=== PATIENT | female | born 1990 | race Caucasian/White ===

== ENCOUNTER 2022-10-11 08:09 | Emergency (ER) | payer OTHER, SELFPAY ==
[2022-10-11 08:16] VITALS: BP 149/83; PULSE 89; RESP 16; TEMP 36.7; O2SAT 98; BMI 58.1
--- NOTE | 2022-10-11 08:25 | ED.UPPEXIN1 ---
HPI - Extremity Injury (Upper) General Chief Complaint: Extremity Injury, Lower Stated Complaint: RT KNEE PAIN Time Seen by Provider: 10/11/22 08:12 Source: patient Mode of arrival: Wheelchair Limitations: physical limitation History of Present Illness HPI narrative: the patient presented with a right knee pain that started two days ago when she was trying to stand up and she felt a pop in her knee, she mentioned that she did had some pain before in her knee but not as much as today and she is not able to fully extend her knee because of the pain The patient denies any fall or injury other than that and she denies any other concerns Related Data Previous Rx's Medication Instructions Recorded acetaminophen 650 mg 650 mg PO Q8H PRN pain #20 tabs 10/11/22 tablet,extended release (Tylenol 8 Hour) prednisone 50 mg tablet 50 mg PO DAILY 5 days #5 tabs 10/11/22 Allergies Allergy/AdvReac Type Severity Reaction Status Date / Time No Known Drug Allergies Allergy Verified 10/11/22 08:22 Review of Systems ROS Status of ROS 10 or more systems reviewed and unremarkable except as noted in history and below PFSH PFS Social History Smoking status: Former smoker Exam Narrative Exam Narrative: Nurses notes and vital signs reviewed and patient is not hypoxic. General: Well-appearing and in no apparent distress. Skin: Warm, dry, no pallor noted. No rash. Head: Normocephalic, atraumatic. Neck: Supple, non-tender. Eye: Pupils are equal, round and EOMI. No scleral icterus. Ears, Nose, Mouth, and Throat: TM are clear, no nasal mucosal hypertrophy. Oral mucosa is moist, no posterior oropharynx erythema, uvula is mid-line Cardiovascular: Regular Rate and Rhythm without murmur, gallop or rub. Respiratory: No accessory muscle use or respiratory distress. Lungs are clear to auscultation, no wheezing, rales or rhonchi Chest Wall: no tenderness Back: No midline thoracic or lumbar vertebral tenderness. No CVA tenderness Musculoskeletal: limited extension of the right knee , no sign effusion but the pt body habitus prevent proper evalauation , no hotnes or redness and no contusion , tenderness on palpation of the upper edge of the patella and negative drawer signs GI: Abdomen is soft, non-distended. Normal bowel sounds. No masses appreciated. No tenderness to palpation. No rebound, guarding, or rigidity noted. Neurological: A&O x4. No cranial nerve dysfunction observed. No truncal ataxia. Moves all extremities. Sensation intact. Psychiatric: Cooperative and interactive. Normal mood and affect. Constitutional Vital Signs - 24 hr 10/11/22 08:16 10/11/22 10:09 Temperature 98.1 F 97.6 F Pulse Rate [Monitor] 89 85 Respiratory Rate 16 16 Blood Pressure [Right Arm] 149/83 H 154/97 H Pulse Oximetry 98 99 Oxygen Delivery Method Room Air Room Air Course Vital Signs Vital signs: Vital Signs Temperature 98.1 F 10/11/22 08:16 Pulse Rate 89 10/11/22 08:16 Respiratory Rate 16 10/11/22 08:16 Blood Pressure 149/83 H 10/11/22 08:16 Pulse Oximetry 98 10/11/22 08:16 Oxygen Delivery Method Room Air 10/11/22 08:16 Temperature 97.6 F 10/11/22 10:09 Pulse Rate 85 10/11/22 10:09 Respiratory Rate 16 10/11/22 10:09 Blood Pressure 154/97 H 10/11/22 10:09 Pulse Oximetry 99 10/11/22 10:09 Oxygen Delivery Method Room Air 10/11/22 10:09 MDM - Extremity Injury (Upper) MDM Narrative Medical decision making narrative: X-ray of the right knee shows effusion with no other acute pathology and the patient had Sergio wrap applied with crutches provided the main diagnoses right now possible meniscal or ligament injury and the patient will be referred to orthopedic and outpatient the patient provided with oral prednisone and Tylenol The patient is to followup with primary care physician in next 2-3 days or to return to the emergency department should any of the signs or symptoms worsen or new symptoms develop. The patient agrees with the following Diagnosis and Treatment plan and the patient will be discharged home. Discharge Plan Discharge Chief Complaint: Extremity Injury, Lower Clinical Impression: Injury of knee, ligament, Arthritis of knee Patient Disposition: Home, Self-Care Time of Disposition Decision: 09:46 Mode of Transportation: Private Vehicle Prescriptions / Home Meds: New prednisone 50 mg tablet 50 mg PO DAILY 5 Days Qty: 5 0RF acetaminophen [Tylenol 8 Hour] 650 mg tablet extended release 650 mg PO Q8H PRN (Reason: pain) Qty: 20 0RF Instructions: Arthritis (ED) Stand Alone Forms: Portal Instructions Follow Up Appointments: Dr Sahu ( Orthopedics ) Discharge Date/Time: 10/11/22 10:12
--- NOTE | 2022-10-11 08:31 | XR_ITS ---
The [address] [address] Patient Name: MADDIE SHIPMAN MRN: [id number] date: 1990 Sex: F Assigned Patient Location: ER Current Patient Location: ED.MAIN Accession/Order Number: [id number] Exam Date: 10/11/2022 08:40 Report Date: 10/11/2022 09:21 At the request of: ELENA NICHOLAS Procedure: XR knee RT 3V PROCEDURE: XR knee RT 3V HISTORY: pain right knee pain; no known injury COMPARISON: None. FINDINGS: BONES:Marked narrowing of the medial joint space with near [id number] articulation. Prominent periarticular degenerative osteophytes involving all 3 compartments. No fracture or dislocation. SOFT TISSUES:No visible soft tissue swelling. EFFUSION:Moderate joint effusion. OTHER: Negative. IMPRESSION: 1. Marked degenerative joint disease and moderate joint effusion. Electronically authenticated by: FRANCES OCHOA Date: 10/11/2022 09:21
[2022-10-11] MEDS: KETOROLAC TROMETHAMINE 60 MG/2 ML VIAL IM (08:49)
[2022-10-11 10:09] VITALS: BP 154/97; PULSE 85; RESP 16; TEMP 36.4; O2SAT 99
== END 2022-10-11 10:12 | disposition home or self-care (01) ==
PROVIDERS: Emergency Provider Emergency Medicine; PCP Family Medicine
DX: S89.81XA Other specified injuries of right lower leg, initial encounter (principal); M17.11 Unilateral primary osteoarthritis, right knee; X50.9XXA Other and unspecified overexertion or strenuous movements or postures, initial encounter; Z87.891 Personal history of nicotine dependence
CPT/HCPCS: 73562; 96374; 99284

== ENCOUNTER 2022-10-27 13:17 | Outpatient (RCR) | payer OTHER, SELFPAY | END 2022-12-02 13:23 | disposition home or self-care (01) | LOC: PT 13:17 | PROVIDERS: PCP Family Medicine; Visit Provider Family Medicine | DX: M25.561 Pain in right knee (principal) | CPT/HCPCS: 97110; 97113; 97161; 97535 ==

== ENCOUNTER 2023-05-09 07:49 | Emergency (ER) | payer OTHER, SELFPAY ==
[2023-05-09 07:56] VITALS: BP 168/104; PULSE 88; RESP 18; TEMP 36.9; O2SAT 98; BMI 54.9
--- NOTE | 2023-05-09 07:58 | XR_ITS ---
The [address] [address] Patient Name: MADDIE SHIPMAN MRN: [id number] date: 1990 Sex: F Assigned Patient Location: ER Current Patient Location: ER Accession/Order Number: [id number] Exam Date: 05/09/2023 08:11 Report Date: 05/09/2023 08:28 At the request of: DANIEL IRVING Procedure: XR knee LT 4V PROCEDURE: XR knee LT 4V COMPARISON: None. HISTORY: pain FINDINGS: BONES:No acute fracture or dislocation. Moderate osteoarthropathy of the lateral compartment with joint space narrowing and marginal osteophyte formation SOFT TISSUES:Negative. No visible soft tissue swelling. EFFUSION:None visible. OTHER: Negative. XR/XR knee LT 4V IMPRESSION: Moderate osteoarthritis lateral compartment Electronically authenticated by: MARY ANN MEJIA Date: 05/09/2023 08:28
--- NOTE | 2023-05-09 08:08 | ED.EXTPRO1 ---
HPI - Extremity Problem General Chief complaint: Extremity Injury, Lower Stated complaint: LOWER EXTREMITY PAIN Time Seen by Provider: 05/09/23 08:02 Source: patient Mode of arrival: walk-in History of Present Illness HPI Narrative: 33-year-old female presents for left knee pain. She had no symptoms yesterday but when she woke up today she noticed pain particularly when she steps on her foot. The pain is in the knee only. She points to the inferior and lateral aspect of her knee. She's had problems with arthritis in the right knee and had physical therapy and aquatic therapy. No other joint is hurting today. The pain is moderate. Related Data Home Medications Medication Instructions Recorded Confirmed celecoxib 200 mg capsule 200 mg PO PRN 05/09/23 05/09/23 Allergies Allergy/AdvReac Type Severity Reaction Status Date / Time No Known Drug Allergies Allergy Verified 10/11/22 08:22 Review of Systems ROS Narrative A ten point review of systems is negative except as noted above. PFSH PFSH Social History Smoking status: Former smoker Exam Narrative Exam Narrative: Nurses note and vital signs reviewed and patient is not hypoxic. General: The patient appears well and in no apparent distress. Patient is resting comfortably on cart. Skin: Warm, dry, no pallor noted. There is no rash noted. Head: Normocephalic, atraumatic Eye: Normal conjunctiva, no drainage Ears, Nose, Mouth, and Throat: oral mucosa is moist. Nares patent. Cardiovascular: Regular Rate and Rhythm Respiratory: Patient is in no distress, no accessory muscle use, lungs are clear to auscultation, no wheezing, rales or rhonchi GI: nontender Musculoskeletal: the left ankle and hip are nontender. The left knee is not swollen. There is no bruise or erythema. There is some tenderness to palpation inferiorly and laterally. The knee is not warm to touch. Neurological: A&O, normal speech Psychiatric: Cooperative Constitutional Vital Signs, click to edit/add: Last Vital Signs Temp 98.5 F 05/09/23 07:56 Pulse 88 05/09/23 07:56 Resp 18 05/09/23 07:56 BP 168/104 H 05/09/23 07:56 Pulse Ox 98 05/09/23 07:56 O2 Del Method Room Air 05/09/23 07:56 Course Vital Signs Vital signs: Vital Signs Temperature 98.5 F 05/09/23 07:56 Pulse Rate 88 05/09/23 07:56 Respiratory Rate 18 05/09/23 07:56 Blood Pressure 168/104 H 05/09/23 07:56 Pulse Oximetry 98 05/09/23 07:56 Oxygen Delivery Method Room Air 05/09/23 07:56 Temperature 98.5 F 05/09/23 07:56 Pulse Rate 88 05/09/23 07:56 Respiratory Rate 18 05/09/23 07:56 Blood Pressure 168/104 H 05/09/23 07:56 Pulse Oximetry 98 05/09/23 07:56 Oxygen Delivery Method Room Air 05/09/23 07:56 MDM - Extremity (Nontraumatic) MDM Narrative Medical decision making narrative: x-ray findings are discussed with the patient. She's seen an orthopedist previously and will follow-up with him. Differential Diagnosis Differential diagnosis: Likely gout and other (osteoarthritis, knee effusion) Imaging Data left knee x-ray: Radiologist's impression: Procedure: XR knee LT 4V PROCEDURE: XR knee LT 4V COMPARISON: None. HISTORY: pain FINDINGS: BONES:No acute fracture or dislocation. Moderate osteoarthropathy of the lateral compartment with joint space narrowing and marginal osteophyte formation SOFT TISSUES:Negative. No visible soft tissue swelling. EFFUSION:None visible. OTHER: Negative. IMPRESSION: Moderate osteoarthritis lateral compartment Electronically authenticated by: MARY ANN MEJIA Date: 05/09/2023 Discharge Plan Discharge Chief Complaint: Extremity Injury, Lower Clinical Impression: Arthritis of knee Patient Disposition: Home, Self-Care Time of Disposition Decision: 08:35 Condition: Good Mode of Transportation: Private Vehicle Prescriptions / Home Meds: No Action celecoxib 200 mg capsule 200 mg PO PRN Instructions: Osteoarthritis (ED) Stand Alone Forms: Portal Instructions Referrals: Ananth Roy MD [Primary Care Provider] - 1 week
== END 2023-05-09 08:45 | disposition home or self-care (01) ==
PROVIDERS: Emergency Provider Emergency Medicine; PCP Family Medicine
DX: M17.12 Unilateral primary osteoarthritis, left knee (principal); Z79.899 Other long term (current) drug therapy; Z87.891 Personal history of nicotine dependence
CPT/HCPCS: 73564; 99283

== ENCOUNTER 2024-02-22 11:30 | Emergency (ER) | payer OTHER, SELFPAY ==
[2024-02-22 11:38] VITALS: BP 159/90; PULSE 85; TEMP 36.6; O2SAT 98; BMI 54.9
--- OUTSIDE RECORDS SUMMARY | 2024-02-22 11:39 | XMS_ITS | CCD ---
Author Organization [facility] Team Providers Care Christmas Tree Grower Name Role Phone RONA NAIK Admitting Unavailable RONA NAIK Attending Unavailable NADERER, DR ANANTH Andujar Primary Care Unavailable RONA NAIK Consulting Unavailable NADERER, DR ANANTH Andujar Admitting Unavailable NADERER, DR ANANTH Andujar Attending Unavailable NADERER, DR ANANTH Andujar Primary Care Unavailable NADERER, DR ANANTH Andujar Consulting Unavailable NADERER, ANANTH Attending Unavailable Ananth Brunner MD Primary Care Provider SILVIA RINCON Attending Unavailable KANNAN, ANANTH Referring Unavailable NADERECharles, ANANTH Primary Care Unavailable MCKENZIE, SILVIA Attending Unavailable KANNAN, ANANTH Referring Unavailable NADERECharles, ANANTH Primary Care Unavailable MCKENZIE, SILVIA Attending Unavailable KANNAN, ANANTH Referring Unavailable KELLIEERECharles, ANANTH Primary Care Unavailable MCKENZIE, SILVIA Attending Unavailable KANNAN, ANANTH Referring Unavailable KANNAN, ANANTH Primary Care Unavailable MCKENZIE, SILVIA Attending Unavailable NADERECharles, ANANTH Referring Unavailable NADERECharles, ANANTH Primary Care Unavailable Teagan Kwan Attending Unavailable Medications Current Medications Medication Drug Class(es) Dates Sig (Normalized) Sig (Original) cefdinir 300 mg oral capsule (2 sources) Cephalosporin Antibacterial Start: 06-08-2023 End: 06-18-2023 take 1 capsule by mouth in the morning cefdinir (Omnicef) 300 MG capsule Indications: Acute non-recurrent pansinusitis Take 1 capsule (300 mg) by mouth in the morning and 1 capsule (300 mg) before bedtime. Do all this for 10 days. 20 capsule 0 06/08/2023 06/18/2023 Active celecoxib 200 mg oral capsule (2 sources) Nonsteroidal Anti-inflammatory Drug Start: 06-06-2023 take 1 capsule by mouth twice daily as needed for pain celecoxib (CeleBREX) 200 MG capsule Indications: Bilateral primary osteoarthritis of knee Take 1 capsule (200 mg) by mouth 2 (two) times a day as needed for mild pain 60 capsule 3 06/06/2023 Active ciprofloxacin 3 mg/ml ophthalmic solution (2 sources) Quinolone Antimicrobial Start: 06-08-2023 End: 06-15-2023 take 2 drop(s) into the eye(s) every four hours ciprofloxacin (Ciloxan) 0.3 % ophthalmic solution Indications: Acute bacterial conjunctivitis of both eyes Administer 2 drops into both eyes every 4 (four) hours for 7 days 5 mL 0 06/08/2023 06/15/2023 Active predniSONE 50 mg oral tablet (2 sources) Start: 06-08-2023 End: 06-14-2023 take 1 tablet by mouth in the morning predniSONE (Deltasone) 50 MG tablet Indications: Acute non-recurrent pansinusitis Take 1 tablet (50 mg) by mouth in the morning for 6 days. 6 tablet 0 06/08/2023 06/14/2023 Active Problems Active Problems Problem Classification Problem Date Documented Date Episodic/Chronic Essential hypertension (2 sources) Benign essential hypertension; Translations: [Essential (primary) hypertension] Onset: 04-21-2023 04-21-2023 Chronic Inflammation; infection of eye (except that caused by tuberculosis or sexually transmitteddisease) (4 sources) Acute infectious conjunctivitis; Translations: [Unspecified acute conjunctivitis, bilateral] Onset: 06-08-2023 06-08-2023 Episodic Nutritional deficiencies (2 sources) Vitamin D deficiency; Translations: [Vitamin D deficiency, unspecified] Onset: 04-21-2023 04-21-2023 Chronic Osteoarthritis (2 sources) Primary gonarthrosis, bilateral; Translations: [Bilateral primary osteoarthritis of knee] Onset: 04-21-2023 06-06-2023 Chronic Other endocrine disorders (2 sources) Polycystic ovary syndrome; Translations: [Polycystic ovarian syndrome] Onset: 04-21-2023 04-21-2023 Chronic Other nutritional; endocrine; and metabolic disorders (4 sources) Morbid obesity; Translations: [Morbid (severe) obesity due to excess calories] Onset: 06-08-2023 06-08-2023 Chronic Other screening for suspected conditions (not mental disorders or infectious disease) (4 sources) Encounter for screening for malignant neoplasm of cervix; Translations: [ENC SCREENING MALIG NEOPLASM CERV] Onset: 06-09-2022 Episodic Other upper respiratory infections (5 sources) Acute upper respiratory infection, unspecified; Translations: [Acute pansinusitis] Onset: 04-11-2022 06-08-2023 Episodic Unclassified (3 sources) CONTACT W/AND (SUSP) EXPOS COVID-19; Translations: [CONTACT W/AND (SUSP) EXPOS COVID-19] Onset: 04-11-2022 Past or Other Problems Problem Classification Problem Date Documented Da te Episodic/Chronic Unclassified (1 source) CONTACT W/AND (SUSP) EXPOS COVID-19; Translations: [CONTACT W/AND (SUSP) EXPOS COVID-19] Onset: 04-07-2022 Results Test Name Value Interpretation Reference Range Facility PAP ACOG PANEL 2: 30 to 65on 06-17-2022 . . Normal [facility] Comment on above: Result Comment: Perf ormed at: WB Performed By: #### [id number] #### [facility] [address] [place] [address] Dr. New Arzate Age Gdln ACOG Testing 30-65 Normal [facility] Comment on above: Performed By: #### [id number] #### [facility] [address] [place] [address] Dr. [place] Arzate DIAGNOSIS: Comment Normal [facility] Comment on above: Result Comment: NEGA TIVE FOR INTRAEPITHELIAL LESION OR MALIGNANCY. THIS SPECIMEN WAS RESCREENED PART OF OUR PROGRAM DIRECTOR/TRAFFIC DIRECTOR PROGRAM. Performed at: WB Performed By: #### [id number] #### [facility] [address] [place] [address] Dr. New Arzate HPV Aptima Negative Normal Negative [facility] Comment on above: Result Comment: This nucleic acid amplification test detects fourteen high-risk HPV types (16,18,31,33,35,39,45,51,52,56,58,59,66,68) without differentiation. Performed at: =G Performed By: #### [id number] #### [facility] [address] [place] [address] Dr. New Arzate HPV Genotype Reflex Comment Normal [facility] Comment on above: Result Comment: Crit eria not met, HPV Genotype not performed. Performed at: WB Performed By: #### [id number] #### [facility] [address] [place] [address] Dr. New Arzate Methodology: Comment Normal [facility] Comment on above: Result Comment: This liquid based ThinPrep(R) pap test was screened with the use of an image guided system. Performed at: WB Performed By: #### [id number] #### [facility] [address] [place] [address] Dr. New Arzate Note: Comment Normal [facility] Comment on above: Result Comment: The Pap smear is a screening test designed to aid in the detection of premalignant and malignant conditions of the uterine cervix. It is not a diagnostic procedure and should not be used as the sole means of detecting cervical cancer. Both false-positive and false-negative reports do occur. . Performed at: WB Performed By: #### [id number] #### [facility] [address] [place] [address] Dr. New Arzate Performed by: Comment Normal [facility] Comment on above: Result Comment: Jerrod Gayle, Supervisory Service Support Representative (ASCP) Performed at: WB Performed By: #### [id number] #### [facility] [address] [place] [address] Dr. New Arzate QC reviewed by: Comment Normal [facility] Comment on above: Result Comment: Ally Jesus, Supervisory Service Support Representative (ASCP) Performed at: WB Performed By: #### [id number] #### [facility] [address] [place] [address] Dr. New Arzate Specimen adequacy: Comment Normal [facility] Comment on above: Result Comment: Sati sfactory for evaluation. Endocervical and/or squamous metaplastic cells (endocervical component) are present. Performed at: WB Performed By: #### [id number] #### [facility] [address] [place] [address] Dr. New Arzate RESPIRATORY PANEL PLUSon Adenovirus Not detected Normal NOT DETECTED [facility] Comment on above: Performed By: #### R SPLUS #### [facility] [address] [place] [address] Dr. [place] Parapertusis Not detected Normal NOT DETECTED [facility] Comment on above: Performed By: #### R SPLUS #### [facility] [address] [place] [address] Dr. [place] Pertussis Not detected Normal NOT DETECTED [facility] Comment on above: Performed By: #### R SPLUS #### [facility] [address] [place] [address] Dr. [place] Ar[place]ate Chlamydia Pneumoniae Not detected Normal NOT DETECTED [facility] Comment on above: Performed By: #### R SPLUS #### [facility] [address] [place] [address] Dr. [place] Ar[place]ate Coronavirus 229E Not detected Normal NOT DETECTED [facility] Comment on above: Performed By: #### R SPLUS #### [facility] [address] [place] [address] Dr. [place] Ar[place] Coronavirus HKU1 Not detected Normal NOT DETECTED [facility] Comment on above: Performed By: #### R SPLUS #### [facility] [address] [place] [address] Dr. [place] Ar[place]ate Coronavirus NL63 Not detected Normal NOT DETECTED [facility] Comment on above: Performed By: #### R SPLUS #### [facility] [address] [place] [address] Dr. [place] Ar[place] Coronavirus OC43 Not detected Normal NOT DETECTED [facility] Comment on above: Performed By: #### R SPLUS #### [facility] [address] [place] [address] Dr. [place] Arzate Influenza A H1 2009 Not detected Normal NOT DETECTED [facility] Comment on above: Performed By: #### R SPLUS #### [facility] [address] [place] [address] Dr. [place] Ar[place]ate Influenza A H3 Detected Abnormal NOT DETECTED [facility] Comment on above: Performed By: #### R SPLUS #### [facility] [address] [place] [address] Dr. [place] Ar[place]ate Influenza B Not detected Normal NOT DETECTED [facility] Comment on above: Performed By: #### R SPLUS #### [facility] [address] [place] [address] Dr. [place] Ar[place] Metapneumovirus Not detected Normal NOT DETECTED [facility] Comment on above: Performed By: #### R SPLUS #### [facility] [address] [place] [address] Dr. [place] Ar[place] Mycoplas. Pneumoniae Not detected Normal NOT DETECTED [facility] Comment on above: Performed By: #### R SPLUS #### [facility] [address] [place] [address] Dr. [place] Ar[place] Parainfluenza 1 Not detected Normal NOT DETECTED [facility] Comment on above: Performed By: #### R SPLUS #### [facility] [address] [place] [address] Dr. [place] Parainfluenza 2 Not detected Normal NOT DETECTED [facility] Comment on above: Performed By: #### R SPLUS #### [facility] [address] [place] [address] Dr. [place] Parainfluenza 3 Not detected Normal NOT DETECTED [facility] Comment on above: Performed By: #### R SPLUS #### [facility] [address] [place] [address] Dr. [place] Parainfluenza 4 Not detected Normal NOT DETECTED [facility] Comment on above: Performed By: #### R SPLUS #### [facility] [address] [place] [address] Dr. [place] Ar[place] Rhino/Enterovirus Not detected Normal NOT DETECTED [facility] Comment on above: Performed By: #### R SPLUS #### [facility] [address] [place] [address] Dr. [place] Arzate RP2 Header 1 RESPIRATORY PANEL: VIRUSES Normal [facility] Comment on above: Performed By: #### R SPLUS #### [facility] [address] [address] [address] New Arzate RP2 Header 2 RESPIRATORY PANEL: BACTERIA Normal [facility] Comment on above: Performed By: #### R SPLUS #### [facility] [address] [place] [address] Dr. [place] Arzate RSV Not detected Normal NOT DETECTED [facility] Comment on above: Performed By: #### R SPLUS #### [facility] [address] [address] [address] New Arzate SARS-CoV-2 (COVID-19) RNA ANGEL+probe Ql (Unsp spec) Not detected Normal NOT DETECTED [facility] Comment on above: Performed By: #### R SPLUS #### [facility] [address] [place] [address] Dr. [place] Arzate Vital Signs Date Time Vital Sign Value Performing Clinician Faci lity 06-08-2023 11:50-0500 Body height 167.6 cm Ananth Brunner MD Work Phone: [facility] 06-08-2023 11:50-0500 Body mass index (BMI) [Ratio] 53.91 kg/m2 Ananth Brunner MD Work Phone: [facility] 06-08-2023 11:50-0500 Body temperature 97.5 [degF] Ananth Brunner MD Work Phone: [facility] 06-08-2023 11:50-0500 Body weight 151.5 kg Ananth Brunner MD Work Phone: [facility] 06-08-2023 11:50-0500 Diastolic blood pressure 70 mm[Hg] Ananth Brunner MD Work Phone: [facility] 06-08-2023 11:50-0500 Heart rate 94 /min Ananth Brunner MD Work Phone: [facility] 06-08-2023 11:50-0500 SaO2% (BldA) [Mass fraction] 97 % Ananth Brunner MD Work Phone: [facility] 06-08-2023 11:50-0500 Systolic blood pressure 120 mm[Hg] Ananth Brunner MD Work Phone: [facility] Encounters Encounter Date Encounter Type Care Provider Facility Start: 03-14-2024 ambulatory Teagan Kwan Facility :[facility] Start: 10-13-2023 End: 10-13-2023 ambulatory [facility] Start: 09-29-2023 End: 09-29-2023 ambulatory [facility] Start: 09-08-2023 End: 09-08-2023 ambulatory [facility] Start: 07-28-2023 End: 07-28-2023 ambulatory [facility] Start: 06-30-2023 End: 06-30-2023 ambulatory [facility] Start: 06-08-2023 End: 06-08-2023 ambulatory ANANTH BRUNNER Not Available Start: 06-08-2023 End: 06-08-2023 Office outpatient visit 15 minutes Ananth Brunner MD Work Phone: [facility] Comment on above: Acute non-recurrent pansinusitis (Primary Dx); Acute bacterial conjunctivitis of both eyes; Morbid obesity due to excess calories ([facility]) Start: 06-09-2022 End: 06-09-2022 ambulatory RONA ROE . Facility: Start: 04-07-2022 End: 04-07-[address] ANANTH BRUNNER Facility: Plan of Treatment Date Care Activity Detail Author Start: 12-30-2022 Influenza vaccination Influenza Vacc ine (#1) [facility] Start: 2020 Screening for malign ant neoplasm of cervix [facility] Start: 2011 Screening for malign ant neoplasm of cervix Pap Smear [facility] Immunizations Immunization Date Immunization Notes Care Provider Aj davies 03-14-2021 influenza virus vacc ine, unspecified formulation Ananth Brunner MD Work Phone: [facility] Healthcare Payers Date Payer Category Payer Unknown [employer] [id number] 2022-Present [address] [place] [address] [id number] 2022 Medicaid 2002 Medicaid [id number] 1990 Unknown [id number] 1990 Unknown [id number] 1990 Unknown [id number] 1990 Unknown [id number] 1990 Unknown [id number] 1990 Unknown [id number] 1990 Unknown [id number] 1990 Unknown [id number] 1959 Unknown [id number] 1959 Unknown [id number] Social History Date Type Detail Facility Start: 05-04-2023 Tobacco smoking status WIIS Ex-smoke r [facility] History of tobacco use Current smoker [facility] History of tobacco use Cigarette Smoker [facility] Start: 05-04-2023 Tobacco use and exposure Smoke less tobacco non-user [facility] Start: 06-08-2023 Alcohol intake Lifetime non-d aidan (finding) [facility] Start: 11-28-2022 End: 04-14-2023 [facility] of Social [facility] Start: 11-28-2022 End: 04-14-2023 Humiliation, Afraid, Rape, and Kick questionnaire [HARK] [facility] Within the last year , have you been afraid of your partner or ex-partner? No [facility] Are you now , , , , never or living with a partner? [facility] How often to you hav e a drink containing alcohol? Monthly or less [facility] How many standard dr inks containing alcohol do you have on a typical day? 1 or 2 [facility] How often do you hav e 6 or more drinks on 1 occasion? Never [facility] How hard is it for y ou to pay for the very basics like food, housing, medical care, and heating Somewhat hard [facility] Do you feel stress - tense, restless, nervous, or anxious, or unable to sleep at night because your mind is troubled all the time - these days [OSQ] Only a little [facility] (I/We) worried rissa er (my/our) food would run out before (I/we) got money to buy more. Sometimes true [facility] In the past 12 month s, has lack of transportation kept you from medical appointments or from getting medications? No [facility] At any time in the p ast 12 months, were you homeless or living in assisted [including now]? Yes [facility] Start: 05-04-2023 Tobacco Comment Last smoked : 5-10 years [facility] Start: 11-04-2022 Alcohol Comment Caffine intake : 1-2 cups per day [facility] Start: 1990 Sex Assigned At Not on file [facility] History of Present illness Narrative 06-08-2023 Ananth Brunner MD - 06/08/2023 12:01 PM Lit Brunner MD - 06/08/2023 12:01 PM Lit Brunner MD - 06/08/2023 11:45 AM Lit Brunner MD - 06/08/2023 11:45 AM EST Note Date & Type Note Facility 06-08-2023 History of Presen t illness Narrative Associated Problem(s): Acute non-recurrent pansinusitis Take antibiotics BID for 10 days. Use prednisone for inflammation. Use sudafed or other decongestants as needed. Use Robitussin or Robitussin-DM for cough. Can use afrin for congestion but no longer than 3 days. Can use Mucinex to bring up phlegm. Use Motrin or Tylenol as needed for fever, aches, or pains. Increase fluid intake and rest. Should improve over next 5-7 days and if no better or worse call for re-evaluation. Associated Problem(s): Acute bacterial conjunctivitis of both eyes Exam shows conjunctivitis and treat with drops x 7 days. Use warm compresses PRN. Avoid touching eye and wash hands frequently to prevent spread of illness. Subjective Patient ID: Emelyn Peralta is a 33 y.o. female who presents for Eye Drainage and Cough. HPI Review of Systems Objective Physical Exam Assessment/Plan Subjective Patient ID: Emelyn Peralta is a 33 y.o. female who presents for Eye Drainage and Cough. C/o cough, congestion, and rhinorrhea x 1 week. Afebrile. Severe fatigue and no energy. Mild cough dry and nonproductive. Denies chest tightness or SOB. GEORGE and sinus pressure in forehead and cheeks along with postnasal drip. Ears plugged and popping. Sore throat and pain to swallow. Mild nausea. Multiple kids sick at work. Using OTC medication and mild relief. No improvement in symptoms since onset. Woke up this am and eye red, puffy, and matted shut. Cough Pertinent negatives include no chest pain, shortness of breath or wheezing. Review of Systems Respiratory: Positive for cough. Negative for shortness of breath and wheezing. Cardiovascular: Negative for chest pain and palpitations. Gastrointestinal: Negative for abdominal pain, diarrhea, nausea and vomiting. Genitourinary: Negative for dysuria. Objective Physical Exam Constitutional: General: She is not in acute distress. Appearance: Normal appearance. HENT: Head: Normocephalic. Right Ear: Tympanic membrane normal. Left Ear: Tympanic membrane normal. Eyes: Extraocular Movements: Extraocular movements intact. Pupils: Pupils are equal, round, and reactive to light. Cardiovascular: Rate and Rhythm: Normal rate and regular rhythm. Heart sounds: No murmur heard. No friction rub. No gallop. Pulmonary: Effort: Pulmonary effort is normal. Breath sounds: Normal breath sounds. No wheezing, rhonchi or rales. Abdominal: General: Bowel sounds are normal. There is no distension. Palpations: Abdomen is soft. Tenderness: There is no abdominal tenderness. There is no guarding or rebound. Musculoskeletal: Cervical back: Neck supple. Right lower leg: No edema. Left lower leg: No edema. Neurological: Mental Status: She is alert. Assessment/Plan Problem List Items Addressed This Visit Acute non-recurrent pansinusitis - Primary Take antibiotics BID for 10 days. Use prednisone for inflammation. Use sudafed or other decongestants as needed. Use Robitussin or Robitussin-DM for cough. Can use afrin for congestion but no longer than 3 days. Can use Mucinex to bring up phlegm. Use Motrin or Tylenol as needed for fever, aches, or pains. Increase fluid intake and rest. Should improve over next 5-7 days and if no better or worse call for re-evaluation. Relevant Medications cefdinir (Omnicef) 300 MG capsule predniSONE (Deltasone) 50 MG tablet Acute bacterial conjunctivitis of both eyes Exam shows conjunctivitis and treat with drops x 7 days. Use warm compresses PRN. Avoid touching eye and wash hands frequently to prevent spread of illness. Relevant Medications ciprofloxacin (Ciloxan) 0.3 % ophthalmic solution documented in this encounter [facility] Evaluation note Note Date & Type Note Facility Evaluation note Diagnosis Acute non-recurrent pansinusitis- Primary Acute bacterial conjunctivitis of both eyes Morbid obesity due to excess calories ([facility]) documented in this encounter [facility] Summary Purpose Family History No Family History Records FoundNo Family History Records FoundNo Family History Records FoundNo Family History Records Found Advance Directives No Advanced Directives Records FoundNo Advanced Directives Records FoundNo Advanced Directives Records FoundNo Advanced Directives Records Found Additional Source Comments INFORMATION SOURCE (unrecogn ized section and content) DATE CREATED AUTHOR 07/14/2022 [facility] DATE CREATED AUTHOR AUTHOR'S ORGANIZ ATION 06/09/2023 [facility] DATE CREATED AUTHOR AUTHOR'S ORGANIZ ATION 10/15/2023 [facility] DATE CREATED AUTHOR AUTHOR'S ORGANIZ ATION 02/17/2024 [facility] Reason for Visit (unrecogniz ed section and content) Reason Comments Eye Drainage Cough Care Teams (unrecognized sec tion and content) [employer] Relationship Specialty Start Date End Date Ananth Brunner MD [address] [place] [address] PCP - General Family Medicine 06/08/23 FOR RECORDS PERTAINING TO PATIENTS WHO ARE OR HAVE BEEN ENROLLED IN A CHEMICAL DEPENDENCY/SUBSTANCEABUSE PROGRAM, SOME INFORMATION MAY BE OMITTED. This clinical summary was aggregated from multiple sources. Caution should be exercised in using it in the provision of clinical care. This summary normalizes information from multiple sources, and as a consequence, information in this document may materially change the coding, format and clinical context of patient data. In addition, data may be omitted in some cases. CLINICAL DECISIONS SHOULD BE BASED ON THE PRIMARY CLINICAL RECORDS. [employer] [facility]. provides no warranty or guarantee of the accuracy or completeness of information in this document.
[2024-02-22] MEDS: METHYLPREDNISOLONE SOD SUCC PF 125 MG/2 ML VIAL IM (12:30)
--- NOTE | 2024-02-22 12:30 | ED.BACK1 ---
HPI HPI - Back Pain/Injury General Chief Complaint: Back Pain/Injury Stated Complaint: BACK PAIN Time Seen by Provider: 02/22/24 11:45 Source: patient, family and caregiver Mode of arrival: Wheelchair Limitations: no limitations History of Present Illness HPI Narrative: The patient is coming to the ER with a back pain radiating to both hips, the patient mentioned that she woke up this morning with this pain although she did have some physical work yesterday which was grabbing few objects that she thinks they were heavy The patient denies any numbness tingling down her legs She also denies any numbness or tingling in her buttock area The patient denies any weakness She did not take anything [id number] Related Data Home Medications ?Medication ?Instructions ?Recorded ?Confirmed celecoxib 200 mg capsule 200 mg PO PRN 05/09/23 02/22/24 Previous Rx's ?Medication ?Instructions ?Recorded diclofenac sodium 75 mg 75 mg PO BID PRN pain #20 tabs 02/22/24 tablet,delayed release famotidine 20 mg tablet (Pepcid) 20 mg PO BID #10 tabs 02/22/24 orphenadrine citrate 100 mg 100 mg PO BID PRN muscle spasm #14 02/22/24 tablet,extended release tabs prednisone 50 mg tablet 50 mg PO DAILY 3 days #3 tabs 02/22/24 Allergies Allergy/AdvReac Type Severity Reaction Status Date / Time No Known Drug Allergies Allergy Verified 10/11/22 08:22 Opioid HPI Opioid Management Most Recent Opioid Data: Last Pain Scale 6 05/09/23 07:59 05/09/23 Review of Systems ROS Status of ROS 10 or more systems reviewed and unremarkable except as noted in history and below PFSH PFS Social History Smoking status: Former smoker Little interest or pleasure in doing things: not at all Feeling down, depressed, or hopeless: not at all Exam Narrative Exam Narrative: Nurses notes and vital signs reviewed and patient is not hypoxic. General: Well-appearing and in no apparent distress. Skin: Warm, dry, no pallor noted. No rash. Head: Normocephalic, atraumatic. Neck: Supple, non-tender. Eye: Pupils are equal, round and EOMI. No scleral icterus. Ears, Nose, Mouth, and Throat: TM are clear, no nasal mucosal hypertrophy. Oral mucosa is moist, no posterior oropharynx erythema, uvula is mid-line Cardiovascular: Regular Rate and Rhythm without murmur, gallop or rub. Respiratory: No accessory muscle use or respiratory distress. Lungs are clear to auscultation, no wheezing, rales or rhonchi Chest Wall: no tenderness Back: No midline thoracic or lumbar vertebral tenderness the patient only have right paraspinal muscle tenderness no intervertebral line tenderness in the lumbar upper level Musculoskeletal: normal ROM, no calf or popliteal tenderness, no lower extremity edema/swelling GI: Abdomen is soft, non-distended. Normal bowel sounds. No masses appreciated. No tenderness to palpation. No rebound, guarding, or rigidity noted. Neurological: A&O x4. No cranial nerve dysfunction observed. No truncal ataxia. Moves all extremities. Sensation intact. Psychiatric: Cooperative and interactive. Normal mood and affect. Constitutional Vital Signs, click to edit/add: Last Vital Signs Temp 98 F 02/22/24 11:38 Pulse 85 02/22/24 11:38 Resp 18 02/22/24 11:38 BP 159/90 H 02/22/24 11:38 Pulse Ox 98 02/22/24 11:38 O2 Del Method Room Air 02/22/24 11:38 Course Vital Signs Vital signs: Vital Signs Temperature 98 F 02/22/24 11:38 Pulse Rate 85 02/22/24 11:38 Respiratory Rate 18 02/22/24 11:38 Blood Pressure 159/90 H 02/22/24 11:38 Pulse Oximetry 98 02/22/24 11:38 Oxygen Delivery Method Room Air 02/22/24 11:38 Temperature 98 F 02/22/24 11:38 Pulse Rate 85 02/22/24 11:38 Respiratory Rate 18 02/22/24 11:38 Blood Pressure 159/90 H 02/22/24 11:38 Pulse Oximetry 98 02/22/24 11:38 Oxygen Delivery Method Room Air 02/22/24 11:38 MDM - Back Pain/Injury MDM Narrative Medical decision making narrative: The patient urinalysis showed no acute pathology and no UTI her presentation mostly secondary to muscular pain With no alarming symptoms she was provided with Toradol and Norflex after which she was feeling much better Discharged home with prednisone Norflex and Voltaren With instruction to come back in case of any new symptoms The patient is to follow up with primary care physician in next 2-3 days or to return to the emergency department should any of the signs or symptoms worsen or new symptoms develop. The patient agrees with the following Diagnosis and Treatment plan and the patient will be discharged home. Lab Data Labs: Lab Results 02/22/24 Range/Units 12:47 Urine Color Lt. yellow (YELLOW) Urine Clarity Clear (CLEAR) Urine pH 6.0 (5.0-9.0) Ur Specific [place] 1.015 (1.005-1.025) Urine Protein Negative (NEG/TRACE) mg/dL Urine Glucose (UA) Negative (NEGATIVE) mg/dL Urine Ketones Negative (NEGATIVE) mg/dL Urine Occult Blood Negative (NEGATIVE) Urine Nitrite Negative (NEGATIVE) Urine Bilirubin Negative (NEGATIVE) Urine Urobilinogen 0.2 (0.2-1.0) EU/dL Ur Leukocyte Esterase Trace A (NEGATIVE) Urine RBC 0-2 (0-2) #/HPF Urine WBC 2-5 A (NONE SEEN) #/HPF Ur Squamous Epith Cells Few A (NONE/RARE) #/LPF Urine Crystals None seen (None Seen) #/HPF Urine Bacteria Trace A (NONE SEEN) #/HPF Urine Casts None seen (NONE SEEN) #/LPF Urine Mucus None seen (NONE SEEN) Ur Culture Indicated? No Discharge Plan Discharge Chief Complaint: Back Pain/Injury Clinical Impression: Back sprain Patient Disposition: Home, Self-Care Time of Disposition Decision: 12:30 Condition: Good Mode of Transportation: Private Vehicle Prescriptions / Home Meds: New orphenadrine citrate 100 mg tablet extended release 100 mg PO BID PRN (Reason: muscle spasm) Qty: 14 0RF diclofenac sodium 75 mg tablet,delayed release (DR/EC) 75 mg PO BID PRN (Reason: pain ) Qty: 20 0RF famotidine [Pepcid] 20 mg tablet 20 mg PO BID Qty: 10 0RF prednisone 50 mg tablet 50 mg PO DAILY 3 Days Qty: 3 0RF No Action celecoxib 200 mg capsule 200 mg PO PRN Print Language: Cuban Instructions: Back Pain (ED) Referrals: Ananth Roy MD [Primary Care Provider] - 1 week Discharge Date/Time: 02/22/24 13:09
[2024-02-22] MEDS: KETOROLAC TROMETHAMINE 60 MG/2 ML VIAL IM (12:31)
[2024-02-22] MEDS: ORPHENADRINE 60 MG/ 2 ML VIAL IM (12:31)
[2024-02-22 12:57] LABS: Bilirubin Urine NEGATIVE (NEGATIVE); Blood Urine NEGATIVE (NEGATIVE); Clarity Urine CLEAR (CLEAR); Color Urine LT. YELLOW (YELLOW); Glucose Urine UA NEGATIVE (NEGATIVE); Ketones Urine NEGATIVE (NEGATIVE); Leukocyte Esterase Urine TRACE (NEGATIVE); Nitrite Urine NEGATIVE (NEGATIVE); Protein Urine NEGATIVE (NEG/TRACE); Specific Gravity Urine 1.015 (1.005-1.025); Urobilinogen Urine 0.2 EU/dL (0.2-1.0)
[2024-02-22 13:08] LABS: Urine Microscopic Indicated YES
[2024-02-22 13:09] LABS: Bacteria Urine TRACE #/HPF (NONE SEEN); Cast Seen? NONE SEEN #/LPF (NONE SEEN); Crystals Seen? None Seen #/HPF (None Seen); Mucus Urine NONE SEEN (NONE SEEN); RBC Urine 0-2 #/HPF (0-2); Squamous Epithelial Cell Urine FEW #/LPF (NONE/RARE); Urine Culture Indicated NO
== END 2024-02-22 13:09 | disposition home or self-care (01) ==
PROVIDERS: Emergency Provider Emergency Medicine; PCP Family Medicine
DX: S33.8XXA Sprain of other parts of lumbar spine and pelvis, initial encounter (principal); X50.0XXA Overexertion from strenuous movement or load, initial encounter; Z87.891 Personal history of nicotine dependence
CPT/HCPCS: 81001; 96372; 99284; J1885; J2360; J2919

== ENCOUNTER 2024-05-24 10:23 | Outpatient (OUT) | payer OTHER, SELFPAY ==
--- OUTSIDE RECORDS SUMMARY | 2024-05-24 10:46 | XMS_ITS | CCD ---
Author Organization [facility] Care Team Providers Care Joint Machine Operator Name Role Phone JYOTHI .RONA Admitting Unavailable JYOTHIRONA BERMAN Attending Unavailable NADERER, DR ANANTH Andujar Primary Care Unavailable RONA NAIK Consulting Unavailable NADERECharles, DR ANANTH Andujar Admitting Unavailable NADERER, DR ANANTH Andujar Attending Unavailable NADERER, DR ANANTH Andujar Primary Care Unavailable NADERER, DR ANANTH Andujar Consulting Unavailable Ananth Brunner MD Primary Care Provider [phone] SILVIA RINCON Attending Unavailable KANNAN, ANANTH Referring Unavailable NADERER, ANANTH Primary Care Unavailable MCKENZIE, SILVIA Attending Unavailable NADERER, ANANTH Referring Unavailable NADERER, ANANTH Primary Care Unavailable MCKENZIE, SILVIA Attending Unavailable NADERECharles, ANANTH Referring Unavailable NADERER, ANANTH Primary Care Unavailable MCKENZIE, SILVIA Attending Unavailable NADERECharles, ANANTH Referring Unavailable NADERER, ANANTH Primary Care Unavailable MCKENZIE, SILVIA Attending Unavailable NADERER, ANANTH Referring Unavailable NADERER, ANANTH Primary Care Unavailable Teagan Kwan Attending Unavailable Ananth Brunner MD Unavailable ANANTH BRUNNER Attending Unavailable ANANTH BRUNNER Attending Unavailable Medications Current Medications Medication Drug Class(es) Dates Sig (Normalized) Sig (Original) atomoxetine 40 mg oral capsule (2 sources) Norepinephrine Reuptake Inhibitor Start: 05-03-2024 take 1 capsule by mouth once daily atomoxetine (Strattera) 40 MG capsule Indications: ADD (attention deficit 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 Take 1 capsule (40 mg) by mouth Daily Swallow capsule whole; do not open. If opened accidentally, do not touch eyes; wash hands immediately (product is an eye irritant). 30 capsule 3 05/03/2024 Active Start: 05-03-2024 take 1 capsule by [facility] once daily atomoxetine (Strattera) 40 MG capsule Indications: ADD (attention deficit 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 Take 1 capsule (40 mg) by mouth Daily Swallow capsule whole; do not open. If opened accidentally, do not touch eyes; wash hands immediately (product is an eye irritant). 30 capsule 3 05/03/2024 Active cefdinir 300 mg oral capsule (2 sources) [...] 06/18/2023 Active celecoxib 200 mg oral capsule (5 sources) Nonsteroidal Anti-inflammatory Drug Start: 06-06-2023 take [...] Problem Classification Problem Date Documented Date Episodic/Chronic Disorders usually diagnosed in infancy, childhood, or adolescence (4 sources) Attention deficit hyperactivity disorder, predominantly inattentive type; Translations: [Other specified behavioral and emotional disorders with onset usually occurring in childhood and adolescence] Onset: 05-03-2024 05-03-2024 Chronic Essential hypertension (7 sources) Benign essential hypertension; Translations: [Essential (primary) hypertension] Onset: 04-21-2023 04-21-2023 Chronic Nutritional deficiencies (5 sources) Vitamin D deficiency; Translations: [Vitamin D deficiency, unspecified] Onset: 04-21-2023 04-21-2023 Chronic Osteoarthritis (5 sources) Primary gonarthrosis, bilateral; Translations: [Bilateral primary osteoarthritis of knee] Onset: 04-21-2023 06-06-2023 Chronic Other endocrine disorders (5 sources) Polycystic ovary syndrome; Translations: [Polycystic ovarian syndrome] Onset: 04-21-2023 04-21-2023 Chronic Other nutritional; endocrine; and metabolic disorders (5 sources) Morbid obesity; Translations: [Morbid (severe) obesity due to excess calories] Onset: 06-08-2023 06-08-2023 Chronic Other nutritional; endocrine; and metabolic disorders (4 sources) Severe obesity; Translations: [Class 3 severe obesity due to excess calories with serious comorbidity and body mass index (BMI) of 50.0 to 59.9 in adult ([facility])] Onset: 06-08-2023 05-03-2024 Chronic Other screening for suspected conditions (not mental disorders or infectious disease) (4 sources) Encounter for screening for malignant neoplasm of cervix; Translations: [ENC SCREENING MALIG NEOPLASM CERV] Onset: 06-09-2022 Episodic Unclassified (3 sources) CONTACT W/AND (SUSP) EXPOS COVID-19; Translations: [CONTACT W/AND (SUSP) EXPOS COVID-19] Onset: 04-11-2022 Past or Other Problems Problem Classification Problem Date Documented Da te Episodic/Chronic Inflammation; infection of eye (except that caused by tuberculosis or sexually transmitteddisease) (7 sources) Acute infectious conjunctivitis; Translations: [Unspecified acute conjunctivitis, bilateral] Onset: 06-08-2023 Resolved: 05-03-2024 06-08-2023 Episodic Other upper respiratory infections (8 sources) Acute upper respiratory infection, unspecified; Translations: [Acute pansinusitis] Onset: 04-11-2022 Resolved: 05-03-2024 06-08-2023 Episodic Unclassified (1 source) CONTACT W/AND (SUSP) EXPOS COVID-19; Translations: [CONTACT W/AND (SUSP) EXPOS COVID-19] Onset: 04-07-2022 Results Test Name Value Interpretation Reference Range Facility PAP ACOG PANEL 2: 30 to 65on 06-17-2022 . . Normal [facility] Comment on above: Result Comment: Perf ormed at: WB Performed By: #### [id number] #### [facility] [address] [address] [address] New Arzate Age Gdln ACOG Testing 30-65 Normal [facility] Comment on above: Performed By: #### [id number] #### [facility] [address] [address] [address] [place] Ar[place] DIAGNOSIS: Comment Normal [facility] Comment on above: Result Comment: NEGA TIVE FOR INTRAEPITHELIAL LESION OR MALIGNANCY. THIS SPECIMEN WAS RESCREENED PART OF OUR DELIVERY LEAD PROGRAM. Performed at: WB Performed By: #### [id number] #### [facility] [address] [place] [address] Dr. [place] Arz[place] HPV Aptima Negative Normal Negative [facility] Comment on above: Result Comment: This nucleic acid amplification test detects fourteen high-risk HPV types (16,18,31,33,35,39,45,51,52,56,58,59,66,68) without differentiation. Performed at: =G Performed By: #### [id number] #### [facility] [address] [place] [address] Dr. [place] Ar[place]ate HPV Genotype Reflex Comment Normal [facility] Comment on above: Result Comment: Crit eria not met, HPV Genotype not performed. Performed at: WB Performed By: #### [id number] #### [facility] [address] [place] [address] Dr. New Arzate Methodology: Comment [facility] Comment on above: Result Comment: This liquid based ThinPrep(R) pap test was screened with the use of an image guided system. Performed at: WB Performed By: #### [id number] #### [facility] [address] [place] [address] Dr. New Arzate Note: Comment Normal [facility] Comment on above: Result Comment: The Pap smear is a screening test designed to aid in the detection of premalignant and malignant conditions of the uterine cervix. It is not a diagnostic procedure and should not be used as the sole means of detecting cervical cancer. Both false-positive and false-negative reports do occur. . Performed at: WB Performed By: #### [id number] #### [facility] [address] [place] [address] Dr. [place] Arzate Performed by: Comment Normal [facility] Comment on above: Result Comment: Jerrod Gayle, Supervisory Freight Router (ASCP) Performed at: WB Performed By: #### [id number] #### [facility] [address] [place] [address] Dr. New Arzate QC reviewed by: Comment Normal [facility] Comment on above: Result Comment: Ally Jesus, Supervisory Freight Router (ASCP) Performed at: WB Performed By: #### [id number] #### [facility] [address] [place] [address] Dr. [place] Arzate Specimen adequacy: Comment Normal [facility] Comment on above: Result Comment: Sati sfactory for evaluation. Endocervical and/or squamous metaplastic cells (endocervical component) are present. Performed at: WB Performed By: #### [id number] #### [facility] [address] [place] [address] Dr. [place] Arzate RESPIRATORY PANEL PLUSon Adenovirus Not detected Normal NOT DETECTED [facility] Comment on above: Performed By: #### R SPLUS #### [facility] [address] [place] [address] Dr. New Tay. Parapertusis Not detected Normal NOT DETECTED [facility] Comment on above: Performed By: #### R SPLUS #### [facility] [address] [place] [address] Dr. [place]. Pertussis Not detected Normal NOT DETECTED [facility] Comment on above: Performed By: #### R SPLUS #### [facility] [address] [place] [address] Dr. [place] Ar[place] Chlamydia Pneumoniae Not detected Normal NOT DETECTED [facility] Comment on above: Performed By: #### R SPLUS #### [facility] [address] [place] [address] Dr. [place] Ar[place] Coronavirus 229E Not detected Normal NOT DETECTED [facility] Comment on above: Performed By: #### R SPLUS #### [facility] [address] [place] [address] Dr. [place] Coronavirus HKU1 Not detected Normal NOT DETECTED [facility] Comment on above: Performed By: #### R SPLUS #### [facility] [address] [place] [address] Dr. [place] Ar[place] Coronavirus NL63 Not detected Normal NOT DETECTED [facility] Comment on above: Performed By: #### R SPLUS #### [facility] [address] [place] [address] Dr. [place] Ar[place] Coronavirus OC43 Not detected Normal NOT DETECTED [facility] Comment on above: Performed By: #### R SPLUS #### [facility] [address] [place] [address] Dr. [place] Arzate Influenza A H1 2009 Not detected Normal NOT DETECTED [facility] Comment on above: Performed By: #### R SPLUS #### [facility] [address] [place] [address] Dr. [place] Ar[place] Influenza A H3 Detected Abnormal NOT DETECTED [facility] Comment on above: Performed By: #### R SPLUS #### [facility] [address] [place] [address] Dr. [place] Ar[place] Influenza B Not detected Normal NOT DETECTED [facility] Comment on above: Performed By: #### R SPLUS #### [facility] [address] [place] [address] Dr. [place] Metapneumovirus Not detected Normal NOT DETECTED [facility] Comment on above: Performed By: #### R SPLUS #### [facility] [address] [place] [address] Dr. [place] Mycoplas. Pneumoniae Not detected Normal NOT DETECTED [facility] Comment on above: Performed By: #### R SPLUS #### [facility] [address] [place] [address] Dr. [place] Parainfluenza 1 Not detected Normal NOT DETECTED [facility] Comment on above: Performed By: #### R SPLUS #### [facility] [address] [place] [address] Dr. [place] Parainfluenza 2 Not detected Normal NOT DETECTED [facility] Comment on above: Performed By: #### R SPLUS #### [facility] [address] [place] [address] Dr. [place] Parainfluenza 3 Not detected Normal NOT DETECTED [facility] Comment on above: Performed By: #### R SPLUS #### [facility] [address] [place] [address] Dr. [place] Parainfluenza 4 Not detected Normal NOT DETECTED [facility] Comment on above: Performed By: #### R SPLUS #### [facility] [address] [place] [address] Dr. [place] Rhino/Enterovirus Not detected Normal NOT DETECTED [facility] Comment on above: Performed By: #### R SPLUS #### [facility] [address] [place] [address] Dr. [place] Ar[place]ate RP2 Header 1 RESPIRATORY PANEL: VIRUSES Normal [facility] Comment on above: Performed By: #### R SPLUS #### [facility] [address] [place] [address] Dr. [place] Ar[place]ate RP2 Header 2 RESPIRATORY PANEL: BACTERIA Normal [facility] Comment on above: Performed By: #### R SPLUS #### [facility] [address] [place] [address] Dr. [place] Ar[place]ate RSV Not detected Normal NOT DETECTED [facility] Comment on above: Performed By: #### R SPLUS #### [facility] [address] [place] [address] Dr. [place] Arzate SARS-CoV-2 (COVID-19) RNA ANGEL+probe Ql (Unsp spec) Not detected Normal NOT DETECTED [facility] Comment on above: Performed By: #### R SPLUS #### [facility] [address] [place] [address] Dr. [place] Ar[place]ate Vital Signs Date Time Vital Sign Value Performing Clinician Kalyn reece 05-03-2024 09:41-0500 Body height 167.6 cm Ananth Brunner MD Work Phone: [facility] 05-03-2024 09:41-0500 Body mass index (BMI) [Ratio] 56.01 kg/m2 Ananth Brunner MD Work Phone: [facility] 05-03-2024 09:41-0500 Body temperature 97.11 [degF] Ananth Brunner MD Work Phone: [facility] 05-03-2024 09:41-0500 Body weight 157.4 kg Ananth Brunner MD Work Phone: [facility] 05-03-2024 09:41-0500 Diastolic blood pressure 68 mm[Hg] Ananth Brunner MD Work Phone: [facility] 05-03-2024 09:41-0500 Heart rate 94 /min Ananth Brunner MD Work Phone: [facility] 05-03-2024 09:41-0500 Respiratory rate 20 /min Ananth Brunner MD Work Phone: [facility] 05-03-2024 09:41-0500 SaO2% (BldA) [Mass fraction] 97 % Ananth Brunner MD Work Phone: [facility] 05-03-2024 09:41-0500 Systolic blood pressure 120 mm[Hg] Ananth Brunner MD Work Phone: [facility] 06-08-2023 11:50-0500 Body height 167.6 cm Ananth Brunner MD Work Phone: [facility] 06-08-2023 11:50-0500 Body mass index (BMI) [Ratio] 53.91 kg/m2 Ananth Brunner MD Work Phone: [facility] 06-08-2023 11:50-0500 Body temperature 97.5 [degF] Ananth Brunner MD Work Phone: [facility] 06-08-2023 11:50-0500 Body weight 151.5 kg Ananth Brunner MD Work Phone: [facility] 06-08-2023 11:50-0500 Diastolic blood pressure 70 mm[Hg] Ananth Brunner MD Work Phone: [facility] 06-08-2023 11:50-0500 Heart rate 94 /min Ananth Brunner MD Work Phone: [facility] 06-08-2023 11:50-0500 SaO2% (BldA) [Mass fraction] 97 % Ananth Brunner MD Work Phone: [facility] 06-08-2023 11:50-0500 Systolic blood pressure 120 mm[Hg] Ananth Brunner MD Work Phone: [facility] Encounters Encounter Date Encounter Type Care Provider Facility Start: 05-03-2024 End: 05-03-2024 Bamboo flowsheet Ananth Brunner MD Work Phone: [facility] Start: 05-03-2024 End: 05-03-2024 Bamboo flowsheet Ananth Brunner MD Work Phone: [facility] Start: 05-03-2024 End: 05-03-2024 Patient encounter procedure Ananth Brunner MD Work Phone: [facility] Work Phone: Start: 05-03-2024 End: 05-03-2024 Periodic preventive med est patient 18-39 yrs Ananth Brunner MD Work Phone: [facility] Comment on above: Annual physical exam (Primary Dx); Essential hypertension, benign (CMS/HCC); ADD (attention deficit 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; Class 3 severe obesity due to excess calories with serious comorbidity and body mass index (BMI) of 50.0 to 59.9 in adult (CMS/HCC) Start: 05-03-2024 End: 05-03-2024 ambulatory ANANTH BRUNNER Not Available Start: 03-14-2024 ambulatory Teagan Kwan Facility :[facility] Start: 10-13-2023 End: 10-13-2023 ambulatory [facility] Start: 09-29-2023 End: 09-29-2023 ambulatory [facility] Start: 09-08-2023 End: 09-08-2023 ambulatory [facility] Start: 07-28-2023 End: 07-28-2023 ambulatory [facility] Start: 06-30-2023 End: 06-30-2023 ambulatory [facility] Start: 06-08-2023 End: 06-08-2023 Office outpatient visit 15 minutes Ananth Brunner MD Work Phone: [facility] Comment on above: Acute non-recurrent pansinusitis (Primary Dx); Acute bacterial conjunctivitis of both eyes; Morbid obesity due to excess calories ([facility]) Start: 06-08-2023 End: 06-08-2023 ambulatory ANANTH BRUNNER Not Available Start: 06-09-2022 End: 06-09-2022 ambulatory RONA ROE . Facility:[facility] Start: 04-07-2022 End: 04-07-[address] ANANTH BRUNNER Facility: Plan of Treatment Date Care Activity Detail Author Start: 06-03-2024 End: 06-03-2024 Patient encounter procedure 06/03/2024 8:45 AM EST Office Visit [facility] [address] [place] [id number] Ananth Brunner MD [address] [place] [id number] [facility] Start: 05-03-2024 End: 05-03-2025 Basic metabolic 1998 panel - Serum or Plasma Basic metabolic panel Lab Routine Annual physical exam Expected: 05/03/2024 (Approximate), Expires: 05/03/2025 [facility] Comment on above: Expected: 05/03/2024 (Approximate), Expires: 05/03/2025 Start: 05-03-2024 End: 05-03-2025 CBC W Auto Differential panel - Blood CBC and differential Lab Routine Annual physical exam Expected: 05/03/2024 (Approximate), Expires: 05/03/2025 [facility] Comment on above: Expected: 05/03/2024 (Approximate), Expires: 05/03/2025 Start: 05-03-2024 End: 05-03-2025 Hemoglobin A1c/Hemoglobin.total in Blood Hemoglobin A1c Lab Routine Annual physical exam Expected: 05/03/2024 (Approximate), Expires: 05/03/2025 [facility] Work Phone: Comment on above: Expected: 05/03/2024 (Approximate), Expires: 05/03/2025 Start: 05-03-2024 End: 05-03-2025 Hepatic function 2000 panel - Serum or Plasma Hepatic function panel Lab Routine Annual physical exam Expected: 05/03/2024 (Approximate), Expires: 05/03/2025 [facility] Comment on above: Expected: 05/03/2024 (Approximate), Expires: 05/03/2025 Start: 05-03-2024 End: 05-03-2025 Lipid 1996 panel - Serum or Plasma Lipid panel Lab Routine Annual physical exam Expected: 05/03/2024 (Approximate), Expires: 05/03/2025 [facility] Comment on above: Expected: 05/03/2024 (Approximate), Expires: 05/03/2025 Start: 05-03-2024 End: 05-03-2025 TSH W/REFLEX TO FT4 TSH W/REFLEX TO FT4 Lab Routine Annual physical exam Expected: 05/03/2024 (Approximate), Expires: 05/03/2025 [facility] Comment on above: Expected: 05/03/2024 (Approximate), Expires: 05/03/2025 Start: 05-03-2024 End: 05-03-2024 Patient encounter procedure 05/03/2024 9:45 AM EST Office Visit [facility] [address] [place] [address] Ananth Brunner MD [address] [place] [address] Arrived [facility] Comment on above: Arrived Start: 12-31-2023 Influenza vaccination Influenza Vacc ine (#1) [facility] Start: 12-30-2022 Influenza vaccination Influenza Vacc ine (#1) [facility] Start: 2020 Screening for malign ant neoplasm of cervix [facility] Start: 2011 Screening for malign ant neoplasm of cervix Pap Smear [facility] Immunizations Immunization Date Immunization Notes Care Provider Fa cility 03-14-2021 influenza virus vacc ine, unspecified formulation Ananth Brunner MD Work Phone: [facility] Payers Date Payer Category Payer Private Health Insurance [employer] [id number] 2022 Unknown [employer] [id number] 2022-Present [address] [place] [address] [id number] 2022 Medicaid 2002 Medicaid [id number] 1990 Unknown [id number] 1990 Unknown [id number] 593 1990 Unknown [id number] 1286 1990 Unknown [id number] 1286 1990 Unknown [id number] 1286 1990 Unknown [id number]. 1286 1990 Unknown [id number] [id number]. 1286 1990 Unknown [id number]. 1259 1990 Unknown [id number] 1259 1959 Unknown [id number] 1959 Unknown [id number] Social History Date Type Detail Facility Start: 05-04-2023 Tobacco smoking status NCIS Ex-smoke r [facility] History of tobacco use Current smoker [facility] History of tobacco use Cigarette Smoker [facility] Start: 05-04-2023 Tobacco use and exposure Smoke less tobacco non-user [facility] Start: 06-08-2023 End: 05-03-2024 Alcohol intake Lifetime non-drinker (finding) [facility] Start: 04-14-2023 End: 05-03-2024 [facility] Start: 04-14-2023 End: 05-03-2024 Humiliation, Afraid, Rape, and Kick questionnaire [HARK] [...] Only a little [facility] (I/We) worried wheth er (my/our) food would run out before (I/we) got money to buy more. Sometimes true [facility] In the past 12 month s, has lack of transportation kept you from medical appointments or from getting medications? No [facility] At any time in the p ast 12 months, were you homeless or living in fpc [including now]? Yes [facility] Start: 05-04-2023 Tobacco Comment Last smoked : 5-10 years [facility] Start: 11-04-2022 Alcohol Comment Caffine intake : 1-2 cups per day [facility] Start: 1990 Sex Assigned At Not on file [facility] History of Present illness Narrative 05-03-2024 Ananth Brunner MD - 05/03/2024 10:33 AM Lit Brunner MD - 05/03/2024 10:33 AM Lit Brunner MD - 05/03/2024 10:32 AM Lit Brunner MD - 05/03/2024 10:32 AM EST Note Date & Type Note Facility 05-03-2024 History of Presen t illness Narrative Associated Problem(s): Essential hypertension, benign ([facility]) BP normal and monitor PRN. Associated Problem(s): Class 3 severe obesity due to excess calories with serious comorbidity and body mass index (BMI) of 50.0 to 59.9 in adult ([facility]) Weight loss indicated. Associated Problem(s): Annual physical exam Due for labs. Discussed proper diet and regular aerobic exercise. Need aerobic exercise 5-6 days a week for 30 minutes at a time. Smaller portions and limit total calories. Colonoscopy after age 45. Tetanus every 10 years. Advised not to smoke. Associated Problem(s): ADD (attention deficit 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 Meets criteria for ADD and start strattera. Reassess in 1 month. Images from the original note were not included. Subjective Patient ID: Emelyn Peralta is a 34 y.o. female who presents for Annual Exam (WELLNESS). Presents for annual PE. Weight up 13 pounds in past year. Tries to stay active at work and around house but no regular exercise. Tries to watch diet and eat healthy. Increased fruits and vegetables. Smaller portions and limits snacking. Tries to limit total daily calories. Due for labs. Concerned of ADD. In counseling and scored very high for ADD. Reports problems since a child and always struggled in school. Had C's and D's. Often not focused and easily distracted. Still problems as an adult and affecting work. Not organized and very forgetful. Very impulsive and tangential thinking. Upsets self that not focused and feels like not performing. Never treated. Not checking BP but normal today. Review of Systems Respiratory: Negative for cough, shortness of breath and wheezing. Cardiovascular: Negative [...] There is no guarding or rebound. Musculoskeletal: General: No swelling or tenderness. Cervical back: Neck supple. Right lower leg: No edema. Left lower leg: No edema. Skin: Findings: No erythema or rash. Neurological: General: No focal deficit present. Mental Status: She is alert and oriented to person, place, and time. Cranial Nerves: No cranial nerve deficit. Motor: No weakness. Gait: Gait normal. Assessment/Plan Problem List Items Addressed This Visit Essential hypertension, benign (CMS/HCC) BP normal and monitor PRN. Class 3 severe obesity due to excess calories with serious comorbidity and body mass index (BMI) of 50.0 to 59.9 in adult (CMS/HCC) Weight loss indicated. Annual physical exam - Primary Due for labs. Discussed proper diet and regular aerobic exercise. Need aerobic exercise 5-6 days a week for 30 minutes at a time. Smaller portions and limit total calories. Colonoscopy after age 45. Tetanus every 10 years. Advised not to smoke. Relevant Orders Hemoglobin A1c Basic metabolic panel CBC and differential Hepatic function panel Lipid panel TSH W/REFLEX TO FT4 ADD (attention deficit 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 Meets criteria for ADD and start strattera. Reassess in 1 month. Relevant Medications atomoxetine (Strattera) 40 MG capsule documented in this encounter [facility] History of Present illness Narrative 06-08-2023 [...] % ophthalmic solution documented in this encounter [facility] Healthcare Evaluation note Note Date & Type Note Facility Evaluation note Diagnosis Acute non-recurrent pansinusitis- Primary Acute bacterial conjunctivitis of both eyes Morbid obesity due to excess calories ([facility]) documented in this encounter [facility] Healthcare Evaluation note Note Date & Type Note Facility Evaluation note Diagnosis Annual physical exam- Primary Routine general medical examination at a health care facility Essential hypertension, benign (CMS/HCC) Essential hypertension, benign 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 Class 3 severe obesity due to excess calories with serious comorbidity and body mass index (BMI) of 50.0 to 59.9 in adult (CMS/HCC) documented in this encounter [facility] Healthcare Summary Purpose Family History No Family History Records FoundNo Family History Records FoundNo Family History Records FoundNo Family History Records Found Advance Directives No Advanced Directives Records FoundNo Advanced Directives Records FoundNo Advanced Directives Records FoundNo Advanced Directives Records Found Additional Source Comments INFORMATION SOURCE (unrecogn ized section and content) DATE CREATED AUTHOR 07/14/2022 [facility] DATE CREATED AUTHOR AUTHOR'S ORGANIZ ATION 10/15/2023 [facility] DATE CREATED AUTHOR AUTHOR'S ORGANIZ ATION 02/17/2024 [facility] DATE CREATED AUTHOR AUTHOR'S ORGANIZ ATION 05/10/2024 [facility] EPIC Reason for Visit (unrecogniz ed section and content) Reason Comments Eye Drainage Cough Reason Comments Annual Exam WELLNESS Care Teams (unrecognized sec tion and content) Joint Machine Operator Relationship Specialty Start Date End Date Ananth Brunner MD [address] [place] [phone] PCP - General Family Medicine 06/08/23 Joint Machine Operator Relationship Specialty Start Date End Date Ananth Brunner MD [address] [place] [phone] PCP - General Family Medicine 06/08/23 Ananht Brunner MD [address] [place] [phone] PCP - Medical [employer] 12/12/22 04/30/99 Joint Machine Operator Relationship Specialty Start Date End Date Ananth Brunner MD [address] [place] [phone] PCP - General Family Medicine 06/08/23 Ananth Brunner MD [address] [place] [phone] PCP - Medical [employer] 12/12/22 04/30/99 FOR RECORDS PERTAINING TO PATIENTS WHO ARE [...] BE BASED ON THE PRIMARY CLINICAL RECORDS. [facility], [facility]. provides no warranty or guarantee of the accuracy or completeness of information in this document.
[2024-05-24 11:03] LABS: Basophils Absolute Auto 0.1 10^3/uL (0.0-0.1); Basophils Percent Auto 0.8 % (0.2-2.0); Eosinophils Absolute Auto 0.3 10^3/uL (0.0-0.7); Hemoglobin 13.4 g/dL (12.0-16.0); Immature Granulocytes Abs Auto 0.08 10^3/uL (0.00-0.03); Immature Granulocytes Pct Auto 0.9 % (0.0-0.5); Lymphocytes Absolute Auto 2.6 10^3/uL (1.2-3.8); Lymphocytes Percent Auto 28.6 % (20.5-60.0); Mean Corpuscular HGB Conc 31.9 g/dL (29.9-35.2); Mean Corpuscular Hemoglobin 26.7 pg (26.7-34.0); Mean Corpuscular Volume 83.7 fL (81.0-99.0); Mean Platelet Volume 8.6 fL (9.5-13.5); Monocytes Absolute Auto 0.8 10^3/uL (0.3-0.8); Monocytes Percent Auto 8.2 % (1.7-12.0); Neutrophils Absolute Auto 5.4 10^3/uL (1.4-6.5); Neutrophils Percent Auto 58.5 % (43.0-75.0); Platelet Count 412 10^3/uL (150-450); Red Blood Count 5.02 10^6/uL (4.20-5.40); White Blood Count 9.2 10^3/uL (4.0-11.0)
[2024-05-24 11:16] LABS: Estimated Average Glucose 105 mg/dL; Glycohemoglobin A1C 5.3 % (4.5-6.2)
[2024-05-24 11:47] LABS: Alanine Aminotransferase 17 U/L (14-59); Albumin Globulin Ratio 0.8; Alkaline Phosphatase 88 U/L (46-116); Anion Gap 7.3; Aspartate Amino Transferase 12 U/L (15-37); BUN Creatinine Ratio 12.9; Bilirubin Direct 0.1 mg/dL (0.0-0.2); Bilirubin Total 0.3 mg/dL (0.2-1.0); Calcium 8.4 mg/dL (8.5-10.1); Carbon Dioxide 30.6 mmol/L (21.0-32.0); Chloride 105 mmol/L (98-107); Chol HDL Ratio 3.1; Cholesterol 134 mg/dL (<=200); Estimated GFR (African America >60 (>=60 mL/min/1.73m^2); Estimated GFR (Non-African Ame >60 (>=60 mL/min/1.73m^2); Globulin 3.8 g/dL; Glucose 86 mg/dL (74-106); HDL Cholesterol 43 mg/dL (40-60); LDL Cholesterol Calculated 76.4 mg/dL; Potassium 3.9 mmol/L (3.5-5.1); Sodium 139 mmol/L (136-145); TSH W/ REFLEX FT4 1.542 uIU/mL (0.358-3.740); Total Protein 6.8 g/dL (6.4-8.2); Triglycerides 73 mg/dL (<=150); VLDL CHOLESTEROL 14.6 mg/dL
== END 2024-05-24 10:24 | disposition home or self-care (01) ==
LOC: LAB 10:24
PROVIDERS: PCP Family Medicine; Visit Provider Family Medicine
DX: Z00.00 Encounter for general adult medical examination without abnormal findings (principal)
CPT/HCPCS: 36415; 80048; 80061; 80076; 83036; 84443; 85025

== ENCOUNTER 2024-12-25 19:36 | Outpatient (REF) | payer OTHER, SELFPAY ==
--- OUTSIDE RECORDS SUMMARY | 2024-12-25 19:45 | XMS_ITS | CCD ---
Author Organization [facility] Care Team Providers Care Supply Cataloguer Name Role Phone CHAYITO NAIK Admitting Unavailable CHAYITO NAIK Attending Unavailable NADERER, DR ANANTH Andujar Primary Care Unavailable CHAYITO NAIK Consulting Unavailable KANNAN, DR ANANTH Andujar Admitting Unavailable NADERER, DR ANANTH Andujar Attending Unavailable NADERER, DR ANANTH Andujar Primary Care Unavailable NADERER, DR ANANTH Andujar Consulting Unavailable Ananth Brunner MD Primary Care Provider SILVIA RINCON Attending Unavailable ANANTH BRUNNER Referring Unavailable KANNAN, ANANTH Primary Care Unavailable MCKENZIE, SILVIA Attending Unavailable NADERECharles, ANANTH Referring Unavailable NADERER, ANANTH Primary Care Unavailable MCKENZIE, SILVIA Attending Unavailable KANNAN, ANANTH Referring Unavailable NADERECharles, ANANTH Primary Care Unavailable MCKENZIE, SILVIA Attending Unavailable KANNAN, ANANTH Referring Unavailable KELLIEERECharles, ANANTH Primary Care Unavailable MCKENZIE, SILVIA Attending Unavailable KANNAN, ANANTH Referring Unavailable NADERER, ANANTH Primary Care Unavailable Teagan Kwan Attending Unavailable Ananth Brunner MD Unavailable ANANTH BRUNNER Attending Unavailable NADERER, ANANTH Attending Unavailable NADERECharles, ANANTH Attending Unavailable Medications Current Medications Medication Drug Class(es) Dates Sig (Normalized) Sig (Original) [id number] 200 actuat albuterol 0.09 mg/actuat metered dose inhaler (7 sources) beta2-Adrenergic Agonist Start: 06-03-2024 End: 06-03-2025 take 2 puff(s) by inhalation every four hours for wheezing albuterol HFA 90 mcg/act inhaler Indications: SOB (shortness of breath) on exertion Inhale 2 puffs every 4 (four) hours if needed for shortness of breath or wheezing 18 g 2 06/03/2024 06/03/2025 Active cefdinir 300 mg oral capsule (2 [...] 06/18/2023 Active celecoxib 200 mg oral capsule (16 sources) Nonsteroidal Anti-inflammatory Drug Start: 06-06-2023 End: 12-02-2024 take 1 capsule by mouth twice daily as needed for pain celecoxib (CeleBREX) 200 MG capsule Indications: Bilateral primary osteoarthritis of knee Take 1 capsule (200 mg) by mouth 2 (two) times a day as needed for mild pain 60 capsule 3 12/02/2024 Active ciprofloxacin 3 mg/ml ophthalmic solution (2 sources) Quinolone Antimicrobial Start: 06-08-2023 End: 06-15-2023 take 2 drop(s) into the eye(s) every four hours ciprofloxacin (Ciloxan) 0.3 % ophthalmic solution Indications: Acute bacterial conjunctivitis of both eyes Administer 2 drops into both eyes every 4 (four) hours for 7 days 5 mL 0 06/08/2023 06/15/2023 Active metFORMIN hydrochloride 500 mg oral tablet (1 source) Biguanide Start: 12-25-2024 End: 12-25-2025 take 1 tablet by mouth at mealtime metFORMIN (Glucophage) 500 MG tablet Indications: Menorrhagia with regular cycle Take 1 tablet (500 mg) by mouth in the morning. Take with meals. 30 tablet 11 12/25/2024 12/25/2025 Active phentermine hydrochloride 37.5 mg oral tablet (4 sources) Sympathomimetic Amine Anorectic Start: 12-02-2024 End: 01-01-2025 take 60-69.9 tablets by mouth before mealtime phentermine (Adipex-P) 37.5 MG tablet Indications: Class 3 severe obesity due to excess calories with serious comorbidity and body mass index (BMI) of 60.0 to 69.9 in adult ([facility]) Take 1 tablet (37.5 mg) by mouth in the morning. Take before meals. 30 tablet 12/02/2024 01/01/2025 Active predniSONE 50 mg oral tablet (2 sources) Start: 06-08-2023 End: 06-14-2023 take 1 tablet by mouth in the morning predniSONE (Deltasone) 50 MG tablet Indications: Acute non-recurrent pansinusitis Take 1 tablet (50 mg) by mouth in the morning for 6 days. 6 tablet 0 06/08/2023 06/14/2023 Active Completed/Discontinued Medications Medication Drug Class(es) Dates Sig (Normalized) Sig (Original) atomoxetine 40 mg oral capsule (11 sources) Norepinephrine Reuptake Inhibitor Start: 05-03-2024 End: 12-25-2024 take 1 capsule by mouth once daily atomoxetine (Strattera) 40 MG capsule Indications: ADD (attention deficit 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 Take 1 capsule (40 mg) by mouth Daily Swallow capsule whole; do not open. If opened accidentally, do not touch eyes; wash hands immediately (product is an eye irritant). 30 capsule 3 05/03/2024 12/25/2024 Discontinued Problems Active Problems Problem Classification Problem Date Documented Date Episodic/Chronic Disorders usually diagnosed in infancy, childhood, or adolescence (17 sources) Attention deficit hyperactivity disorder, predominantly inattentive type; Translations: [Other specified behavioral and emotional disorders with onset usually occurring in childhood and adolescence] Onset: 05-03-2024 05-03-2024 Chronic Essential hypertension (20 sources) Benign essential hypertension; Translations: [Essential (primary) hypertension] Onset: 04-21-2023 04-21-2023 Chronic Menstrual disorders (1 source) Menorrhagia; Translations: [Excessive and frequent menstruation with regular cycle] 12-25-2024 Chronic Nutritional deficiencies (14 sources) Vitamin D deficiency; Translations: [Vitamin D deficiency, unspecified] Onset: 04-21-2023 04-21-2023 Chronic Osteoarthritis (18 sources) Primary gonarthrosis, bilateral; Translations: [Bilateral primary osteoarthritis of knee] Onset: 04-21-2023 06-06-2023 Chronic Other endocrine disorders (14 sources) Polycystic ovary syndrome; Translations: [Polycystic ovarian syndrome] Onset: 04-21-2023 04-21-2023 Chronic Other nutritional; endocrine; and metabolic disorders (5 sources) Morbid obesity; Translations: [Morbid (severe) obesity due to excess calories] Onset: 06-08-2023 06-08-2023 Chronic Other nutritional; endocrine; and metabolic disorders (17 sources) Severe obesity; Translations: [Class 3 severe obesity due to excess calories with serious comorbidity and body mass index (BMI) of 50.0 to 59.9 in adult ([facility])] Onset: 06-08-2023 05-03-2024 Chronic Other screening for [...] that caused by tuberculosis or sexually transmitteddisease) (16 sources) Acute infectious conjunctivitis; Translations: [Unspecified acute conjunctivitis, bilateral] Onset: 06-08-2023 Resolved: 05-03-2024 06-08-2023 Episodic Other lower respiratory disease (9 sources) Dyspnea on exertion; Translations: [Shortness of breath] Onset: 06-03-2024 06-03-2024 Episodic Other upper respiratory infections (17 sources) Acute upper respiratory infection, unspecified; Translations: [Acute pansinusitis] Onset: 04-11-2022 Resolved: 05-03-2024 06-08-2023 Episodic Unclassified (1 source) CONTACT W/AND (SUSP) EXPOS COVID-19; Translations: [CONTACT W/AND (SUSP) EXPOS COVID-19] Onset: 04-07-2022 Results Test Name Value Interpretation Reference Range Facility ALL CBC WITH AUTO DIFFon BASOPHILS ABSOLUTE AUTO 0.1 [facility] Basophils/100 WBC (Bld) 0.8 % 0.2 - 2.0 % [facility] Eosinophils/100 WBC (Bld) 3 % 0.9 - 7.0 % [facility] Erythrocyte distribution width (RBC) [Ratio] 14 % 11.0 - 15.0 % [facility] Hematocrit (Bld) [Volume fraction] 42 % 36.0 - 48.0 % [facility] Healthcar e Hemoglobin (Bld) [Mass/Vol] 13.4 g/dL 12.0 - 16.0 g/dL [facility] IMMATURE GRANULOCYTES ABS AUTO 0.08 High [facility] Immature granulocytes/100 WBC (Bld) 0.9 % High 0.0 - 0.5 % [facility] Interpretation and review of laboratory results Abnormal [facility] LYMPHOCYTES ABSOLUTE AUTO 2.6 [facility] Lymphocytes/100 WBC (Bld) 28.6 % 20.5 - 60.0 % [facility] MCH (RBC) [Entitic mass] 26.7 pg 26.7 - 34.0 pg [facility] MCHC (RBC) [Mass/Vol] 31.9 g/dL 29.9 - 35.2 g/dL [facility] MCV (RBC) [Entitic vol] 83.7 fL 81.0 - 99.0 fL [facility] MONOCYTES ABSOLUTE AUTO 0.8 [facility] Monocytes/100 WBC (Bld) 8.2 % 1.7 - 12.0 % [facility] NEUTROPHILS ABSOLUTE AUTO 5.4 [facility] Neutrophils/100 WBC (Bld) 58.5 % 43.0 - 75.0 % [facility] Platelet mean volume (Bld) [Entitic vol] 8.6 fL Low 9.5 - 13.5 fL [facility] EO # 0.3 [facility] TB[facility] PLT 412 [facility] TB RBC 5.02 [facility] TB WBC 9.2 [facility] MLR HEMOGLOBIN A1Con -24-2 025 Glucose [Mass/Vol] 105 mg/dL [facility] HbA1c (Bld) [Mass fraction] 5.3 % 4.5 - 6.2 % [facility] Comment on above: ADA RECOMMENDED LIMI T 4.0 - 6.0 ADA THERAPEUTIC TARGET < 7.0 ACTION SUGGESTED > 7.0 [facility] PAP ACOG PANEL 2: 30 to 65on 06-17-2022 . . Normal [facility] Comment on above: Result Comment: Perf ormed at: WB Performed By: #### [id number] #### [facility] [address] [address] [address] [place] Age Gdln ACOG Testing 30-65 Normal [facility] Comment on above: Performed By: #### [id number] #### [facility] [address] [address] [address] [place] DIAGNOSIS: Comment Normal [facility] Comment on above: Result Comment: NEGA TIVE FOR INTRAEPITHELIAL LESION OR MALIGNANCY. THIS SPECIMEN WAS RESCREENED PART OF OUR EVS MANAGER PROGRAM. Performed at: WB Performed By: #### [id number] #### [facility] [address] [address] [address] [place] HPV Aptima Negative Normal Negative [facility] Comment on above: Result Comment: This nucleic acid amplification test detects fourteen high-risk HPV types (16,18,31,33,35,39,45,51,52,56,58,59,66,68) without differentiation. Performed at: =G Performed By: #### [id number] #### [facility] [address] [place] [address] Dr. [place] HPV Genotype Reflex Comment Normal [facility] Comment on above: Result Comment: Crit eria not met, HPV Genotype not performed. Performed at: WB Performed By: #### [id number] #### [facility] [address] [place] [address] Dr. [place] Methodology: Comment Normal [facility] Comment on above: Result Comment: This liquid based ThinPrep(R) pap test was screened with the use of an image guided system. Performed at: WB Performed By: #### [id number] #### [facility] [address] [address] [address] [place] Note: Comment Normal [facility] Comment on above: Result Comment: The Pap smear is a screening test designed to aid in the detection of premalignant and malignant conditions of the uterine cervix. It is not a diagnostic procedure and should not be used as the sole means of detecting cervical cancer. Both false-positive and false-negative reports do occur. . Performed at: WB Performed By: #### [id number] #### [facility] [address] [address] [address] [place] Performed by: Comment Normal [facility] Comment on above: Result Comment: Jerrod Gayle, Supervisory Farm Management Teacher (ASCP) Performed at: WB Performed By: #### [id number] #### [facility] [address] [place] [address] Dr. [place] QC reviewed by: Comment Normal [facility] Comment on above: Result Comment: Ally Jesus, Supervisory Farm Management Teacher (ASCP) Performed at: WB Performed By: #### [id number] #### [facility] [address] [place] [address] Dr. [place] Specimen adequacy: Comment Normal [facility] Comment on above: Result Comment: Sati sfactory for evaluation. Endocervical and/or squamous metaplastic cells (endocervical component) are present. Performed at: WB Performed By: #### [id number] #### [facility] [address] [place] [address] Dr. [place] Cytology Cervical or vaginal smear or scraping studyon 06-09-2022 [facility] RESPIRATORY PANEL PLUSon Adenovirus Not detected Normal NOT DETECTED [facility] Comment on above: Performed By: #### R SPLUS #### [facility] [address] [place] [address] Dr. [place] Parapertusis Not detected Normal NOT DETECTED [facility] Comment on above: Performed By: #### R SPLUS #### [facility] [address] [place] [address] Dr. [place] Pertussis Not detected Normal NOT DETECTED [facility] Comment on above: Performed By: #### R SPLUS #### [facility] [address] [place] [address] Dr. [place] Chlamydia Pneumoniae Not detected Normal NOT DETECTED [facility] Comment on above: Performed By: #### R SPLUS #### [facility] [address] [place] [address] Dr. [place] Coronavirus 229E Not detected Normal NOT DETECTED [facility] Comment on above: Performed By: #### R SPLUS #### [facility] [address] [address] [address] [place] Coronavirus HKU1 Not detected Normal NOT DETECTED [facility] Comment on above: Performed By: #### R SPLUS #### [facility] [address] [place] [address] Dr. [place] Coronavirus NL63 Not detected Normal NOT DETECTED [facility] Comment on above: Performed By: #### R SPLUS #### [facility] [address] [place] [address] Dr. [place] Coronavirus OC43 Not detected Normal NOT DETECTED [facility] Comment on above: Performed By: #### R SPLUS #### [facility] [address] [place] [address] Dr. [place] Influenza A H1 2009 Not detected Normal NOT DETECTED [facility] Comment on above: Performed By: #### R SPLUS #### [facility] [address] [place] [address] Dr. [place] Influenza A H3 Detected Abnormal NOT DETECTED [facility] Comment on above: Performed By: #### R SPLUS #### [facility] [address] [place] [address] Dr. [place] Influenza B Not detected Normal NOT DETECTED The [facility] Comment on above: Performed By: #### R SPLUS #### [facility] [address] [place] [address] Dr. [place] Metapneumovirus Not detected Normal NOT DETECTED [facility] Comment on above: Performed By: #### R SPLUS #### [facility] [address] [place] [address] Dr. [place] Mycoplas. Pneumoniae Not detected Normal NOT DETECTED [facility] Comment on above: Performed By: #### R SPLUS #### [facility] [address] [place] [address] Dr. [place] Parainfluenza 1 Not detected Normal NOT DETECTED [facility] Comment on above: Performed By: #### R SPLUS #### [facility] [address] [place] [address] Dr. [place] Parainfluenza 2 Not detected Normal NOT DETECTED [facility] Comment on above: Performed By: #### R SPLUS #### [facility] [address] [place] [address] Dr. [place] Parainfluenza 3 Not detected Normal NOT DETECTED [facility] Comment on above: Performed By: #### R SPLUS #### [facility] [address] [place] [address] Dr. [place] Parainfluenza 4 Not detected Normal NOT DETECTED [facility] Comment on above: Performed By: #### R SPLUS #### [facility] [address] [place] [address] Dr. [place] Rhino/Enterovirus Not detected Normal NOT DETECTED [facility] Comment on above: Performed By: #### R SPLUS #### [facility] [address] [place] [address] Dr. [place] RP2 Header 1 RESPIRATORY PANEL: VIRUSES Normal [facility] Comment on above: Performed By: #### R SPLUS #### [facility] [address] [place] [address] Dr. [place] RP2 Header 2 RESPIRATORY PANEL: BACTERIA Normal [facility] Comment on above: Performed By: #### R SPLUS #### [facility] [address] [place] [address] Dr. [place] RSV Not detected Normal NOT DETECTED [facility] Comment on above: Performed By: #### R SPLUS #### [facility] [address] [place] [address] Dr. [place] SARS-CoV-2 (COVID-19) RNA ANGEL+probe Ql (Unsp spec) Not detected Normal NOT DETECTED [facility] Comment on above: Performed By: #### R SPLUS #### [facility] [address] [place] [address] Dr. [place] Vital Signs Date Time Vital Sign Value Performing Clinician Kalyn lity 12-25-2024 14:25-0400 Body mass index (BMI) [Ratio] 59.8 kg/m2 Chayito MASTERS Work Phone: [facility] 12-25-2024 14:25-0400 Body weight 168.06 kg Chayito MASTERS Work Phone: [facility] 12-25-2024 14:25-0400 Diastolic blood pressure 86 mm[Hg] Chayito MASTERS Work Phone: [facility] 12-25-2024 14:25-0400 Systolic blood pressure 128 mm[Hg] Chayito MASTERS Work Phone: [facility] 12-02-2024 13:29-0400 Body height 167.6 cm Ananth Brunner MD Work Phone: [facility] 12-02-2024 13:29-0400 Body mass index (BMI) [Ratio] 60.85 kg/m2 Ananth Brunner MD Work Phone: [facility] 12-02-2024 13:29-0400 Body temperature 97.5 [degF] Ananth Brunner MD Work Phone: [facility] 12-02-2024 13:29-0400 Body weight 171.01 kg Ananth Brunner MD Work Phone: [facility] 12-02-2024 13:29-0400 Diastolic blood pressure 76 mm[Hg] Ananth Brunner MD Work Phone: [facility] 12-02-2024 13:29-0400 Heart rate 124 /min Ananth Brunner MD Work Phone: [facility] 12-02-2024 13:29-0400 Respiratory rate 22 /min Ananth Brunner MD Work Phone: [facility] 12-02-2024 13:29-0400 SaO2% (BldA) [Mass fraction] 99 % Ananth Brunner MD Work Phone: [facility] 12-02-2024 13:29-0400 Systolic blood pressure 134 mm[Hg] Ananth Brunner MD Work Phone: [facility] 06-03-2024 08:46-0500 Body height 167.6 cm Ananth Brunner MD Work Phone: [facility] 06-03-2024 08:46-0500 Body mass index (BMI) [Ratio] 56.65 kg/m2 Ananth Brunner MD Work Phone: [facility] 06-03-2024 08:46-0500 Body temperature 97.3 [degF] Ananth Brunner MD Work Phone: [facility] 06-03-2024 08:46-0500 Body weight 159.21 kg Ananth Brunner MD Work Phone: [facility] 06-03-2024 08:46-0500 Diastolic blood pressure 62 mm[Hg] Ananth Brunner MD Work Phone: [facility] 06-03-2024 08:46-0500 Heart rate 119 /min Ananth Brunner MD Work Phone: [facility] 06-03-2024 08:46-0500 Respiratory rate 22 /min Ananth Brunner MD Work Phone: [facility] 06-03-2024 08:46-0500 SaO2% (BldA) [Mass fraction] 97 % Ananth Brunner MD Work Phone: [facility] 06-03-2024 08:46-0500 Systolic blood pressure 124 mm[Hg] Ananth Brunner MD Work Phone: [facility] 05-03-2024 09:41-0500 Body height 167.6 cm Ananth Brunner MD Work Phone: [facility] 05-03-2024 09:41-0500 Body mass index (BMI) [Ratio] 56.01 kg/m2 Ananth Brunner MD Work Phone: [facility] 05-03-2024 09:41-0500 Body temperature 97.11 [degF] Ananth Brunner MD Work Phone: [facility] 05-03-2024 09:41-0500 Body weight 157.4 kg Ananth Brunner MD Work Phone: [facility] 05-03-2024 09:41-0500 Diastolic blood pressure 68 mm[Hg] Ananth Brunner MD Work Phone: [facility] 05-03-2024 09:41-0500 Heart rate 94 /min Ananth Brunner MD Work Phone: [facility] 05-03-2024 09:41-0500 Respiratory rate 20 /min Ananth Brunner MD Work Phone: [facility] 05-03-2024 09:41-0500 SaO2% (BldA) [Mass fraction] 97 % Ananth Brunner MD Work Phone: [facility] 05-03-2024 09:41-0500 Systolic blood pressure 120 mm[Hg] Ananth Brunner MD Work Phone: [facility] 06-08-2023 11:50-0500 Body height 167.6 cm Ananth Brunner MD Work Phone: [facility] 06-08-2023 11:50-0500 Body mass index (BMI) [Ratio] 53.91 kg/m2 Ananth Brunner MD Work Phone: [facility] 06-08-2023 11:50-0500 Body temperature 97.5 [degF] Ananth Brunner MD Work Phone: [facility] 06-08-2023 11:50-0500 Body weight 151.5 kg Ananth Brunner MD Work Phone: [facility] 06-08-2023 11:50-0500 Diastolic blood pressure 70 mm[Hg] Ananth Brunner MD Work Phone: [facility] 06-08-2023 11:50-0500 Heart rate 94 /min Ananth Brunner MD Work Phone: [facility] 06-08-2023 11:50-0500 SaO2% (BldA) [Mass fraction] 97 % Ananth Brunner MD Work Phone: [facility] 06-08-2023 11:50-0500 Systolic blood pressure 120 mm[Hg] Ananth Brunner MD Work Phone: [facility] Encounters Encounter Date Encounter Type Care Provider Facility Start: 12-25-2024 End: 12-25-2024 Bamboo flowsheet Chayito MASTERS Work Phone: [facility] Start: 12-25-2024 End: 12-25-2024 Bamboo flowsheet Chayito MASTERS Work Phone: [facility] Start: 12-25-2024 End: 12-25-2024 Patient encounter procedure Chayito MASTERS Work Phone: [facility] Start: 12-25-2024 End: 12-25-2024 Periodic preventive med est patient 18-39 yrs Chayito MASTERS Work Phone: [facility] Comment on above: Well woman exam with routine gynecological exam; Menorrhagia with regular cycle Start: 12-02-2024 End: 12-02-2024 Bamboo flowsheet Ananth Brunner MD Work Phone: [facility] Start: 12-02-2024 End: 12-02-2024 Bamboo flowsheet Ananth Brunner MD Work Phone: [facility] Start: 12-02-2024 End: 12-02-2024 ambulatory ANANTH BRUNNER Not Available Start: 12-02-2024 End: 12-02-2024 Office outpatient visit 25 minutes Ananth Brunner MD Work Phone: [facility] Comment on above: Essential hypertensi on, benign (Primary Dx); Bilateral primary osteoarthritis of knee; ADD (attention deficit 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; Class 3 severe obesity due to excess calories with serious comorbidity and body mass index (BMI) of 60.0 to 69.9 in adult ([facility]) Start: 06-03-2024 End: 06-03-2024 Bamboo flowsheet Ananth Brunner MD Work Phone: [facility] Start: 06-03-2024 End: 06-03-2024 Bamboo flowsheet Ananth Brunner MD Work Phone: [facility] Start: 06-03-2024 End: 06-03-2024 Office outpatient visit 25 minutes Ananth Brunner MD Work Phone: [facility] Comment on above: ADD (attention defic it 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 (Primary Dx); Essential hypertension, benign (CMS/HCC); Bilateral primary osteoarthritis of knee; Class 3 severe obesity due to excess calories with serious comorbidity and body mass index (BMI) of 50.0 to 59.9 in adult (CMS/HCC); SOB (shortness of breath) on exertion Start: 06-03-2024 End: 06-03-2024 ambulatory ANANTH BRUNNER Not Available Start: 05-24-2024 End: 05-24-2024 [facility] Result Encounter Ananth Brunner MD Work Phone: [facility] Unsolicited Start: 05-24-2024 End: 05-24-2024 [facility] Result Encounter Ananth Brunner MD Work Phone: [facility] Start: 05-03-2024 End: 05-03-2024 Bamboo flowsheet Ananth Brunner MD Work Phone: [facility] Start: 05-03-2024 End: 05-03-2024 Bamboo flowsheet Ananth Brunner MD Work Phone: [facility] Start: 05-03-2024 End: 05-03-2024 Patient encounter procedure Ananth Brunner MD Work Phone: [facility] Work Phone: Start: 05-03-2024 End: 05-03-2024 Periodic preventive med est patient 18-39 yrs Ananth Brunner MD Work Phone: [facility] Comment on above: Annual physical exam (Primary Dx); Essential hypertension, benign (CMS/HCC); ADD (attention deficit 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; Class 3 severe obesity due to excess calories with serious comorbidity and body mass index (BMI) of 50.0 to 59.9 in adult ([facility]) Start: 05-03-2024 End: 05-03-2024 ambulatory ANANTH BRUNNER Not Available Start: 03-14-2024 ambulatory Teagan Kwan Facility :[facility] [facility] Start: 10-13-2023 End: 10-13-2023 ambulatory [facility] Start: 09-29-2023 End: 09-29-2023 ambulatory [facility] Start: 09-08-2023 End: 09-08-2023 ambulatory [facility] Start: 07-28-2023 End: 07-28-2023 ambulatory [facility] Start: 06-30-2023 End: 06-30-2023 ambulatory [facility] Start: 06-08-2023 End: 06-08-2023 Office outpatient visit 15 minutes Ananth Brunner MD Work Phone: [facility] Comment on above: Acute non-recurrent pansinusitis (Primary Dx); Acute bacterial conjunctivitis of both eyes; Morbid obesity due to excess calories ([facility] Start: 06-09-2022 End: 06-09-2022 ambulatory CHAYITO ROE . Facility: Start: 04-07-2022 End: 04-07-[address] ANANTH BRUNNER Facility: Procedures Date Procedure Procedure Detail Performing Clinician Start: 05-24-2024 ALL CBC WITH AUTO DIFF Ananth Brunner MD Work Phone: Start: 05-24-2024 MLR HEMOGLOBIN A1C Ananth Brunner MD Work Phone: Start: 06-09-2022 Microscopic observat ion [Identifier] in Cervix by Cyto stain Chayito MASTERS Work Phone: Start: 06-09-2022 Cytp cerv/vag auto t hin layer prep mnl screen Chayito MASTERS Work Phone: Plan of Treatment Date Care Activity Detail Author Start: 06-09-2025 Screening for malign ant neoplasm of cervix [facility] Start: 01-09-2025 End: 01-09-2025 Patient encounter procedure 01/09/2025 1:30 PM EDT Office Visit [facility] [address] [place] [address] Ananth Brunner MD [address] [place] [address] [facility] Start: 12-30-2024 Influenza vaccination Influenza Vacc ine (#1) [facility] Start: 12-25-2024 End: 12-25-2025 aPTT in Blood by Coagulation assay APTT Lab Routine Menorrhagia with regular cycle Expected: 12/25/2024 (Approximate), Expires: 12/25/2025 [facility] Comment on above: Expected: 12/25/2024 (Approximate), Expires: 12/25/2025 Start: 12-25-2024 End: 12-25-2024 Patient encounter procedure 12/25/2024 2:00 PM EDT Procedure Visit JOYCE HEBERT [address] [phone] Chayito Roe PA [address] [place] [address] [facility] Start: 12-25-2024 End: 12-25-2025 US Pelvis US Pelvis w/ TV Imaging Routine Menorrhagia with regular cycle Expected: 12/25/2024, Expires: 12/25/2025 [facility] Comment on above: Expected: 12/25/2024 , Expires: 12/25/2025 Start: 12-12-2024 End: 12-12-2024 Patient encounter procedure 12/12/2024 9:40 AM EDT Office Visit JOYCE HEBERT [address] [place] [phone] Cristóbal Werner DO [address] [place] [address] [facility] Start: 12-02-2024 End: 12-02-2024 Patient encounter procedure 12/02/2024 9:00 AM EDT Office Visit [facility] [address] [place] [address] Ananth Brunner MD [address] [place] [address] [facility] Start: 06-03-2024 End: 06-03-2024 Patient encounter procedure [facility] Comment on above: Arrived Start: 05-03-2024 End: 05-03-2025 Basic metabolic 1998 panel - Serum or Plasma Basic metabolic panel Lab Routine Annual physical exam Expected: 05/03/2024 (Approximate), Expires: 05/03/2025 [facility] Comment on above: Expected: 05/03/2024 (Approximate), Expires: 05/03/2025 Start: 05-03-2024 End: 05-03-2025 CBC W Auto Differential panel - Blood CBC and differential Lab Routine Annual physical exam Expected: 05/03/2024 (Approximate), Expires: 05/03/2025 [facility] Comment on above: Expected: 05/03/2024 (Approximate), Expires: 05/03/2025 Start: 05-03-2024 End: 05-03-2025 Hemoglobin A1c/Hemoglobin.total in Blood Hemoglobin A1c Lab Routine Annual physical exam Expected: 05/03/2024 (Approximate), Expires: 05/03/2025 [facility] Work Phone: Comment on above: Expected: 05/03/2024 (Approximate), Expires: 05/03/2025 Start: 05-03-2024 End: 05-03-2025 Hepatic function 2000 panel - Serum or Plasma Hepatic function panel Lab Routine Annual physical exam Expected: 05/03/2024 (Approximate), Expires: 05/03/2025 [facility] Comment on above: Expected: 05/03/2024 (Approximate), Expires: 05/03/2025 Start: 05-03-2024 End: 05-03-2025 Lipid 1996 panel - Serum or Plasma Lipid panel Lab Routine Annual physical exam Expected: 05/03/2024 (Approximate), Expires: 05/03/2025 [facility] Comment on above: Expected: 05/03/2024 (Approximate), Expires: 05/03/2025 Start: 05-03-2024 End: 05-03-2025 TSH W/REFLEX TO FT4 TSH W/REFLEX TO FT4 Lab Routine Annual physical exam Expected: 05/03/2024 (Approximate), Expires: 05/03/2025 [facility] Comment on above: Expected: 05/03/2024 (Approximate), Expires: 05/03/2025 Start: 05-03-2024 End: 05-03-2024 Patient encounter procedure 05/03/2024 9:45 AM EST Office Visit [facility] [address] [place] [phone] Ananth Brunner MD [address] [place] [phone] [facility] Comment on above: Arrived Start: 12-31-2023 Influenza vaccination Influenza Vacc ine (#1) [facility] Start: 12-30-2022 Influenza vaccination Influenza Vacc ine (#1) [facility] Start: 2020 Screening for malign ant neoplasm of cervix [facility] Start: 2011 Screening for malign ant neoplasm of cervix Pap Smear [facility] CBC W Auto Different ial panel - Blood CBC and differential Lab Routine Menorrhagia with regular cycle Ordered: 12/25/2024 [facility] Comment on above: Ordered: 12/25/2024 Cytology Cervical or vaginal smear or scraping study Pap Smear Pathology and Cytology Routine Well woman exam with routine gynecological exam Ordered: 12/25/2024 [facility] Work Phone: Comment on above: Ordered: 12/25/2024 hCG, quantitative, hCG, quantitative, Lab Routine Menorrhagia with regular cycle Ordered: 12/25/2024 [facility] Comment on above: Ordered: 12/25/2024 Hemoglobin A1c/Hemoglobin.total in Blood Hemoglobin A1c Lab Routine Menorrhagia with regular cycle Ordered: 12/25/2024 [facility] Comment on above: Ordered: 12/25/2024 Human papilloma viru s DNA [Presence] in Unspecified specimen by Probe with amplification HPV DNA probe, amplified Microbiology Routine Well woman exam with routine gynecological exam Ordered: 12/25/2024 [facility] Comment on above: Ordered: 12/25/2024 Prothrombin time (PT ) in Blood by Coagulation assay Protime-INR Lab Routine Menorrhagia with regular cycle Ordered: 12/25/2024 [facility] Comment on above: Ordered: 12/25/2024 Thyrotropin [Units/volume] in Serum or Plasma TSH Lab Routine Menorrhagia with regular cycle Ordered: 12/25/2024 [facility] Comment on above: Ordered: 12/25/2024 Thyroxine (T4) free [Mass/volume] in Serum or Plasma T4, free Lab Routine Menorrhagia with regular cycle Ordered: 12/25/2024 [facility] Comment on above: Ordered: 12/25/2024 Immunizations Immunization Date Immunization Notes Care Provider Fa [facility] 03-14-2021 influenza virus vacc ine, unspecified formulation Ananth Brunner MD Work Phone: [facility] Payers Date Payer Category Payer Private Health Insurance [employer] [id number] 2022 Unknown [employer] [id number] 2022-Present [address] [place] [address] [id number] 2022 Medicaid 2002 Medicaid [id number] 1990 Unknown [id number] 593 1990 Unknown [id number] 593 1990 Unknown [id number] 1286 1990 Unknown [id number] 1286 1990 Unknown [id number] 1286 1990 Unknown [id number] 1286 1990 Unknown [id number]. 1286 1990 Unknown [id number]. 1259 1990 Unknown [id number]. 1259 1990 Unknown [id number] 1259 1959 Unknown [id number] 1959 Unknown [id number] Social History Date Type Detail Facility Start: 05-04-2023 Tobacco smoking status [facility] Ex-smoke r [facility] History of tobacco use Current smoker [facility] History of tobacco use Cigarette Smoker [facility] Start: 05-04-2023 Tobacco use and exposure Smoke less tobacco non-user [facility] Start: 06-08-2023 End: 12-25-2024 Alcohol intake Lifetime non-drinker (finding) [facility] Start: 04-14-2023 End: 05-27-2024 History of Social function [facility] Start: 04-14-2023 End: 05-27-2024 Humiliation, Afraid, Rape, and Kick questionnaire [HARK] [...] months, were you homeless or living in skilled nursing [including now]? Yes [facility] Start: 05-04-2023 Tobacco Comment Last smoked : 5-10 years [facility] Start: 11-04-2022 Alcohol Comment Caffine intake : 1-2 cups per day [facility] Start: 1990 Sex Assigned At Not on file [facility] The food that (I/we) bought just didn't last, and (I/we) didn't have money to get more. Often true [facility] History of Present illness Narrative 12-25-2024 SONAM Hernandez - 12/25/2024 2:00 PM EDT Note Date & Type Note Facility 12-25-2024 History of Presen t illness Narrative Reason for Appointment: Patient ID: Emelyn Peralta [...] comorbidity and body mass index (BMI) of 60.0 to 69.9 in adult ([facility]) 06/08/2023 Annual physical exam 05/03/2024 ADD (attention deficit 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 05/03/2024 SOB (shortness of breath) on exertion 06/03/2024 Resolved Ambulatory Problems Diagnosis Date Noted Acute non-recurrent pansinusitis 06/08/2023 Acute bacterial conjunctivitis of both eyes 06/08/2023 Past Medical History: Diagnosis Date Benign essential hypertension Headache Hx of being hospitalized 2012 Hx of being hospitalized 2011 Morbid obesity ([facility]) (normal spontaneous vaginal delivery) ([facility]) 2011 PCOS (polycystic ovarian syndrome) Primary osteoarthritis of right knee URI, acute HISTORY PAST MEDICAL HISTORY SOCIAL HISTORY Past Medical History: Diagnosis Date Benign essential hypertension Headache Hx of being hospitalized 2012 dehydration Hx of being hospitalized 2011 hypertension due to Morbid obesity ([facility]) (normal spontaneous vaginal delivery) ([facility]) 2011 PCOS (polycystic ovarian syndrome) Primary osteoarthritis [...] nursing note reviewed. Exam conducted with a seed cleaner present. Vitals: Estimated body mass index is 59.8 kg/m as calculated from the following: Height as [...] of: SONAM Hernandez documented in this encounter [facility] History of Present illness Narrative 12-02-2024 Ananth Brunner MD - 12/02/2024 1:56 PM EDTMuriah Brunner MD - 12/02/2024 1:56 PM EDKalyani Brunner MD - 12/02/2024 1:56 PM EDKalyani Brunner MD - 12/02/2024 1:56 PM EDT Note Date & Type Note Facility 12-02-2024 History of Presen t illness Narrative Associated Problem(s): Essential hypertension, benign BP normal and monitor PRN. Associated Problem(s): Class 3 severe obesity due to excess calories with serious comorbidity and body mass index (BMI) of 60.0 to 69.9 in adult ([facility] Patient overweight and difficult time losing weight. Discussed proper diet and regular aerobic exercise. Recommend Weight Watchers and need to limit calories and smaller portions. Need to increase activity and regular aerobic exercise several days a week for 30 minutes at a time. Interested in adipex and warned of potential cardiac side effects. Script written for first month and will need to recheck weight in 1 month. OARRS reviewed. Continue medications as prescribed. Associated Problem(s): Bilateral primary osteoarthritis of knee Pain worse with weight gain and resume celebrex PRN. Associated Problem(s): ADD (attention deficit 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 Doing well with strattera and continue at current dose. Images from the original note were not included. Subjective Patient ID: Emelyn Peralta is a 34 y.o. female who presents for Follow-up (6m /Weight loss options) and Knee Pain. Follow up HTN, ADD, OA knees, and weight. Checking BP PRN and typically controlled. BP normal today. Taking medication daily and tolerating without side effects. ADD controlled with strattera. More focused and able to stay on task and complete work. Not distracted or watching others. More organized at home. Overall feels well and tolerating without side effects. OA knees worse. Increased pain in both knees. Pain with walking and standing. Severe pain at end of day. Out of celebrex but helped. Weight up 26 pounds since last visit. Plan on resuming exercise. Tries to watch diet and eat healthy. Increased fruits and vegetables. Smaller portions and limits snacking. Tries to limit total daily calories. Requests adipex. Review of Systems Respiratory: Negative for cough, [...] Items Addressed This Visit Essential hypertension, benign - Primary BP normal and monitor PRN. Bilateral primary osteoarthritis of knee Pain worse with weight gain and resume celebrex PRN. Relevant Medications celecoxib (CeleBREX) 200 MG capsule Class 3 severe obesity due to excess calories with serious comorbidity and body mass index (BMI) of 60.0 to 69.9 in adult ([facility]) Patient overweight and difficult time losing weight. Discussed proper diet and regular aerobic exercise. Recommend Weight Watchers and need to limit calories and smaller portions. Need to increase activity and regular aerobic exercise several days a week for 30 minutes at a time. Interested in adipex and warned of potential cardiac side effects. Script written for first month and will need to recheck weight in 1 month. OARRS reviewed. Continue medications as prescribed. Relevant Medications phentermine (Adipex-P) 37.5 MG tablet ADD (attention deficit 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 Doing well with strattera and continue at current dose. documented in this encounter [facility] History of Present illness Narrative 06-03-2024 Ananth Brunner MD - 06/03/2024 9:19 AM Lit Brunner MD - 06/03/2024 9:19 AM Lit Brunner MD - 06/03/2024 9:19 AM Lit Brunner MD - 06/03/2024 9:19 AM EST Note Date & Type Note Facility 06-03-2024 History of Presen t illness Narrative Associated Problem(s): Essential hypertension, benign ([facility] BP normal and monitor PRN. Associated Problem(s): Class 3 severe obesity due to excess calories with serious comorbidity and body mass index (BMI) of 50.0 to 59.9 in adult ([facility]) Weight loss indicated. Associated Problem(s): Bilateral primary osteoarthritis of knee Pain stable and use celebrex PRN. Associated Problem(s): ADD (attention deficit 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 Doing well with strattera and continue at current dose. Images from the original note were not included. Subjective Patient ID: Emelyn Peralta is a 34 y.o. female who presents for Follow-up (1 m). Follow up ADD, HTN, and weight. Started strattera last visit and symptoms much improved. Notice more focused and able to stay on task and complete work. Not distracted or watching others. More organized at home. Overall feels well and tolerating without side effects. Checking BP PRN and typically controlled. BP normal today. Taking medication daily and tolerating without side effects. OA knees stable. Mild stiffness and pain after walking. No swelling and not limiting activity. Using celebrex PRN and helps. Weight up 4 pounds since last visit. Not active and no exercise but plans on starting at gym. Tries to watch diet and eat healthy. Increased fruits and vegetables. Smaller portions and limits snacking. Tries to limit total daily calories. Review of Systems Respiratory: Negative for cough, [...] benign (CMS/HCC) BP normal and monitor PRN. Bilateral primary osteoarthritis of knee Pain stable and use celebrex PRN. Class 3 severe obesity due to excess calories with serious comorbidity and body mass index (BMI) of 50.0 to 59.9 in adult ([facility]) Weight loss indicated. ADD (attention deficit 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 - Primary Doing well with strattera and continue at current dose. SOB (shortness of breath) on exertion Relevant Medications albuterol HFA 90 mcg/act inhaler documented in this encounter [facility] History of Present illness Narrative 05-03-2024 Ananth Brunner MD - 05/03/2024 10:33 AM Lit Brunner MD - 05/03/2024 10:33 AM Lit Brunner MD - 05/03/2024 10:32 AM Lit Brunner MD - 05/03/2024 10:32 AM EST Note Date & Type Note Facility 05-03-2024 History of Presen t illness Narrative Associated Problem(s): Essential hypertension, benign ([facility]) BP normal and monitor PRN. Associated Problem(s): Class 3 severe obesity due to excess calories with serious comorbidity and body mass index (BMI) of 50.0 to 59.9 in adult ([facility]) Weight loss indicated. Associated Problem(s): Annual physical [...] Items Addressed This Visit Essential hypertension, benign ([facility]) BP normal and monitor PRN. Class 3 [...] % ophthalmic solution documented in this encounter [facility] Evaluation note Note Date & Type Note Facility Evaluation note Diagnosis Acute non-recurrent pansinusitis- Primary Acute bacterial conjunctivitis of both eyes Morbid obesity due to excess calories ([facility]) documented in this encounter [facility] Evaluation note Note Date & Type Note Facility Evaluation note Diagnosis Annual physical exam- Primary Routine general medical examination at a health care facility Essential hypertension, benign ([facility]) Essential hypertension, benign 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 Class 3 severe obesity due to excess calories with serious comorbidity and body mass index (BMI) of 50.0 to 59.9 in adult ([facility]) documented in this encounter [facility] Evaluation note Note Date & Type Note Facility Evaluation note Diagnosis Annual physical exam- Primary Routine general medical examination at a health care facility Essential hypertension, benign ([facility]) Essential hypertension, benign 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 Class 3 severe obesity due to excess calories with serious comorbidity and body mass index (BMI) of 50.0 to 59.9 in adult ([facility]) ADD (attention deficit 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- Primary Attention deficit disorder 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 Essential hypertension, benign (CMS/HCC) Essential hypertension, benign Bilateral primary osteoarthritis of knee Class 3 severe obesity due to excess calories with serious comorbidity and body mass index (BMI) of 50.0 to 59.9 in adult ([facility] SOB (shortness of breath) on exertion Shortness of breath documented in this encounter [facility] Evaluation note Note Date & Type Note Facility Evaluation note Diagnosis Annual physical exam- Primary Routine general medical examination at a health care facility Essential hypertension, benign Essential hypertension, benign 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 Class 3 severe obesity due to excess calories with serious comorbidity and body mass index (BMI) of 50.0 to 59.9 in adult ([facility]) ADD (attention deficit 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- Primary Attention deficit disorder 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 Essential hypertension, benign Essential hypertension, benign Bilateral primary osteoarthritis of knee Class 3 severe obesity due to excess calories with serious comorbidity and body mass index (BMI) of 50.0 to 59.9 in adult ([facility]) SOB (shortness of breath) on exertion Shortness of breath Essential hypertension, benign- Primary Essential hypertension, benign Bilateral primary osteoarthritis of knee 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 Class 3 severe obesity due to excess calories with serious comorbidity and body mass index (BMI) of 60.0 to 69.9 in adult ([facility]) documented in this encounter [facility] Evaluation note Note Date & Type Note Facility Evaluation note Diagnosis Annual physical exam- Primary Routine general medical examination at a health care facility Essential hypertension, benign Essential hypertension, benign 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 Class 3 severe obesity due to excess calories with serious comorbidity and body mass index (BMI) of 50.0 to 59.9 in adult ([facility]) ADD (attention deficit 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- Primary Attention deficit disorder 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 Essential hypertension, benign Essential hypertension, benign Bilateral primary osteoarthritis of knee Class 3 severe obesity due to excess calories with serious comorbidity and body mass index (BMI) of 50.0 to 59.9 in adult ([facility]) SOB (shortness of breath) on exertion Shortness of breath Essential hypertension, benign- Primary Essential hypertension, benign Bilateral primary osteoarthritis of knee 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 Class 3 severe obesity due to excess calories with serious comorbidity and body mass index (BMI) of 60.0 to 69.9 in adult ([facility]) Well woman exam with routine gynecological exam Routine gynecological examination Menorrhagia with regular cycle documented in this encounter [facility] Summary Purpose Family History No Family History Records FoundNo Family History Records FoundNo Family History Records FoundNo Family History Records Found Advance Directives No Advanced Directives Records FoundNo Advanced Directives Records FoundNo Advanced Directives Records FoundNo Advanced Directives Records Found Additional Source Comments INFORMATION SOURCE (unrecogn ized section and content) DATE CREATED AUTHOR 07/14/2022 [facility] DATE CREATED AUTHOR AUTHOR'S ORGANIZ ATION 10/15/2023 [facility] DATE CREATED AUTHOR AUTHOR'S ORGANIZ ATION 02/17/2024 [facility] DATE CREATED AUTHOR AUTHOR'S ORGANIZ ATION 12/04/2024 [facility] EPIC Reason for Visit (unrecogniz ed section and content) Reason Comments Eye Drainage Cough Reason Comments Annual Exam WELLNESS Reason Comments Follow-up 1 m Reason Comments Follow-up 6m Weight loss optio ns Knee Pain Reason Comments Well Women Visit Care Teams (unrecognized sec tion and content) Supply Cataloguer Relationship Specialty Start Date End Date Ananth Brunner MD [address] [place] [phone] PCP - General Family Medicine 06/08/23 Supply Cataloguer Relationship Specialty Start Date End Date Ananth Brunner MD [address] [place] [phone] PCP - General Family Medicine 06/08/23 Ananth Brunner MD [address] [place] [phone] PCP - Medical [place] [employer] 12/12/22 04/30/99 Supply Cataloguer Relationship Specialty Start Date End Date Ananth Brunner MD [address] [place] [phone] PCP - General Family Medicine 06/08/23 Ananth Brunner MD [address] [place] [address] PCP - [facility] [place] [facility] 12/12/22 04/30/99 Supply Cataloguer Relationship Specialty Start Date End Date Ananth Brunner MD [address] [place] [address] PCP - General Family Medicine 06/08/23 Ananth Brunner MD [address] [place] [address] PCP - [facility] [place] [facility] 12/12/22 04/30/99 Supply Cataloguer Relationship Specialty Start Date End Date Ananth Brunner MD [address] [place] [address] PCP - General Family Medicine 06/08/23 Ananth Brunner MD [address] [place] [address] PCP - [facility] [place] [facility] 12/12/22 04/30/99 Supply Cataloguer Relationship Specialty Start Date End Date Ananth Brunner MD [address] [place] [address] PCP - General Family Medicine 06/08/23 Ananth Brunner MD [address] [place] [address] PCP - [facility] [place] [facility] 12/12/22 04/30/99 Supply Cataloguer Relationship Specialty Start Date End Date Ananth Brunner MD [address] [place] [address] PCP - General Family Medicine 06/08/23 Ananth Brunner MD [address] [place] [address] PCP - [facility] [place] [facility] 12/12/22 04/30/99 Supply Cataloguer Relationship Specialty Start Date End Date Ananth Brunner MD [address] [place] [address] PCP - General Family Medicine 06/08/23 Ananth Brunner MD [address] [place] [address] PCP - [facility] 12/12/22 04/30/99 Supply Cataloguer Relationship Specialty Start Date End Date Ananth Brunner MD [address] [place] [address] PCP - General Family Medicine 06/08/23 Ananth Brunner MD [address] [place] [address] PCP - Medical [facility] 12/12/22 04/30/99 Supply Cataloguer Relationship Specialty Start Date End Date Ananth Brunner MD [address] [place] [address] PCP - General Family [facility] 06/08/23 Ananth Brunner MD [address] [place] [address] PCP - [facility] [place] [facility] 12/12/22 04/30/99 FOR RECORDS PERTAINING TO [...] BE BASED ON THE PRIMARY CLINICAL RECORDS. [employer] [facility]. provides no warranty or guarantee of the accuracy or completeness of information in this document.
[2024-12-31 19:08] LABS: Age Gdln ACOG Testing Note (.); IGP, Aptima HPV, rfx 16/18,45 Note (.)
== END 2024-12-25 19:37 | disposition home or self-care (01) ==
LOC: LAB 19:36
PROVIDERS: PCP Family Medicine; Visit Provider Physician Assistant
DX: Z01.419 Encounter for gynecological examination (general) (routine) without abnormal findings (principal)
CPT/HCPCS: 87624; 88175

== ENCOUNTER 2024-12-27 09:01 | Outpatient (OUT) | payer OTHER, SELFPAY ==
--- OUTSIDE RECORDS SUMMARY | 2021-06-11 05:00 | XMS_ITS | Continuity of Care Document ---
Author Organization [facility] Address [address] [place] [address] Phone Care Team Providers Care Acute Care Assistant Name Role Phone Davon Siegel DMDry Unavailable Unavailable Allergies, Adverse Reactions, Alerts Substance Reaction Status Criticality No Known Allergies Active No Inform ation Procedures Procedure Date Extract; Erupted Th/exposted Rt 022 Oral Hygiene Instruction Nutrit Couns For Control Of [facility] Dis Jun Perio Scal & Root Pln 4+ Per Quad Perio Scal & Root Pln 4+ Per Quad Oral Hygiene Instruction Oral Hygiene Instruction Resin Composite 4+s; Posterior Post Op Visit Dental Extract; Erupted Th/exposted Rt 021 Extract; Erupted Th/exposted Rt 021 Oral Hygiene Instruction Oral Hygiene Instruction Perio Charting Panoramic Film Intraoral-complete Series (bw) 21 Comp Oral Eval New/estab Patient 2020 Oral Hygiene Instruction Extract; Erupted Th/exposted Rt 015 PREV VISIT, EST, AGE 18-39 PREV VISIT, EST, AGE 18-39 Intraoral-complete Series (bw) 15 Comp Oral Eval New/estab Patient 2014 Advance Directives Directive Yes / No Effective Date File Name No Information Encounters Encounter Description Practice Location Reason(s) For Visit Diagnoses Date Provider Providers Copied on Encounter [facility], [address], [place], [id number], [place] tel:[phone] Dental Clinic filling (chief complaint) Encounter for screening for dental disorders Robbin Quiroga. [address], [place], [id number], [place]. tel:[phone] [facility], [address], [place], [id number], [place] tel:[phone] Dental Clinic prophy (chief complaint) Encounter for screening for dental disorders Juve Whitt. [address] [place], [address], [place]. tel:[phone] [facility], [address] [place] [address], [id number], [place] tel:[phone] Dental Clinic filling (chief complaint) Encounter for screening for dental disorders Robbin Quiroga. [address], [place], [id number], [place]. tel:[phone] [facility], [address] [place] [address], [id number], [place] tel:[phone] Dental Clinic extraction (chief complaint) Encounter for screening for dental disorders Robbin Quiroga. [address], [place], [id number], [place]. tel:[phone] [facility], [address], [place], [id number], [place] tel:[phone] Dental Clinic prophy (chief complaint) Encounter for screening for dental disorders Robbin Quiroga. [address], [place], [id number], [place]. tel:[phone] [facility], [address] [place] [address], [id number], [place] tel:[phone] Dental Clinic DN (chief complaint) Encounter for screening for dental disorders Robbin HINES Kimber. [address], [place], [id number], [place]. tel:[phone] [facility], [address], [place], [id number], [place] tel:[phone] Dental Clinic Dental examination Chinmay DMD July. [address], [place], [id number], [place]. tel:[phone] PREV VISIT, EST, AGE 18-39 [facility], [address], [place], [id number], [place] tel:[phone] [facility] annual exam (chief complaint) [facility] [address], [place], [id number], [place]. tel:[phone] [facility], [address], [place], [id number], [place] tel:[phone] Dental Clinic Dental examination Chinmay DMD Kari. [address], [place], [id number], [place]. tel:[phone] Family History Family Member Type Diagnosis Age At Onset Father Problem (finding) diabetes melli tus in first degree relative Mother Problem (finding) hypertension Son Problem (finding) Alive and well Payers Payer name Insurance type Covered republican ID Jordy rubio(s) D Medicaid [facility] [id number] Social History Type Description Quantity Date Captured Comments Alcohol Use Details Unknown Caffeine Use Details Unknown Tobacco Use Status Never smoked tobacco 2021 Smoking Status Never smoker Sex Female Sexual Orientation Straight or heterosexual Gender Identity Female Vital Signs Date / Time: Height Weight BMI Pulse Rate Blood Pressure Temperature Respiratory Rate Body Surface Area Head Circumference Head Circ. Percentile Wt./Kevin. Percentile BMI percentile Pulse Ox Inhaled Ox 9:06 AM 97 /min 114/73 mm[Hg] 97.80 F Chief Complaint And Reason For Visit From encounter dated '06/11/2021 09:00'. filling (chief complaint). Description: filling Reason For Referral Reason For Referral No Information History Of Present Illness Encounter Date Complaint History Of Dutch nt Illness filling filling prophy prophy filling filling extraction Continue with tr eatment prophy prophy DN annual exam The patient stat es she uses none for control. Last LMP was 07/02/2014. Her menses is with normal flow with a frequency of >28 days. Additional information: No presently on control. Desires . Was on Depo, last injection received 07/12. Has not tried to prevent , but has not become yet. Has a previous . Had one abnormal pap test in 2009, but all pap tests have been negative since. --Alysa Felix R.N. Functional Status Date Functional Assessmen t No Information Instructions Date Instruction Additional Infor alda Encouraged monthly B SE. Recommend calcium 1000mg QD. Encouraged good dietary intake and exercise. Pap and cervical cultures sent to lab. Patient to call in 2 weeks if desires results. Discussed possible anovulatory cycles. Encouraged IC every other day, PNV daily and continue to keep menstrual calendar. IF not within 1 year may need assistance. Encouraged weight loss and exercise. Patient states understanding Related to Annual pelvic exam Assessments Type Assessment Date No Information Patient Care Teams Name Effective Dates (start - stop) Status Members No Information
--- OUTSIDE RECORDS SUMMARY | 2024-12-25 14:00 | XMS_ITS | Encounter Summary ---
Author Organization [facility] Address [address] [place] [address] Care Team Providers Care Tableau Lead Name Role Phone Ananth Roy MD Primary Care Provider [phone] Ananth Roy MD Unavailable Reason for Visit * Reason Comments Well Women Visit Encounter Details Date Type Department Care Team (Latest Contact Info) Description 12/25/2024 2:00 PM EDT Procedure Visit [facility] [address] [place] [address] Chayito Ma PA [address] [place] [id number] Well woman exam with routine gynecological exam; [...] How often do you attend chur or protestant services? Never 05/27/2024 Do you belong to any clubs o r organizations such as rastafarian groups, unions, fraternal or athletic groups, or [...] medical care, and heating? Somewhat hard 05/27/2024 [facility] [place] of Occupat ional Health - Occupational Stress [...] place to sleep or slept in a detention (including now)? Yes 04/14/2023 Housing Stability Vital Sign Answer Vivek e Recorded In the last 12 months, was t here a time when you were not able to pay the mortgage or rent on time? No 05/27/2024 In the past 12 months, how m any times have you moved where you were living? 0 05/27/2024 At any time in the past 12 m [facility], were you homeless or living in a detention (including now)? No 05/27/2024 Comments Unknown Sex [...] index (BMI) of60.0 to 69.9 in adult ([facility]) 06/08/2023 Annual physical exam 05/03/2024 ADD (attention deficit 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 05/03/2024 SOB (shortness of breath) on exertion 06/03/2024 Resolved Ambulatory Problems Diagnosis Date Noted Acute non-recurrent pansinusitis 06/08/2023 Acute bacterial conjunctivitis of both eyes 06/08/2023 Past Medical History: Diagnosis Date Benign essential hypertension Headache Hx of being hospitalized 2012 Hx of being hospitalized 2011 Morbid obesity ([facility]) (normal spontaneous vaginal delivery) ([facility]) 2011 PCOS (polycystic ovarian syndrome) Primary osteoarthritis of right knee URI, acute HISTORY PAST MEDICAL HISTORY SOCIAL HISTORY Past Medical History: Diagnosis Date Benign essential hypertension Headache Hx of being hospitalized 2012 dehydration Hx of being hospitalized 2011 hypertension due to Morbid obesity ([facility]) (normal spontaneous vaginal delivery) ([facility]) 2011 PCOS (polycystic ovarian syndrome) Primary osteoarthritis [...] note reviewed. Exam conducted with a manager people present. Vitals: Estimated body mass index is [...] Care Team (Late st Contact Info) Description 01/09/2025 1:30 PM EDT Office Visit [facility] [address] [place] [address] Ananth Roy MD [address] [place] [address] 02/10/2025 9:30 AM EDT Procedure Visit JOYCE HEBERT [address] [phone] Cristóbal Werner DO [address] [place] [address] Scheduled Orders Name Type Priority Associated Diagnoses [...] cycle documented in this encounter Care Teams Tableau Lead Relationship Specialty Start Date End Date Ananth Roy MD [address] [place] [address] PCP - General Family Medicine 06/08/23 Ananth Roy MD [address] [place] [address] PCP - Medical [employer] 12/12/22 04/30/99 documented as of this encounter
--- OUTSIDE RECORDS SUMMARY | 2024-12-27 09:06 | XMS_ITS | Encounter Summary ---
Author Organization [facility] Address [address] [place] [address] Care Team Providers Care Preparer Name Role Phone Ananth Roy MD Primary Care Provider [phone] Ananth Roy MD Unavailable Encounter Details Date Type Department Care Team (Late st Contact Info) Description 07/10/2024 Orders Only [facility] [address] [address] Ananth Roy MD [address] [place] [address] Social History Tobacco Use Types Packs/Day Years [...] 05/27/2024 How often do you attend chur ch or alevism services? Never 05/27/2024 Do you belong to any clubs o r organizations such as adventist groups, unions, fraternal or athletic groups, or [...] medical care, and heating? Somewhat hard 05/27/2024 [facility] of Occupat ional Health - Occupational Stress [...] place to sleep or slept in a assisted (including now)? Yes 04/14/2023 Housing Stability Vital Sign Answer Vivek e Recorded In the last 12 months, was t here a time when you were not able to pay the mortgage or rent on time? No 05/27/2024 In the past 12 months, how m any times have you moved where you were living? 0 05/27/2024 At any time in the past 12 m [facility], were you homeless or living in a assisted (including now)? No 05/27/2024 Comments Unknown Sex and Gender Information Value Date Recorded Sex Assigned at Not on file Legal Sex Female 7:26 PM EDT Gender Identity Not on file Sexual Orientation Not on file documented as of this encounter Plan of Treatment Upcoming Encounters Date Type Department Care Team (Late st Contact Info) Description 01/09/2025 1:30 PM EDT Office Visit [facility] [address] [place] [address] Ananth Roy MD [address] [place] [address] 02/10/2025 9:30 AM EDT Procedure Visit [facility] [place] [phone] Cristóbal Werner DO [address] [facility] [place] [address] documented as of this encounter Visit Diagnoses Not on filedocumented in this encounter Care Teams Preparer Relationship Specialty Start Date End Date Ananth Roy MD [address] [place] [address] PCP - General Family Medicine 06/08/23 Ananth Roy MD [address] [place] [address] PCP - Medical [place] [facility] 12/12/22 04/30/99 documented as of this encounter
--- OUTSIDE RECORDS SUMMARY | 2024-12-27 09:06 | XMS_ITS | Encounter Summary ---
Author Organization [facility] Address [address] [place] [address] Care Team Providers Care Tension Machine Operator Name Role Phone Ananth Roy MD Primary Care Provider [phone] Ananth Roy MD Primary Care Provider [phone] Ananth Roy MD Unavailable Encounter Details Date Type Department Care Team (Late st Contact Info) Description 04/26/2023 Abstract [facility] [address] [place] [address] Shaikh Arce MD [address] [place] [address] Social History Tobacco Use Types Packs/Day Years Used Date Smoking Tobacco: Former Cigarettes Smokeless Tobacco: Never Alcohol Use Standard Drinks/Week Comments Never 0 (1 standard drink = 0.6 oz pure alcohol) Caffine intake: 1-2 cups per day Humiliation, Afraid, Rape, and Kick questionnair e [...] family, friends, or neighbors? Once a week 04/14/2023 How often do you get together with friends or re latives? Never 04/14/2023 How often do you attend yazdanism or anglican serv ices? Never 04/14/2023 Do you belong to any clubs o r organizations such as yazdanism groups, unions, fraternal or athletic groups, or school groups? No 04/14/2023 How often do you attend meet ings of the clubs or organizations you belong to? Never 04/14/2023 Are you , , di vorced, , never , or living with a partner? 04/14/2023 AUDIT-C Answer Date Recorded Q1: How often do you have a drink containing alc ohol? Monthly or less 04/14/2023 Q2: How many drinks containi ng alcohol do you have on a typical day when you are drinking? 1 or 2 04/14/2023 Q3: How often do you have si x or more drinks on one occasion? Never 04/14/2023 Overall Financial Resource Strain (CARDIA) Answe r Date Recorded How hard is it for you to pa y for the very basics like food, housing, medical care, and heating? Somewhat hard 04/14/2023 [employer] [place] of Occupat ional Health - Occupational Stress Questionnaire Answer Date Recorded Do you feel stress - tense, restless, nervous, or anxious, or unable to sleep at night because your mind is troubled all the time - these days? Only a little 04/14/2023 Exercise Vital Sign Answer Date Recorde d On average, how many days pe r week do you engage in moderate to strenuous exercise (like a brisk walk)? 4 days 04/14/2023 On average, how many minutes do you engage in exercise at this level? 90 min 04/14/2023 Hunger Vital Sign Answer Date Recorded Within the past 12 months, y ou worried that your food would run out before you got the money to buy more. Sometimes true Within the past 12 months, t he food you bought just didn't last and you didn't have money to get more. Sometimes true PRAPARE - Transportation Answer Date Re corded In the past 12 months, has l ack of transportation kept you from medical appointments or from getting medications? No 03/31 In the past 12 months, has l ack of transportation kept you from meetings, work, or from getting things needed for daily living? No 04/14/2023 Housing Stability Vital Sign Answer Vivek [...] place to sleep or slept in a jail (including now)? Yes 04/14/2023 Comments Unknown Sex and Gender Information Value Date Recorded Sex Assigned at Not on file Legal Sex Female 7:26 PM EDT Gender Identity Not on file Sexual Orientation Not on file documented as of this encounter Plan of Treatment Upcoming Encounters Date Type Department Care Team (Late st Contact Info) Description 01/09/2025 1:30 PM EDT Office Visit [facility] [address] [place] [address] Ananth Roy MD [address] [place] [address] 02/10/2025 9:30 AM EDT Procedure Visit [facility] [address] [place] [address] Cristóbal Werner DO [address] [facility] [place] [address] documented as of this encounter Visit Diagnoses Not on filedocumented in this encounter Care Teams Tension Machine Operator Relationship Specialty Start Date End Date Ananth Roy MD PCP - General Family Medicine 10/19/22 06/07/23 Ananth Roy MD [address] [place] [address] PCP - General Family Medicine 06/08/23 Ananth Roy MD [address] [place] [address] PCP - Medical [place] [facility] 12/12/22 04/30/99 documented as of this encounter
--- OUTSIDE RECORDS SUMMARY | 2024-12-27 09:06 | XMS_ITS | Encounter Summary ---
Author Organization [facility] tem Address [facility] [id number] [address] [place] [address] Care Team Providers Care Deburrer Strip Name Role Phone Ananth Roy MD Primary Care Provider [phone] Encounter Details Date Type Department Care Team ([facility] st Contact Info) Description 03/31/2021 Orders Only [facility] - E[facility] [address] [place] [address], [address] [place] [address] He Sainz MD [address] [place] [address] [address] [place] [address] Social History Tobacco Use Types Packs/Day Years Used Date Smoking Tobacco: Never Smokeless Tobacco: Never Alcohol Use Standard Drinks/Week Comments Not Currently 0 (1 standard drink = 0.6 oz pur e alcohol) PHQ-2 Answer Date Recorded Total Score 0 02/10/2021 Childcare Answer Date Recorded Childcare Unknown 10/08/2018 Employment Answer Date Recorded Employment Unknown 10/08/2018 Comments No Sex and Gender Information Value Date Recorded Sex Assigned at Not on file Legal Sex Female 12:20 PM EDT Gender Identity Not on file Sexual Orientation Not on file COVID-19 Exposure Response Date Recorded In the last month, have you been in contact with someone who was confirmed or suspected to have Coronavirus / COVID-19? No / Unsure 03/31/2021 10:05 AM EST documented as of this encounter Plan of Treatment Not on file documented as of this encounter Procedures Procedure Name Priority Date/Time Associated Diagnosis Comments COMPREHENSIVE HEARING TEST Routine 03/31/2021 10:11 AM EST documented in this encounter Results * Comprehensive hearing test (03/31/2021 10:11 AM EST) Narrative MANUALLY TRANSCRIBED RESULTS - 03/31/2021 10:11 AM EST Audiology evaluation was completed on 03/31/2021 us He Sainz MD AUDIOLOGY SERVICES ORDERABLE S Final Result MANUALLY TRANSCRIBED RESULTS documented in this encounter Visit Diagnoses Not on filedocumented in this encounter Additional Health Concerns Assessment Noted Time PHQ-9 Depression Total Score: 0 02/11/20 21 10:26 AM EDT documented as of this encounter Care Teams Deburrer Strip Relationship Specialty Start Date End Date Ananth Roy MD PCP - General Family Medicine 11/11/20 documented as of this encounter
--- OUTSIDE RECORDS SUMMARY | 2024-12-27 09:06 | XMS_ITS | Encounter Summary ---
Author Organization [facility] Address [address] [place] [address] Care Team Providers Care Ben Day Artist Name Role Phone Ananth Roy MD Primary Care Provider [phone] Ananth Roy MD Unavailable Encounter Details Date Type Department Care Team (Latest Contact Info) Description 12/22/2024 Travel Social History Tobacco Use Types Packs/Day Years [...] friends, or neighbors? Once a week 05/27/19 25 How often do you get togethe r with friends or relatives? Never 05/27/2024 How often do you attend chur ch or tenriism services? Never 05/27/2024 Do you belong to [...] medical care, and heating? Somewhat hard 05/27/2024 [facility] of Occupat ional Health - Occupational Stress [...] place to sleep or slept in a group home (including now)? Yes 04/14/2023 Housing Stability Vital Sign Answer Vivek e Recorded In the last 12 months, was t here a time when you were not able to pay the mortgage or rent on time? No 05/27/2024 In the past 12 months, how m any times have you moved where you were living? 0 05/27/2024 At any time in the past 12 m [facility], were you homeless or living in a group home (including now)? No 05/27/2024 Comments Unknown Sex [...] Office Visit [facility] [address] [place] [address] Ananth Roy MD [address] [place] [address] 02/10/2025 9:30 AM EDT Procedure Visit [facility] [address] [facility] [place] [address] rCistóbal Werner DO [address] [facility] [place] [address] documented as of this encounter Visit Diagnoses Not on filedocumented in this encounter Care Teams Ben Day Artist Relationship Specialty Start Date End Date Ananth Roy MD [address] [place] [address] PCP - General Family Medicine 06/08/23 Ananth Roy MD [address] [place] [address] PCP - Medical [place] [facility] 12/12/22 04/30/99 documented as of this encounter
--- OUTSIDE RECORDS SUMMARY | 2024-12-27 09:06 | XMS_ITS | Encounter Summary ---
Author Organization [facility] Address [address] [place] [address] Care Team Providers Care Supervisor Hospitality House Name Role Phone Ananth Roy MD Primary Care Provider [phone] Ananth Roy MD Primary Care Provider [phone] Ananth Roy MD Unavailable Encounter Details Date Type Department Care Team (Late st Contact Info) Description 05/09/2023 Orders Only [facility] [address] [place] [address] Ananth Roy MD [address] [place] [address] Social History Tobacco Use Types Packs/Day Years [...] Never 04/14/2023 How often do you attend faith or methodist serv ices? Never 04/14/2023 Do you belong to any clubs o r organizations such as faith groups, unions, fraternal or athletic groups, or [...] medical care, and heating? Somewhat hard 04/14/2023 [facility] of Occupat ional Health - Occupational Stress [...] a group home (including now)? Yes 04/14/2023 Comments Unknown Sex [...] Office Visit [facility] [address] [place] [address] Ananth Roy MD [address] [place] [address] 02/10/2025 9:30 AM EDT Procedure Visit [facility] [address] [facility] [place] [address] Cristóbal Werner DO [address] [facility] [place] [address] documented as of this encounter Procedures Procedure Name Priority Date/Time Associated Diagnosis Comments XRAY Routine 05/09/2023 10:32 AM EST documented in this encounter Results * XRAY (05/09/2023 10:32 AM EST) Anatomical Region Laterality Modality Radiographic Joyce ging Ananth Roy MD IMG XR PROCEDURES Final Result documented in this encounter Visit Diagnoses Not on filedocumented in this encounter Care Teams Supervisor Hospitality House Relationship Specialty Start Date End Date Ananth Roy MD PCP - General Family Medicine 10/19/22 06/07/23 Ananth Roy MD [address] [place] [address] PCP - General Family Medicine 06/08/23 Ananth Roy MD [address] [place] [address] PCP - Medical [place] [employer] 12/12/22 04/30/99 documented as of this encounter
--- OUTSIDE RECORDS SUMMARY | 2024-12-27 09:06 | XMS_ITS | Clinical Summary ---
Author Organization [facility] Address [address] [place] [address], [address] [place] [address] Care Team Providers Care Public Safety Police Name Role Phone Unavailable Primary Care Provider Unavailabl e Social History Tobacco Use Types Packs/Day Years Used Date Smoking Tobacco: Never Assessed Comments Unknown Sex and Gender Information Value Date Recorded Sex Assigned at Not on file Legal Sex Female 6:15 AM EST Gender Identity Not on file Sexual Orientation Not on file Plan of Treatment Not on file
--- OUTSIDE RECORDS SUMMARY | 2024-12-27 09:07 | XMS_ITS | Encounter Summary ---
Author Organization [facility] Address [address] [facility] [place] [address] Care Team Providers Care Bell Ringer Name Role Phone Ananth Roy MD Primary Care Provider [phone] Ananth Roy MD Primary Care Provider [phone] Ananth Roy MD Unavailable Encounter Details Date Type Department Care Team (Late Contact Info) Description 11/04/2022 Abstract [facility] [place] [facility] [address] [place] [address] [place], [place] [address] [place] [address] Social History Tobacco Use Types Packs/Day Years Used Date Smoking Tobacco: Former Cigarettes Smokeless Tobacco: Never Tobacco Cessation:Counseling Given: Not Answered Alcohol Use Standard Drinks/Week Comments Never 0 (1 standard drink = 0.6 oz pure alcohol) Caffine intake: 1-2 cups per day Comments Unknown Sex and Gender Information Value Date Recorded Sex Assigned at Not on file Legal Sex Female 7:26 PM EDT Gender Identity Not on file Sexual Orientation Not on file COVID-19 Exposure Response Date Recorded In the last 10 days, have yo u been in contact with someone who was confirmed or suspected to have Coronavirus/COVID-19? No / Unsure 10/28/2022 10:48 AM EDT documented as of this encounter Plan of Treatment Upcoming Encounters Date Type Department Care Team (Late Contact Info) Description 01/09/2025 1:30 PM EDT Office Visit [facility] [address] [place] [address] Ananth Roy MD [address] [place] [address] 02/10/2025 9:30 AM EDT Procedure Visit [facility] [address] [facility] [place] [address] Cristóbal Werner DO [address] [facility] [place] [address] documented as of this encounter Visit Diagnoses Not on filedocumented in this encounter Care Teams Bell Ringer Relationship Specialty Start Date End Date Ananth Roy MD PCP - General Family Medicine 10/19/22 06/07/23 Ananth Roy MD [address] [place] [address] PCP - General Family Medicine 06/08/23 Ananth Roy MD [address] [place] [address] PCP - Medical [place] [employer] 12/12/22 04/30/99 documented as of this encounter
--- OUTSIDE RECORDS SUMMARY | 2024-12-27 09:07 | XMS_ITS | Encounter Summary ---
Author Organization [facility] Address [address] [facility] [address] Care Team Providers Care Quality Technician Fiberglass Name Role Phone Ananth Roy MD Primary Care Provider [phone] Ananth Roy MD Unavailable Encounter Details Date Type Department Care Team (Late st Contact Info) Description 12/25/2024 Bamboo flowsheet [facility] [address] [facility] [address] Chayito Ma PA [address] [facility] [address] [place], [place] [id number] Social History Tobacco Use Types Packs/Day Years [...] often do you attend chur ch or jewish services? Never 05/27/2024 Do you belong to any clubs o r organizations such as latter day groups, unions, fraternal or athletic groups, or [...] medical care, and heating? Somewhat hard 05/27/2024 [facility] of Occupat ional Health - [...] place to sleep or slept in a mcc (including now)? Yes 04/14/2023 Housing Stability Vital Sign Answer Vivek e Recorded In the last 12 months, was t here a time when you were not able to pay the mortgage or rent on time? No 05/27/2024 In the past 12 months, how m any times have you moved where you were living? 0 05/27/2024 At any time in the past 12 m [facility], were you homeless or living in a mcc (including now)? No 05/27/2024 Comments Unknown Sex [...] Visit [facility] [address] [place] [address] Ananth Roy MD [address] [place] [address] 02/10/2025 9:30 AM EDT Procedure Visit [facility] [address] [place] [address] [place] [address] Cristóbal Werner DO [address] [facility] [place] [address] documented as of this encounter Visit Diagnoses Not on filedocumented in this encounter Care Teams Quality Technician Fiberglass Relationship Specialty Start Date End Date Ananth Roy MD [address] [place] [address] PCP - General Family Medicine 06/08/23 Ananth Roy MD [address] [place] [address] PCP - Medical [place] [facility] 12/12/22 04/30/99 documented as of this encounter
--- OUTSIDE RECORDS SUMMARY | 2024-12-27 09:07 | XMS_ITS | Clinical Summary ---
Author Organization [facility] Healthcare Address [address] [place] [address] Care Team Providers Care Video Surveillance Technician Name Role Phone Ananth Roy MD Primary Care Provider Ananth Roy MD Unavailable Allergies No known active allergies Medications albuterol HFA 90 mcg/act inhalerIndication s:SOB (shortness of breath) on exertion Inhale 2 puffs every 4 (four) hours if needed for shortness of breath or wheezing 18 g 2 025 2025 Active phentermine (Adipex-P) 37.5 MG tabletIndications :Class 3 severe obesity due to excess calories with serious comorbidity and body mass index (BMI) of 60.0 to 69.9 in adult ([facility]) Take 1 tablet (37.5 mg) by mouth in the morning. Take before meals. 30 tablet 025 2024 Active celecoxib (CeleBREX) 200 MG capsuleIndication s:Bilateral primary osteoarthritis of knee Take 1 capsule (200 mg) by mouth 2 (two) times a day as needed for mild pain 60 capsule 3 025 Active metFORMIN (Glucophage) 500 MG tabletIndications :Menorrhagia with regular cycle Take 1 tablet (500 mg) by mouth in the morning. Take with meals. 30 tablet 11 025 2025 Active celecoxib (CeleBREX) 200 MG capsuleIndication s:Bilateral primary osteoarthritis of knee Take 1 capsule (200 mg) by mouth 2 (two) times a day as needed for mild pain 60 capsule 3 024 2024 Discontinued(R eorder) atomoxetine (Strattera) 40 MG capsuleIndication s:ADD (attention deficit 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 Take 1 capsule (40 mg) by mouth Daily Swallow capsule whole; do not open. If opened accidentally, do not touch eyes; wash hands immediately (product is an eye irritant). 30 capsule 3 025 2024 Discontinued Active Problems Problem Noted Date Diagnosed Date SOB (shortness of breath) on exertion 06/03/2024 Annual physical exam 05/03/2024 Assessment & Plan (05/03/2024 10:32 AM EST): Due for labs. Discussed proper diet and regular aerobic exercise. Need aerobic exercise 5-6 days a week for 30 minutes at a time. Smaller portions and limit total calories. Colonoscopy after age 45. Tetanus every 10 years. Advised not to smoke. ADD (attention deficit 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 hyperac tivity 05/03/2024 Assessment & Plan (12/02/2024 1:56 PM EDT): Doing well with strattera and continue at current dose. Assessment & Plan (06/03/2024 9:19 AM EST): Doing well with strattera and continue at current dose. Assessment & Plan (05/03/2024 10:32 AM EST): Meets criteria for ADD and start strattera. Reassess in 1 month. Class 3 severe obesity due t o excess calories with serious comorbidity and body mass index (BMI) of 60.0 to 69.9 in adult 06/08/2023 Assessment & Plan (12/02/2024 1:56 PM EDT): Patient overweight and difficult time losing weight. [...] month. OARRS reviewed. Continue medications as prescribed. Assessment & Plan (06/03/2024 9:19 AM EST): Weight loss indicated. Assessment & Plan (05/03/2024 10:33 AM EST): Weight loss indicated. Essential hypertension, benign 04/21/2023 Assessment & Plan (12/02/2024 1:56 PM EDT): BP normal and monitor PRN. Assessment & Plan (06/03/2024 9:19 AM EST): BP normal and monitor PRN. Assessment & Plan (05/03/2024 10:33 AM EST): BP normal and monitor PRN. Polycystic ovary syndrome 04/21/2023 Bilateral primary osteoarthritis of knee 023 Assessment & Plan (12/02/2024 1:56 PM EDT): Pain worse with weight gain and resume celebrex PRN. Assessment & Plan (06/03/2024 9:19 AM EST): Pain stable and use celebrex PRN. Vitamin D deficiency 04/21/2023 Resolved Problems Problem Noted Date Diagnosed Date Resolved Date Acute non-recurrent pansinusitis 06/08/2023 05/03/2024 Assessment & Plan (06/08/2023 12:01 PM EST): Take antibiotics BID for 10 days. Use [...] no better or worse call for re-evaluation. Acute bacterial conjunctivitis of both eyes 06/08/2023 05/03/2024 Assessment & Plan (06/08/2023 12:01 PM EST): Exam shows conjunctivitis and treat with drops x 7 days. Use warm compresses PRN. Avoid touching eye and wash hands frequently to prevent spread of illness. Encounters Date Type Department Care Team Description 12/25/2024 2:00 PM EDT Procedure Visit [facility] [address] [place] [address] Chayito Ma PA Well woman exam with routine gynecological exam; Menorrhagia with regular cycle 12/25/2024 Bamboo flowsheet [facility] [address] [place] [address] Chayito Ma PA 12/22/2024 Travel 12/02/2024 1:15 PM EDT Office Visit [facility] [address] [place] [address] Ananth Roy MD Essential hypertension, benign (Primary Dx); Bilateral primary osteoarthritis of knee; ADD (attention deficit 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; Class 3 severe obesity due to excess calories with serious comorbidity and body mass index (BMI) of 60.0 to 69.9 in adult ([facility]) 12/02/2024 Bamboo flowsheet [facility] [address] [place] [address] Ananth Roy MD 11/30/2024 Travel from Last 3 Months Family History Medical History Relation Name Comments Diabetes Brother Diabetes Father Hyperlipidemia Father Hypertension Father Stroke Maternal Grandfather Hypertension Maternal Grandmother Stroke Maternal Grandmother Hyperlipidemia Mother Hypertension Mother Kidney disease Mother Seizures Mother cellulitis Mother Breast cancer Other 1 Heart disease Other 2 Heart disease Paternal Grandfather Stroke Paternal Grandfather Heart disease Paternal Grandmother Hypertension Paternal Grandmother Stroke Paternal Grandmother No Known Problems Sister No Known Problems Son Relation Name Status Comments Brother 1 brother Father Alive Maternal Grandfather Maternal Grandmother Mother Alive Other 1 paternal great aunt Other 2 Alive runs on pts dad s side of the family Paternal Grandfather Paternal Grandmother Sister 3 sisters Son 1 son Social History Tobacco Use Types Packs/Day Years Used Date Smoking Tobacco: Former Cigarettes Smokeless Tobacco: Never Tobacco Cessation:Counseling Given: Not Answered Comments:Last smoked : 5-10 years Alcohol Use [...] often do you attend chur ch or presybeterian services? Never 05/27/2024 Do you belong to any clubs o r organizations such as mosque groups, unions, fraternal or athletic groups, or [...] care, and heating? Somewhat hard 05/27/2024 [facility] [place] [facility] - Occupational Stress [...] any time in the past 12 m [facility], were you homeless or living in a group home (including now)? No 05/27/2024 Comments Unknown Sex and Gender Information Value Date Recorded Sex Assigned at Not on file Legal Sex Female 7:26 PM EDT Gender Identity Not on file Sexual Orientation Not on file Last Filed Vital Signs Vital Sign Reading Time Taken Comments Blood Pressure 128/86 12/25/2024 2:25 PM EDT Pulse 124 12/02/2024 1:29 PM EDT Temperature 36.4 C (97.5 F) 12/02/2024 1:29 PM EDT Respiratory Rate 22 12/02/2024 1:29 PM EDT Oxygen Saturation 99% 12/02/2024 1:29 PM EDT Inhaled Oxygen Concentration - - Weight 168 kg (370 lb 8 oz) 12/25/2024 2:25 PM E DT Height 167.6 cm (5' 6 ) 12/02/2024 1:29 PM EDT Body Mass Index 59.8 12/02/2024 1:29 PM EDT Plan of Treatment Upcoming Encounters Date Type Department Care Team (Late st Contact Info) Description 01/09/2025 1:30 PM EDT Office Visit [facility] [address] [place] [address] Ananth Roy MD [address] [place] [address] 02/10/2025 9:30 AM EDT Procedure Visit [facility] [address] [place] [address] Cristóbal Werner DO [address] [place] [address] Health Maintenance Due Date Last Done Comments HPV/Cotest 2020 Influenza Vaccine (#1) 2024 03/14/2021, 2017 Cervical Cancer Screening 06/09/2025 Pap Smear 06/09/2025 06/09/2022 Procedures Procedure Name Priority Date/Time Associated Diagnosis Comments PAP SMEAR Routine 06/09/2022 12:00 AM EST from Last 3 Months or Most Recently Relevant to Health Maintenance Results * Pap Smear (06/09/2022 12:00 AM EST) Swab Cervical swab / Unknown [facility] Final Re sult EXTERNAL LAB from Last 3 Months or Most Recently Relevant to Health Maintenance Insurance [employer] Care Teams Video Surveillance Technician Relationship Specialty Start Date End Date Ananth Roy MD [address] [place] [id number] PCP - General Family Medicine 06/08/23 Ananth Roy MD [address] [place] [phone] PCP - Medical [employer] 12/12/22 04/30/99
--- OUTSIDE RECORDS SUMMARY | 2024-12-27 09:07 | XMS_ITS | Clinical Summary ---
Author Organization [facility] tem Address [id number] [address] 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 cyanocobalamin, vitamin B-12, (VITAMIN B-12 ORAL) Take by mouth. Activ e vit no.124/iron/fol ic ( VITAMIN ORAL) Take by mouth. A ctive metFORMIN (GLUCOPHAGE) 500 mg tablet Take 500 mg by mouth 2 (two) times a day. 1 Active phentermine (ADIPEX-P) 37.5 mg tablet Take 37.5 mg by mouth every morning before breakfast. Active fluticasone propionate (FLONASE) 50 mcg/actuation nasal spray Administer 1 spray into each nostril daily. 15.8 mL 12 Active Additional Information Patient not taking.Reported on 03/31/2021 Active Problems Problem Noted Date Diagnosed Date Tonsillar hypertrophy 09/07/2020 Resolved Problems Problem Noted Date Diagnosed Date Resolved Date Hearing difficulty of both ears 09/07/2020 10/28/2020 Social History Tobacco Use Types Packs/Day Years [...] Sign Reading Time Taken Comments Blood Pressure - - Pulse - - Temperature 37 C (98.6 F) 03/31/2021 10:54 AM EST Respiratory Rate - - Oxygen Saturation - - Inhaled Oxygen Concentration - - Weight 162.4 kg (358 lb) 03/31/2021 10:54 AM EST Height 167.6 cm (5' 6 ) 03/31/2021 10:54 AM EST Body Mass Index 57.78 03/31/2021 10:54 AM EST Plan of Treatment Health Maintenance Due Date Last Done Comments Depression Screening 2002 Tobacco Screening 2002 Adult BMI Screening 2008 COVID-19 Vaccine ( - 2023-2 5 season) 2023 03/14/2021, 09/11/2020, 08/14/2020 Influenza Vaccine 12/30/2024 03/14/2021, 05/29/2017 Pap Smear 06/09/2025 06/09/2022 DTaP,Tdap and Td Vaccines (2 - Td or Tdap) 12/03/2031 12/02/2021 Medical Devices Not on file Care Teams Elastic Yarn Twister Helper Relationship Specialty Start Date End Date Ananth Roy MD PCP - General Family Medicine 11/11/20
--- OUTSIDE RECORDS SUMMARY | 2024-12-27 09:17 | XMS_ITS | CCD ---
Author Organization [facility] Care Team Providers Care Laminator Hand Name Role Phone CHAYITO NAIK Admitting Unavailable CHAYITO NAIK Attending Unavailable NADERER, DR ANANTH Andujar Primary Care Unavailable CHAYITO NAIK Consulting Unavailable KANNAN, DR ANANTH Andujar Admitting Unavailable NADERER, DR ANANTH Andujar Attending Unavailable NADERER, DR ANANTH Andujar Primary Care Unavailable NADERER, DR ANANTH Andujar Consulting Unavailable Ananth Brunner MD Primary Care Provider [phone] SILVIA RINCON Attending Unavailable ANANTH BRUNNER Referring [...] Drug Class(es) Dates Sig (Normalized) Sig (Original) [id number] 200 actuat albuterol 0.09 mg/actuat metered dose [...] (BMI) of 60.0 to 69.9 in adult ([facility]) Take 1 tablet (37.5 mg) by mouth [...] (BMI) of 50.0 to 59.9 in adult ([facility])] Onset: 06-08-2023 05-03-2024 Chronic Other screening for [...] WITH AUTO DIFFon BASOPHILS ABSOLUTE AUTO 0.1 [facility] Basophils/100 WBC (Bld) 0.8 % 0.2 - 2.0 % [facility] Eosinophils/100 WBC (Bld) 3 % 0.9 - 7.0 % [facility] Erythrocyte distribution width (RBC) [Ratio] 14 % 11.0 - 15.0 % [facility] Hematocrit (Bld) [Volume fraction] 42 % 36.0 - 48.0 % [facility] e Hemoglobin (Bld) [Mass/Vol] 13.4 g/dL 12.0 - 16.0 g/dL [facility] IMMATURE GRANULOCYTES ABS AUTO 0.08 High [facility] Immature granulocytes/100 WBC (Bld) 0.9 % High 0.0 - 0.5 % [facility] Interpretation and review of laboratory results Abnormal [facility] LYMPHOCYTES ABSOLUTE AUTO 2.6 [facility] Lymphocytes/100 WBC (Bld) 28.6 % 20.5 - 60.0 % [facility] MCH (RBC) [Entitic mass] 26.7 pg 26.7 - 34.0 pg [facility] MCHC (RBC) [Mass/Vol] 31.9 g/dL 29.9 - 35.2 g/dL [facility] MCV (RBC) [Entitic vol] 83.7 fL 81.0 - 99.0 fL [facility] MONOCYTES ABSOLUTE AUTO 0.8 [facility] Monocytes/100 WBC (Bld) 8.2 % 1.7 - 12.0 % [facility] NEUTROPHILS ABSOLUTE AUTO 5.4 [facility] Neutrophils/100 WBC (Bld) 58.5 % 43.0 - 75.0 % [facility] Platelet mean volume (Bld) [Entitic vol] 8.6 [...] fraction] 5.3 % 4.5 - 6.2 % [facility] Comment on above: ADA RECOMMENDED LIMI T 4.0 - 6.0 ADA THERAPEUTIC TARGET < 7.0 ACTION SUGGESTED > 7.0 [facility] PAP ACOG PANEL 2: 30 to 65on 06-17-2022 . . Normal [facility] Comment on above: Result Comment: Perf ormed at: WB Performed By: #### [id number] #### [facility] [address] [address] [address] [place] Age Gdln ACOG Testing 30-[address] [facility] Comment on above: Performed By: #### [id number] #### [facility] [address] [address] [address] [place] DIAGNOSIS: Comment Normal [facility] Comment on above: Result Comment: NEGA TIVE FOR INTRAEPITHELIAL LESION OR MALIGNANCY. THIS SPECIMEN WAS RESCREENED PART OF OUR DIGESTER OPERATOR HELPER PROGRAM. Performed at: WB Performed By: #### [id number] #### [facility] [address] [address] [address] [place] HPV Aptima Negative Normal Negative [facility] Comment on above: Result Comment: This nucleic acid amplification test detects fourteen high-risk HPV types (16,18,31,33,35,39,45,51,52,56,58,59,66,68) without differentiation. Performed at: =G Performed By: #### [id number] #### [facility] [address] [place] [address] Dr. [place] HPV Genotype Reflex Comment Normal [facility] Comment on above: Result Comment: Crit eria not met, HPV Genotype not performed. Performed at: WB Performed By: #### [id number] #### [facility] [address] [place] [address] Dr. [place] Methodology: Comment Normal [facility] Comment on above: Result Comment: This liquid based ThinPrep(R) pap test was screened with the use of an image guided system. Performed at: WB Performed By: #### [id number] #### [facility] [address] [address] [address] [place] Note: Comment Normal [facility] Comment on above: Result Comment: The Pap smear is a screening test designed to aid in the detection of premalignant and malignant conditions of the uterine cervix. It is not a diagnostic procedure and should not be used as the sole means of detecting cervical cancer. Both false-positive and false-negative reports do occur. . Performed at: WB Performed By: #### [id number] #### [facility] [address] [address] [address] [place] Performed by: Comment Normal [facility] Comment on above: Result Comment: Jerrod Gayle, Supervisory Solder Sprayer (ASCP) Performed at: WB Performed By: #### [id number] #### [facility] [address] [place] [address] Dr. [place] QC reviewed by: Comment Normal [facility] Comment on above: Result Comment: Ally Jesus, Supervisory Solder Sprayer (ASCP) Performed at: WB Performed By: #### [id number] #### [facility] [address] [place] [address] Dr. [place] Specimen adequacy: Comment Normal [facility] Comment on above: Result Comment: Sati sfactory for evaluation. Endocervical and/or squamous metaplastic cells (endocervical component) are present. Performed at: WB Performed By: #### [id number] #### [facility] [address] [place] [address] Dr. [place] Cytology Cervical or vaginal smear or scraping studyon 06-09-2022 [facility] RESPIRATORY PANEL PLUSon Adenovirus Not detected Normal NOT DETECTED [facility] Comment on above: Performed By: #### R SPLUS #### [facility] [address] [place] [address] Dr. [place] Parapertusis Not detected Normal NOT DETECTED [facility] Comment on above: Performed By: #### R SPLUS #### [facility] [address] [place] [address] Dr. [place] Pertussis Not detected Normal NOT DETECTED [facility] Comment on above: Performed By: #### R SPLUS #### [facility] [address] [place] [address] Dr. [place] Chlamydia Pneumoniae Not detected Normal NOT DETECTED [facility] Comment on above: Performed By: #### R SPLUS #### [facility] [address] [place] [address] Dr. [place] Coronavirus 229E Not detected Normal NOT DETECTED [facility] Comment on above: Performed By: #### R SPLUS #### [facility] [address] [address] [address] [place] Coronavirus HKU1 Not detected Normal NOT DETECTED [facility] Comment on above: Performed By: #### R SPLUS #### [facility] [address] [place] [address] Dr. [place] Coronavirus NL63 Not detected Normal NOT DETECTED [facility] Comment on above: Performed By: #### R SPLUS #### [facility] [address] [place] [address] Dr. [place] Coronavirus OC43 Not detected Normal NOT DETECTED [facility] Comment on above: Performed By: #### R SPLUS #### [facility] [address] [place] [address] Dr. [place] Influenza A H1 2009 Not detected Normal NOT DETECTED [facility] Comment on above: Performed By: #### R SPLUS #### [facility] [address] [place] [address] Dr. [place] Influenza A H3 Detected Abnormal NOT DETECTED [facility] Comment on above: Performed By: #### R SPLUS #### [facility] [address] [place] [address] Dr. [place] Influenza B Not detected Normal NOT DETECTED [facility] Comment on above: Performed By: #### R SPLUS #### [facility] [address] [place] [address] Dr. [place] Metapneumovirus Not detected Normal NOT DETECTED [facility] Comment on above: Performed By: #### R SPLUS #### [facility] [address] [place] [address] Dr. [place] Mycoplas. Pneumoniae Not detected Normal NOT DETECTED [facility] Comment on above: Performed By: #### R SPLUS #### [facility] [address] [place] [address] Dr. [place] Parainfluenza 1 Not detected Normal NOT DETECTED [facility] Comment on above: Performed By: #### R SPLUS #### [facility] [address] [place] [address] Dr. [place] Parainfluenza 2 Not detected Normal NOT DETECTED [facility] Comment on above: Performed By: #### R SPLUS #### [facility] [address] [place] [address] Dr. [place] Parainfluenza 3 Not detected Normal NOT DETECTED [facility] Comment on above: Performed By: #### R SPLUS #### [facility] [address] [place] [address] Dr. [place] Parainfluenza 4 Not detected Normal NOT DETECTED [facility] Comment on above: Performed By: #### R SPLUS #### [facility] [address] [place] [address] Dr. [place] Rhino/Enterovirus Not detected Normal NOT DETECTED [facility] Comment on above: Performed By: #### R SPLUS #### [facility] [address] [place] [address] Dr. [place] RP2 Header 1 RESPIRATORY PANEL: VIRUSES Normal [facility] Comment on above: Performed By: #### R SPLUS #### [facility] [address] [place] [address] Dr. [place] RP2 Header 2 RESPIRATORY PANEL: BACTERIA Normal [facility] Comment on above: Performed By: #### R SPLUS #### [facility] [address] [place] [address] Dr. [place] RSV Not detected Normal NOT DETECTED [facility] Comment on above: Performed By: #### R SPLUS #### [facility] [address] [place] [address] Dr. [place] SARS-CoV-2 (COVID-19) RNA ANGEL+probe Ql (Unsp spec) Not detected Normal NOT DETECTED [facility] Comment on above: Performed By: #### R SPLUS #### [facility] [address] [place] [address] Dr. [place] Vital Signs Date Time Vital Sign Value Performing Clinician Kalyn lity 12-25-2024 14:25-0400 Body mass index (BMI) [Ratio] 59.8 kg/m2 Chayito MASTERS Work Phone: [facility] 12-25-2024 14:25-0400 Body weight 168.06 kg Chayito MASTERS Work Phone: [facility] 12-25-2024 14:25-0400 Diastolic blood pressure 86 mm[Hg] Chayito MASTERS Work Phone: [facility] 12-25-2024 14:25-0400 Systolic blood pressure 128 mm[Hg] Chayito MASTERS Work Phone: [facility] 12-02-2024 13:29-0400 Body height 167.6 cm Ananth Brunner MD Work Phone: [facility] 12-02-2024 13:29-0400 Body mass index (BMI) [Ratio] 60.85 kg/m2 Ananth Brunner MD Work Phone: [facility] 12-02-2024 13:29-0400 Body temperature 97.5 [degF] Ananth Brunner MD Work Phone: [facility] 12-02-2024 13:29-0400 Body weight 171.01 kg Ananth Brunner MD Work Phone: [facility] 12-02-2024 13:29-0400 Diastolic blood pressure 76 mm[Hg] Ananth Brunner MD Work Phone: [facility] 12-02-2024 13:29-0400 Heart rate 124 /min Ananth Brunner MD Work Phone: [facility] 12-02-2024 13:29-0400 Respiratory rate 22 /min Ananth Brunner MD Work Phone: [facility] 12-02-2024 13:29-0400 SaO2% (BldA) [Mass fraction] 99 % Ananth Brunner MD Work Phone: [facility] 12-02-2024 13:29-0400 Systolic blood pressure 134 mm[Hg] Ananth Brunner MD Work Phone: [facility] 06-03-2024 08:46-0500 Body height 167.6 cm Ananth Brunner MD Work Phone: [facility] 06-03-2024 08:46-0500 Body mass index (BMI) [Ratio] 56.65 kg/m2 Ananth Brunner MD Work Phone: [facility] 06-03-2024 08:46-0500 Body temperature 97.3 [degF] Ananth Brunner MD Work Phone: [facility] 06-03-2024 08:46-0500 Body weight 159.21 kg Ananth Brunner MD Work Phone: [facility] 06-03-2024 08:46-0500 Diastolic blood pressure 62 mm[Hg] Ananth Brunner MD Work Phone: [facility] 06-03-2024 08:46-0500 Heart rate 119 /min Ananth Brunner MD Work Phone: [facility] 06-03-2024 08:46-0500 Respiratory rate 22 /min Ananth Brunner MD Work Phone: [facility] 06-03-2024 08:46-0500 SaO2% (BldA) [Mass fraction] 97 % Ananth Brunner MD Work Phone: [facility] 06-03-2024 08:46-0500 Systolic blood pressure 124 mm[Hg] Ananth Brunner MD Work Phone: [facility] 05-03-2024 09:41-0500 Body height 167.6 cm Ananth Brunner MD Work Phone: [facility] 05-03-2024 09:41-0500 Body mass index (BMI) [Ratio] 56.01 kg/m2 Ananth Brunner MD Work Phone: [facility] 05-03-2024 09:41-0500 Body temperature 97.11 [degF] Ananth Brunner MD Work Phone: [facility] 05-03-2024 09:41-0500 Body weight 157.4 kg Ananth Brunner MD Work Phone: [facility] 05-03-2024 09:41-0500 Diastolic blood pressure 68 mm[Hg] Ananth Brunner MD Work Phone: [facility] 05-03-2024 09:41-0500 Heart rate 94 /min Ananth Brunner MD Work Phone: [facility] 05-03-2024 09:41-0500 Respiratory rate 20 /min Ananth Brunner MD Work Phone: [facility] 05-03-2024 09:41-0500 SaO2% (BldA) [Mass fraction] 97 % Ananth Brunner MD Work Phone: [facility] 05-03-2024 09:41-0500 Systolic blood pressure 120 mm[Hg] Ananth Brunner MD Work Phone: [facility] 06-08-2023 11:50-0500 Body height 167.6 cm Ananth Brunner MD Work Phone: [facility] 06-08-2023 11:50-0500 Body mass index (BMI) [Ratio] 53.91 kg/m2 Ananth Brunner MD Work Phone: [facility] 06-08-2023 11:50-0500 Body temperature 97.5 [degF] Ananth Brunner MD Work Phone: [facility] 06-08-2023 11:50-0500 Body weight 151.5 kg Ananth Brunner MD Work Phone: [facility] 06-08-2023 11:50-0500 Diastolic blood pressure 70 mm[Hg] Ananth Brunner MD Work Phone: [facility] 06-08-2023 11:50-0500 Heart rate 94 /min Ananth Brunner MD Work Phone: [facility] 06-08-2023 11:50-0500 SaO2% (BldA) [Mass fraction] 97 % Ananth Brunner MD Work Phone: [facility] 06-08-2023 11:50-0500 Systolic blood pressure 120 mm[Hg] [...] 18-39 yrs Chayito MASTERS Work Phone: [facility] Comment on above: Well woman exam [...] (BMI) of 60.0 to 69.9 in adult ([facility]) Start: 06-03-2024 End: 06-03-2024 Bamboo flowsheet Ananth [...] (BMI) of 50.0 to 59.9 in adult ([facility]) Start: 05-03-2024 End: 05-03-2024 ambulatory ANANTH BRUNNER Not Available Start: 03-14-2024 ambulatory Teagan Kwan Facility :[facility] Start: 10-13-2023 End: 10-13-2023 ambulatory [facility] Start: 09-29-2023 End: 09-29-2023 ambulatory [facility] Start: 09-08-2023 End: 09-08-2023 ambulatory [facility] Start: 07-28-2023 End: 07-28-2023 ambulatory [facility] Start: 06-30-2023 End: 06-30-2023 ambulatory [facility] Start: 06-08-2023 End: 06-08-2023 Office outpatient visit 15 minutes Ananth Brunner MD Work Phone: [facility] Comment on above: Acute non-recurrent pansinusitis (Primary Dx); Acute bacterial conjunctivitis of both eyes; Morbid obesity due to excess calories ([facility]) Start: 06-09-2022 End: 06-09-2022 ambulatory CHAYITO ROE [...] Screening for malign ant neoplasm of cervix [facility] Start: 01-09-2025 End: 01-09-2025 Patient encounter procedure 01/09/2025 1:30 PM EDT Office Visit [facility] [address] [place] [address] Ananth Brunner MD [address] [place] [address] [facility] Start: 12-30-2024 Influenza vaccination Influenza Vacc ine (#1) [facility] Start: 12-25-2024 End: 12-25-2025 aPTT in Blood by Coagulation assay APTT Lab Routine Menorrhagia with regular cycle Expected: 12/25/2024 (Approximate), Expires: 12/25/2025 [facility] Comment on above: Expected: 12/25/2024 (Approximate), Expires: 12/25/2025 Start: 12-25-2024 End: 12-25-2024 Patient encounter procedure 12/25/2024 2:00 PM EDT Procedure Visit [facility] HEBERT [address] [place] [id number] Chayito Roe PA [address] [place] [address] [facility] Start: 12-25-2024 End: 12-25-2025 US Pelvis US Pelvis w/ TV Imaging Routine Menorrhagia with regular cycle Expected: 12/25/2024, Expires: 12/25/2025 [facility] Comment on above: Expected: 12/25/2024 , Expires: 12/25/2025 Start: 12-12-2024 End: 12-12-2024 Patient encounter procedure 12/12/2024 9:40 AM EDT Office Visit JOYCE HEBERT [address] [place] [id number] Cristóbal Werner DO [address] [place] [address] [facility] Start: 12-02-2024 End: 12-02-2024 Patient encounter procedure 12/02/2024 9:00 AM EDT Office Visit [facility] [address] [place] [address] Ananth Brunner MD [address] [place] [address] [facility] Start: 06-03-2024 End: 06-03-2024 Patient encounter procedure [facility] Comment on above: Arrived Start: 05-03-2024 End: 05-03-2025 Basic metabolic 1998 panel - Serum or Plasma Basic metabolic panel Lab Routine Annual physical exam Expected: 05/03/2024 (Approximate), Expires: 05/03/2025 [facility] Comment on above: Expected: 05/03/2024 (Approximate), Expires: 05/03/2025 Start: 05-03-2024 End: 05-03-2025 CBC W Auto Differential panel - Blood CBC and differential Lab Routine Annual physical exam Expected: 05/03/2024 (Approximate), Expires: 05/03/2025 [facility] Comment on above: Expected: 05/03/2024 (Approximate), Expires: 05/03/2025 Start: 05-03-2024 End: 05-03-2025 Hemoglobin A1c/Hemoglobin.total in Blood Hemoglobin A1c Lab Routine Annual physical exam Expected: 05/03/2024 (Approximate), Expires: 05/03/2025 [facility] Work Phone: Comment on above: Expected: 05/03/2024 (Approximate), Expires: 05/03/2025 Start: 05-03-2024 End: 05-03-2025 Hepatic function 2000 panel - Serum or Plasma Hepatic function panel Lab Routine Annual physical exam Expected: 05/03/2024 (Approximate), Expires: 05/03/2025 [facility] Comment on above: Expected: 05/03/2024 (Approximate), Expires: 05/03/2025 Start: 05-03-2024 End: 05-03-2025 Lipid 1996 panel - Serum or Plasma Lipid panel Lab Routine Annual physical exam Expected: 05/03/2024 (Approximate), Expires: 05/03/2025 [facility] Comment on above: Expected: 05/03/2024 (Approximate), Expires: 05/03/2025 Start: 05-03-2024 End: 05-03-2025 TSH W/REFLEX TO FT4 TSH W/REFLEX TO FT4 Lab Routine Annual physical exam Expected: 05/03/2024 (Approximate), Expires: 05/03/2025 [facility] Comment on above: Expected: 05/03/2024 (Approximate), Expires: 05/03/2025 Start: 05-03-2024 End: 05-03-2024 Patient encounter procedure 05/03/2024 9:45 AM EST Office Visit [facility] [address] [place] [phone] Ananth Brunner MD [address] [place] [phone] Arrived [facility] Comment on above: Arrived Start: 12-31-2023 Influenza vaccination Influenza Vacc ine (#1) [facility] Start: 12-30-2022 Influenza vaccination Influenza Vacc ine (#1) [facility] Start: 2020 Screening for malign ant neoplasm of cervix [facility] Start: 2011 Screening for malign ant neoplasm of cervix Pap Smear [facility] CBC W Auto Different ial panel - Blood CBC and differential Lab Routine Menorrhagia with regular cycle Ordered: 12/25/2024 [facility] Comment on above: Ordered: 12/25/2024 Cytology Cervical or vaginal smear or scraping study Pap Smear Pathology and Cytology Routine Well woman exam with routine gynecological exam Ordered: 12/25/2024 [facility] Work Phone: Comment on above: Ordered: 12/25/2024 hCG, quantitative, hCG, quantitative, Lab Routine Menorrhagia with regular cycle Ordered: 12/25/2024 [facility] Comment on above: Ordered: 12/25/2024 Hemoglobin A1c/Hemoglobin.total in Blood Hemoglobin A1c Lab Routine Menorrhagia with regular cycle Ordered: 12/25/2024 [facility] Comment on above: Ordered: 12/25/2024 Human papilloma viru s DNA [Presence] in Unspecified specimen by Probe with amplification HPV DNA probe, amplified Microbiology Routine Well woman exam with routine gynecological exam Ordered: 12/25/2024 [facility] Comment on above: Ordered: 12/25/2024 Prothrombin time (PT ) in Blood by Coagulation assay Protime-INR Lab Routine Menorrhagia with regular cycle Ordered: 12/25/2024 [facility] Comment on above: Ordered: 12/25/2024 Thyrotropin [Units/volume] in Serum or Plasma TSH Lab Routine Menorrhagia with regular cycle Ordered: 12/25/2024 [facility] Comment on above: Ordered: 12/25/2024 Thyroxine (T4) free [Mass/volume] in Serum or Plasma T4, free Lab Routine Menorrhagia with regular cycle Ordered: 12/25/2024 [facility] Comment on above: Ordered: 12/25/2024 Immunizations Immunization Date Immunization Notes Care Provider Fa [facility] 03-14-2021 influenza virus vacc ine, unspecified formulation Ananth Brunner MD Work Phone: [facility] Payers Date Payer Category Payer Private Health Insurance [employer] [id number] 2022 Unknown [employer] [id number] 2022-Present [address] [place] [address] [id number] 2022 Medicaid 2002 Medicaid [id number] 1990 Unknown [id number]. 593 1990 Unknown [id number] [id number]. 593 1990 Unknown [id number] [id number]. 1286 1990 Unknown [id number] [id number]. 1286 1990 Unknown [id number] [id number]. 1286 1990 Unknown [id number] [id number]. 1286 1990 Unknown [id number] [id number]. 1286 1990 Unknown [id number] [id number]. 1259 1990 Unknown [id number] [id number]. 1259 1990 Unknown [id number] [id number]. 1259 1959 Unknown [id number] 1959 Unknown [id number] Social History Date Type Detail Facility Start: 05-04-2023 Tobacco smoking status [facility] Ex-smoke r [facility] History of tobacco [...] months, were you homeless or living in retirement [including now]? Yes [facility] Start: 05-04-2023 [...] (BMI) of 60.0 to 69.9 in adult ([facility]) 06/08/2023 Annual physical exam 05/03/2024 ADD (attention deficit 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 05/03/2024 SOB (shortness of breath) on exertion 06/03/2024 Resolved Ambulatory Problems Diagnosis Date Noted Acute non-recurrent pansinusitis 06/08/2023 Acute bacterial conjunctivitis of both eyes 06/08/2023 Past Medical History: Diagnosis Date Benign essential hypertension Headache Hx of being hospitalized 2012 Hx of being hospitalized 2011 Morbid obesity ([facility]) (normal spontaneous vaginal delivery) ([facility]) 2011 PCOS (polycystic ovarian syndrome) Primary osteoarthritis of right knee URI, acute HISTORY PAST MEDICAL HISTORY SOCIAL HISTORY Past Medical History: Diagnosis Date Benign essential hypertension Headache Hx of being hospitalized 2012 dehydration Hx of being hospitalized 2011 hypertension due to Morbid obesity ([facility]) (normal spontaneous vaginal delivery) ([facility]) 2011 PCOS (polycystic ovarian syndrome) Primary osteoarthritis [...] nursing note reviewed. Exam conducted with a pan helper present. Vitals: Estimated body mass index is [...] (BMI) of 60.0 to 69.9 in adult ([facility]) Patient overweight and difficult time losing weight. [...] (BMI) of 60.0 to 69.9 in adult ([facility]) Patient overweight and difficult time losing weight. [...] illness Narrative Associated Problem(s): Essential hypertension, benign ([facility]) BP normal and monitor PRN. Associated Problem(s): Class 3 severe obesity due to excess calories with serious comorbidity and body mass index (BMI) of 50.0 to 59.9 in adult ([facility]) Weight loss indicated. Associated Problem(s): Bilateral primary [...] (BMI) of 50.0 to 59.9 in adult ([facility]) Weight loss indicated. ADD (attention deficit 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 - Primary Doing well with strattera and continue at current dose. SOB (shortness of breath) on exertion Relevant Medications albuterol HFA 90 mcg/act inhaler documented in this encounter [facility] History of Present illness Narrative 05-03-2024 Ananth Brunner MD - 05/03/2024 10:33 AM iLt Brunner MD - 05/03/2024 10:33 AM Lit Brunner MD - 05/03/2024 10:32 AM Lit Brunner MD - 05/03/2024 10:32 AM EST Note Date & Type Note Facility 05-03-2024 History of Presen t illness Narrative Associated Problem(s): Essential hypertension, benign ([facility]) BP normal and monitor PRN. Associated Problem(s): Class 3 severe obesity due to excess calories with serious comorbidity and body mass index (BMI) of 50.0 to 59.9 in adult ([facility]) Weight loss indicated. Associated Problem(s): [...] Items Addressed This Visit Essential hypertension, benign ([facility]) BP normal and monitor PRN. Class 3 [...] % ophthalmic solution documented in this encounter [facility] Healthcare Evaluation note Note Date & Type Note Facility Evaluation note Diagnosis Acute non-recurrent pansinusitis- Primary Acute bacterial conjunctivitis of both eyes Morbid obesity due to excess calories ([facility]) documented in this encounter [facility] Healthcare Evaluation note Note Date & Type Note Facility Evaluation note Diagnosis Annual physical exam- Primary Routine general medical examination at a health care facility Essential hypertension, benign ([facility]) Essential hypertension, benign 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 Class 3 severe obesity due to excess calories with serious comorbidity and body mass index (BMI) of 50.0 to 59.9 in adult ([facility]) documented in this encounter [facility] Healthcare Evaluation note Note Date & Type Note Facility Evaluation note Diagnosis Annual physical exam- Primary Routine general medical examination at a health care facility Essential hypertension, benign ([facility]) Essential hypertension, benign 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 Class 3 severe obesity due to excess calories with serious comorbidity and body mass index (BMI) of 50.0 to 59.9 in adult ([facility]) ADD (attention deficit 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- Primary Attention deficit disorder 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 Essential hypertension, benign (CMS/HCC) Essential hypertension, benign Bilateral primary osteoarthritis of knee Class 3 severe obesity due to excess calories with serious comorbidity and body mass index (BMI) of 50.0 to 59.9 in adult ([facility]) SOB (shortness of breath) on exertion Shortness of breath documented in this encounter [facility] Healthcare Evaluation note Note Date [...] (BMI) of 50.0 to 59.9 in adult ([facility]) ADD (attention deficit 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- Primary Attention deficit disorder 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 Essential hypertension, benign Essential hypertension, benign Bilateral primary osteoarthritis of knee Class 3 severe obesity due to excess calories with serious comorbidity and body mass index (BMI) of 50.0 to 59.9 in adult ([facility]) SOB (shortness of breath) on exertion Shortness of breath Essential hypertension, benign- Primary Essential hypertension, benign Bilateral primary osteoarthritis of knee 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 Class 3 severe obesity due to excess calories with serious comorbidity and body mass index (BMI) of 60.0 to 69.9 in adult ([facility]) documented in this encounter [facility] Healthcare Evaluation note Note Date [...] (BMI) of 50.0 to 59.9 in adult ([facility]) ADD (attention deficit 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- Primary Attention deficit disorder 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 Essential hypertension, benign Essential hypertension, benign Bilateral primary osteoarthritis of knee Class 3 severe obesity due to excess calories with serious comorbidity and body mass index (BMI) of 50.0 to 59.9 in adult ([facility]) SOB (shortness of breath) on exertion Shortness of breath Essential hypertension, benign- Primary Essential hypertension, benign Bilateral primary osteoarthritis of knee 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 Class 3 severe obesity due to excess calories with serious comorbidity and body mass index (BMI) of 60.0 to 69.9 in adult ([facility]) Well woman exam with routine gynecological exam [...] and content) DATE CREATED AUTHOR 07/14/2022 [facility] DATE CREATED AUTHOR AUTHOR'S ORGANIZ ATION 10/15/2023 [facility] DATE CREATED AUTHOR AUTHOR'S ORGANIZ ATION 02/17/2024 [facility] DATE CREATED AUTHOR AUTHOR'S ORGANIZ ATION 12/04/2024 [facility] EPIC Reason for Visit (unrecogniz ed section and content) Reason Comments Eye Drainage Cough Reason Comments Annual Exam WELLNESS Reason Comments Follow-up 1 m Reason Comments Follow-up 6m Weight loss optio ns Knee Pain Reason Comments Well Women Visit Care Teams (unrecognized sec tion and content) Laminator Hand Relationship Specialty Start Date End Date Ananth Brunner MD [address] [place] [phone] PCP - General Family Medicine 06/08/23 Laminator Hand Relationship Specialty Start Date End Date Ananth Brunner MD [address] [place] [address] PCP - General Family Medicine 06/08/23 Ananth Brunner MD [address] [place] [address] PCP - Medical [place] [employer] 12/12/22 04/30/99 Laminator Hand Relationship Specialty Start Date End Date Ananth Brunner MD [address] [place] [address] PCP - General Family Medicine 06/08/23 Ananth Brunner MD [address] [place] [address] PCP - Medical [place] [employer] 12/12/22 04/30/99 Laminator Hand Relationship Specialty Start Date End Date Ananth Brunner MD [address] [place] [address] PCP - General Family Medicine 06/08/23 Ananth Brunner MD [address] [place] [address] PCP - Medical [place] [employer] 12/12/22 04/30/99 Laminator Hand Relationship Specialty Start Date End Date Ananth Brunner MD [address] [place] [address] PCP - General Family Medicine 06/08/23 Ananth Brunner MD [address] [place] [address] PCP - Medical [place] [employer] 12/12/22 04/30/99 Laminator Hand Relationship Specialty Start Date End Date Ananth Brunner MD [address] [place] [address] PCP - General Family Medicine 06/08/23 Ananth Brunner MD [address] [place] [address] PCP - Medical [place] [employer] 12/12/22 04/30/99 Laminator Hand Relationship Specialty Start Date End Date Ananth Brunner MD [address] [place] [address] PCP - General Family Medicine 06/08/23 Ananth Brunner MD [address] [place] [address] PCP - Medical [place] [employer] 12/12/22 04/30/99 Laminator Hand Relationship Specialty Start Date End Date Ananth Brunner MD [address] [place] [address] PCP - General Family Medicine 06/08/23 Ananth Brunner MD [address] [place] [address] PCP - [facility] 12/12/22 04/30/99 Laminator Hand Relationship Specialty Start Date End Date Ananth Brunner MD [address] [place] [address] PCP - General Family Medicine 06/08/23 Ananth Brunner MD [address] [place] [address] PCP - Medical [facility] 12/12/22 04/30/99 Laminator Hand Relationship Specialty Start Date End Date Ananth Brunner MD [address] [place] [address] PCP - General Family [facility] 06/08/23 Ananth Brunner MD [address] [place] [address] PCP - Medical [place] [employer] 12/12/22 04/30/99 FOR RECORDS PERTAINING TO [...] BE BASED ON THE PRIMARY CLINICAL RECORDS. [employer] [facility]. provides no warranty or guarantee of the accuracy or completeness of information in this document.
[2024-12-27 09:45] LABS: Hematocrit 42.3 % (36.0-48.0); Hemoglobin 13.3 g/dL (12.0-16.0); Immature Granulocytes Abs Auto 0.07 10^3/uL (0.00-0.03); Immature Granulocytes Pct Auto 0.8 % (0.0-0.5); Lymphocytes Absolute Auto 2.3 10^3/uL (1.2-3.8); Mean Corpuscular HGB Conc 31.4 g/dL (29.9-35.2); Mean Corpuscular Hemoglobin 26.1 pg (26.7-34.0); Mean Corpuscular Volume 82.9 fL (81.0-99.0); Platelet Count 443 10^3/uL (150-450); Red Blood Count 5.10 10^6/uL (4.20-5.40); White Blood Count 9.1 10^3/uL (4.0-11.0)
[2024-12-27 10:03] LABS: INR 0.97; Partial Thromboplastin Time 30.5 sec (22.3-36.2); Prothrombin Time 10.3 sec (9.0-11.6)
[2024-12-27 10:56] LABS: Thyroid Stimulating Hormone 1.968 uIU/mL (0.358-3.740)
== END 2024-12-27 09:02 | disposition home or self-care (01) ==
LOC: LAB 09:04
PROVIDERS: PCP Family Medicine; Visit Provider Physician Assistant
DX: N92.0 Excessive and frequent menstruation with regular cycle (principal)
CPT/HCPCS: 36415; 83036; 84439; 84443; 84702; 85025; 85610; 85730

== ENCOUNTER 2025-01-03 09:22 | Outpatient (OUT) | payer OTHER, SELFPAY ==
--- OUTSIDE RECORDS SUMMARY | 2024-12-25 14:00 | XMS_ITS | Encounter Summary ---
Author Organization [facility] Address [address] [place] [address] Care Team Providers Care Manager Pediatric Name Role Phone Ananth Roy MD Primary Care Provider [phone] Ananth Roy MD Unavailable Reason for Visit * Reason Comments Well Women Visit Encounter Details Date Type Department Care Team (Latest Contact Info) Description 12/25/2024 2:00 PM EDT Procedure Visit [facility] [address] [place] [phone] Chayito Ma PA [address] [place] [id number] Well woman exam with routine gynecological exam; Menorrhagia with regular cycle Social History Tobacco Use Types Packs/Day Years Used Date Smoking Tobacco: Former Cigarettes Smokeless Tobacco: Never Comments:Last smoked : 5-10 years Alcohol Use Standard Drinks/Week Comments Never 0 (1 standard drink = 0.6 oz pure alcohol) Caffine intake: 1-2 cups per day B1300 Health Literacy Answer Date Recor ded How often do you need to hav e someone help you when you read instructions, pamphlets, or other written material from your doctor or pharmacy? Never 05/27/2024 Humiliation, Afraid, Rape, and Kick questionnair e Answer Date Recorded Within the last year, have y ou been afraid of your partner or ex-partner? No 04/14/2023 Within the last year, have y ou been humiliated or emotionally abused in other ways by your partner or ex-partner? No Within the last year, have y ou been kicked, hit, slapped, or otherwise physically hurt by your partner or ex-partner? No 04/14/2023 Within the last year, have y ou been raped or forced to have any kind of sexual activity by your partner or ex-partner? No 04/14/2023 Social Connection and Isolation Panel [NHANES] A nswer Date Recorded In a typical week, how many times do you talk on the phone with family, friends, or neighbors? Once a week 05/27/19 How often do you get togethe r with friends or relatives? Never 05/27/2024 How often do you attend chur or druze services? Never 05/27/2024 Do you belong to any clubs o r organizations such as caodaism groups, unions, fraternal or athletic groups, or school groups? Yes 05/27/2024 How often do you attend meet ings of the clubs or organizations you belong to? 1 to 4 times per year 05/27/2024 Are you , , di vorced, , never , or living with a partner? 05/27/2024 AUDIT-C Answer Date Recorded Q1: How often do you have a drink containing alcohol? Never 05/27/2024 Q2: How many drinks containi ng alcohol do you have on a typical day when you are drinking? Patient does not drink Q3: How often do you have si x or more drinks on one occasion? Never 05/27/2024 Overall Financial Resource Strain (CARDIA) Answe r Date Recorded How hard is it for you to pa y for the very basics like food, housing, medical care, and heating? Somewhat hard 05/27/2024 [facility] [place] of Occupat ional Health - Occupational Stress Questionnaire Answer Date Recorded Do you feel stress - tense, restless, nervous, or anxious, or unable to sleep at night because your mind is troubled all the time - these days? Only a little 05/27/2024 Exercise Vital Sign Answer Date Recorde d On average, how many days pe r week do you engage in moderate to strenuous exercise (like a brisk walk)? 2 days 05/27/2024 On average, how many minutes do you engage in exercise at this level? 10 min 05/27/2024 Hunger Vital Sign Answer Date Recorded Within the past 12 months, y ou worried that your food would run out before you got the money to buy more. Sometimes true Within the past 12 months, t he food you bought just didn't last and you didn't have money to get more. Often true PRAPARE - Transportation Answer Date Re corded In the past 12 months, has l ack of transportation kept you from medical appointments or from getting medications? No 05/02 In the past 12 months, has l ack of transportation kept you from meetings, work, or from getting things needed for daily living? Yes 05/27/2024 Housing Stability Vital Sign Answer Vivek e Recorded In the last 12 months, was t here a time when you were not able to pay the mortgage or rent on time? No 04/14/2023 Number of Places Lived in the Last Year Not on f ile 04/14/2023 In the last 12 months, was t here a time when you did not have a steady place to sleep or slept in a intermediate (including now)? Yes 04/14/2023 Housing Stability Vital Sign Answer Vivek e Recorded In the last 12 months, was t here a time when you were not able to pay the mortgage or rent on time? No 05/27/2024 In the past 12 months, how m any times have you moved where you were living? 0 05/27/2024 At any time in the past 12 m [facility], were you homeless or living in a intermediate (including now)? No 05/27/2024 Comments Unknown Sex and Gender Information Value Date Recorded Sex Assigned at Not on file Legal Sex Female 7:26 PM EDT Gender Identity Not on file Sexual Orientation Not on file documented as of this encounter Last Filed Vital Signs Vital Sign Reading Time Taken Comments Blood Pressure 128/86 12/25/2024 2:25 PM EDT Pulse - - Temperature - - Respiratory Rate - - Oxygen Saturation - - Inhaled Oxygen Concentration - - Weight 168 kg (370 lb 8 oz) 12/25/2024 2:25 PM E DT Height - - Body Mass Index 59.8 12/02/2024 1:29 PM EDT documented in this encounter Progress Notes * SONAM Hernandez - 12/25/2024 2:00 PM EDT Reason for Appointment: Patient ID: Emelyn Peralta is a 34 y.o. female who presents for Well Women Visit Patient presents today for Annual Exam. MEDICATIONS Current Outpatient Medications Medication Instructions albuterol HFA 90 mcg/act inhaler 2 puffs, Inhalation, Every 4 hours PRN celecoxib (CELEBREX) 200 mg, Oral, 2 times daily PRN phentermine (ADIPEX-P) 37.5 mg, Oral, Daily before breakfast ALLERGIES No Known Allergies PROBLEMS Active Ambulatory Problems Diagnosis Date Noted Essential hypertension, benign 04/21/2023 Polycystic ovary syndrome 04/21/2023 Bilateral primary osteoarthritis of knee 04/21/2023 Vitamin D deficiency 04/21/2023 Class 3 severe obesity due to excess calories with serious comorbidity and body mass index (BMI) of60.0 to 69.9 in adult ([facility] 06/08/2023 Annual physical exam 05/03/2024 ADD (attention deficit 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 05/03/2024 SOB (shortness of breath) on exertion 06/03/2024 Resolved Ambulatory Problems Diagnosis Date Noted Acute non-recurrent pansinusitis 06/08/2023 Acute bacterial conjunctivitis of both eyes 06/08/2023 Past Medical History: Diagnosis Date Benign essential hypertension Headache Hx of being hospitalized 2012 Hx of being hospitalized 2011 Morbid obesity ([facility] (normal spontaneous vaginal delivery) ([facility]) 2011 PCOS (polycystic ovarian syndrome) Primary osteoarthritis of right knee URI, acute HISTORY PAST MEDICAL HISTORY SOCIAL HISTORY Past Medical History: Diagnosis Date Benign essential hypertension Headache Hx of being hospitalized 2012 dehydration Hx of being hospitalized 2011 hypertension due to Morbid obesity ([facility] (normal spontaneous vaginal delivery) ([facility]) 2011 PCOS (polycystic ovarian syndrome) Primary osteoarthritis of right knee URI, acute Vitamin D deficiency Social History Tobacco Use Smoking status: Former Types: Cigarettes Smokeless tobacco: Never Tobacco comments: Last smoked : 5-10 years Substance Use Topics Alcohol use: Never Comment: Caffine intake: 1-2 cups per day Drug use: Never FAMILY HISTORY Family History Problem Relation Name Age of Onset Hyperlipidemia Mother Hypertension Mother Kidney disease Mother Seizures Mother Other (cellulitis) Mother Hyperlipidemia Father Hypertension Father Diabetes Father No Known Problems Sister Diabetes Brother No Known Problems Son Stroke Maternal Grandmother Hypertension Maternal Grandmother Stroke Maternal Grandfather Hypertension Paternal Grandmother Stroke Paternal Grandmother Heart disease Paternal Grandmother Stroke Paternal Grandfather Heart disease Paternal Grandfather Breast cancer Other Heart disease Other SURGICAL HISTORY Past Surgical History: Procedure Laterality Date TUBAL LIGATION VAGINAL DELIVERY 11/2011 WISDOM TOOTH EXTRACTION 07/2014 REVIEW OF SYSTEMS Review of Systems: Review of Systems Constitutional: Negative. HENT: Negative. Eyes: Negative. Respiratory: Negative. Cardiovascular: Negative. Gastrointestinal: Negative. Genitourinary: Negative. Musculoskeletal: Negative. Skin: Negative. Neurological: Negative. All other systems reviewed and are negative. Hematological: Negative. Endocrine: Negative. Allergic/Immunologic: Negative. OBJECTIVE Objective: Physical Exam Constitutional: Appearance: Normal appearance. She is normal weight. Genitourinary: Right Adnexa: not tender and no mass present. Left Adnexa: not tender and no mass present. No cervical discharge. Breasts: Breasts are soft. Right: Normal. Left: Normal. HENT: Head: Normocephalic. Nose: Nose normal. Mouth/Throat: Mouth: Mucous membranes are moist. Cardiovascular: Rate and Rhythm: Normal rate. Pulses: Normal pulses. Pulmonary: Effort: Pulmonary effort is normal. Breath sounds: Normal breath sounds. Abdominal: General: Bowel sounds are normal. Palpations: Abdomen is soft. Comments: obese Musculoskeletal: General: Normal range of motion. Cervical back: Normal range of motion. Neurological: General: No focal deficit present. Mental Status: She is alert and oriented to person, place, and time. Skin: General: Skin is warm and dry. Psychiatric: Mood and Affect: Mood normal. Behavior: Behavior normal. Thought Content: Thought content normal. Judgment: Judgment normal. Vitals and nursing note reviewed. Exam conducted with a manager tax present. Vitals: Estimated body mass index is 59.8 kg/m?? as calculated from the following: Height as of 12/02/24: 5' 6 . Weight as of this encounter: 370 lb 8 oz. BP: 128/86 No LMP recorded. ASSESSMENT & PLAN ICD-10-CM 1. Well woman exam with routine gynecological exam Z01.419 Pap Smear HPV DNA probe, amplified 2. Menorrhagia with regular cycle N92.0 CBC and differential TSH hCG, quantitative, Protime-INR T4, free APTT Hemoglobin A1c US Pelvis w/ TV APTT Annual Exam: Patient presents today for an annual exam. Patient states she is doing well and has no complaints. Pap was obtained without difficulty. Orders Placed This Encounter Procedures HPV DNA probe, amplified US Pelvis w/ TV CBC and differential TSH hCG, quantitative, Protime-INR T4, free APTT Hemoglobin A1c Patient discussed heavy menstral cycles and wishes to have surgical intervention. Pt will be scheduled for ablation. Also states urinary incontinence. We will refer to urology. Patient will also be started on metformin Follow Up: Patient is to return in one year for annual unless needed otherwise. Documented by SONAM Hernandez on behalf of: SONAM Hernandez documented in this encounter Plan of Treatment Upcoming Encounters Date Type Department Care Team (Late st Contact Info) Description 02/10/2025 9:30 AM EDT Procedure Visit [facility] [address] [place] [phone] Cristóbal Werner DO [address] [place] [address] Scheduled Orders Name Type Priority Associated Diagnoses Orde r Schedule Pap Smear Pathology and Cytology Routine Well woman exam with routine gynecological exam Ordered: 12/25/2024 HPV DNA probe, amplified Microbiology Routine Well woman exam with routine gynecological exam Ordered: 12/25/2024 CBC and differential Lab Routine Menorrhagia with regular cycle Ordered: 12/25/2024 TSH Lab Routine Menorrhagia with regular cycle Ordered: 12/25/2024 hCG, quantitative, Lab Routine Menorrhagia with regular cycle Ordered: 12/25/2024 Protime-INR Lab Routine Menorrhagia with regular cycle Ordered: 12/25/2024 T4, free Lab Routine Menorrhagia with regular cycle Ordered: 12/25/2024 APTT Lab Routine Menorrhagia with regular cycle Expected: 12/25/2024 (Approximate), Expires: 12/25/2025 Hemoglobin A1c Lab Routine Menorrhagia with regular cycle Ordered: 12/25/2024 US Pelvis w/ TV Imaging Routine Menorrhagia with regular cycle Expected: 12/25/2024, Expires: 12/25/2025 documented as of this encounter Procedures Procedure Name Priority Date/Time Associated Diagnosis Comments PAP SMEAR Routine 06/09/2022 12:00 AM EST documented in this encounter Results * Pap Smear (06/09/2022 12:00 AM EST) Swab Cervical swab / Unknown [facility] ORDERABLES Final Re sult EXTERNAL LAB documented in this encounter Visit Diagnoses Diagnosis Well woman exam with routine gynecological exam Routine gynecological examination Menorrhagia with regular cycle documented in this encounter Care Teams Manager Pediatric Relationship Specialty Start Date End Date Ananth Roy MD PCP - General Family Medicine 06/08/23 Ananth Roy MD [address] [place] [address] PCP - Medical [place] [employer] 12/12/22 04/30/99 documented as of this encounter
--- OUTSIDE RECORDS SUMMARY | 2025-01-03 09:24 | XMS_ITS | Encounter Summary ---
Author Organization [facility] Address [address] [place] [address] Care Team Providers Care Security Sales Manager Name Role Phone Ananth Roy MD Primary Care Provider [phone] Ananth Roy MD Primary Care Provider [phone] Ananth Roy MD Unavailable Encounter Details Date Type Department Care Team (Late st Contact Info) Description 05/09/2023 Orders Only [facility] [address] [facility] [place] [address] Ananth Roy MD [address] [place] [address] Social History Tobacco Use Types Packs/Day Years [...] Never 04/14/2023 How often do you attend protestant or druze serv ices? Never 04/14/2023 Do you belong to any clubs o r organizations such as protestant groups, unions, fraternal or athletic groups, or [...] medical care, and heating? Somewhat hard 04/14/2023 [facility] - [...] place to sleep or slept in a alf (including now)? Yes 04/14/2023 Comments Unknown Sex [...] EDT Procedure Visit [facility] [address] [phone] Cristóbal Werner DO [address] [place], [place] [phone] documented as of this encounter Procedures Procedure Name Priority Date/Time Associated Diagnosis Comments XRAY Routine 05/09/2023 10:32 AM EST documented in this encounter Results * XRAY (05/09/2023 10:32 AM EST) Anatomical Region Laterality Modality Radiographic Joyce ging Ananth Roy MD IMG XR PROCEDURES Final Result documented in this encounter Visit Diagnoses Not on filedocumented in this encounter Care Teams Security Sales Manager Relationship Specialty Start Date End Date Ananth Roy MD PCP - General Family Medicine 10/19/22 06/07/23 Ananth Roy MD PCP - General Family Medicine 06/08/23 Ananth Roy MD [address] [place] [address] PCP - Medical [place] [employer] 12/12/22 04/30/99 documented as of this encounter
--- OUTSIDE RECORDS SUMMARY | 2025-01-03 09:24 | XMS_ITS | Encounter Summary ---
Author Organization [facility] Address [address] [place] [address] Care Team Providers Care Document Imaging Specialist Name Role Phone Ananth Roy MD Primary Care Provider [phone] Ananth Roy MD Primary Care Provider [phone] Ananth Roy MD Unavailable Encounter Details Date Type Department Care Team (Late st Contact Info) Description 11/04/2022 Abstract [facility] [address] [place] [phone] Russell Mcgowan, PA [address] [place] [address] Social History Tobacco Use Types [...] Description 02/10/2025 9:30 AM EDT Procedure Visit [facility] HE[facility] [address] [place] [address] [place] [address] Cristóbal Werner DO [address] [place] [address] documented as of this encounter Visit Diagnoses Not on filedocumented in this encounter Care Teams Document Imaging Specialist Relationship Specialty Start Date End Date Ananth Roy MD PCP - General Family Medicine 10/19/22 06/07/23 Ananth Roy MD PCP - General Family Medicine 06/08/23 Ananth Roy MD [address] [place] [address] PCP - Medical [place] [employer] 12/12/22 04/30/99 documented as of this encounter
--- OUTSIDE RECORDS SUMMARY | 2025-01-03 09:24 | XMS_ITS | Clinical Summary ---
Author Organization [facility] tem Address [id number] [address] [place] [address] Care Team Providers Care Rf Test Technician Name Role Phone Ananth Roy MD Primary Care Provider [phone] Allergies No known active allergies Medications * [...] Medical Devices Not on file Care Teams Rf Test Technician Relationship Specialty Start Date End Date Ananth Roy MD PCP - General Family Medicine 11/11/20
--- OUTSIDE RECORDS SUMMARY | 2025-01-03 09:24 | XMS_ITS | Clinical Summary ---
Author Organization [facility] Address [address] [place] [address], [address] [place] [address] Care Team Providers Care Collect On Delivery Clerk Name Role Phone Unavailable Primary Care Provider [...]
--- OUTSIDE RECORDS SUMMARY | 2025-01-03 09:24 | XMS_ITS | Encounter Summary ---
Author Organization [facility] Address [address] [place] [address] Care Team Providers Care Electrical Engineering Intern Name Role Phone Ananth Roy MD Primary Care Provider [phone] Ananth Roy MD Primary Care Provider [phone] Ananth Roy MD Unavailable Encounter Details Date Type Department Care Team (Late st Contact Info) Description 04/26/2023 Abstract [facility] [address] [facility] [facility] [place] [address] Shaikh Arce MD [address] [place] [address] Social History Tobacco Use Types Packs/Day Years [...] Never 04/14/2023 How often do you attend restorationism or zoroastrianism serv ices? Never 04/14/2023 Do you belong to any clubs o r organizations such as restorationism groups, unions, fraternal or athletic groups, or [...] medical care, and heating? Somewhat hard 04/14/2023 [facility] [place] [facility] ional [facility] - Occupational Stress [...] place to sleep or slept in a senior living (including now)? Yes 04/14/2023 Comments Unknown Sex [...] [address] [place] [address] Cristóbal Werner DO [address] [place], [place] [address] documented as of this encounter Visit Diagnoses Not on filedocumented in this encounter Care Teams Electrical Engineering Intern Relationship Specialty Start Date End Date Ananth Roy MD PCP - General Family Medicine 10/19/22 06/07/23 Ananth Roy MD PCP - General Family Medicine 06/08/23 Ananth Roy MD [address] [place] [address] PCP - Medical [place] [employer] 12/12/22 04/30/99 documented as of this encounter
--- OUTSIDE RECORDS SUMMARY | 2025-01-03 09:24 | XMS_ITS | Encounter Summary ---
Author Organization [facility] Address [address] [facility] [place] [address] Care Team Providers Care Tool Lapper Hand Name Role Phone Ananth Roy MD Primary Care Provider [phone] Ananth Roy MD Unavailable Encounter Details Date Type Department Care Team (Late st Contact Info) Description 12/25/2024 Bamboo flowsheet [facility] [address] [place] [address] Chayito Ma PA [address] [place], [place] [phone] Social History Tobacco Use Types Packs/Day Years [...] often do you attend chur ch or sikh services? Never 05/27/2024 Do you belong to any clubs o r organizations such as religious groups, unions, fraternal or athletic groups, or [...] medical care, and heating? Somewhat hard 05/27/2024 [facility] ional Health - Occupational [...] in a jail (including now)? Yes 04/14/2023 Housing Stability Vital Sign Answer Vivek e Recorded In the last 12 months, was t here a time when you were not able to pay the mortgage or rent on time? No 05/27/2024 In the past 12 months, how m any times have you moved where you were living? 0 05/27/2024 At any time in the past 12 m [facility], were you homeless or living in a jail (including now)? No 05/27/2024 Comments Unknown Sex [...] EDT Procedure Visit [facility] [address] [place] [address] Cristóbal Werner DO [address] [place], [place] [id number] documented as of this encounter Visit Diagnoses Not on filedocumented in this encounter Care Teams Tool Lapper Hand Relationship Specialty Start Date End Date Ananth Roy MD PCP - General Family Medicine 06/08/23 Ananth Roy MD [address] [place] [address] PCP - Medical [place] [employer] 12/12/22 04/30/99 documented as of this encounter
--- OUTSIDE RECORDS SUMMARY | 2025-01-03 09:24 | XMS_ITS | Encounter Summary ---
Author Organization [facility] Address [address] [place] [address] Care Team Providers Care Gmat Instructor Name Role Phone Ananht Roy MD Primary Care Provider [phone] Ananth Roy MD Unavailable Encounter Details Date Type Department Care Team (Late st Contact Info) Description 12/27/2024 Clinisync Result Encounter [facility] External Department Unsolicited Chayito Ma PA [address] [place] [address] [place], [place] [phone] Social History Tobacco Use Types Packs/Day Years [...] How often do you attend chur or taoist services? Never 05/27/2024 Do you belong to [...] medical care, and heating? Somewhat hard 05/27/2024 [facility]at ional [facility] - Occupational Stress Questionnaire Answer Date Recorded [...] place to sleep or slept in a correction (including now)? Yes 04/14/2023 Housing Stability Vital Sign Answer Vivek e Recorded In the last 12 months, was t here a time when you were not able to pay the mortgage or rent on time? No 05/27/2024 In the past 12 months, how m any times have you moved where you were living? 0 05/27/2024 At any time in the past 12 m ont, were you homeless or living in a correction (including now)? No 05/27/2024 Comments Unknown Sex [...] EDT Procedure Visit [facility] [address] [place] [address] Cristóbal Werner DO [address] [place], [place] [address] documented as of this encounter Procedures Procedure Name Priority Date/Time Associated Diagnosis Comments TBH PREG QUANT HCG Routine 12/27/2024 9: 29 AM EDT SRM[facility] PROTHROMBIN TIME INR W/O COUM Routine 12/27/2024 9:29 AM EDT MLR HEMOGLOBIN A1C Routine 12/27/2024 9: 29 AM EDT [facility] APTT Routine 12/27/2024 9:29 AM EDT ALL THYROXINE (T4) FREE Routine 12/27/2024 9:29 AM EDT ALL THYROID STIM HORMONE Routine 12/27/2024 9:29 AM EDT ALL CBC WITH AUTO DIFF Routine 12/27/2024 9:29 AM EDT documented in this encounter Results * ALL THYROXINE (T4) FREE (12/27/2024 9:29 AM EDT) FREE T4 1.34 0.76 - 1.46 ng/dL TB 12/27/2024 9:29 AM EDT 12/27/2024 9:38 AM EDT Narrative CLINIS[facility] - 12/27/2024 11:56 AM EDT Chayito BAIGISYALEXI Final Result [facility] * TBH PREG QUANT HCG (12/27/2024 9:29 AM EDT) HCG QUANTITATIVE <1 mIU/mL TBH Comment: 5-50 0.2-1 WEEK 50-500 1-2 WEEKS 100-5,000 2-3 WEEKS 500-10,000 3-4 WEEKS 1,000-50,000 4-5 WEEKS 10,000-100,000 5-6 WEEKS 15,000-200,000 6-8 WEEKS 10,000-100,000 2-3 MONTHS 12/27/2024 9:29 AM EDT 12/27/2024 9:38 AM EDT Narrative CLINISYNC - 12/27/2024 11:41 AM EDT Chayito CHERY Final Result Performing Organization Address [facility] Co de Phone Number [facility] * ALL THYROID STIM HORMONE (12/27/2024 9:29 AM EDT) THYROID STIMULATING HORMONE 1.968 0.358 - 3.740 uIU/mL TBH 12/27/2024 9:29 AM EDT 12/27/2024 9:38 AM EDT Narrative CLINISYNC - 12/27/2024 11:41 AM EDT Chayito CHERY Final Result Performing Organization Address [facility] Phone Number [facility] * [facility]CF APTT (12/27/2024 9:29 AM EDT) PARTIAL THROMBOPLASTIN TIME 30.5 22.3 - 36.2 sec TB 12/27/2024 9:29 AM EDT 12/27/2024 9:38 AM EDT Narrative CLINISYNC - 12/27/2024 10:14 AM EDT Chayito CHERY Final Result Performing Organization Address [facility] Phone Number [facility] * [facility] PROTHROMBIN TIME INR W/O COUM (12/27/2024 9:29 AM EDT) PROTHROMBIN TIME 10.3 9.0 - 11.6 sec TBH TBH INR 0.97 TBH Comment: DESIRED INR: 2.0-3.0 CONDITIONS NOT LISTED BELOW 2.5-3.5 FOR PROSTHETIC HEART VALVE REPLACEMENT 2.5-3.5 RECURRENT THROMBOSIS 12/27/2024 9:29 AM EDT 12/27/2024 9:38 AM EDT Narrative CLINISYNC - 12/27/2024 10:14 AM EDT Chayito Folsom PA CLINISYNC Final Result Performing Organization Address City/[facility]/ZIP Co de Phone Number CLINISYNC TB * MLR HEMOGLOBIN A1C (12/27/2024 9:29 AM EDT) [facility] GLYCOHEMOGLOBIN A1C 5.3 4.5 - 6.2 % TB Comment: ADA RECOMMENDED LIMIT 4.0 - 6.0 ADA THERAPEUTIC TARGET < 7.0 ACTION SUGGESTED > 7.0 ESTIMATED AVERAGE GLUCOSE 105 mg/dL TB 12/27/2024 9:29 AM EDT 12/27/2024 9:38 AM EDT Narrative CLINISYNC - 12/27/2024 10:13 AM EDT Chayito MASTERS CLIN[facility] Final Result Performing Organization Address [facility] de Phone Number CLINMARCOSNC TB * (ABNORMAL) ALL CBC WITH AUTO DIFF (12/27/2024 9:29 AM EDT) [facility] TB WBC 9.1 4.0 - 11.0 10 3/uL TBH TB RBC 5.10 4.20 - 5.40 10 6/uL TBH TB HGB 13.3 12.0 - 16.0 g/dL TB TB HCT 42.3 36.0 - 48.0 % TB TB MCV 82.9 81.0 - 99.0 fL TB TB MCH 26.1(L) 26.7 - 34.0 pg TBH TB MCHC 31.4 29.9 - 35.2 g/dL TB TB RDW 14.1 11.0 - 15.0 % TB TB PLT 443 150 - 450 10 3/uL TB TB MPV 8.4(L) 9.5 - 13.5 fL TB NEUTROPHILS PERCENT AUTO 60.0 43.0 - 75.0 % TBH LYMPHOCYTES PERCENT AUTO 25.2 20.5 - 60.0 % TBH MONOCYTES PERCENT AUTO 8.8 1.7 - 12.0 % TBH TBH EO % 4.5 0.9 - 7.0 % TBH BASOPHILS PERCENT AUTO 0.7 0.2 - 2.0 % TB IMMATURE GRANULOCYTES PCT AUTO 0.8(H) 0.0 - 0.5 % TBH NEUTROPHILS ABSOLUTE AUTO 5.5 1.4 - 6.5 10 3/uL TBH LYMPHOCYTES ABSOLUTE AUTO 2.3 1.2 - 3.8 10 3/uL TBH MONOCYTES ABSOLUTE AUTO 0.8 0.3 - 0.8 10 3/uL TBH TBH EO # 0.4 0.0 - 0.7 10 3/uL TBH BASOPHILS ABSOLUTE AUTO 0.1 0.0 - 0.1 10 3/uL TBH IMMATURE GRANULOCYTES ABS AUTO 0.07(H) 0.00 - 0.03 10 3/uL TBH 12/27/2024 9:29 AM EDT 12/27/2024 9:38 AM EDT Narrative CLINISYNC - 12/27/2024 9:47 AM EDT us Chayito MASTERS CLINIS[facility] Final Result [facility] documented in this encounter Visit Diagnoses Not on filedocumented in this encounter Care Teams Gmat Instructor Relationship Specialty Start Date End Date Ananth Roy MD PCP - General Family Medicine 06/08/23 Ananht Roy MD [address] [place] [address] PCP - Medical [place] [employer] 12/12/22 04/30/99 documented as of this encounter
--- OUTSIDE RECORDS SUMMARY | 2025-01-03 09:24 | XMS_ITS | Encounter Summary ---
Author Organization [facility] Address [address] [place] [address] Care Team Providers Care Pet Walker Name Role Phone Ananth Roy MD Primary Care Provider [phone] Ananth Roy MD Unavailable Encounter Details Date [...] often do you attend chur ch or anglican services? Never 05/27/2024 Do you belong to any clubs o r organizations such as advent groups, unions, fraternal or athletic groups, or [...] medical care, and heating? Somewhat hard 05/27/2024 [facility] [place] of Occupat ional Health - Occupational Stress [...] in a alf (including now)? Yes 04/14/2023 Housing Stability Vital [...] time in the past 12 m [facility], were you homeless or living in a alf (including now)? No 05/27/2024 Comments Unknown Sex [...] EDT Procedure Visit [facility] Daylin HEBERT [address] [place] [address] Cristóbal Werner DO [address] [place] [address] documented as of this encounter Visit Diagnoses Not on filedocumented in this encounter Care Teams Pet Walker Relationship Specialty Start Date End Date Ananth Roy MD PCP - General Family Medicine 06/08/23 Ananth Roy MD [address] [place] [address] PCP - Medical [place] [employer] 12/12/22 04/30/99 documented as of this encounter
--- OUTSIDE RECORDS SUMMARY | 2025-01-03 09:24 | XMS_ITS | Encounter Summary ---
Author Organization [facility] Address [address] [place] [address] Care Team Providers Care Epic Ambulatory Specialists Name Role Phone Ananth Roy MD Primary Care Provider [phone] Ananth Roy MD Unavailable Encounter Details Date Type Department Care Team (Late st Contact Info) Description 12/25/2024 Clinisync Result Encounter N[facility] External Department Unsolicited Chayito Ma PA [address] [place] [address] [address] [place], [place] [id number] Social History Tobacco Use Types Packs/Day Years [...] How often do you attend chur or baptism services? Never 05/27/2024 Do you belong to any clubs o r organizations such as lutheran groups, unions, fraternal or athletic groups, or [...] medical care, and heating? Somewhat hard 05/27/2024 [facility] of Occupat ional [facility] - Occupational Stress Questionnaire Answer Date Recorded [...] place to sleep or slept in a penitentiary (including now)? Yes 04/14/2023 Housing Stability Vital Sign Answer Vivek e Recorded In the last 12 months, was t here a time when you were not able to pay the mortgage or rent on time? No 05/27/2024 In the past 12 months, how m any times have you moved where you were living? 0 05/27/2024 At any time in the past [address] [facility], were you homeless or living in a penitentiary (including now)? No 05/27/2024 Comments Unknown Sex [...] EDT Procedure Visit [facility] Day[facility] OBGYN [address] [place] [address] Cristóbal Werner DO [address] [place], [place] [address] documented as of this encounter Procedures Procedure Name Priority Date/Time Associated Diagnosis Comments IGP,APTIMA HPV,AGE GDLN Routine 12/25/2024 2:18 PM EDT documented in this encounter Results * IGP,APTIMA HPV,AGE GDLN (12/25/2024 2:18 PM EDT) [facility] [place] Note . [facility] Comment: TESTS RESULT FLAG UNITS REF RANGE LAB Clinician Provided Cytology Information Source.............Cervix;Endocervix No. of containers..01 ThinPrep Vial Ken KULKARNI Opal... FLAG LEGEND: L-Low Normal,H-High Normal,LL-Alert Low,HH-Alert High <-Panic Low,>-Panic High,A-Abnormal,AA-Critical Abnormal Performed at: 01 =G [address] [address] Cheli Flores MD, IGP, APTIMA HPV, RFX 16/18,45 Note . [facility] Comment: TESTS RESULT FLAG UNITS REF RANGE LAB DIAGNOSIS: 02 NEGATIVE FOR INTRAEPITHELIAL LESION OR MALIGNANCY. Specimen adequacy: 02 Satisfactory for evaluation. Endocervical and/or squamous metaplastic cells (endocervical component) are present. Performed by: 02 Guilherme Duron Medicine Worker ([facility]) . 02 Note: Note 02 The Pap smear is a screening test designed to aid in the detection of premalignant and malignant conditions of the uterine cervix. It is not a diagnostic procedure and should not be used as the sole means of detecting cervical cancer. Both false-positive and false-negative reports do occur. Test Methodology: Note 02 This liquid based ThinPrep(R) pap test was screened with the use of an image guided system. HPV Genotype Reflex Note 02 Criteria not met, HPV Genotype not performed. FLAG LEGEND: L-Low Normal,H-High Normal,LL-Alert Low,HH-Alert High <-Panic Low,>-Panic High,A-Abnormal,AA-Critical Abnormal Performed at: [address] [address] Cheli Flores MD, HPV APTIMA Negative Negative TB Comment: This nucleic acid amplification test detects fourteen high- risk HPV types (16,18,31,33,35,39,45,51,52,56,58,59,66,68) without differentiation. Performed at: =[address] [id number] Dental Equipment Technician: Cheli Flores MD, Phone: [phone] Performed at: [address] [id number] Dental Equipment Technician: Cheli Flores MD, Phone: [phone] 12/25/2024 2:18 PM EDT 12/25/2024 8:13 PM EDT Narrative CLINISYNC - 12/31/2024 7:08 PM EDT BRUSH-SPATULA CERVIX ENDOCERVIX us Chayito MASTERS LAB BLOOD ORDERABLES Final Resul t MIRI TB documented in this encounter Visit Diagnoses Not on filedocumented in this encounter Care Teams Epic Ambulatory Specialists Relationship Specialty Start Date End Date Ananth Roy MD PCP - General Family Medicine 06/08/23 Ananth Roy MD [address] [place] [address] PCP - Medical [place] [employer] 12/12/22 04/30/99 documented as of this encounter
--- OUTSIDE RECORDS SUMMARY | 2025-01-03 09:24 | XMS_ITS | Encounter Summary ---
Author Organization [facility] Address [address] [facility] [place] [address] Care Team Providers Care Terminal Gauger Supervisor Name Role Phone Ananth Roy MD Primary Care Provider [phone] Ananth Roy MD Unavailable Encounter Details Date Type Department Care Team (Late st Contact Info) Description 01/02/2025 Orders Only [facility] [address] [place] [address] Tiffanie Fuchs LPN [address] [place] [address] Social History Tobacco Use Types Packs/Day Years [...] How often do you attend chur or anabaptism services? Never 05/27/2024 Do you belong to any clubs o r organizations such as evangelical groups, unions, fraternal or athletic groups, or [...] medical care, and heating? Somewhat hard 05/27/2024 [facility] of Occupat critical access hospitalal Health - Occupational Stress Questionnaire Answer Date [...] any time in the past 12 m [facility], were you homeless or living in [...] 9:30 AM EDT Procedure Visit [facility] Daylin OBDARREN [address] [place] [address] Cristóbal Werner DO [address] [place], [place] [address] documented as of this encounter Procedures Procedure Name Priority Date/Time Associated Diagnosis Comments PAP SMEAR Routine 12/25/2024 12:00 AM EDT documented in this encounter Results * Pap Smear (12/25/2024 12:00 AM EDT) Swab Cervical swab / Unknown Chayito [facility] LAB CYTOLOGY ORDERABLES Final Re sult EXTERNAL LAB documented in this encounter Visit Diagnoses Not on filedocumented in this encounter Care Teams Terminal Gauger Supervisor Relationship Specialty Start Date End Date Ananth Roy MD PCP - General Family Medicine 06/08/23 Ananth Roy MD [address] [place] [address] PCP - Medical [place] [employer] 12/12/22 04/30/99 documented as of this encounter
--- OUTSIDE RECORDS SUMMARY | 2025-01-03 09:24 | XMS_ITS | Clinical Summary ---
Author Organization [facility] Address [address] [place] [address] Care Team Providers Care Director Of Managed Services Name Role Phone Ananth Roy MD Primary Care Provider [phone] Ananth Roy MD Unavailable Allergies No known [...] (BMI) of 60.0 to 69.9 in adult ([facility]) Take 1 tablet (37.5 mg) by mouth in the morning. Take before meals. 30 tablet 025 Active celecoxib (CeleBREX) 200 MG capsuleIndication s:Bilateral primary osteoarthritis of knee Take 1 capsule (200 mg) by mouth 2 (two) times a day as needed for mild pain 60 capsule 3 025 Active metFORMIN (Glucophage) 500 MG tabletIndications :Menorrhagia with regular cycle Take 1 tablet (500 mg) by mouth in the morning. Take with meals. 30 tablet 11 025 2025 Active atomoxetine (Strattera) 40 MG capsuleIndication s:ADD (attention [...] Encounters Date Type Department Care Team Description 01/02/2025 Orders Only [facility] Daylin HEBERT [address] [place] [address] Tiffanie Fuchs LPN 12/27/2024 Clinisync Result Encounter NOMS External Department Unsolicited Chayito Ma PA 12/25/2024 2:00 PM EDT Procedure Visit [facility] Daylin BLUMGYAlexa [address] [place] [address] Chayito Ma PA Well woman exam with routine gynecological exam; Menorrhagia with regular cycle 12/25/2024 Clinisync Result Encounter [facility]S External Department Unsolicited Chayito Ma PA 12/25/2024 Bamboo flowsheet [facility] [address] [place] [address] Chayito Ma PA 12/22/2024 Travel 12/02/2024 1:15 PM EDT Office Visit [facility]ATTIE MEJIA [facility] [address] [place] [address] Ananth Roy MD Essential hypertension, benign (Primary Dx); Bilateral primary osteoarthritis of knee; ADD (attention deficit 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; Class 3 severe obesity due to excess calories with serious comorbidity and body mass index (BMI) of 60.0 to 69.9 in adult ([facility]) 12/02/2024 Bamboo flowsheet [facility] [address] [place] [address] Ananth Roy MD 11/30/2024 Travel from Last [...] Never 05/27/2024 How often do you attend [facility] or zoroastrian services? Never 05/27/2024 Do you belong to any clubs o r organizations such as rastafari groups, unions, fraternal or athletic groups, or [...] medical care, and heating? Somewhat hard 05/27/2024 [facility] - Occupational Stress Questionnaire Answer Date [...] place to sleep or slept in a care home (including now)? Yes 04/14/2023 Housing Stability [...] any time in the past 12 m [facility], were you homeless or living in a care home (including now)? No 05/27/2024 Comments Unknown [...] EDT Procedure Visit [facility] OBGYN [address] [place] [address] Cristóbal Werner DO [address] [place] [address] Health Maintenance Due Date Last Done Comments HPV/Cotest 2020 Influenza Vaccine (#1) 2024 03/14/2021, 2017 Cervical Cancer Screening 12/26/2027 Pap Smear 12/26/2027 12/25/2024, 06/09/2022 Procedures Procedure Name Priority Date/Time Associated Diagnosis Comments ALL THYROXINE (T4) FREE Routine 12/27/2024 9:29 AM EDT TB[facility] PREG QUANT HCG Routine 12/27/2024 9: 29 AM EDT ALL THYROID STIM HORMONE Routine 12/27/2024 9:29 AM EDT [facility] APTT Routine 12/27/2024 9:29 AM EDT [facility] PROTHROMBIN TIME INR W/O COUM Routine 12/27/2024 9:29 AM EDT MLR HEMOGLOBIN A1C Routine 12/27/2024 9: 29 AM EDT ALL CBC WITH AUTO DIFF Routine 12/27/2024 9:29 AM EDT IGP,APTIMA HPV,AGE GDLN Routine 12/25/2024 2:18 PM EDT PAP SMEAR Routine 12/25/2024 12:00 AM EDT from Last 3 Months Results * [facility] PREG QUANT HCG (12/27/2024 9:29 AM EDT) HCG QUANTITATIVE <1 mIU/mL TB Comment: 5-50 0.2-1 WEEK 50-500 1-2 WEEKS 100-5,000 2-3 WEEKS 500-10,000 3-4 WEEKS 1,000-50,000 4-5 WEEKS 10,000-100,000 5-6 WEEKS 15,000-200,000 6-8 WEEKS 10,000-100,000 2-3 MONTHS 12/27/2024 9:29 AM EDT 12/27/2024 9:38 AM EDT Narrative CLINISYNC - 12/27/2024 11:41 AM EDT us Chayito CHERY Final Result CLINISYALEXI [facility] * [facility] PROTHROMBIN TIME INR W/O COUM (12/27/2024 9:29 AM EDT) PROTHROMBIN TIME 10.3 9.0 - 11.6 sec TB TB INR 0.97 TBH Comment: DESIRED INR: 2.0-3.0 CONDITIONS NOT LISTED BELOW 2.5-3.5 FOR PROSTHETIC HEART VALVE REPLACEMENT 2.5-3.5 RECURRENT THROMBOSIS 12/27/2024 9:29 AM EDT 12/27/2024 9:38 AM EDT Narrative CLINISYNC - 12/27/2024 10:14 AM EDT Chayito CHERY Final Result Performing Organization Address [facility] de Phone Number MIRI [facility] * MLR HEMOGLOBIN A1C (12/27/2024 9:29 AM EDT) GLYCOHEMOGLOBIN A1C 5.3 4.5 - 6.2 % [facility] Comment: ADA RECOMMENDED LIMIT 4.0 - 6.0 ADA THERAPEUTIC TARGET < 7.0 ACTION SUGGESTED > 7.0 ESTIMATED AVERAGE GLUCOSE 105 mg/dL [facility] 12/27/2024 9:29 AM EDT 12/27/2024 9:38 AM EDT Narrative CLINISYNC - 12/27/2024 10:13 AM EDT Chayito CHERY Final Result Performing Organization Address [facility] Phone Number MIRI [facility] * CCF APTT (12/27/2024 9:29 AM EDT) PARTIAL THROMBOPLASTIN TIME 30.5 22.3 - 36.2 sec [facility] 12/27/2024 9:29 AM EDT 12/27/2024 9:38 AM EDT Narrative CLINISYNC - 12/27/2024 10:14 AM EDT Chayito CHERY Final Result Performing Organization Address [facility] de Phone Number MIRI [facility] * ALL THYROXINE (T4) FREE (12/27/2024 9:29 AM EDT) FREE T4 1.34 0.76 - 1.46 ng/dL [facility] 12/27/2024 9:29 AM EDT 12/27/2024 9:38 AM EDT Narrative CLINISYNC - 12/27/2024 11:56 AM EDT us Chayito MASTERS CLINISYALEXI Final Result CLINISYNC TB * ALL THYROID STIM HORMONE (12/27/2024 9:29 AM EDT) THYROID STIMULATING HORMONE 1.968 0.358 - 3.740 uIU/mL TBH 12/27/2024 9:29 AM EDT 12/27/2024 9:38 AM EDT Narrative CLINISYNC - 12/27/2024 11:41 AM EDT us Chayito BAIGISYNC Final Result Performing Organization Address City/[facility] Co de Phone Number CLINISYNC TB * (ABNORMAL) ALL CBC WITH AUTO DIFF (12/27/2024 9:29 AM EDT) Pathologist [facility] TB WBC 9.1 4.0 - 11.0 10 3/uL TBH TB RBC 5.10 4.20 - 5.40 10 6/uL TBH TB HGB 13.3 12.0 - 16.0 g/dL TB TB HCT 42.3 36.0 - 48.0 % TBH TBH MCV 82.9 81.0 - 99.0 fL TBH TB MCH 26.1(L) 26.7 - 34.0 pg TBH TB MCHC 31.4 29.9 - 35.2 g/dL TB TB RDW 14.1 11.0 - 15.0 % TBH TBH PLT 443 150 - 450 10 3/uL TBH TBH MPV 8.4(L) 9.5 - 13.5 fL TBH NEUTROPHILS PERCENT AUTO 60.0 43.0 - 75.0 % TBH LYMPHOCYTES PERCENT AUTO 25.2 20.5 - 60.0 % TBH MONOCYTES PERCENT AUTO 8.8 1.7 - 12.0 % TBH TBH EO % 4.5 0.9 - 7.0 % TBH BASOPHILS PERCENT AUTO 0.7 0.2 - 2.0 % TBH IMMATURE GRANULOCYTES PCT AUTO 0.8(H) 0.0 - [...] Narrative CLINISYNC - 12/27/2024 9:47 AM EDT Chayito MASTERS CLINPUSHPA Final Result MIRI TB * IGP,APTIMA HPV,AGE GDLN (12/25/2024 2:18 PM EDT) AGE GDLN ACOG TESTING Note . [facility] Comment: TESTS RESULT FLAG UNITS REF RANGE LAB Clinician Provided Cytology Information Source.............Cervix;Endocervix No. of containers..01 ThinPrep Vial Age Algo ACOG Opal... 30-65 01 FLAG LEGEND: L-Low Normal,H-High Normal,LL-Alert Low,HH-Alert High <-Panic Low,>-Panic High,A-Abnormal,AA-Critical Abnormal Performed at: 01 =[facility] [address] [place] [address] Cheli Flores MD, IGP, APTIMA HPV, RFX 16/18,45 Note . [facility] Comment: TESTS RESULT FLAG UNITS REF RANGE LAB DIAGNOSIS: 02 NEGATIVE FOR INTRAEPITHELIAL LESION OR MALIGNANCY. Specimen adequacy: 02 Satisfactory for evaluation. Endocervical and/or squamous metaplastic cells (endocervical component) are present. Performed by: Nany Druon, Coding Specialist Home Health ([facility]) . 02 Note: Note 02 The Pap [...] <-Panic Low,>-Panic High,A-Abnormal,AA-Critical Abnormal Performed at: [address] [address] Cheli Flores MD, HPV APTIMA Negative Negative [facility] Comment: This nucleic acid amplification test detects fourteen high- risk HPV types (16,18,31,33,35,39,45,51,52,56,58,59,66,68) without differentiation. Performed at: = - [facility] [id number] Coat Operator Insulator: Cheli Flores MD, Phone: [phone] Performed at: [facility] [address] [id number] Coat Operator Insulator: Cheli Flores MD, Phone: [phone] 12/25/2024 2:18 PM EDT 12/25/2024 8:13 PM EDT Narrative CLINISYNC - 12/31/2024 7:08 PM EDT BRUSH-SPATULA CERVIX ENDOCERVIX Chayito MASTERS LAB BLOOD ORDERABLES Final Resul t Performing Organization Address [facility]/ZIP Co de Phone Number [facility] * Pap Smear (12/25/2024 12:00 AM EDT) Swab Cervical swab / Unknown Chayito MA[facility]ERS LAB CYTOLOGY ORDERABLES Final Re sult Performing Organization Address City/[facility]/ZIP Co de Phone Number EXTERNAL LAB from Last 3 Months Insurance [employer] Care Teams Director Of Managed Services Relationship Specialty Start Date End Date Ananth Roy MD PCP - General Family Medicine 06/08/23 Ananth Roy MD [address] [place] [address] PCP - Medical [place] Commercial 12/12/22 04/30/99
--- OUTSIDE RECORDS SUMMARY | 2025-01-03 09:24 | XMS_ITS | Encounter Summary ---
Author Organization [facility] tem Address [id number] [address] [place] [address] Care Team Providers Care Paperhanger And Painter Name Role Phone Ananth Roy MD Primary Care Provider [phone] Encounter Details Date Type Department Care Team ([facility] st Contact Info) Description 03/31/2021 Orders Only [facility] Center - ENT [address] [place] [address], [address] [place] [address] He Sainz MD [address] [place] [address] [address] [place] [address] Social History Tobacco Use Types [...] documented as of this encounter Care Teams Paperhanger And Painter Relationship Specialty Start Date End Date Ananth Roy MD PCP - General Family Medicine 11/11/20 documented as of this encounter
--- OUTSIDE RECORDS SUMMARY | 2025-01-03 09:24 | XMS_ITS | Encounter Summary ---
Author Organization [facility] Address [address] [place] [address] Care Team Providers Care Seo Executive Name Role Phone Ananth Roy MD Primary Care Provider [phone] Ananth Roy MD Unavailable Encounter Details Date Type Department Care Team (Late st Contact Info) Description 07/10/2024 Orders Only [facility] [address] [place] [address] Ananth Roy MD [address] [place] [address] Social History Tobacco Use Types Packs/Day Years [...] often do you attend chur ch or restoration services? Never 05/27/2024 Do you belong to [...] medical care, and heating? Somewhat hard 05/27/2024 [facility] [place] of Occupat ional Health - Occupational Stress [...] any time in the past 12 m [facility], were you homeless or living in a [...] EDT Procedure Visit [facility] Daylin HEBERT [address] [place] [address] Cristóbal Werner DO [address] [place] [address] documented as of this encounter Visit Diagnoses Not on filedocumented in this encounter Care Teams Seo Executive Relationship Specialty Start Date End Date Ananth Roy MD PCP - General Family Medicine 06/08/23 Ananth Roy MD [address] [place] [address] PCP - Medical [place] [employer] 12/12/22 04/30/99 documented as of this encounter
--- NOTE | 2025-01-03 09:28 | US_ITS ---
The [address] [address] Patient Name: MADDIE SHIPMAN MRN: [id number] date: 1990 Sex: F Assigned Patient Location: Current Patient Location: Accession/Order Number: [id number] Exam Date: 01/03/2025 09:30 Report Date: 01/03/2025 10:25 At the request of: RONA ROE Procedure: US pelvis w/ transvaginal ULTRASOUND PELVIS WITH TRANSVAGINAL COMPARISON: CT 04/03/2021 CLINICAL DATA: Pelvic pain and heavy irregular periods. LMP 12/18/2024 Real-time ultrasound evaluation the pelvis was performed utilizing both a transabdominal and transvaginal approach. TRANSABDOMINAL: The urinary bladder is only partially distended. Estimated uterine size is approximately 9.8 x 4.2 x 4.3 cm. No focal myometrial abnormalities are identified. The endometrial lining is estimated at 16 mm. The right ovary is tentatively seen however the left is not identified. TRANSVAGINAL: Transvaginal imaging was performed to better evaluate the uterus and adnexa. No focal myometrial abnormalities are identified. The endometrial lining is estimated at 13 - 14 mm in thickness. It is mildly heterogeneous and may contain a trace amount of fluid. There are nabothian cysts. What is thought to be the right ovary measures 2.4 x 1.9 x 1.8 cm. The suspected left ovary measures 2.7 x 1.8 x 2.5 cm. There are no dominant adnexal cysts. Blood flow is difficult to evaluate due to patient body habitus. No free fluid is seen. US/US pelvis w/ transvaginal IMPRESSION: SLIGHTLY THICKENED AND HETEROGENEOUS ENDOMETRIUM. NO DOMINANT ADNEXAL CYSTS OR OTHER ACUTE FINDINGS. Impression dictated by: Adenike Allen M.D. 01/03/2025 10:25 AM Dictation Location: [place] [address] Electronically authenticated by: [id number] Y Date: 01/03/2025 10:25
--- OUTSIDE RECORDS SUMMARY | 2025-01-03 09:39 | XMS_ITS | CCD ---
Author Organization [facility] Care Team Providers Care Presidential Helicopter Crew Chief Name Role Phone CHAYITO NAIK Admitting Unavailable [...] Brunner MD Unavailable ANANTH BRUNNER Attending Unavailable KANNAN, ANANTH Attending Unavailable NADERECharles, ANANTH Attending Unavailable JYOTHICHAYITO Attending Unavailable Ananth Brunner MD Primary Care Provider Ananth Brunner MD Unavailable Medications Current Medications Medication Drug Class(es) Dates Sig (Normalized) Sig (Original) [id number] 200 actuat albuterol 0.09 mg/actuat metered dose inhaler (9 sources) beta2-Adrenergic Agonist Start: 06-03-2024 End: 06-03-2025 [...] 06/18/2023 Active celecoxib 200 mg oral capsule (18 sources) Nonsteroidal Anti-inflammatory Drug Start: 06-06-2023 End: [...] Active metFORMIN hydrochloride 500 mg oral tablet (3 sources) Biguanide Start: 12-25-2024 End: 12-25-2025 take 1 tablet by mouth at mealtime metFORMIN (Glucophage) 500 MG tablet Indications: Menorrhagia with regular cycle Take 1 tablet (500 mg) by mouth in the morning. Take with meals. 30 tablet 11 12/25/2024 12/25/2025 Active phentermine hydrochloride 37.5 mg oral tablet (6 sources) Sympathomimetic Amine Anorectic Start: 12-02-2024 End: 01-01-2025 take 60-69.9 tablets by mouth before mealtime phentermine (Adipex-P) 37.5 MG tablet Indications: Class 3 severe obesity due to excess calories with serious comorbidity and body mass index (BMI) of 60.0 to 69.9 in adult ([facility]) Take 1 tablet (37.5 mg) by mouth in the morning. Take before meals. 30 tablet 12/02/2024 Active predniSONE 50 mg oral tablet (2 [...] usually diagnosed in infancy, childhood, or adolescence (19 sources) Attention deficit hyperactivity disorder, predominantly inattentive type; Translations: [Other specified behavioral and emotional disorders with onset usually occurring in childhood and adolescence] Onset: 05-03-2024 05-03-2024 Chronic Essential hypertension (20 sources) Benign essential hypertension; Translations: [Essential (primary) hypertension] Onset: 04-21-2023 04-21-2023 Chronic Menstrual disorders (1 source) Menorrhagia; Translations: [Excessive and frequent menstruation with regular cycle] 12-25-2024 Chronic Nutritional deficiencies (16 sources) Vitamin D deficiency; Translations: [Vitamin D deficiency, unspecified] Onset: 04-21-2023 04-21-2023 Chronic Osteoarthritis (20 sources) Primary gonarthrosis, bilateral; Translations: [Bilateral primary osteoarthritis of knee] Onset: 04-21-2023 06-06-2023 Chronic Other endocrine disorders (16 sources) Polycystic ovary syndrome; Translations: [Polycystic ovarian syndrome] Onset: 04-21-2023 04-21-2023 Chronic Other nutritional; endocrine; and metabolic disorders (5 sources) Morbid obesity; Translations: [Morbid (severe) obesity due to excess calories] Onset: 06-08-2023 06-08-2023 Chronic Other nutritional; endocrine; and metabolic disorders (19 sources) Severe obesity; Translations: [Class 3 severe obesity due to excess calories with serious comorbidity and body mass index (BMI) of 50.0 to 59.9 in adult ([facility])] Onset: 06-08-2023 05-03-2024 Chronic Other [...] that caused by tuberculosis or sexually transmitteddisease) (18 sources) Acute infectious conjunctivitis; Translations: [Unspecified acute conjunctivitis, bilateral] Onset: 06-08-2023 Resolved: 05-03-2024 06-08-2023 Episodic Other lower respiratory disease (11 sources) Dyspnea on exertion; Translations: [Shortness of breath] Onset: 06-03-2024 06-03-2024 Episodic Other upper respiratory infections (19 sources) Acute upper respiratory infection, unspecified; Translations: [Acute pansinusitis] Onset: 04-11-2022 Resolved: 05-03-2024 06-08-2023 Episodic Unclassified (1 source) CONTACT W/AND (SUSP) EXPOS COVID-19; Translations: [CONTACT W/AND (SUSP) EXPOS COVID-19] Onset: 04-07-2022 Results Test Name Value Interpretation Reference Range Facility IGP,APTIMA HPV,AGE GDLNon AGE GDLN ACOG TESTING Note . [facility] Comment on above: TESTS RESULT FLAG UN ITS REF RANGE LAB Clinician Provided Cytology Information Source.............Cervix;Endocervix No. of containers..01 ThinPrep Vial Age Brandon KULKARNI Opal... 30 FLAG LEGEND: L-Low Normal,H-High Normal,LL-Alert Low,HH-Alert High <-Panic Low,>-Panic High,A-Abnormal,AA-Critical Abnormal Performed at: 01 =[address] [id number] Cheli Flores MD, HPV APTIMA Negative Negative [facility] Comment on above: This nucleic acid am plification test detects fourteen high- risk HPV types (16,18,31,33,35,39,45,51,52,56,58,59,66,68) without differentiation. Performed at: =[address] [id number] Analysis Specialist: Cheli Flores MD, Phone: [phone] Performed at: - [address] [id number] Analysis Specialist: Cheli Flores MD, Phone: [phone] IGP, APTIMA HPV, RFX 16/18,45 Note . [facility] Comment on above: TESTS RESULT FLAG UN ITS REF RANGE LAB DIAGNOSIS: 02 NEGATIVE FOR INTRAEPITHELIAL LESION OR MALIGNANCY. Specimen adequacy: 02 Satisfactory for evaluation. Endocervical and/or squamous metaplastic cells (endocervical component) are present. Performed by: 02 Guilherme Duron Locker Room Supervisor ([facility]) . 02 Note: Note 02 The [...] <-Panic Low,>-Panic High,A-Abnormal,AA-Critical Abnormal Performed at: [address] [address] Cheli Flores MD, BRUSH-SPATULA CERVIX ENDOCERVIX [facility] Contracts [employer] Grants e ALL CBC WITH AUTO DIFFon BASOPHILS ABSOLUTE AUTO 0.1 [facility] Basophils/100 WBC (Bld) 0.7 % 0.2 - 2.0 % [facility] Healthcare Eosinophils/100 WBC (Bld) 4.5 % 0.9 - 7.0 % [facility] Erythrocyte distribution width (RBC) [Ratio] 14.1 % 11.0 - 15.0 % [facility] Hematocrit (Bld) [Volume fraction] 42.3 % 36.0 - 48.0 % [facility] [employer] e Hemoglobin (Bld) [Mass/Vol] 13.3 g/dL 12.0 - 16.0 g/dL [facility] IMMATURE GRANULOCYTES ABS AUTO 0.07 High [facility] Immature granulocytes/100 WBC (Bld) 0.8 % High 0.0 - 0.5 % [facility] Interpretation and review of laboratory results Abnormal [facility] LYMPHOCYTES ABSOLUTE AUTO 2.3 [facility] Lymphocytes/100 WBC (Bld) 25.2 % 20.5 - 60.0 % [facility] MCH (RBC) [Entitic mass] 26.1 pg Low 26.7 - 34.0 pg [facility] MCHC (RBC) [Mass/Vol] 31.4 g/dL 29.9 - 35.2 g/dL [facility] MCV (RBC) [Entitic vol] 82.9 fL 81.0 - 99.0 fL [facility] MONOCYTES ABSOLUTE AUTO 0.8 [facility] Monocytes/100 WBC (Bld) 8.8 % 1.7 - 12.0 % [facility] NEUTROPHILS ABSOLUTE AUTO 5.5 [facility] Neutrophils/100 WBC (Bld) 60 % 43.0 - 75.0 % [facility] Platelet mean volume (Bld) [Entitic vol] 8.4 fL Low 9.5 - 13.5 fL [facility] # [facility].4 [facility] PLT 443 [facility] TB RBC 5.1 [facility] Healthcar e TB WBC 9.1 [facility] Healthcar e [facility] Healthcar e ALL CBC WITH AUTO DIFFon BASOPHILS ABSOLUTE AUTO 0.1 [facility] Basophils/100 WBC (Bld) 0.8 % 0.2 - 2.0 % [facility] Eosinophils/100 WBC (Bld) 3 % 0.9 - 7.0 % [facility] Erythrocyte distribution width (RBC) [Ratio] 14 % 11.0 - 15.0 % [facility] Hematocrit (Bld) [Volume fraction] 42 % 36.0 - 48.0 % [facility] Healthcar e Hemoglobin (Bld) [Mass/Vol] 13.4 g/dL 12.0 - 16.0 g/dL [facility] IMMATURE GRANULOCYTES ABS AUTO 0.08 High [facility] Immature granulocytes/100 WBC (Bld) 0.9 % High 0.0 - 0.5 % [facility] Interpretation and review of laboratory results Abnormal [facility] LYMPHOCYTES ABSOLUTE AUTO 2.6 [facility] Lymphocytes/100 WBC (Bld) 28.6 % 20.5 - 60.0 % [facility] MCH (RBC) [Entitic mass] 26.7 pg 26.7 - 34.0 pg [facility] MCHC (RBC) [Mass/Vol] 31.9 g/dL 29.9 - 35.2 g/dL [facility] MCV (RBC) [Entitic vol] 83.7 fL 81.0 - 99.0 fL [facility] MONOCYTES ABSOLUTE AUTO 0.8 [facility] Monocytes/100 WBC (Bld) 8.2 % 1.7 - 12.0 % [facility] NEUTROPHILS ABSOLUTE AUTO 5.4 [facility] Neutrophils/100 WBC (Bld) 58.5 % 43.0 - 75.0 % [facility] Platelet mean volume (Bld) [Entitic vol] 8.6 fL Low 9.5 - 13.5 fL [facility] Healthc are TBH EO # 0.3 [facility] TBH PLT 412 [facility] TB[facility] RBC 5.02 [facility] TB[facility] WBC 9.2 [facility] Health[facility] MLR HEMOGLOBIN A1Con -24-2 025 Glucose [Mass/Vol] 105 mg/dL [facility] HbA1c (Bld) [Mass fraction] 5.3 % 4.5 - 6.2 % [facility] Comment on above: ADA RECOMMENDED LIMI T 4.0 - 6.0 ADA THERAPEUTIC TARGET < 7.0 ACTION SUGGESTED > 7.0 [facility] PAP ACOG PANEL 2: 30 to 65on 06-17-2022 . . Normal [facility] Comment on above: Result Comment: Perf ormed at: WB Performed By: #### [id number] #### [facility] [address] [address] [address] [place] Age Gdln ACOG Testing 30-65 Normal [facility] Comment on above: Performed By: #### [id number] #### [facility] [address] [place], [place] [address] Dr. [place] DIAGNOSIS: Comment Normal [facility] Comment on above: Result Comment: NEGA TIVE FOR INTRAEPITHELIAL LESION OR MALIGNANCY. THIS SPECIMEN WAS RESCREENED PART OF OUR SENIOR PRODUCER PROGRAM. Performed at: WB Performed By: #### [id number] #### [facility] [address] [place] [address] Dr. [place] HPV Aptima Negative Normal Negative [facility] Comment on above: Result Comment: This nucleic acid amplification test detects fourteen high-risk HPV types (16,18,31,33,35,39,45,51,52,56,58,59,66,68) without differentiation. Performed at: =G Performed By: #### [id number] #### [facility] [address] [place] [address] Dr. [place] HPV Genotype Reflex Comment Normal [facility] Comment on above: Result Comment: Crit eria not met, HPV Genotype not performed. Performed at: WB Performed By: #### [id number] #### [facility] [address] [place] [address] Dr. [place] Methodology: Comment Normal [facility] Comment on above: Result Comment: This liquid based ThinPrep(R) pap test was screened with the use of an image guided system. Performed at: WB Performed By: #### [id number] #### [facility] [address] [place] [address] Dr. [place] Note: Comment Normal [facility] Comment on above: Result Comment: The Pap smear is a screening test designed to aid in the detection of premalignant and malignant conditions of the uterine cervix. It is not a diagnostic procedure and should not be used as the sole means of detecting cervical cancer. Both false-positive and false-negative reports do occur. . Performed at: WB Performed By: #### [id number] #### [facility] [address] [place] [address] Dr. [place] Performed by: Comment Normal [facility] Comment on above: Result Comment: Jerrod Gayle, Supervisory Process Analyst (ASCP) Performed at: WB Performed By: #### [id number] #### [facility] [address] [place] [address] Dr. [place] QC reviewed by: Comment Normal [facility] Comment on above: Result Comment: Ally Jesus, Supervisory Process Analyst (ASCP) Performed at: WB Performed By: #### [id number] #### [facility] [address] [place] [address] Dr. [place] Specimen adequacy: Comment Normal [facility] Comment on above: Result Comment: Sati sfactory for evaluation. Endocervical and/or squamous metaplastic cells (endocervical component) are present. Performed at: WB Performed By: #### [id number] #### [facility] [address] [place] [address] Dr. [place] Cytology Cervical or vaginal smear or scraping studyon 06-09-2022 [facility] RESPIRATORY PANEL PLUSon Adenovirus Not detected Normal NOT DETECTED [facility] Comment on above: Performed By: #### R SPLUS #### [facility] [address] [place] [address] Dr. [place]. Parapertusis Not detected Normal NOT DETECTED [facility] Comment on above: Performed By: #### R SPLUS #### [facility] [address] [place] [address] Dr. [place] Pertussis Not detected Normal NOT DETECTED [facility] Comment on above: Performed By: #### R SPLUS #### [facility] [address] [place] [address] Dr. [place] Chlamydia Pneumoniae Not detected Normal NOT DETECTED [facility] Comment on above: Performed By: #### R SPLUS #### [facility] [address] [place] [address] Dr. [place] Coronavirus 229E Not detected Normal NOT DETECTED [facility] Comment on above: Performed By: #### R SPLUS #### [facility] [address] [place] [address] Dr. [place] Coronavirus HKU1 Not detected Normal NOT DETECTED [facility] Comment on above: Performed By: #### R SPLUS #### [facility] [address] [place] [address] Dr. [place] Coronavirus NL63 Not detected Normal NOT DETECTED [facility] Comment on above: Performed By: #### R SPLUS #### [facility] [address] [place] [address] Dr. [place] Coronavirus OC43 Not detected Normal NOT DETECTED [facility] Comment on above: Performed By: #### R SPLUS #### [facility] [address] [place] [address] Dr. [place] Influenza A H1 2009 Not detected Normal NOT DETECTED [facility] Comment on above: Performed By: #### R SPLUS #### [facility] [address] [place] [address] Dr. [place] Influenza A H3 Detected Abnormal NOT DETECTED [facility] Comment on above: Performed By: #### R SPLUS #### [facility] [address] [place] [address] Dr. [place] Influenza B Not detected Normal NOT DETECTED [facility] Comment on above: Performed By: #### R SPLUS #### [facility] [address] [place] [address] Dr. [place] Metapneumovirus Not detected Normal NOT DETECTED [facility] Comment on above: Performed By: #### R SPLUS #### [facility] [address] [place] [address] Dr. [place] Mycoplas. Pneumoniae Not detected Normal NOT DETECTED [facility] Comment on above: Performed By: #### R SPLUS #### [facility] [address] [place] [address] Dr. [place] Parainfluenza 1 Not detected Normal NOT DETECTED [facility] Comment on above: Performed By: #### R SPLUS #### [facility] [address] [place] [address] Dr. [place] Parainfluenza 2 Not detected Normal NOT DETECTED [facility] Comment on above: Performed By: #### R SPLUS #### [facility] [address] [place] [address] Dr. [place] Parainfluenza 3 Not detected Normal NOT DETECTED [facility] Comment on above: Performed By: #### R SPLUS #### [facility] [address] [place] [address] Dr. [place] Parainfluenza 4 Not detected Normal NOT DETECTED [facility] Comment on above: Performed By: #### R SPLUS #### [facility] [address] [place] [address] Dr. [place] Rhino/Enterovirus Not detected Normal NOT DETECTED [facility] Comment on above: Performed By: #### R SPLUS #### [facility] [address] [place] [address] Dr. [place] RP2 Header 1 RESPIRATORY PANEL: VIRUSES Normal [facility] Comment on above: Performed By: #### R SPLUS #### [facility] [address] [place] [address] Dr. [place] RP2 Header 2 RESPIRATORY PANEL: BACTERIA Normal [facility] Comment on above: Performed By: #### R SPLUS #### [facility] [address] [place] [address] Dr. [place] RSV Not detected Normal NOT DETECTED [facility] Comment on above: Performed By: #### R SPLUS #### [facility] [address] [place] [address] Dr. [place] SARS-CoV-2 (COVID-19) RNA ANGEL+probe Ql (Unsp spec) Not detected Normal NOT DETECTED [facility] Comment on above: Performed By: #### R SPLUS #### [facility] [address] [place] [address] Dr. [place] Vital Signs Date Time Vital Sign Value Performing Clinician Faci lity 12-25-2024 14:25-0400 Body mass index (BMI) [Ratio] 59.8 kg/m2 Chayito MASTERS Work Phone: [facility] 12-25-2024 14:25-040 Body weight 168.06 kg Chayito MASTERS Work Phone: [facility] 12-25-2024 14:25-0400 Diastolic blood pressure 86 mm[Hg] Chayito MASTERS Work Phone: [facility] 12-25-2024 14:25-0400 Systolic blood pressure 128 mm[Hg] Chayito MASTERS Work Phone: [facility] 12-02-2024 13:29-0400 Body height 167.6 cm Ananth Brunner MD Work Phone: [facility] 12-02-2024 13:29-0400 Body mass index (BMI) [Ratio] 60.85 kg/m2 Ananth Brunner MD Work Phone: [facility] 12-02-2024 13:29-0400 Body temperature 97.5 [degF] Ananth Brunner MD Work Phone: [facility] 12-02-2024 13:29-0400 Body weight 171.01 kg Ananth Brunner MD Work Phone: [facility] 12-02-2024 13:29-0400 Diastolic blood pressure 76 mm[Hg] Ananth Brunner MD Work Phone: [facility] 12-02-2024 13:29-0400 Heart rate 124 /min Ananth Brunner MD Work Phone: [facility] 12-02-2024 13:29-0400 Respiratory rate 22 /min Ananth Brunner MD Work Phone: [facility] 12-02-2024 13:29-0400 SaO2% (BldA) [Mass fraction] 99 % Ananth Brunner MD Work Phone: [facility] 12-02-2024 13:29-0400 Systolic blood pressure 134 mm[Hg] Ananth Brunner MD Work Phone: [facility] 06-03-2024 08:46-0500 Body height 167.6 cm Ananth Brunner MD Work Phone: [facility] 06-03-2024 08:46-0500 Body mass index (BMI) [Ratio] 56.65 kg/m2 Ananth Brunner MD Work Phone: [facility] 06-03-2024 08:46-0500 Body temperature 97.3 [degF] Ananth Brunner MD Work Phone: [facility] 06-03-2024 08:46-0500 Body weight 159.21 kg Ananth Brunner MD Work Phone: [facility] 06-03-2024 08:46-0500 Diastolic blood pressure 62 mm[Hg] Ananth Brunner MD Work Phone: [facility] 06-03-2024 08:46-0500 Heart rate 119 /min Ananth Brunner MD Work Phone: [facility] 06-03-2024 08:46-0500 Respiratory rate 22 /min Ananth Brunner MD Work Phone: [facility] 06-03-2024 08:46-0500 SaO2% (BldA) [Mass fraction] 97 % Ananth Brunner MD Work Phone: [facility] 06-03-2024 08:46-0500 Systolic blood pressure 124 mm[Hg] Ananth Brunner MD Work Phone: [facility] 05-03-2024 09:41-0500 Body height 167.6 cm Ananth Brunner MD Work Phone: [facility] 05-03-2024 09:41-0500 Body mass index (BMI) [Ratio] 56.01 kg/m2 Ananth Brunner MD Work Phone: [facility] 05-03-2024 09:41-0500 Body temperature 97.11 [degF] Ananth Brunner MD Work Phone: [facility] 05-03-2024 09:41-0500 Body weight 157.4 kg Ananth Brunner MD Work Phone: [facility] 05-03-2024 09:41-0500 Diastolic blood pressure 68 mm[Hg] Ananth Brunner MD Work Phone: [facility] 05-03-2024 09:41-0500 Heart rate 94 /min Ananth Brunner MD Work Phone: [facility] 05-03-2024 09:41-0500 Respiratory rate 20 /min Ananth Brunner MD Work Phone: [facility] 05-03-2024 09:41-0500 SaO2% (BldA) [Mass fraction] 97 % Ananth Brunner MD Work Phone: [facility] 05-03-2024 09:41-0500 Systolic blood pressure 120 mm[Hg] Ananth Brunner MD Work Phone: [facility] 06-08-2023 11:50-0500 Body height 167.6 cm Ananth Brunner MD Work Phone: [facility] 06-08-2023 11:50-0500 Body mass index (BMI) [Ratio] 53.91 kg/m2 Ananth Brunner MD Work Phone: [facility] 06-08-2023 11:50-0500 Body temperature 97.5 [degF] Ananth Brunner MD Work Phone: [facility] 06-08-2023 11:50-0500 Body weight 151.5 kg Ananth Brunner MD Work Phone: [facility] 06-08-2023 11:50-0500 Diastolic blood pressure 70 mm[Hg] Ananth Brunner MD Work Phone: [facility] 06-08-2023 11:50-0500 Heart rate 94 /min Ananth Brunner MD Work Phone: [facility] 06-08-2023 11:50-0500 SaO2% (BldA) [Mass fraction] 97 % Ananth Brunner MD Work Phone: [facility] 06-08-2023 11:50-0500 Systolic blood pressure 120 mm[Hg] Ananth Brunner MD Work Phone: [facility] Healthcare Encounters Encounter Date Encounter Type Care Provider Facility Start: 12-27-2024 End: 12-27-2024 [facility] Result Encounter Chayito MASTERS Work Phone: [facility] Unsolicited Start: 12-27-2024 End: 12-27-2024 [facility] Result Encounter Chayito Roe SONAM Work Phone: [facility] Unsolicited Start: 12-25-2024 End: 12-25-2024 ambulatory CHAYITO ROE Not Available Start: 12-25-2024 End: 12-25-2024 Bamboo flowsheet Chayito Roe SONAM Work Phone: [facility] Start: 12-25-2024 End: 01-01-2025 Bamboo flowsheet Chayito Roe SONAM Work Phone: [facility] Start: 12-25-2024 End: 01-01-2025 [facility] Result Encounter Chayito Roe SONAM Work Phone: [facility] Unsolicited Start: 12-25-2024 End: 12-25-2024 Patient encounter procedure Chayito Roe SONAM Work Phone: [facility] Start: 12-25-2024 End: 12-25-2024 Periodic preventive med est patient 18-39 yrs Chayito Gardunosabrina MASTERS Work Phone: [facility] Comment on above: Well woman exam with [...] (BMI) of 60.0 to 69.9 in adult ([facility]) Start: 06-03-2024 End: 06-03-2024 Bamboo flowsheet Ananth Brunner MD Work Phone: [facility] Start: 06-03-2024 End: 06-03-2024 Bamboo flowsheet Ananth Brunner MD Work Phone: [facility] Start: 06-03-2024 End: 06-03-2024 Office outpatient visit 25 minutes Ananth Brunner MD Work Phone: [facility] Comment on above: ADD (attention defic it 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 (Primary Dx); Essential hypertension, benign ([facility]); Bilateral primary osteoarthritis of knee; Class 3 severe obesity due to excess calories with serious comorbidity and body mass index (BMI) of 50.0 to 59.9 in adult ([facility]); SOB (shortness of breath) on exertion Start: 06-03-2024 End: 06-03-2024 ambulatory ANANTH BRUNNER Not Available Start: 05-24-2024 End: 05-24-2024 [facility] Result Encounter Ananth Brunner MD Work Phone: [facility] External Department Unsolicited Start: 05-24-2024 End: 05-24-2024 [facility] Result Encounter Ananth Brunner MD Work Phone: [facility] External Department Unsolicited Start: 05-03-2024 End: 05-03-2024 Bamboo flowsheet Ananth Brunner MD Work Phone: [facility] Start: 05-03-2024 End: 05-03-2024 Bamboo flowsheet Ananth Brunner MD Work Phone: [facility] Start: 05-03-2024 End: 05-03-2024 Patient encounter procedure Ananth Brunner MD Work Phone: [facility] Work Phone: Start: 05-03-2024 End: 05-03-2024 Periodic preventive med est patient 18-39 yrs Ananth Brunner MD Work Phone: [facility] Comment on above: Annual physical exam (Primary Dx); Essential hypertension, benign ([facility]); ADD (attention deficit 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; Class 3 severe obesity due to excess calories with serious comorbidity and body mass index (BMI) of 50.0 to 59.9 in adult ([facility]) Start: 05-03-2024 End: 05-03-2024 ambulatory ANANTH BRUNNER Not Available Start: 03-14-2024 ambulatory Teagan Kwan Facility :[facility] Start: 10-13-2023 End: 10-13-2023 ambulatory [facility] Start: 09-29-2023 End: 09-29-2023 ambulatory [facility] Start: 09-08-2023 End: 09-08-2023 ambulatory [facility] Start: 07-28-2023 End: 07-28-2023 ambulatory [facility] Start: 06-30-2023 End: 06-30-2023 ambulatory [facility] Start: 06-08-2023 End: 06-08-2023 Office outpatient visit 15 minutes Ananth Brunner MD Work Phone: [facility] Comment on above: Acute non-recurrent pansinusitis (Primary Dx); Acute bacterial conjunctivitis of both eyes; Morbid obesity due to excess calories ([facility]) Start: 06-09-2022 End: 06-09-2022 ambulatory CHAYITO ROE . Facility: Start: 04-07-2022 End: 04-07-[address] ANANTH BRUNNER Facility: Procedures Date Procedure Procedure Detail Performing Clinician Start: 12-27-2024 ALL CBC WITH AUTO DIFF Chayito MASTERS Work Phone: Start: 12-25-2024 IGP,APTIMA HPV,AGE GDLN Chayito MASTERS Work Phone: Start: 05-24-2024 ALL CBC WITH AUTO DIFF [...] Screening for malign ant neoplasm of cervix [facility] Start: 02-10-2025 End: 02-10-2025 Patient encounter procedure 02/10/2025 9:30 AM EDT Procedure Visit JOYCE HEBERT [address] [place] [address] Cristóbal Werner DO [address] [place], [place] [id number] JOYCE HEBERT Start: 01-09-2025 End: 01-09-2025 Patient encounter procedure 01/09/2025 1:30 PM EDT Office Visit [facility] [address] [place] [phone] Ananth Brunner MD [address] [place] [phone] [facility] Start: 12-30-2024 Influenza vaccination Influenza Vacc ine (#1) [facility] Start: 12-25-2024 End: 12-25-2025 aPTT in Blood by Coagulation assay APTT Lab Routine Menorrhagia with regular cycle Expected: 12/25/2024 (Approximate), Expires: 12/25/2025 [facility] Comment on above: Expected: 12/25/2024 (Approximate), Expires: 12/25/2025 Start: 12-25-2024 End: 12-25-2024 Patient encounter procedure 12/25/2024 2:00 PM EDT Procedure Visit JOYCE HEBERT [address] [place] [address] Chayito Roe PA [address] [place] [address] [facility] Start: 12-25-2024 End: 12-25-2025 US Pelvis US Pelvis w/ TV Imaging Routine Menorrhagia with regular cycle Expected: 12/25/2024, Expires: 12/25/2025 [facility] Comment on above: Expected: 12/25/2024 , Expires: 12/25/2025 Start: 12-12-2024 End: 12-12-2024 Patient encounter procedure 12/12/2024 9:40 AM EDT Office Visit [facility] [address] [place] [phone] Cristóbal Werner DO [address] [place] [address] [facility] Start: 12-02-2024 End: 12-02-2024 Patient encounter procedure 12/02/2024 9:00 AM EDT Office Visit [facility] [address] [place] [address] Ananth Brunner MD [address] [place] [address] [facility] Start: 06-03-2024 End: 06-03-2024 Patient encounter procedure [facility] Comment on above: Arrived Start: 05-03-2024 End: 05-03-2025 Basic metabolic 1998 panel - Serum or Plasma Basic metabolic panel Lab Routine Annual physical exam Expected: 05/03/2024 (Approximate), Expires: 05/03/2025 [facility] Comment on above: Expected: 05/03/2024 (Approximate), Expires: 05/03/2025 Start: 05-03-2024 End: 05-03-2025 CBC W Auto Differential panel - Blood CBC and differential Lab Routine Annual physical exam Expected: 05/03/2024 (Approximate), Expires: 05/03/2025 [facility] Comment on above: Expected: 05/03/2024 (Approximate), Expires: 05/03/2025 Start: 05-03-2024 End: 05-03-2025 Hemoglobin A1c/Hemoglobin.total in Blood Hemoglobin A1c Lab Routine Annual physical exam Expected: 05/03/2024 (Approximate), Expires: 05/03/2025 [facility] Work Phone: Comment on above: Expected: 05/03/2024 (Approximate), Expires: 05/03/2025 Start: 05-03-2024 End: 05-03-2025 Hepatic function 2000 panel - Serum or Plasma Hepatic function panel Lab Routine Annual physical exam Expected: 05/03/2024 (Approximate), Expires: 05/03/2025 [facility] Comment on above: Expected: 05/03/2024 (Approximate), Expires: 05/03/2025 Start: 05-03-2024 End: 05-03-2025 Lipid 1996 panel - Serum or Plasma Lipid panel Lab Routine Annual physical exam Expected: 05/03/2024 (Approximate), Expires: 05/03/2025 [facility] Comment on above: Expected: 05/03/2024 (Approximate), Expires: 05/03/2025 Start: 05-03-2024 End: 05-03-2025 TSH W/REFLEX TO FT4 TSH W/REFLEX TO FT4 Lab Routine Annual physical exam Expected: 05/03/2024 (Approximate), Expires: 05/03/2025 [facility] Comment on above: Expected: 05/03/2024 (Approximate), Expires: 05/03/2025 Start: 05-03-2024 End: 05-03-2024 Patient encounter procedure 05/03/2024 9:45 AM EST Office Visit [facility] [address] [place] [address] Ananth Brunner MD [address] [place] [address] Arrived [facility] Comment on above: Arrived Start: 12-31-2023 Influenza vaccination Influenza Vacc ine (#1) [facility] Start: 12-30-2022 Influenza vaccination Influenza Vacc ine (#1) [facility] Start: 2020 Screening for malign ant neoplasm of cervix [facility] Start: 2011 Screening for malign ant neoplasm of cervix Pap Smear [facility] CBC W Auto Different ial panel - Blood CBC and differential Lab Routine Menorrhagia with regular cycle Ordered: 12/25/2024 [facility] Comment on above: Ordered: 12/25/2024 Cytology Cervical or vaginal smear or scraping study Pap Smear Pathology and Cytology Routine Well woman exam with routine gynecological exam Ordered: 12/25/2024 [facility] Work Phone: Comment on above: Ordered: 12/25/2024 hCG, quantitative, hCG, quantitative, Lab Routine Menorrhagia with regular cycle Ordered: 12/25/2024 [facility] Comment on above: Ordered: 12/25/2024 Hemoglobin A1c/Hemoglobin.total in Blood Hemoglobin A1c Lab Routine Menorrhagia with regular cycle Ordered: 12/25/2024 [facility] Comment on above: Ordered: 12/25/2024 Human papilloma viru s DNA [Presence] in Unspecified specimen by Probe with amplification HPV DNA probe, amplified Microbiology Routine Well woman exam with routine gynecological exam Ordered: 12/25/2024 [facility] Comment on above: Ordered: 12/25/2024 Prothrombin time (PT ) in Blood by Coagulation assay Protime-INR Lab Routine Menorrhagia with regular cycle Ordered: 12/25/2024 [facility] Comment on above: Ordered: 12/25/2024 Thyrotropin [Units/volume] in Serum or Plasma TSH Lab Routine Menorrhagia with regular cycle Ordered: 12/25/2024 [facility] Comment on above: Ordered: 12/25/2024 Thyroxine (T4) free [Mass/volume] in Serum or Plasma T4, free Lab Routine Menorrhagia with regular cycle Ordered: 12/25/2024 [facility] Comment on above: Ordered: 12/25/2024 Immunizations Immunization Date Immunization Notes Care Provider Fa cility 03-14-2021 influenza virus vacc ine, unspecified formulation Ananth Brunner MD Work Phone: [facility] Payers Date Payer Category Payer Private Health Insurance [employer] [id number] 2022 Unknown [employer] [id number] 2022-Present [address] [place] [address] [id number] 2022 Medicaid 2002 Medicaid [id number] 1990 Unknown [id number]. 593 1990 Unknown [id number] [id number]. 593 1990 Unknown [id number] [id number]. 1286 1990 Unknown [id number] [id number]. 1286 1990 Unknown [id number] [id number]. 1286 1990 Unknown [id number] [id number]. 1286 1990 Unknown [id number] [id number]. 1286 1990 Unknown [id number] [id number]. 1259 1990 Unknown [id number] [id number]. 1259 1990 Unknown [id number] 2.16.840.1.909703.3.579.2. 1259 1990 Unknown [id number] [id number]. 1259 1959 Unknown [id number] 1959 Unknown [id number] Social History Date Type Detail Facility Start: 05-04-2023 Tobacco smoking status NHIS Ex-smoke r [facility] History of tobacco [...] months, were you homeless or living in senior care [including now]? Yes [facility] Start: 05-04-2023 [...] (BMI) of 60.0 to 69.9 in adult ([facility] (normal spontaneous [place] delivery) ([facility]) 2011 PCOS (polycystic ovarian syndrome) Primary osteoarthritis of right knee URI, acute HISTORY PAST MEDICAL HISTORY SOCIAL HISTORY Past Medical History: Diagnosis Date Benign essential hypertension Headache Hx of being hospitalized 2012 dehydration Hx of being hospitalized 2011 hypertension due to Morbid obesity ([facility]) (normal spontaneous vaginal delivery) ([facility] 2011 PCOS (polycystic ovarian syndrome) Primary osteoarthritis [...] nursing note reviewed. Exam conducted with a geopolitics teacher present. Vitals: Estimated body mass index is [...] Ananth Brunner MD - 12/02/2024 1:56 PM EDKalyani Brunner MD - 12/02/2024 1:56 PM Janelle Brunner MD - 12/02/2024 1:56 PM Janelle Brunner MD - 12/02/2024 1:56 PM EDT Note Date & Type Note Facility 12-02-2024 History of Presen t illness Narrative Associated Problem(s): Essential hypertension, benign BP normal and monitor PRN. Associated Problem(s): Class 3 severe obesity due to excess calories with serious comorbidity and body mass index (BMI) of 60.0 to 69.9 in adult ([facility]) Patient overweight and difficult time [...] (BMI) of 60.0 to 69.9 in adult ([facility]) Patient overweight and difficult time [...] illness Narrative Associated Problem(s): Essential hypertension, benign (CMS/HCC) BP normal and monitor PRN. Associated Problem(s): Class 3 severe obesity due to excess calories with serious comorbidity and body mass index (BMI) of 50.0 to 59.9 in adult (CMS/HCC) Weight loss indicated. Associated Problem(s): Bilateral primary [...] 59.9 in adult (CMS/HCC) Weight loss indicated. ADD (attention deficit disorder) [...] illness Narrative Associated Problem(s): Essential hypertension, benign ([facility]) BP normal and monitor PRN. Associated Problem(s): Class 3 severe obesity due to excess calories with serious comorbidity and body mass index (BMI) of 50.0 to 59.9 in adult ([facility]) Weight loss indicated. Associated Problem(s): [...] % ophthalmic solution documented in this encounter [facility] Evaluation note Note Date & Type Note Facility Evaluation note Diagnosis Acute non-recurrent pansinusitis- Primary Acute bacterial conjunctivitis of both eyes Morbid obesity due to excess calories ([facility]) documented in this encounter [facility] Evaluation note Note Date & Type Note Facility Evaluation note Diagnosis Annual physical exam- Primary Routine general medical examination at a health care facility Essential hypertension, benign ([facility]) Essential hypertension, benign 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 Class 3 severe obesity due to excess calories with serious comorbidity and body mass index (BMI) of 50.0 to 59.9 in adult ([facility]) documented in this encounter [facility] Evaluation note Note Date & Type Note Facility Evaluation note Diagnosis Annual physical exam- Primary Routine general medical examination at a health care facility Essential hypertension, benign ([facility]) Essential hypertension, benign 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 Class 3 severe obesity due to excess calories with serious comorbidity and body mass index (BMI) of 50.0 to 59.9 in adult ([facility]) ADD (attention deficit 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- Primary Attention deficit disorder 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 Essential hypertension, benign ([facility]) Essential hypertension, benign Bilateral primary osteoarthritis of knee Class 3 severe obesity due to excess calories with serious comorbidity and body mass index (BMI) of 50.0 to 59.9 in adult ([facility]) SOB (shortness of breath) on exertion Shortness of breath documented in this encounter [facility] Evaluation note Note Date & Type [...] (BMI) of 50.0 to 59.9 in adult ([facility]) ADD (attention deficit 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- Primary Attention deficit disorder 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 Essential hypertension, benign Essential hypertension, benign Bilateral primary osteoarthritis of knee Class 3 severe obesity due to excess calories with serious comorbidity and body mass index (BMI) of 50.0 to 59.9 in adult ([facility] SOB (shortness of breath) on exertion Shortness of breath Essential hypertension, benign- Primary Essential hypertension, benign Bilateral primary osteoarthritis of knee 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 Class 3 severe obesity due to excess calories with serious comorbidity and body mass index (BMI) of 60.0 to 69.9 in adult ([facility] documented in this encounter [facility] Evaluation [...] (BMI) of 50.0 to 59.9 in adult ([facility]) ADD (attention deficit 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- Primary Attention deficit disorder 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 Essential hypertension, benign Essential hypertension, benign Bilateral primary osteoarthritis of knee Class 3 severe obesity due to excess calories with serious comorbidity and body mass index (BMI) of 50.0 to 59.9 in adult ([facility]) SOB (shortness of breath) on exertion Shortness of breath Essential hypertension, benign- Primary Essential hypertension, benign Bilateral primary osteoarthritis of knee 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 Class 3 severe obesity due to excess calories with serious comorbidity and body mass index (BMI) of 60.0 to 69.9 in adult ([facility] Well woman exam with routine gynecological exam [...] and content) DATE CREATED AUTHOR 07/14/2022 [facility] DATE CREATED AUTHOR AUTHOR'S ORGANIZ ATION 10/15/2023 [facility] DATE CREATED AUTHOR AUTHOR'S ORGANIZ ATION 02/17/2024 [facility] DATE CREATED AUTHOR AUTHOR'S ORGANIZ ATION 12/27/2024 [facility] Special[facility] EPIC Reason for Visit (unrecogniz ed section and content) Reason Comments Eye Drainage Cough Reason Comments Annual Exam WELLNESS Reason Comments Follow-up 1 m Reason Comments Follow-up 6m Weight loss optio ns Knee Pain Reason Comments Well Women Visit Care Teams (unrecognized sec tion and content) [employer] Relationship Specialty Start Date End Date Ananth Brunner MD [address] [place] [address] PCP - General Family Medicine 06/08/23 [employer] Relationship Specialty Start Date End Date Ananth Brunner MD [address] [place] [phone] PCP - General Family Medicine 06/08/23 Ananth Brunner MD [address] [place] [address] PCP - Medical [employer] 12/12/22 04/30/99 [employer] Relationship Specialty Start Date End Date Ananth Brunner MD [address] [place] [address] PCP - General Family Medicine 06/08/23 Ananth Brunner MD [address] [place] [address] PCP - Medical [employer] 12/12/22 04/30/99 [employer] Relationship Specialty Start Date End Date Ananth Brunner MD [address] [place] [address] PCP - General Family Medicine 06/08/23 Ananth Brunner MD [address] [place] [address] PCP - Medical [employer] 12/12/22 04/30/99 [employer] Relationship Specialty Start Date End Date Ananth Brunner MD [address] [place] [address] PCP - General Family Medicine 06/08/23 Ananth Brunner MD [address] [place] [address] PCP - Medical [employer] 12/12/22 04/30/99 [employer] Relationship Specialty Start Date End Date Ananth Brunner MD [address] [place] [address] PCP - General Family Medicine 06/08/23 Ananth Brunner MD [address] [place] [address] PCP - Medical [employer] 12/12/22 04/30/99 [employer] Relationship Specialty Start Date End Date Ananth Brunner MD [address] [place] [address] PCP - General Family Medicine 06/08/23 Ananth Brunner MD [address] [place] [address] PCP - Medical [employer] 12/12/22 04/30/99 [employer] Relationship Specialty Start Date End Date Ananth Brunner MD [address] [place] [address] PCP - General Family Medicine 06/08/23 Ananth Brunner MD [address] [place] [address] PCP - Medical [employer] 12/12/22 04/30/99 [employer] Relationship Specialty Start Date End Date Ananth Brunner MD [address] [place] [address] PCP - General Family Medicine 06/08/23 Ananth Brunner MD [address] [place] [address] PCP - Medical [employer] 12/12/22 04/30/99 [employer] Relationship Specialty Start Date End Date Ananth Brunner MD [address] [place] [address] PCP - General Family Medicine 06/08/23 Ananth Brunner MD [address] [place] [address] PCP - Medical [employer] 12/12/22 04/30/99 [employer] Relationship Specialty Start Date End Date Ananth Brunner MD [address] [place] [address] PCP - General Family Medicine 06/08/23 Ananth Brunner MD [address] [place] [address] PCP - Medical [employer] 12/12/22 04/30/99 [employer] Relationship Specialty Start Date End Date Ananth Brunner MD PCP - General Family Medicine 06/08/23 Ananth Brunner MD [address] [place] [address] PCP - Medical [employer] 12/12/22 04/30/99 FOR RECORDS PERTAINING TO [...] BE BASED ON THE PRIMARY CLINICAL RECORDS. [employer] [facility]. provides no warranty or guarantee of the accuracy or completeness of information in this document.
== END 2025-01-03 09:23 | disposition home or self-care (01) ==
LOC: US 09:22
PROVIDERS: PCP Family Medicine; Visit Provider Physician Assistant
DX: N92.0 Excessive and frequent menstruation with regular cycle (principal)
CPT/HCPCS: 76830; 76856

== ENCOUNTER 2025-02-10 14:24 | Outpatient (REF) | payer OTHER, SELFPAY ==
--- OUTSIDE RECORDS SUMMARY | 2025-02-11 20:42 | XMS_ITS | Continuity of Care Document ---
Author Organization [facility] Address [address] [place] [address] Phone Care Team Providers Care Social Service Worker Name Role Phone Chayito Ma PA-C Attending Provider Unavailable Ananth Roy MD Primary Care Provider Ananth Roy MD Attending Provider Cristóbal Werner DO Attending Provider [phone] Care Teams Visit Care Team Team Status: Active Member Role Status Dates Chayito Ma PA-C Attending Provider Active Start : December 25, 2024 Visit Care Team Team Status: Inactive Member Role Status Dates Ananth Roy MD Primary Care Provider Active S tart: January 09, 2025 End: January 09, 2025[facility] Roy MDAttending ProviderActiveStart: January 09, 2025 End: January 09, 2025 Patient Care Team Team Status: Inactive Member Role Status Dates Cristóbal Werner DO Attending Provider Active Start : February 10, 2025 End: February 10, 2025 Chief Complaint and Reason for Visit Chief Complaint Admit Date Established Patient January 09, 2025 1:42pm Unknown February 10, 2025 1 :17pm Reason for Visit Admit Date ADD (attention deficit 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 January 09, 2025 1:42pm Benign essential hypertension January 09, 2025 1:42pm Bilateral primary osteoarthritis of knee January 09, 2025 1:42pm Class 3 severe obesity due t o excess calories with serious comorbidity and January 09, 2025 1:42pm Allergies, Adverse Reactions, Alerts Allergen Type Severity Reaction Last Updated Verified Status No Known Allergies Allergy Unknown January 09, 2025 1:52pmYesActive Social History Smoking Status Status Start Date End Date Date of Observa tion Ex-smoker (finding) January 09, 2025 1:55pm Observation Status Observation Response Date of Response Legal Sex [facility] (finding[facility] 1989 [facility] Active Problems Medical Problem Onset Date Status Class 3 severe obesity due t o excess calories with serious comorbidity and body mass index (BMI) of 60.0 to 69.9 in adult Unknown Active Bilateral primary osteoarthritis of knee Unknown Active Benign essential hypertension Unknown Ac tive Annual physical exam Unknown Active PCOS (polycystic ovarian syndrome) Unknown Active Exertional shortness of breath Unknown A ctive ADD (attention deficit 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 hyperac tivity Unknown Active Vitamin D deficiency Unknown Active Medications Medication Status Dose Units Route Directions Qty Days St art Date Stop Date End Date Instructions Adherence Celecoxib 200 mg capsule Active 200 MG PO Twice d aily January 08, 2025 12:00amUnknownMetformin 500 mg wnebnoJxtgaf412FBDWXexcj January 08, 2025 12:00amUnknownPhentermine 37.5 mg tnndkkMziumllwakhc19.5MG PODailySept2024 12:00amSept2024 2:08pmmust administer 30 minutes before or 1-2 hours after breakfastAlbuterol Sulfate 90 mcg/actuation HFA aerosol fowawfoIloors0WOUNIAZUFSFHBLZuwsg 4 hours as neededJanuary 08, 2025 12:00amUnknownAtomoxetine 40 mg vkqncwxMhtzeg80OSJDGikhhBcvsujhuh 11th, 2025 12:00amUnknownPhentermine 37.5 mg reakazDrjturtxardk76.9CJMOAqvxx8522 January 09, 2025 2:03pmSe2024 2:14pmmust administer 30 minutes before or 1-2 hours after breakfastPhentermine 37.5 mg euhkusKjxcgw28.5MGPODaily 3030Se2024 2:13pmmust administer 30 minutes before or 1-2 hours after breakfastUnknown Relevant Diagnostic Tests and/or Laboratory Data Laboratory Results Test Collection Date/Time Result Date/Time Result Interpretation Reference Range Result Comment Performing Site Reference Lab Test Patient Age December 25, 2024 2:18pm December 25, 2024 2:18pm Note .TESTS RESULT FLAG UNITS REF RANGE LAB Clinician Provided Cytology Information Source.............Cervix;Endocervix No. of containers..01 ThinPrep VialAge Brandon KULKARNI Opal... FLAG LEGEND: L- Low Normal,H-High Normal,LL-Alert Low,HH-Alert High <-Panic Low,>-Panic High,A -Abnormal,AA-Critical Abnormal Performed at:01 [facility] [address] [place] [address] Cheli Flores MD, hpv High Risk Other CommentAugust 2024 2:18pmAugust 2024 2:18pmNote.TESTS RESULT FLAG UNITS REF RANGE LAB DIAGNOSIS: 02 NEGATIVE FOR INTRAEPITHELIAL LESION OR MALIGNANCY.Specimen adequacy: 02 Satisfactory forevaluation. Endocervical and/or squamous metaplastic cells (endocervical component) are present.Performed by: Nany Duron Head Of Product ([facility]). 02Note: Note 02 The Pap smear is a screening test designed to aid in the detection of premalignant and malignant conditions of the uterine cervix. It isnot a diagnostic procedure and should not be used as the sole means of detecting cervical cancer. Both false-positive and false-negative reports do occur.Test Methodology: Note 02 This liquid based ThinPrep(R) pap test was screened with the use of an image guided system.HPV Genotype Reflex Note 02 Criteria not met, HPV Genotype not performed. FLAG LEGEND: L-Low Normal,H-High Normal,LL-Alert Low,HH-Alert High <-Panic Low,>- Panic High,A-Abnormal,AA-Critical Abnormal Performed at:[address] [address] Cheli Flores MD, MZO Genotype SourceAugust 2024 2:18pmAugust 2024 2:18pmNegativeNegativeThis nucleic acid amplification test detects fourteen high-risk HPV types (16,18,31,33,35,39,45,51,52,56,58,59,66,68)without differentiation.Performed at: =[address], [place] [id number] Director: Cehli Flores MD, Phone: [phone] at: [address] [id number] Director: Cheli Flores MD, Phone: [phone] Vital Signs Vital Reading Result Reference Range Collection Date/Time Height 66 [in_i] January 09, 2025 1:24rwJfafts001.28 kgSept2024 1:50pmBody Ckawvaraoup07.7 [degF]97.6-99.0Sept2024 1:50pmHeart Eyye119 /min 60-100Se2024 1:50pmRespiratory rate22 /fwl95-46Dwscqwrhl2024 1:50pmOxygen saturation by Pulse hdnztitb98 %95-100Se2024 1:50pmBP Wzdjafnr611 mm[Hg]100-140Se2024 1:50pmBP Txxkmzuey58 mm[Hg]60-100Sept2024 1:50pmBMI (Body Mass Index)59.8 kg/c6Nubrabxin2024 1:50pm Advance Directives Advance Directive Response Recorded Date/ Time Advance Directives No December 1:37pm Insurance Providers Guarantor Emelyn Peralta Address [address] [facility] [address]Asvtneg Info.Home Phone: Payer Policy Id Subscriber's Name Subscriber Id Effectiv e Date Expiration Date [facility] [id number] Emelyn Peralta [id number] [place]/[id number] [id number] [id number] [id number] Encounters Encounter Location(s) Arrival/Admit Date Discharge/Depart Date Provider(s) Non-patient / Non-visit -[facility] Professional [facility] A ugust 2024 2:18pm VERONICA Parkeparted Physician/Provider Office Visit-[facility] Family [facility]2024 1:42pmSept2024 2:13pmAnanth Roy MD Departed Referred-LAB Path Spec [facility] 2024 1:17pmOctober 2024 1:18pmCorey Alphonso Recent Diagnosis Onset Date Admit Date ADD (attention deficit disor [place]) without hyperactivity Unknown January 09, 2025 1:42pm Benign essential hypertension Unknown Se pt2024 1:42pm Bilateral primary osteoarthritis of knee Unknown January 09, 2025 1:42pm Class 3 severe obesity due t o excess calories with serious comorbidity and Unknown January 09, 2025 1:42 pm Assessments Diagnosis Onset Date Resolution Status Admit Date ADD (attention deficit 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 acuteSeptember 2024 1:42pmBenign essential hypertensionacuteSeptember 2024 1:42pmBilateral primary osteoarthritis of kneeacuteSept2024 1:42pmClass 3 severe obesity due to excess calories with serious comorbidity andacuteSept2024 1:42pm Plan of Treatment Author [facility] 2:21pmBP controlled and monitor PRN. ADD controlled with strattera and continue. OA stable with celebrex. Continue with increased activity and walking. Patient doing well with adipex and lost 5 pounds in first month. Tolerating well with only mild dry mouth. Continue with dietary changes and less calories. Need to limit snacking and smaller portions. Continue healthier choices. Need regular aerobic exercise 30 minutes at a time 5-6 days a week. Refill for another month. OARRS reviewed. Continue meds as prescribed. If develop new or worsening symptoms contact office. Future Tests Future scheduled test information is unavailable Pending Tests Test Name Ordered Date Scheduled Date Miscellaneous Pathology Test February 10, 2025 12:00am Future Visits Future appointment information is unavailable Referrals to Other Providers Referral information is unavailable Future Procedures Procedure Name Ordered Date Scheduled Date Pathology Request for Lab Jessica February 11 2:19pm February 10, 2025 12:00am Future Medications Future medication information is unavailable Patient Instructions Patient instructions are unavailable
--- OUTSIDE RECORDS SUMMARY | 2025-02-18 14:28 | XMS_ITS | CCD ---
Author Organization [facility] CliniSyca Care Team Providers Care [place] Worker Name Role Phone CHAYITO NAIK Admitting Unavailable CHAYITO NAIK Attending Unavailable NADLOUIS, DR ANANTH Andujar Primary Care Unavailable CHAYITO NAIK Consulting Unavailable KANNAN, DR ANANTH Andujar Admitting Unavailable KANNAN, DR ANANTH Andujar Attending Unavailable NADLOUIS, DR ANANTH Andujar Primary Care Unavailable NADERER, [...] SILVIA Attending Unavailable ANANTH BRUNNER Referring Unavailable KANNAN, ANANTH Primary Care Unavailable MCKENZIE, SILVIA Attending Unavailable KANNAN, ANANTH Referring Unavailable NADERECharles, ANANTH Primary Care Unavailable Ananth Brunner MD Unavailable Ananth Brunner MD Primary Care Provider [phone] Ananth Brunner MD Unavailable Chayito Roe PA-C Attending Provider Unavailable Ananth Brunner MD Primary Care Provider Ananth Brunner MD Attending Provider [phone] ANANTH BRUNNER Attending Unavailable ANANTH BRUNNER Attending Unavailable ANANTH BRUNNER Attending Unavailable CHAYITO ROE Attending Unavailable MOLLY WERNER Attending Unavailable Ananth Brunner MD Unavailable Molly Werner DO Attending Provider [phone] Molly Werner Attending Unavailable Alphonso, Molly Admitting Unavailable ANANTH BRUNNER Primary Care Physician [phone] CONCHITA CASTELLANOS Attending Unavail able CONCHITA CASTELLANOS Attending Unavail able CHAYITO ROE Referring Unavailable Teagan Kwan Attending Unavailable Medications Current Medications MedicationDrug Class(es)DatesSig (Normalized)Sig (Original)[id number] 200 actuat albuterol 0.09 mg/actuat metered dose inhaler (13 sources)beta2-Adrenergic AgonistStart: 66-00-7300jubp 1 puff(s) by inhalation every four hours as neededStart: 06-03-2024 End: 73-15-0947nvxk 2 puff(s) by inhalation every four hours for wheezing albuterol HFA 90 mcg/act inhaler Indications: SOB (shortness of breath) on exertion Inhale 2 puffs every 4 (four) hours if needed for shortness of breath or wheezing 18 g 2 06/03/2024 06/03/2025 ActiveAlbuterol (Eqv-ProAir HFA) 90 mcg/inh inhalation aerosol (1 source)Start: 00-45-7599Kfcshekap (Eqv-ProAir HFA) 90 mcg/inh inhalation aerosol 2 inh, Inhalation, q6hr, INHALE 2 PUFFS BYMOUTH EVERY 4 HOURS NEEDED SHORTNESS OF BREATH and FOR WHEEZING Start Date: 02/14/25 Status: Ordered Repeat number: 1cefdinir 300 mg oral capsule (2 sources)Cephalosporin AntibacterialStart: 06-08-2023 End: 68-09-3146ngvf 1 capsule by mouth in the morningcefdinir (Omnicef) 300 MG capsule Indications: Acute non-recurrent pansinusitis Take 1 capsule (300mg) by mouth in the morning and 1 capsule (300 mg) before bedtime. Do all this for 10 days. 20 capsule 0 06/08/2023 06/18/2023 Activeciprofloxacin 3 mg/ml ophthalmic solution (2 sources)Quinolone AntimicrobialStart: 06-08-2023 End: 74-36-8598ppbf 2 drop(s) into the eye(s) every four hoursciprofloxacin (Ciloxan) 0.3 % ophthalmic solution Indications: Acute bacterial conjunctivitis of both eyes Administer 2 drops into both eyes every 4 (four) hours for 7 days 5 mL 0 06/08/2023 06/15/2023 ActivemetFORMIN hydrochloride 500 mg oral tablet (8 sources)BiguanideStart: 88-46-2538bzcg 1 tablet by mouth twice dailymetformin 500 mg Tab 500 mg = 1 tab(s), Oral, BID Start Date: 02/14/25 Status: Ordered Repeat number: 1Start: 12-25-2024 End: 18-99-5041irlm 1 tablet by mouth once dailypredniSONE 50 mg oral tablet (2 sources)Start: 06-08-2023 End: 52-49-7097mmjo 1 tablet by mouth in the morningpredniSONE (Deltasone) 50 MG tablet Indications: Acute non-recurrent pansinusitis Take 1 tablet (50mg) by mouth in the morning for 6 days. 6 tablet 0 06/08/2023 06/14/2023 Active Completed/Discontinued Medications MedicationDrug Class(es)DatesSig (Normalized)Sig (Original)atomoxetine 40 mg oral capsule (14 sources)Norepinephrine Reuptake InhibitorStart: 79-08-9872xovu 1 capsule by mouth once daily in the morningatomoxetine 40 mg Cap 40 mg = 1 cap(s), Oral, qAM, Take 1 capsule (40 mg) by mouth DAILY swallow capsule whole; do not open. If opened accidentally, do not touch eyes; wash hands immediately (productis an eye irritant) Start Date: 02/14/25 Status: Ordered Repeat number: 1Start: 74-17-4471mqbz 1 capsule by mouth once dailyStart: 05-03-2024 End: 47-11-4658jwwl 1 capsule by mouth once dailyatomoxetine (Strattera) 40 MG capsule Indications: ADD (attention deficit 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 Take 1 capsule (40 mg) by mouth Daily Swallow capsule whole; do not open. If opened accidentally, do not touch eyes; wash hands immediately (product is an eye irritant). 30 capsule 3 Discontinuedcelecoxib 200 mg oral capsule (20 sources)Nonsteroidal Anti-inflammatory DrugStart: 84-26-3347mdto 1 capsule by mouth twice daily as needed for paincelecoxib 200 mg Cap 200 mg = 1 cap(s), Oral, BID, TAKE 1 CAPSULE BY MOUTH TWICE DAILY NEEDED for mild pain Start Date: 02/14/25 Status: Ordered Repeat number: 1Start: 37-76-3602kfyk 1 capsule by mouth twice dailyStart: 06-06-2023 End: 75-41-0112wwhy 1 capsule by mouth twice dailyCelecoxib 200 mg capsule Active 200 MG PO Twice daily January 08, 2025 12:00am Complies with drug therapyphentermine hydrochloride 37.5 mg oral tablet (14 sources)Sympathomimetic Amine AnorecticStart: 70-09-1541edeb 1 tablet by mouth once daily 30 minutes after breakfastphentermine 37.5 mg Tab 37.5 mg = 1 tab(s), Oral, Daily, TAKE 1 TABLET BY MOUTH 30 MINUTES before or 1-2 hours after BREAKFAST Start Date: 02/14/25 Status: Ordered Repeat number: 1Start: 12-02-2024 End: 71-85-2823bkst 1 tablet by mouth once daily 30 minutes after breakfast Phentermine 37.5 mg tablet Discontinued 37.5 MG PO Daily January 09, 2025 2:03pm January 09, 2025 2:14pm must administer 30 minutes before or 1-2 hours after breakfast Problems Active Problems Problem ClassificationProblemDateDocumented DateEpisodic/ChronicContraceptive and procreative management (1 source)Sterilization requested; Translations: [Encounter for sterilization] 57-94-9621KjrtmnwpRdeerdiun usually diagnosed in infancy, childhood, or adolescence (20 sources)Attention deficit hyperactivity disorder, predominantly inattentive type; Translations: [Other specified behavioral and emotional disorders with onset usually occurring in childhood and adolescence]Onset: ChronicEssential hypertension (20 sources)Benign essential hypertension; Translations: [Essential (primary) hypertension]Onset: 830279-96-4274GloxaxaQlkeyrxokuqhm symptoms and ill- defined conditions (6 sources)Urge incontinence; Translations: [Unspecified urinary incontinence] Onset: 70-50-8284FwfljhgYanxjtdvwadvv symptoms and ill-defined conditions (2 sources)History of urinary tract infection; Translations: [Personal history of urinary (tract) infections]Onset: 10-94-1736OkmlavlfWztekzlyj disorders (3 sources)Menorrhagia; Translations: [Excessive and frequent menstruation with regular cycle]Onset: 041798-78-6897EkrmhhvDrnzqgaieez deficiencies (20 sources)Vitamin D deficiency; Translations: [Vitamin D deficiency, unspecified]Onset: 051062-05-0095ZpekidkHtwpmnauwwtmtl (20 sources)Primary gonarthrosis, bilateral; Translations: [Bilateral primary osteoarthritis of knee]Onset: 799658-30-6945PbgovpoEjapc connective tissue disease (1 source)Disorder of muscle; Translations: [Other specified disorders of muscle]Onset: 14-67-4971RlhftoqeUwviv connective tissue disease (1 source)Pelvic floor uxvlagaiawd05-38-8092PvdkdzxdGquka endocrine disorders (20 sources)Polycystic ovary syndrome; Translations: [Polycystic ovarian syndrome]Onset: 312672-13-7355RgdigjnUypno female genital disorders (1 source)Abnormal uterine bleeding; Translations: [Abnormal uterine and vaginal bleeding, unspecified]51-48-5677LfthdorWzgsz female genital disorders (1 source)Pain in female pelvis; Translations: [Pelvic pain in female]02-10-2025 EpisodicOther lower respiratory disease (15 sources)Dyspnea on exertion; Translations: [Shortness of breath]Onset: 136044-72-5432GvspbtrgTxzwa non-traumatic joint disorders (1 source)Arthritis of kneeOnset: 623459-85-3851BlbgzdzDoish nutritional; endocrine; and metabolic disorders (5 sources)Morbid obesity; Translations: [Morbid (severe) obesity due to excess calories]Onset: 125895-35-9105PevyekgRuqzj nutritional; endocrine; and metabolic disorders (20 sources)Severe obesity; Translations: [Class 3 severe obesity due to excess calories with serious comorbidity and body mass index (BMI) of 50.0 to 59.9 in adult ([facility])]Onset: 885460-55-4110QldoiisLcexo screening for suspected conditions (not mental disorders or infectious disease) (4 sources)Encounter for screening for malignant neoplasm of cervix; Translations: [ENC SCREENING MALIG NEOPLASM CERV]Onset: 37-69-0293Wgsehbsk Unclassified (3 sources)CONTACT W/AND (SUSP) EXPOS COVID-19; Translations: [CONTACT W/AND (SUSP) EXPOS COVID-19]Onset: 04-11-2022 Past or Other Problems Problem ClassificationProblemDateDocumented DateEpisodic/ChronicInflammation; infection of eye (except that caused by tuberculosis or sexually transmitteddisease) (20 sources)Acute infectious conjunctivitis; Translations: [Unspecified acute conjunctivitis, bilateral]Onset: 06-08-2023 Resolved: 555218-25-5924WzesqxsiEnvlr injuries and conditions due to external causes (1 source)Sprain of spinal ligamentOnset: 837552-93-9920KujahafsUyzhq upper respiratory infections (20 sources)Acute upper respiratory infection, unspecified; Translations: [Acute pansinusitis]Onset: 04-11-2022 Resolved: 467552-47-9369GbmvejtjCmtbylllqlkz (1 source)CONTACT W/AND (SUSP) EXPOS COVID-19; Translations: [CONTACT W/AND (SUSP) EXPOS COVID-19]Onset: 04-07-2022 Results Test NameValueInterpretationReference RangeFacilityUrology Office/Clinic Noteon 68-09-0859Yyalvjp Office/Clinic NoteUrology Office/Clinic Note Chief Complaint New patient urge incontinence HPI Staff 34 year old female new patient referred for urinary incontinence since 2016 (when she had her last child). Some urge incontinence. If she doesn't use the restroom first thing in the morning, has incontinence. Pt is menstrual cycle. Denies abdominal/flank pain, denies visible blood, denies dysuria. BBSQ: 14 History of Present Illness Tests reviewed: reviewed UA, referral records I have reviewed the previous health record information and history for this patient from external providers. I have reviewed and verified the staff HPI to be accurate for this encounter. Review of Systems PHQ Score Initial Depression Screen Score: 0 SCORE ROS - Provider Constitutional: denies weight loss, denies hot flashes. Eyes: denies eye problems. Gastrointestinal: denies nausea, denies vomiting. Cardiovascular: denies chest pain or angina. Integumentary: no dryness Musculoskeletal: denies musculoskeletal symptoms. ENMT: denies otolaryngeal symptoms. Respiratory: no shortness of breath. Heme/Lymph: denies easy bleeding tendency, denies easy bruising tendency. Psychiatric: no confusion, no anxiety. Genitourinary: See HPI. Physical Exam Vitals & Measurements T: 36.6 ???C(Temporal Artery) HR: 103(Peripheral) RR: 16 BP: 149/97 HT: 167 cm HT: 66 in WT: 169 kg WT: 372.581 lb BMI: 60.6 General Appearance: alert , no acute distress, well nourished, well developed female. Assessment/Plan Emelyn is a 34 yo F referred by Molly Werner DO for urinary incontinence PSH: Abdominal surgeries yestubal ligation. 1. Urinary incontinence (R32: Unspecified urinary incontinence) UA today shoes large blood. Pt is on menstrual period. BBSQ 14. Denies pain with intercourse. 2 vaginal deliveries. Tear with first child. Shares incontinence starting since 2017 after the vaginal of her second son, had epidermal and Alvarez cath. UUI >> JULIEN. Wears pads due to leakage, exacerbated by movement. Severe urgency and is unable to make it to the bathroom on time. Discussed UUI vs JULIEN and subsequent tx options suchas Bulkamid. Give pt's age it is recommended to consider PFPT and Kegal exercises before considering further mgnt options. Pt agrees to this. Voiding diary given. -Kegal exercises -PFTP referral sent -Follow up in 3 mos w/ voiding diary 2. Urge incontinence (N39.41: Urge incontinence) See #1. 3. Stress incontinence (N39.3: Stress incontinence (female) (male)) See #1 4. History of UTI (Z87.440: Personal history of urinary (tract) infections) Reports 1-2 UTIs/year in the distant past improved on Abx, None in the past few year. 5. Pelvic floor dysfunction (M62.89: Other specified disorders of muscle) See #1 34-year-old female with history of overactive bladder with urinary incontinence along with stress urinary incontinence. We discussed that based on this we encouraged her to follow-up with pelvic floor physical therapy. She will follow- up with us in 3 months. Will also send a voiding diary. Behavioral changes were also discussed. Patient will follow-up in 3 months to reassess. Follow-up With When Contact Information JASMIN BAKER, CONCHITA, URL Additional Instructions: 3 mos w/ voiding diary Patient Education Urinary Incontinence I, Jessica Kessler, personally scribed for Dr. Yanes on 02/14/2025 14:32:18. . Portions of this record may have been created with voice recognition artificial intelligence software, specifically [employer], [employer] and or [employer]. Substitutions may have occurred due to the inherent limitations of voice recognition and artificial intelligence software. Documentation recorded by the scribeJessica, accurately reflects the services(s) I performed and decisions made by me. Authenticated by Dr. Tamra Schwartz on 02/14/2025 15:03:44. Problem List/Past Medical History Ongoing Arthritis of knee Attention deficit hyperactivity disorder, predominantly inattentive type Benign essential hypertension History of UTI Menorrhagia Morbid obesity with BMI of 60.0-69.9, adult Pelvic floor dysfunction Polycystic ovary syndrome Primary gonarthrosis, bilateral Sprain of spinal ligament Stress incontinence Urge incontinence Urinary incontinence Vitamin D deficiency Historical No qualifying data Procedure/Surgical History OBSERVATION:PRID:PT:CVX:NOM:CYTO STAIN (06/09/2022), Tubal ligation. Medications Albuterol (Eqv-ProAir HFA) 90 mcg/inh inhalation aerosol, 2 inh, Inhalation, q6hr atomoxetine 40 mg Cap, 40 mg= 1 cap(s), Oral, qAM celecoxib 200 mg Cap, 200 mg= 1 cap(s), Oral, BID metformin 500 mg Tab, 500 mg= 1 tab(s), Oral, BID phentermine 37.5 mg Tab, 37.5 mg= 1 tab(s), Oral, Daily Allergies No active allergies Social History Alcohol Never, 02/14/2025 Tobacco quit 2008 (more content not included)...[facility] SystemComment on above:Result Comment: Electronically Signed By: CONCHITA CASTELLANOS MD\.br\Date and Time Signed: 02/14/25 15:04 EDT\.br\Electronically Co- Signed By: Jessica Kessler\.br\Date and Time Co-Signed: 02/14/25 14:32 EDTHCG ( test) Ql (U)on 91-04-6661Klxdyiexktpqwv and review of laboratory resultsNormalNOMS HealthcarePreg Test, UrNegativeNegativeNOMS HealthcareNOMS HealthcareUS PELVIS W/ TRANSVAGINALon 00-45-8674[address] [address] Ultrasound Report Signed Patient: EMELYN SHIPMAN MR#: [id number] : 1990 Acct:[id number] Age/Sex: 34 / F ADM Date: 01/03/25 Loc: US Attending Dr: Chayito Roe Ordering Physician: Chayito Roe Date of Service: 01/03/25 Procedure(s): US pelvis w/ transvaginal Accession Number(s): [id number] cc: Chayito Roe; Ananth Brunner M.D. The [address] [id number] Patient Name: EMELYN SHIPMAN MRN: [id number] date: 1990 Sex: F Assigned Patient Location: [place] Current Patient Location: [place] Accession/Order Number: [id number] Exam Date: 01/03/2025 09:30 Report Date: 01/03/2025 [...] Allen M.D. 01/03/2025 10:25 AM Dictation Location: [place] [address] Electronically authenticated by: [id number] Y Date: 01/03/2025 10:25 Dictated By: Adenike Allen M.D. Signed By: 01/03/25 1028 DD/ 1025 TD/TT: Machine Icer:TBHRadiology, Radiologist, - 01/03/2025 [place] [address] Ultrasound Report Signed Patient: EMELYN SHIPMAN MR#: [id number] : 1990 Acct:[id number] Age/Sex: 34 / F ADM Date: 01/03/25 Loc: US Attending Dr: Chayito Roe Ordering Physician: Chayito Roe Date of Service: 01/03/25 Procedure(s): US pelvis w/ transvaginal Accession Number(s): [id number] cc: Chayito Roe; Ananth Brunner M.D. The [address] [address] Patient Name: EMELYN SHIPMAN MRN: [id number] date: 1990 Sex: F Assigned Patient Location: [place] Current Patient Location: [place] Accession/Order Number: [id number] Exam Date: 01/03/2025 09:30 Report Date: 01/03/2025 [...] Allen M.D. 01/03/2025 10:25 AM Dictation Location: [facility] CENTERTheBlogTV Electronically authenticated by: [id number] Y Date: 01/03/2025 10:25 Dictated By: Adenike Allen M.D. Signed By: 01/03/25 1028 DD/ 1025 TD/TT: Machine Icer: [facility] HealthcareRadiology Study observation (narrative)[facility] HealthcareUS PELVIS W/ TRANSVAGINALOrdered By: Radiologist Radiology on 29-20-7321FY[facility] Healthcare Work Phone: IGP,APTIMA HPV,AGE GDLNon 60-99-3431FAX GDLN ACOG TESTINGNote.[facility] HealthcareComment on above:TESTS RESULT FLAG UNITS REF RANGE LAB Clinician Provided Cytology Information Source.............Cervix;Endocervix No. of containers..01 ThinPrep Vial Age Brandon KULKARNI Opal... 30 FLAG LEGEND: L-Low Normal,H-High Normal,LL-Alert Low,HH-Alert High <-Panic Low,>-Panic High,A-Abnormal,AA-Critical Abnormal Performed at: 01 =[address] [address] Cheli Flores MD, HPV APTIMANegativeNegativeNOMS HealthcareComment on above:This nucleic acid amplification test detects fourteen high- risk HPV types (16,18,31,33,35,39,45,51,52,56,58,59,66,68) without differentiation. Performed at: =[address] [id number] Camouflage Assembler: Cheli Flores MD, Phone: [phone] Performed at: [address] [id number] Camouflage Assembler: Cheli Flores MD, Phone: [phone] IGP, APTIMA HPV, RFX 16/18,45Note.NOMS HealthcareComment on above:TESTS RESULT FLAG UNITS REF RANGE LAB DIAGNOSIS: 02 NEGATIVE FOR INTRAEPITHELIAL LESION OR MALIGNANCY. Specimen adequacy: 02 Satisfactory for evaluation. Endocervical and/or squamous metaplastic cells (endocervical component) are present. Performed by: 02 Guilherme Duron Rn Pacu ([facility]) . 02 Note: Note 02 The Pap [...] <-Panic Low,>-Panic High,A-Abnormal,AA-Critical Abnormal Performed at: [address] [address] Chlei Flores MD, BRUSH-SPATULA CERVIX ENDOCERVIX CLINISYNCNOMS HealthcareALL CBC WITH AUTO DIFFon 77-47-2843YFQYCUJXF ABSOLUTE AUTO0.1NOMS HealthcareBasophils/100 WBC (Bld)0.7 %0.2 - 2.0 %[facility] Eosinophils/100 WBC (Bld)4.5 %0.9 - 7.0 %NOMS HealthcareErythrocyte distribution width (RBC) [Ratio]14.1 %11.0 - 15.0 %NOMS HealthcareHematocrit (Bld) [Volume fraction]42.3 %36.0 - 48.0 %N[facility] HealthcareHemoglobin (Bld) [Mass/Vol]13.3 g/dL 12.0 - 16.0 g/dLNOMS HealthcareIMMATURE GRANULOCYTES ABS AUTO0.07HighNOMN HealthcareImmature granulocytes/100 WBC (Bld)0.8 %High0.0 - 0.5 %[facility] Interpretation and review of laboratory resultsAbnormalNOMN Healthcare LYMPHOCYTES ABSOLUTE AUTO2.3NOMS [facility] HamiltonLymphocytes/100 WBC (Bld)25.2 %20.5 - 60.0 %[facility] MonettH (RBC) [Entitic mass]26.1 pgLow26.7 - 34.0 pgNORay County Memorial HospitalHC (RBC) [Mass/Vol]31.4 g/dL29.9 - 35.2 g/dLNORay County Memorial HospitalV (RBC) [Entitic vol]82.9 fL81.0 - 99.0 fLFreeman Heart InstituteMONOCYTES ABSOLUTE AUTO0.8NOMS HealthcareMonocytes/100 WBC (Bld)8.8 %1.7 - 12.0 %[facility] InstituteNEUTROPHILS ABSOLUTE AUTO5.5NOMS HealthcareNeutrophils/100 WBC (Bld)60 %43.0 - 75.0 %[facility] InstitutePlatelet mean volume (Bld) [Entitic vol]8.4 fLLow9.5 - 13.5 fLFreeman Heart InstituteTBH EO #0.4NOMS [facility] HamiltonTB [id number] Health Care RBC5.1NOMS [facility] HamiltonTB WBC9.1NOMS HealthcareCLINISYNCNSaint Joseph Hospital of KirkwoodHuman papilloma virus 16+18+31+33+35+39+45+51+52+56+58+59+66+68 DNA [Presence] in CerOrdered By: Chayito Roe on 27-47-0867JFN 16+18+31+33+35+39+45+51+52+56+58+59+66+68 DNA Probe+sig amp Ql (Cvx)NegativeNegativeAvita Health SystemComment on above: This nucleic acid amplification test detects fourteen high-risk HPV types (16,18,31,33,35,39,45,51,52,56,58,59,66,68)without differentiation.Performed at: =[facility] [id number] Director: Cheli Flores MD, Phone: [phone] at: WB - [facility] Appyxabsoz933 [facility]za[facility], [place] [id number] Director: Cheli Flores MD, Phone: [phone] Panel InformationOrdered By: Chayito Roe on 89-38-6319CFE High Risk Other CommentNote.[facility] Health SystemComment on above:TESTS RESULT FLAG UNITS REF RANGE LAB DIAGNOSIS: 02 NEGATIVE FOR INTRAEPITHELIAL LESION OR MALIGNANCY.Specimen adequacy: 02 Satisfactory forevaluation. Endocervical and/or squamous metaplastic cells (endocervical component) are present.Performed by: Nany Duron, Rn Pacu ([facility]). 02Note: Note 02 The Pap smear is [...] image guided system.HPV Genotype Reflex Note 02 Cr iteria not met, HPV Genotype not performed. FLAG LEGEND: L-Low Normal,H-High Normal,LL-Alert Low,HH-Alert High <-Panic Low,>- Panic High,A-Abnormal,AA-Critical Abnormal Performed at:02 [facility] [address] [place] [address] Cheli Flores MD, Kqfhizybn Lab Test Patient [facility] Health SystemComment on above:TESTS RESULT FLAG UNITS REF RANGE LAB Clinician Provided Cytology Information Source.............Cervix;Endocervix No. of containers..01 ThinPrep VialAge Algo ACOG Opal... FLAG LEGEND: L-Low Normal,H-High Normal,LL-Alert Low,HH-Alert High <-Panic Low,>-Panic High,A- Abnormal,AA-Critical Abnormal Performed a t:01 =G [facility] [address] [address] Cheli Flores MD, JPP CBC WITH AUTO DIFFon 20-16-2073HWCNZKKSH ABSOLUTE AUTO0.1NOMS HealthcareBasophils/100 WBC (Bld)0.8 %0.2 - 2.0 %N[facility]S HealthcareEosinophils/100 WBC (Bld)3 %0.9 - 7.0 %NOMS HealthcareErythrocyte distribution width (RBC) [Ratio]14 %11.0 - 15.0 %N[facility]S HealthcareHematocrit (Bld) [Volume fraction]42 %36.0 - 48.0 %N[facility] HealthcareHemoglobin (Bld) [Mass/Vol] 13.4 g/dL12.0 - 16.0 g/dLNOMS HealthcareIMMATURE GRANULOCYTES ABS AUTO0.08High N[facility]S HealthcareImmature granulocytes/100 WBC (Bld)0.9 %High0.0 - 0.5 %[facility] HealthcareInterpretation and review of laboratory resultsAbnormalNOMercy Hospital South, formerly [facility] LYMPHOCYTES ABSOLUTE AUTO2.6NOMercy Hospital South, formerly St. Anthony's Medical CenterLymphocytes/100 WBC (Bld)28.6 %20.5 - 60.0 %[facility]ettH (RBC) [Entitic mass]26.7 pg26.7 - 34.0 pgNORay County Memorial HospitalHC (RBC) [Mass/Vol]31.9 g/dL29.9 - 35.2 g/dLCox MonettV (RBC) [Entitic vol]83.7 fL81.0 - 99.0 fLFreeman Heart InstituteMONOCYTES ABSOLUTE AUTO0.8NOMN HealthcareMonocytes/100 WBC (Bld)8.2 %1.7 - 12.0 %[facility] InstituteNEUTROPHILS ABSOLUTE AUTO5.4NOMercy Hospital South, formerly St. Anthony's Medical CenterNeutrophils/100 WBC (Bld)58.5 %43.0 - 75.0 %[facility] InstitutePlatelet mean volume (Bld) [Entitic vol]8.6 fLLow9.5 - 13.[address] fLNOMercy Hospital South, formerly [address] Anthony's Medical CenterTBH EO #0.3NOMS HealthcareTB [id number] Health Care RBC5.02NOMercy Hospital South, formerly St. Anthony's Medical CenterTB WBC9.2NOMS HealthcareCLINISYNCNSaint Joseph Hospital of KirkwoodMLR HEMOGLOBIN A1Con 93-86-4215Kqerrjd [Mass/Vol]105 mg/dLFreeman Heart InstituteHbA1c (Bld) [Mass fraction] 5.3 %4.5 - 6.2 %[facility] HealthcareComment on above:ADA RECOMMENDED LIMIT 4.0 - 6.0 ADA THERAPEUTIC TARGET < 7.0 ACTION SUGGESTED > 7.0 CLINISYNCFreeman Heart InstitutePAP ACOG PANEL 2: 30 to 65on 06-17-2022..NormalThe [facility] Samaritan Medical CenterComment on above:Result Comment: Performed at: WBPerformed By: #### [id number] #### [facility] [address] [place], [place] [address] Dr. New Orozco Gdln ACOG Svgelho58-00UoefgrQlhMercy Health Defiance HospitalComment on above:Performed By: #### [id number] #### [facility] [address] [place] [address] Dr. New ArzateDIAGNOSIS:CommentWooster Community Hospital on above: Result Comment: NEGATIVE FOR INTRAEPITHELIAL LESION OR MALIGNANCY. THIS SPECIMEN WAS RESCREENED PART OF OUR CARDIOVASCULAR DISEASE SPECIALIST PROGRAM. Performed at: WBPerformed By: #### [id number] #### [facility] [address] [place] [address] Dr. New GuillenV AptimaNegativeNormalNegativeOhioHealth Southeastern Medical Center on above:Result Comment: This nucleic acid amplification test detects fourteen high-risk HPV types (16,18,31,33,35,39,45,51,52,56,58,59,66,68) without differentiation. Performed at: =GPerformed By: #### [id number] #### [facility] [address] [place] [address] Dr. New Dolan Genotype ReflexCommentWooster Community Hospital on above:Result Comment: Criteria not met, HPV Genotype not performed. Performed at: WBPerformed By: #### [id number] #### [facility] [address] [place] [address] Dr. New ArzateMethodology:CommentNoMercy Health on above: Result Comment: This liquid based ThinPrep(R) pap test was screened with the use of an image guided system. Performed at: WBPerformed By: #### [id number] #### [facility] [address] [place] [address] Dr. New ArzateNote:CommentNoMercy Health on above:Result Comment: The Pap smear is a screening test designed to aid in the detection of premalignant and malignant conditions of the uterine cervix. It is not a diagnostic procedure and should not be used as the sole means of detecting cervical cancer. Both false-positive and false-negative reports do occur. . Performed at: WBPerformed By: #### [id number] #### [facility] [address] [place] [address] Dr. New ArzatePerformed by:CommentNoMercy Health on above: Result Comment: Fide Gayle, Supervisory Sound Effects Manager (ASCP) Performed at: WBPerformed By: #### [id number] #### [facility] [address] [place] [address] Dr. New Hernandez reviewed by:[facility] on above:Result Comment: Analisa Jesus, Supervisory Sound Effects Manager (ASCP) Performed at: WBPerformed By: #### [id number] #### [facility] [address] [place] [address] Dr. New ArzateSpecimen adequacy:CommentWooster Community Hospital on above:Result Comment: Satisfactory for evaluation. Endocervical and/or squamous metaplastic cells (endocervical component) are present. Performed at: WBPerformed By: #### [id number] #### [facility] [address] [place] [address] Dr. New ArzateCytology Cervical or vaginal smear or scraping studyon 06-09-2022 [facility]S HealthcareRESPIRATORY PANEL PLUSon 30-72-9142SsuecnwgezVzp detectedNormal NOT DETECTEDThe [facility] CenterComment on above:Performed By: #### RSPLUS #### [facility] [address] [place] [address] Dr. New Wyatt ParapertusisNot detectedNormalNOT DETECTEDThe [facility] CenterComment on above:Performed By: #### RSPLUS #### [facility] [address] [place] [address] Dr. New Wyatt PertussisNot detectedNormalNOT DETECTEDThe [facility] Comment on above:Performed By: #### RSPLUS #### [facility] [address] [place] [address] Dr. New ArzateChlamydia PneumoniaeNot detectedNormalNOT DETECTEDThe [facility] CenterComment on above:Performed By: #### RSPLUS #### [facility] [address] [place] [address] Dr. New ArzateCoronavirus 229ENot detectedNormalNOT DETECTEDThe [facility] CenterComment on above:Performed By: #### RSPLUS #### [facility] [address] [address] [address] New ArzateCoronavirus DZH4Tjv detectedNormalNOT DETECTEDThe [facility] CenterComschoolcraft memorial hospital on above:Performed By: #### RSPLUS #### [facility] [address] [address] [address] New ArzateCoronavirus HW22Tes detectedNormalNOT DETECTEDThe [facility] CenterComment on above:Performed By: #### RSPLUS #### [facility] [address] [address] [address] New ArzateCoronavirus AQ65Knn detectedNormalNOT DETECTEDThe [facility] CenterComschoolcraft memorial hospital on above:Performed By: #### RSPLUS #### [facility] [address] [address] [address] New Everett A H1 2009Not detectedNormalNOT DETECTEDThe [facility] CenterComschoolcraft memorial hospital on above:Performed By: #### RSPLUS #### [facility] [address] [address] [address] New [place] A U0XbhbqnxoHgbzkexfPAX DETECTEDThe [facility] Comment on above:Performed By: #### RSPLUS #### [facility] [address] [address] [address] New [place]rett BNot detectedNormalNOT DETECTEDThe [facility] Comment on above:Performed By: #### RSPLUS #### [facility] [address] [address] [address] New SquiresapneumovirusNot detectedNormalNOT DETECTEDThe [facility] CenterComschoolcraft memorial hospital on above:Performed By: #### RSPLUS #### [facility] [address] [address] [address] New Cooklas. PneumoniaeNot detectedNormalNOT DETECTEDThe [facility] CenterComschoolcraft memorial hospital on above:Performed By: #### RSPLUS #### [facility] [address] [address] [address] New Ariasenza 1Not detectedNormalNOT DETECTEDThe [facility] HospitalComment on above:Performed By: #### RSPLUS #### [facility] [address] [address] [address] New Gonzalez 2Not detectedNormalNOT DETECTEDThe [facility] CenterComment on above:Performed By: #### RSPLUS #### [facility] [address] [address] [address] New Gonzalez 3Not detectedNormalNOT DETECTEDThe [facility] CenterComment on above:Performed By: #### RSPLUS #### [facility] [address] [address] [address] New Gonzalez 4Not detectedNormalNOT DETECTEDThe [facility] CenterComschoolcraft memorial hospital on above:Performed By: #### RSPLUS #### [facility] [address] [place] [address] Dr. New ArzateRhino/EnterovirusNot detectedNormalNOT DETECTEDThe [facility] CenterComment on above:Performed By: #### RSPLUS #### [facility] [address] [place] [address] Dr. New Almeida Header 1RESPIRATORY PANEL: [facility]IR[facility]ESSt. [facility] Comment on above:Performed By: #### RSPLUS #### [facility] [address] [place] [address] Dr. New Almeida Header 2RESPIRATORY PANEL: BACTERIASt. Francis HospitalComment on above:Performed By: #### RSPLUS #### [facility] [address] [place] [address] Dr. New CohnVNot detectedNormalNOT DETECTEDThe [facility] CenterComschoolcraft memorial hospital on above:Performed By: #### RSPLUS #### [facility] [address] [place] [address] Dr. New Martínez-CoV-2 (COVID-19) RNA ANGEL+probe Ql (Unsp spec)Not detected NormalNOT DETECTEDThe [facility] CenterComment on above:Performed By: #### RSPLUS #### [facility] [address] [address] [address] New Arzate Vital Signs Date TimeVital SignValuePerforming IaxiwkealGpdldoie56-45-7848 09:21-0400Body .6 cmCorey Alphonso DO Work Phone: [facility] InstitutePvztugpigp44-42-5919 09:21-0400Body mass index (BMI) [Ratio]58.91 kg/k3Ropsc Alphonso DO Work Phone: [facility] InstituteBpokwwarzh94-50-5019 09:21-0400Body tyyzik502.56 kgCorey Alphonso DO Work Phone: [phone] InstituteRdeldgrepd71-63-2961 09:21-0400Diastolic blood lxlavhcm67 mm[Hg]Molly Alphonso DO Work Phone: [facility] InstitutePfxbcfutgw56-25-1329 09:21-0400Systolic blood zsleauqt813 mm[Hg]Molly Alphonso DO Work Phone: [facility] InstituteNfygtupnck09-20-1484 13:50-0400Body yyetmc368.64 cmAnanth Brunner MD Work Phone: [phone])[address]09-11-2025 13:50-0400 Body mass index (BMI) [Ratio]59.8 kg/m2Ananth Brunner MD Work Phone: [phone])[address]09-11-2025 13:50-0400 Body zrslewuzfhu09.7 [degF]Ananth Brunner MD Work Phone: 1(520)603-[address] [place], [place] [address]309-11-2025 13:50-0400 Body zfpysc445.28 kgAnanth Brunner MD Work Phone: [phone])[address]09-11-2025 13:50-0400 Diastolic blood wscdsepq20 mm[Hg]Ananth Brunner MD Work Phone: [phone])[address]09-11-2025 13:50-0400 Heart qakp225 /minAnanth Brunner MD Work Phone: [phone])[address]09-11-2025 13:50-0400 Respiratory rate22 /minAnanth Brunner MD Work Phone: [facility]09-11-2025 13:50-0400 SaO2% (BldA) [Mass fraction]96 %Ananth Brunner MD Work Phone: [facility]09-11-2025 13:50-0400 Systolic blood yufgaafn157 mm[Hg]Ananth Brunner MD Work Phone: [facility]08-27-2025 14:25-0400 Body mass index (BMI) [Ratio]59.8 kg/m2Chayito Roe PA Work Phone: [facility] InstituteLxifgemlhb67-99-1882 14:25-0400Body .06 kgChayito Roe PA Work Phone: [facility] InstituteMyjmqjyznk76-37-8029 14:25-0400Diastolic blood qbsdocwa92 mm[Hg]Chayito MASTERS Work Phone: [facility] InstituteTguxlolmyq02-01-8735 14:25-0400Systolic blood btydqaph656 mm[Hg]Chayito MASTERS Work Phone: [facility] InstituteZhgozsndof07-50-6162 13:29-0400Body kkryan595.6 cmAnanth Brunner MD Work Phone: [facility] InstituteJojctmhfxu76-08-7478 13:29-0400Body mass index (BMI) [Ratio]60.85 kg/m2Ananth Brunner MD Work Phone: [facility] InstituteTazwlzaqdc13-06-4668 13:29-0400Body temperature 97.5 [degF]Ananth Brunner MD Work Phone: [facility] InstituteXvwzcpkosf51-54-1955 13:29-0400Body rjzoyx191.01 kgAnanth Brunner MD Work Phone: [facility] InstituteXvsvguqump28-32-8510 13:29-0400Diastolic blood dnjwyjiv53 mm[Hg]Ananth Brunner MD Work Phone: [address] [address]Sncozibldc21-19-0756 13:29-0400Heart wsrp793 /min Ananth Brunner MD Work Phone: [facility] InstitutePixidlrwwx93-97-8019 13:29-0400Respiratory rate22 /minAnanth Brunner MD Work Phone: [facility] InstituteGeulzfjskp27-01-8633 13:29-5448OoD6% (BldA) [Mass fraction]99 %Ananth Brunner MD Work Phone: [facility] InstituteVvnvoeagop94-47-6283 13:29-0400Systolic blood mm[Hg]Ananth Brunner MD Work Phone: [phone] [place], [place] [address]Fzqdonfcxr43-83-6121 08:46-0500Body ydyrao628.6 cmAnanth Brunner MD Work Phone: [phone] [place], [place] [address]Hzumbdmvze65-11-7625 08:46-0500Body mass index (BMI) [Ratio]56.65 kg/m2Ananth Brunner MD Work Phone: [phone] [place], [place] [address]Vdakcilevh24-89-8516 08:46-0500Body temperature 97.3 [degF]Ananth Brunner MD Work Phone: 1([phone] [place], [place] [address]Casnqvnvfz36-12-0153 08:46-0500Body hqqmag647.21 kgAnanth Brunner MD Work Phone: [facility] InstituteUnsbeyxkun59-38-1770 08:46-0500Diastolic blood dhyrybtn04 mm[Hg]Ananth Brunner MD Work Phone: [facility] InstituteKgvyxjtgze64-54-4144 08:46-0500Heart quup344 /min Ananth Brunner MD Work Phone: [facility] InstituteLktlspbeph36-26-1131 08:46-0500Respiratory rate22 /minAnanth Brunner MD Work Phone: [facility] InstituteFsrtcebrjw98-28-3681 08:46-4496DaG2% (BldA) [Mass fraction]97 %Ananth Burnner MD Work Phone: [phone])349-[address] [place], [place] [address]Jwnkjjzixf67-57-7594 08:46-0500Systolic blood wvjlombw185 mm[Hg]Ananth Brunner MD Work Phone: [facility] InstituteTllxykulfj17-38-8280 09:41-0500Body yyxhms786.6 cmAnanth Brunner MD Work Phone: [facility] InstitutePjohyzmveu02-81-9550 09:41-0500Body mass index (BMI) [Ratio]56.01 kg/m2Ananth Brunner MD Work Phone: [phone] [place], [place] [address]Ofuehapaid60-11-6108 09:41-0500Body temperature 97.11 [degF]Ananth Brunner MD Work Phone: 1([phone] [place], [place] [address]Rqtwbimsbg53-80-2040 09:41-0500Body dhoutx915.4 kgAnanth Brunner MD Work Phone: [facility] InstituteTequapvvmf56-75-2235 09:41-0500Diastolic blood iadoklvn43 mm[Hg]Ananth Brunner MD Work Phone: 1(219)819-[address] [place], [place] [address]Rrqtjqyayd37-02-9499 09:41-0500Heart rate94 /min Ananth Brunner MD Work Phone: [facility] InstituteUmhxgnqmap89-71-3893 09:41-0500Respiratory rate20 /minAnanth Brunner MD Work Phone: [facility] InstituteEjqdvqpgad89-86-4006 09:41-5877RuV4% (BldA) [Mass fraction]97 %Ananth Brunner MD Work Phone: [facility] InstituteGguaipmlyk79-46-6143 09:41-0500Systolic blood vaoyxppp801 mm[Hg]Ananth Brunner MD Work Phone: [facility] InstituteOigxlnluun43-90-8900 11:50-0500Body .6 cmAnanth Brunner MD Work Phone: [facility] InstituteGwbijkdetz30-69-9574 11:50-0500Body mass index (BMI) [Ratio]53.91 kg/m2Ananth Brunner MD Work Phone: [facility] InstituteGevctmfxcm28-75-5919 11:50-0500Body temperature 97.5 [degF]Ananth Brunner MD Work Phone: [facility] CenterTvivmlphyj33-66-8477 11:50-0500Body ogcvev375.5 kgAnanth Brunner MD Work Phone: noMer[facility] CenterHpzzadtjqv18-06-6758 11:50-0500Diastolic blood kpwapdjc48 mm[Hg]Ananth Brunner MD Work Phone: [facility] InstituteAxkypzrizr36-32-7523 11:50-0500Heart rate94 /min Ananth Brunner MD Work Phone: [facility] InstituteIhauimsyrs81-79-5064 11:50-5320KzG4% (BldA) [Mass fraction]97 %Ananth Brunner MD Work Phone: [facility]Mer[facility] CenterFhrrdhsbxp54-18-2375 11:50-0500Systolic blood txluxvwn934 mm[Hg]Ananth Brunner MD Work Phone: [facility] Encounters Encounter DateEncounter TypeCare ProviderFacilityStart: 44-14-2290edydxknywv CONCHITA CASTELLANOSFacility:EU [facility] CenteryStart: 02-14-2025 End: 46-62-8513ahdmyficxnNATGMOY NKANSAH-AMANKRAFacility:[facility] CenteryStart: 02-14-2025 End: 64-72-3698Jrlwkmz encounter procedureCONCHITA CASTELLANOS [facility] Start: 02-10-2025 End: 32-56-7213qraxolefocPjla Naderer MD Work Phone: [facility] Work Phone: Start: 02-10-2025 End: 71-96-7154Rmjqnznr ReferredCorey Alphonso-LAB Path Spec [facility] HospStart: 02-10-2025 End: 03-21-4229Kgiqxwg encounter procedureCorey Alphonso DO Work Phone: [facility] [place] OBGYNComment on above:Pre-op examination; Menorrhagia with regular cycle; Pelvic pain in female; Abnormal uterine bleeding; Request for sterilizationStart: 02-10-2025 End: 52-47-5514Dcppjyburnydh examination doneCorey Alphonso DO Work Phone: noms HealthcareStart: 02-10-2025 End: 95-20-8997plbbopooicNMMIC FAZIONot AvailableStart: 41-88-3906vlxwlkgcdh CONCHITA NKKRYSTALAH-AMANKRAFacility:EU [place]Start: 01-09-2025 End: 04-62-4773lhsvoktkxjOsgc Naderer MD Work Phone: [facility] Work Phone: Start: 01-09-2025 End: 14-98-5182Ftbdpup encounter Cristian Brunner MD-[facility] Work Phone: Start: 01-03-2025 End: 70-49-5701Mrgzljlzt Result EncounterChayito MASTERS Work Phone: [facility] External Department UnsolicitedStart: 01-03-2025 End: 64-72-1802Jlruwmfep Result EncounterAmy Ainl MASTERS Work Phone: [facility] External Department UnsolicitedStart: 12-27-2024 End: 39-26-6642Fvmquztdt Result EncounterAmy Anil MASTERS Work Phone: [facility] External Department UnsolicitedStart: 12-27-2024 End: 09-67-4263Fyapdczuf Result EncounterChayito MASTERS Work Phone: [facility] External Department UnsolicitedStart: 12-25-2024 Non-patient / Non-visitChayito MASTERS-[facility] Work Phone: Start: 12-25-2024 End: 33-86-4157wkfiwlpfhmQPT RAMEYNot AvailableStart: 12-25-2024 End: 31-41-6038Yuzncu flowsGualberto Anil PA Work Phone: [facility] [place] OBGYNStart: 12-25-2024 End: 57-78-2964Phhvxl flowslaChayito MASTRES Work Phone: [facility] OBGYNStart: 12-25-2024 End: 12-11-7738Rzbekrwhu Result EncounterChayito Anil MASTERS Work Phone: [facility] External Department UnsolicitedStart: 12-25-2024 End: 77-67-3076Zltsljw encounter procedureChayito Gardunosabrina MASTERS Work Phone: noms HealthcareStart: 12-25-2024 End: 14-59-8294Wamovzcv preventive med est patient 18-39 yrsChayito Anil MASTERS Work Phone: [facility] [place] OBGYNComment on above:Well woman exam with routine gynecological exam; Menorrhagia with regular cycleStart: 12-02-2024 End: 47-13-2865Mvbljj Toro Brunner MD Work Phone: NOLW CWM FMStart: 12-02-2024 End: 81-39-6908Ivnldysalty Brunner MD Work Phone: [facility] CWM FMStart: 12-02-2024 End: 84-91-3092kkunoscisiPFYC NADERERNot AvailableStart: 12-02-2024 End: 24-32-8106Qgaksa outpatient visit 25 minutesAnanth Brunner MD Work Phone: NOBZ CWM FMComment on above:Essential hypertension, benign (Primary Dx); Bilateral primary osteoarthritis of knee; ADD (attention deficit 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; Class 3 severe obesity due to excess calories with serious comorbidity and body mass index (BMI) of60.0 to 69.9 in adult ([facility]Start: 06-03-2024 End: 85-98-1761Fnmxdssalty Brunner MD Work Phone: NORM CWM FMStart: 06-03-2024 End: 22-83-1493Kxgnrh Toro Brunner MD Work Phone: noms CWM FMStart: 06-03-2024 End: 84-18-8809Emuxvi outpatient visit 25 minutesAnanth Brunner MD Work Phone: noms CWM FMComment on above:ADD (attention deficit 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 (Primary Dx); Essential hypertension, benign (CMS/HCC); Bilateral primary osteoarthritis of knee; Class 3 severe obesity due to excess calories with serious comorbidity and body mass index (BMI) of50.0 to 59.9 in adult (CMS/HCC); SOB (shortness of breath) on exertionStart: 06-03-2024 End: 09-65-6762tuhhxevlkjKSXR NADERERNot AvailableStart: 05-24-2024 End: 95-77-0568Owbteamzx Result EncounterAnanth Brunner MD Work Phone: [facility] External Department UnsolicitedStart: 05-24-2024 End: 30-41-4367Gpdkhzntq Result EncounterAnanth Brunner MD Work Phone: [facility] External Department UnsolicitedStart: 05-03-2024 End: 98-42-6096Sknlpf Toro Brunner MD Work Phone: noms CWM FMStart: 05-03-2024 End: 46-82-1644Yhqvou Toro Brunner MD Work Phone: NOTY CWM FMStart: 05-03-2024 End: 29-44-6314Ewdxfyb encounter procedureAnanth Brunner MD Work Phone: [facility] Work Phone: Start: 05-03-2024 End: 26-88-3279Xxovftbg preventive med est patient 18-39 yrsAnanth Brunner MD Work Phone: noms CWM FMComment on above:Annual physical exam (Primary Dx); Essential hypertension, benign (CMS/HCC); ADD (attention deficit 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; Class 3 severe obesity due to excess calories with serious comorbidity and body mass index (BMI) of50.0 to 59.9 in adult ([facility]Start: 05-03-2024 End: 77-21-0237rdwlkxfmvsOTWC NADERERNot AvailableStart: 85-96-4803cxajbajzhb Teagan Chen AniyaFacility:Behavioral HealthStart: 10-13-2023 End: 70-16-8594rvktpbhskrKARXREL [facility] Hospitaltart: 09-29-2023 End: 77-19-3844xbupbqislvEGBWCTRCorewell Health Zeeland Hospitaltart: 09-08-2023 End: 34-67-4097itzncgbevlXXNUWHKCorewell Health Zeeland Hospitaltart: 07-28-2023 End: 70-60-4679gxrmjbwyjqEUCTVFMCorewell Health Zeeland Hospitaltart: 06-30-2023 End: 89-15-0016mrjtuasodpVXYKVJYCorewell Health Zeeland Hospitaltart: 06-08-2023 End: 53-09-2584Gcvtoo outpatient visit 15 minutesMar Kannan BAKER Work Phone: noms CWM FMComment on above:Acute non-recurrent pansinusitis (Primary Dx); Acute bacterial conjunctivitis of both eyes; Morbid obesity due to excess calories ([facility]Start: 06-09-2022 End: 38-41-8319nsvnhyxckxTEQ RAMEY .Facility:F9Riezm: 04-07-2022 End: 23-95-7068pmbkqeqogzCQ MARC A NADERERFacility:H1 Procedures DateProcedureProcedure DetailPerforming ClinicianStart: 69-02-0310Lsrxo test visual color cmprsn methsCorey Alphonso DO Work Phone: Start: 02-96-8478DL PELVIS W/ TRANSVAGINALAmy Anil MASTERS Work Phone: Start: 74-58-8557IXF CBC WITH AUTO DIFFAmy Anil MASTERS Work Phone: Start: 13-02-1403KUV,APTIMA HPV,AGE GDLNAmy Anil PA Work Phone: Start: 64-03-5554Mhheflgdsku observation [Identifier] in Cervix by Cyto stainChayito MASTERS Work Phone: Start: 80-66-4819DIS CBC WITH AUTO DIFFAnanth Brunner MD Work Phone: Start: 72-19-3698MTH HEMOGLOBIN D7KTbzm Kannan BAKER Work Phone: Start: 06-09-2022 End: 59-54-2630Aknqszncggz observation [Identifier] in Cervix by Cyto stainChayito MASTERS Work Phone: Start: 53-62-3783Aciq cerv/vag auto thin layer prep mnl screenChayito MASTERS Work Phone: Ligation of fallopian tubeCONCHITA CASTELLANOS Plan of Treatment DateCare ActivityDetailAuthorStart: 19-12-4116Khhthedbg for malignant neoplasm of cervixNOMS HealthcareStart: 22-74-6095Rpszzmpem for malignant neoplasm of cervixNOMS HealthcareStart: 02-10-2025 End: 87-82-9148Anjwkum encounter nbivnmcda07/13/2025 9:30 AM EDT Procedure Visit [facility] HEB[facility] [address] [place] [address] Molly Werner DO [address] [place] [address] [facility] Daylin BLUMGYGASTONtart: 02-10-2025 [facility]25 End: 29-63-4480Vjoontn encounter lkweauvwr40/11/2025 1:30 PM EDT Office Visit [facility] [address] [place] [id number] Ananth Brunner MD [address] [place] [id number] NOMYossi CAMACHO FMStart: 18-26-8188Ybylbgklz vaccinationInfluenza Vaccine (#1)[facility] HealthcareStart: 12-25-2024 End: 56-55-0540yCVG in Blood by Coagulation assayAPTT Lab Routine Menorrhagia with regular cycle Expected: 12/25/2024 (Approximate), Expires: 12/25/2025NOMN HealthcareComment on above:Expected: 12/25/2024 (Approximate), Expires: 12/25/2025Start: 12-25-2024 End: 70-14-3591Pvtgsnq encounter tiytrbzcq15/27/2025 2:00 PM EDT Procedure Visit JOYCE HEBERT [address] [place] [phone] Chayito Roe PA [address] [place], [place] [id number] [facility] OBGYNStart: 12-25-2024 End: 68-38-9729SK PelvisUS Pelvis w/ TV Imaging Routine Menorrhagia with regular cycle Expected: 12/25/2024, Expires: 12/25/2025[facility] HealthcareComment on above: Expected: 12/25/2024, Expires: 12/25/2025Start: 12-12-2024 End: 95-61-8464Nfkamyx encounter /14/2025 9:40 AM EDT Office Visit JOYCE HEBERT [address] [place] [phone] Molly Werner DO [address] [place], [place] [id number] NOMYossi [place] OBGYNStart: 12-02-2024 End: 37-71-4346Mdffptt encounter adnwhuohs76/04/2025 9:00 AM EDT Office Visit NOMYossi CAMACHO [address] [place] [phone] Ananth Brunner MD [address] [place] [address] NOMYossi CWHerb FMStart: 06-03-2024 End: 29-13-1661Pfvwrbn encounter procedureNOMS CWM FMComment on above:Arrived Start: 05-03-2024 End: 23-79-7281Boiio metabolic 1998 panel - Serum or PlasmaBasic metabolic panel Lab Routine Annual physical exam Expected: 05/03/2024 (Approximate), Expires: 05/03/2025N[facility]S HealthcareComment on above:Expected: 05/03/2024 (Approximate), Expires: 05/03/2025Start: 05-03-2024 End: 77-82-1150CHN W Auto Differential panel - BloodCBC and differential Lab Routine Annual physical exam Expected: 05/03/2024 (Approximate), Expires: 0 05/03/2025N[facility]S HealthcareComment on above:Expected: 05/03/2024 (Approximate), Expires: 05/03/2025Start: 05-03-2024 End: 68-21-3170Htqtaqduek A1c/Hemoglobin.total in BloodHemoglobin A1c Lab Routine Annual physical exam Expected: 05/03/2024 (Approximate), Expires: 05/03/2025[facility] Work Phone: Comment on above:Expected: 05/03/2024 (Approximate), Expires: 05/03/2025Start: 05-03-2024 End: 86-35-6749Eebnpwt function 1999 panel - Serum or PlasmaHepatic function panel Lab Routine Annual physical exam Expected: 05/03/2024 (Approximate), Expires: 05/03/2025[facility] HealthcareComment on above:Expected: 05/03/2024 (Approximate), Expires: 05/03/2025Start: 05-03-2024 End: 54-52-8557Nwmpq 1996 panel - Serum or PlasmaLipid panel Lab Routine Annual physical exam Expected: 05/03/2024 (Approximate), Expires: 05/03/2025[facility] HealthcareComment on above:Expected: 05/03/2024 (Approximate), Expires: 05/03/2025Start: 05-03-2024 End: 51-52-6553UEQ W/REFLEX TO FT4TSH W/REFLEX TO FT4 Lab Routine Annual physical exam Expected: 05/03/2024 (Approximate), Expires: 05/03/2025[facility] HealthcareComment on above:Expected: 05/03/2024 (Approximate), Expires: 05/03/2025Start: 05-03-2024 End: 23-71-9490Cwaikxg encounter woylnxpqg86/03/2025 9:45 AM EST Office Visit [facility] [address] [place] [id number] Ananth Brunner MD [address] [place] [id number] [facility]rived[facility] FMComment on above:ArrivedStart: 18-31-6830Vgkwlelvt vaccinationInfluenza Vaccine (#1)[facility] HealthcareStart: 69-75-4229Iftsrvhnz vaccinationInfluenza Vaccine (#1)[facility] HealthcareStart: 10-56-1212Sviijeqbv for malignant neoplasm of cervixNOMN HealthcareStart: 22-63-6587Ykspmofzb for malignant neoplasm of cervixPap SmearNOMN HealthcareCBC W Auto Differential panel - BloodCBC and differential Lab Routine Menorrhagia with regular cycle Ordered: 12/25/2024[facility] HealthcareComment on above:Ordered: 12/25/2024ytology Cervical or vaginal smear or scraping studyPap Smear Pathology and Cytology Routine Well woman exam with routine gynecological exam Ordered: 12/25/2024[facility] Work Phone: comment on above:Ordered: 12/25/2024hCG, quantitative, pregnancyhCG, quantitative, Lab Routine Menorrhagia with regular cycle Ordered: 12/25/2024[facility] HealthcareComment on above:Ordered: 12/25/2024 Hemoglobin A1c/Hemoglobin.total in BloodHemoglobin A1c Lab Routine Menorrhagia with regular cycle Ordered: 12/25/2024[facility] HealthcareComment on above:Ordered: 12/25/2024Human papilloma virus DNA [Presence] in Unspecified specimen by Probe with amplificationHPV DNA probe, amplified Microbiology Routine Well woman exam with routine gynecological exam Ordered: 12/25/2024[facility] HealthcareComment on above:Ordered: 12/25/2024Prothrombin time (PT) in Blood by Coagulation assay Protime-INR Lab Routine Menorrhagia with regular cycle Ordered: 12/25/2024[facility] HealthcareComment on above:Ordered: 12/25/2024Thyrotropin [Units/volume] in Serum or PlasmaTSH Lab Routine Menorrhagia with regular cycle Ordered: 12/25/2024[facility] HealthcareComment on above:Ordered: 12/25/2024Thyroxine (T4) free [Mass/volume] in Serum or PlasmaT4, free Lab Routine Menorrhagia with regular cycle Ordered: 12/25/2024[facility] HealthcareComment on above:Ordered: 12/25/2024 Tissue examTissue exam Pathology and Cytology Routine Menorrhagia with regular cycle Ordered: 02/10/2025[facility] Work Phone: comment on above:Ordered: 02/10/2025 Immunizations Immunization DateImmunizationNotesCare GjhsswsnTeuptlgd36-31-6109gzsqofspp virus vaccine, unspecified formulationAnanth Brunner MD Work Phone: [facility] Payers DatePayer CategoryPayerPolicy [id number] Health [id number] [employer] [id number] 2022-Present [address] [place] [id number] 2023Medicaid2003 [id number] [id number] [id number] 2.16.840.1.213478.3.57[id number] 2.16.840.1.708866.3.57[id number] 2.16.840.1.157427.3.57[id number] 2.16.840.1.118409.3.57[id number] 2.16.840.1.543422.3.57[id number] 2.0.1.846784.3.57[id number] 2.840.1.711052.3.57[id number] 2..840.1.592810.3.57[id number] 2..0.1.141081.3.57[id number] 2..0.1.902559.3.57[id number] 2.0.1.646461.3.57[id number] 2.840.1.444998.3.57[id number] 2.0.1.189787.3.57[id number]hhi [id number] /[id number] [id number] 2.16.840.1.734440.3.579.2.531 Social History DateTypeDetailFacilityStart: 05-04-2023 End: 55-96-4781Suagidb smoking status NHISEx-smokerNOMS HealthcareHistory of tobacco useCurrent smokerNOMS HealthcareHistory of tobacco useCigarette Smoker [facility] HealthcareStart: 64-46-1549Zdlntay use and exposureSmokeless tobacco non-userNOMS HealthcareStart: 06-08-2023 End: 05-69-4754Pkwgbdo intakeLifetime non-drinker (finding)[facility] HealthcareStart: 04-14-2023 End: 33-00-0310Txabxkf of Social functionNOMS HealthcareStart: 04-14-2023 End: 60-26-9361Sbypwizkeld, Afraid, Rape, and Kick questionnaire [HARK][facility] HealthcareWithin the last year, have you been afraid of your partner or ex-partner?NoNOMS HealthcareAre you now , , , , never or living with a partner?MarriedNOMS HealthcareHow often to you have a drink containing alcohol?Monthly or lessNOMS HealthcareHow many standard drinks containing alcohol do you have on a typical day?1 or 2[facility] HealthcareHow often do you have 6 or more drinks on 1 occasion?NeverN[facility]S HealthcareHow hard is it for you to pay for the very basics like food, housing, medical care, and heatingSomewhat hardNOMS HealthcareDo you feel stress - tense, restless, nervous, or anxious, or unable to sleep at night because yourmind is troubled all the time - these days [OSQ]Only a littleNOMS Healthcare(I/We) worried whether (my/our) food would run out before (I/we) got money to buy more. Sometimes trueNOMS HealthcareStart: 07-13-2022 End: 42-80-0041Ge the past 12 months, has lack of transportation kept you from medical appointments or from getting medications?NoN[facility] HealthcareAt any time in the past 12 months, were you homeless or living in chcf [including now]?Yes [facility] HealthcareStart: 39-22-4107Jhpjjoo CommentLast smoked : 5-10 yearsNOMN HealthcareStart: 28-74-8530Ewxqpyp CommentCaffine intake: 1-2 cups per dayLAYTON HOSPITAL HealthcareStart: 94-41-9161Hst Assigned At BirthNot on fileLAYTON HOSPITAL HealthcareThe food that (I/we) bought just didn't last, and (I/we) didn't have money to get more.Often trueNOMS HealthcareSexFemale (finding)[facility]art: 85-70-1905Qho Assigned At [facility] CareFeBerger Hospitalexual OrientationExecutive [facility] of [facility] [place] Clinical Notes 06-08-2023 to 02-14-2025 Note Date & JrahHnigGguvetrm34-43-0101 Hospital Discharge instructions Patient Education 02/14/2025 14:29:16 Urinary Incontinence Urinary Incontinence Urinary incontinence refers to a condition in which a person is unable to control where and when topass urine. A person with this condition will urinate involuntarily. This means that the person urinates when he or she does not mean to. What are the causes? This condition may be caused by: Medicines. Infections. Constipation. Overactive bladder muscles. Weak bladder muscles. Weak pelvic floor muscles. These muscles provide support for the bladder, intestine, and, in women,the uterus. Enlarged prostate in men. The prostate is a gland near the bladder. When it gets too big, it can pinch the urethra. With the urethra blocked, the bladder can weaken and lose the ability to empty properly. Surgery. Emotional factors, such as anxiety, stress, or post-traumatic stress disorder (PTSD). Spinal cord injury, nerve injury, or other neurological conditions. Pelvic organ prolapse. This happens in women when organs move out of place and into the vagina. This movement can prevent the bladder and urethra from working properly. What increases the risk? The following factors may make you more likely to develop this condition: Age. The older you are, the higher the risk. Obesity. Being physically inactive. and childbirth. Menopause. Diseases that affect the nerves or spinal cord. Long-term, or chronic, coughing. This can increase pressure on the bladder and pelvic floor muscles. What are the signs or symptoms? Symptoms may vary depending on the type of urinary incontinence you have. They include: A sudden urge to urinate, and passing urine involuntarily before you can get to a bathroom (urge incontinence). Suddenly passing urine when doing activities that force urine to pass, such as coughing, laughing, exercising, or sneezing (stress incontinence). Needing to urinate often but urinating only a small amount, or constantly dribbling urine (overflowincontinence). Urinating because you cannot get to the bathroom in time due to a physical disability, such as arthritis or injury, or due to a communication or thinking problem, such as Alzheimer's disease (functional incontinence). How is this diagnosed? This condition may be diagnosed based on: Your medical history. A physical exam. Tests, such as: ?Urine tests. ?X-rays of your kidney and bladder. ?Ultrasound. ?CT scan. ?Cystoscopy. In this procedure, a health care provider inserts a tube with a light and camera (cystoscope) through the urethra and into the bladder to check for problems. ?Urodynamic testing. These tests assess how well the bladder, urethra, and sphincter can store and release urine. There are different types of urodynamic tests, and they vary depending on what the test is measuring. To help diagnose your condition, your health care provider may recommend that you keep a log of when you urinate and how much you urinate. How is this treated? Treatment for this condition depends on the type of incontinence that you have and its cause. Treatment may include: Lifestyle changes, such as: ?Quitting smoking. ?Maintaining a healthy weight. ?Staying active. Try to get 150 minutes of moderate-intensity exercise every week. Ask your health care provider which activities are safe for you. ?Eating a healthy diet. ?Avoid high-fat foods, like fried foods. ?Avoid refined carbohydrates like white bread and white rice. ?Limit how much alcohol and caffeine you drink. ?Increase your fiber intake. Healthy sources of fiber include beans, whole grains, and fresh fruitsand vegetables. Behavioral changes, such as: ?Pelvic floor muscle exercises. ?Bladder training, such as lengthening the amount of time between bathroom breaks, or using the bathroom at regular intervals. ?Using techniques to suppress bladder urges. This can include distraction techniques or controlled breathing exercises. Medicines, such as: ?Medicines to relax the bladder muscles and prevent bladder spasms. ?Medicines to help slow or prevent the growth of a man's prostate. ?Botox injections. These can help relax the bladder muscles. Treatments, such as: ?Using pulses of electricity to help change bladder reflexes (electrical nerve stimulation). ?For women, using a registered medical transcriptionist to prevent urine leaks. This is a small, tampon-like, disposabledevice that is inserted into the urethra. ?Injecting collagen or carbon beads (bulking agents) into the urinary sphincter. These can help thicken tissue and close the bladder opening. ?Surgery. Follow these instructions at home: Lifestyle Limit alcohol and caffeine. These can fill your bladder quickly and irritate it. Keep yourself clean to help prevent odors and skin damage. Ask your health care provider about special skin creams and cleansers that can protect the skin from urine. Consider wearing pads or adult diapers. Make sure to change them regularly, and always change them right after experiencing incontinence. General instructions Take ybzd-crn-ormaysk and prescription medicines only as told by your health care provider. Use the bathroom about every 3 4 hours, even if you do not feel the need to urinate. Try to empty your bladder completely every time. After urinating, wait a minute. Then try to urinate again. Make sure you are in a relaxed position while urinating. If your incontinence is caused by nerve problems, keep a log of the medicines you take and the times you go to the bathroom. Keep all follow-up visits. This is important. Where to find more information National [employer] of Diabetes and Digestive and Kidney Diseases: www.niddk.nih.gov [place] [employer]: www.urologyhealth.org Contact a health care provider if: You have pain that gets worse. Your incontinence gets worse. Get help right away if: You have a fever or chills. You are unable to urinate. You have redness in your groin area or down your legs. Summary Urinary incontinence refers to a condition in which a person is unable to control where and when topass urine. This condition may be caused by medicines, infection, weak bladder muscles, weak pelvic floor muscles, enlargement of the prostate (in men), or surgery. Factors such as older age, obesity, and childbirth, menopause, neurological diseases, andchronic coughing may increase your risk for developing this condition. Types of urinary incontinence include urge incontinence, stress incontinence, overflow incontinence, and functional incontinence. This condition is usually treated first with lifestyle and behavioral changes, such as quitting smoking, eating a healthier diet, and doing regular pelvic floor exercises. Other treatment options include medicines, bulking agents, medical devices, electrical nerve stimulation, or surgery. This information is not intended to replace advice given to you by your health care provider. Make sure you discuss any questions you have with your health care provider. Document Revised: 11/20/2020 Document Reviewed: 11/20/2020 [employer] Patient Education 2023 [employer]. Follow Up Care 02/06/2025 11:08:00 With:JASMIN BAKER, CONCHITA, URL Address: When: Unknown Comments:3 mos w/ voiding diary [facility] 10-17-2025 NotePatient Education Urology Urinary Incontinence Urinary incontinence refers to a condition in which a person is unable to control where and when topass urine. A person with this condition will urinate involuntarily. This means that the person urinates when he or she does not mean to. What are the causes? This condition may be caused by: ??? Medicines. ??? Infections. ??? Constipation. ??? Overactive bladder muscles. ??? Weak bladder muscles. ??? Weak pelvic floor muscles. These muscles provide support for the bladder, intestine, and, in women, the uterus. ??? Enlarged prostate in men. The prostate is a gland near the bladder. When it gets too big, it can pinch the urethra. With the urethra blocked, the bladder can weaken and lose the ability to empty properly. ??? Surgery. ??? Emotional factors, such as anxiety, stress, or post-traumatic stress disorder (PTSD). ??? Spinal cord injury, nerve injury, or other neurological conditions. ??? Pelvic organ prolapse. This happens in women when organs move out of place and into the vagina.This movement can prevent the bladder and urethra from working properly. What increases the risk? The following factors may make you more likely to develop this condition: ??? Age. The older you are, the higher the risk. ??? Obesity. ??? Being physically inactive. ??? and childbirth. ??? Menopause. ??? Diseases that affect the nerves or spinal cord. ??? Long-term, or chronic, coughing. This can increase pressure on the bladder and pelvic floor muscles. What are the signs or symptoms? Symptoms may vary depending on the type of urinary incontinence you have. They include: ??? A sudden urge to urinate, and passing urine involuntarily before you can get to a bathroom (urge incontinence). ??? Suddenly passing urine when doing activities that force urine to pass, such as coughing, laughing, exercising, or sneezing (stress incontinence). ??? Needing to urinate often but urinating only a small amount, or constantly dribbling urine (overflow incontinence). ??? Urinating because you cannot get to the bathroom in time due to a physical disability, such as arthritis or injury, or due to a communication or thinking problem, such as Alzheimer's disease (functional incontinence). How is this diagnosed? This condition may be diagnosed based on: ??? Your medical history. ??? A physical exam. ??? Tests, such as: ? Urine tests. ? X-rays of your kidney and bladder. ? Ultrasound. ? CT scan. ? Cystoscopy. In this procedure, a health care provider inserts a tube with a light and camera (cystoscope) through the urethra and into the bladder to check for problems. ? Urodynamic testing. These tests assess how well the bladder, urethra, and sphincter can store andrelease urine. There are different types of urodynamic tests, and they vary depending on what the test is measuring. To help diagnose your condition, your health care provider may recommend that you keep a log of when you urinate and how much you urinate. How is this treated? Treatment for this condition depends on the type of incontinence that you have and its cause. Treatment may include: ??? Lifestyle changes, such as: ? Quitting smoking. ? Maintaining a healthy weight. ? Staying active. Try to get 150 minutes of moderate-intensity exercise every week. Ask your healthcare provider which activities are safe for you. ? Eating a healthy diet. ? Avoid high-fat foods, like fried foods. ? Avoid refined carbohydrates like white bread and white rice. ? Limit how much alcohol and caffeine you drink. ? Increase your fiber intake. Healthy sources of fiber include beans, whole grains, and fresh fruits and vegetables. ??? Behavioral changes, such as: ? Pelvic floor muscle exercises. ? Bladder training, such as lengthening the amount of time between bathroom breaks, or using the bathroom at regular intervals. ? Using techniques to suppress bladder urges. This can include distraction techniques or controlledbreathing exercises. ??? Medicines, such as: ? Medicines to relax the bladder muscles and prevent bladder spasms. ? Medicines to help slow or prevent the growth of a man's prostate. ? Botox injections. These can help relax the bladder muscles. ??? Treatments, such as: ? Using pulses of electricity to help change bladder reflexes (electrical nerve stimulation). ? For women, using a registered medical transcriptionist to prevent urine leaks. This is a small, tampon-like, disposable device that is inserted into the urethra. ? Injecting collagen or carbon beads (bulking agents) into the urinary sphincter. These can help thicken tissue and close the bladder opening. ? Surgery. Follow these instructions at home: Lifestyle ??? Limit alcohol and caffeine. These can fill your bladder quickly and irritate it. ??? Keep yourself clean to help prevent odors and skin damage. Ask your health care provider (more content not included)...[facility] 02-10-2025 History of Present illness Narrative* Judith Castellano - 02/10/2025 9:30 AM EDT Reason for Appointment: Patient ID: Emelyn Shipman is a 34 y.o. female who presents for Pre-op Visit and embx Patient presents today for Pre Op/Endometrial Biopsy appointment. Patient is scheduled to undergo Endometrial Ablation with Roxana on 02/21/[address] Werner at [facility]. MEDICATIONS Current Outpatient Medications Medication Instructions albuterol [...] index (BMI) of60.0 to 69.9 in adult ([facility]) 06/08/2023 Annual physical exam 05/03/2024 ADD (attention deficit 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 05/03/2024 SOB (shortness of breath) on exertion 06/03/2024 Resolved Ambulatory Problems Diagnosis Date Noted Acute non-recurrent pansinusitis 06/08/2023 Acute bacterial conjunctivitis of both eyes 06/08/2023 Past Medical History: Diagnosis Date Benign essential hypertension Headache Hx of being hospitalized 2012 Hx of being hospitalized 2011 Morbid obesity ([facility]) (normal spontaneous vaginal delivery) ([facility]) 2011 PCOS (polycystic ovarian syndrome) Primary osteoarthritis of right knee URI, acute HISTORY PAST MEDICAL HISTORY SOCIAL HISTORY Past Medical History: Diagnosis Date Benign essential hypertension Headache Hx of being hospitalized 2012 dehydration Hx of being hospitalized 2011 hypertension due to Morbid obesity ([facility]) (normal spontaneous vaginal delivery) ([facility]) 2011 PCOS (polycystic ovarian syndrome) Primary [...] nursing note reviewed. Exam conducted with a senior search marketing analyst present. Vitals: Estimated body mass index is [...] Roxana on 02/21/2025. Surgical consents were signed, [facility] was reviewed, and patient is to proceed to [facility] OR. Follow Up: Patient is to follow up between 1-2 weeks post op to assess proper healing and recovery from procedure. Documented by Pina Patel LPN on behalf of: Molly Werner DO documented in this encounterFreeman Heart [id number] Evaluation note* Diagnosis Onset Date Resolution Status Admit Date ADD (attention deficit 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 acuteSeptember 2024 1:42pmBenign essential hypertensionacuteSeptember 2024 1:42pmBilateral primary osteoarthritis of kneeacuteSeptember 2024 1:42pmClass 3 severe obesity due to excess calories with serious comorbidity andacuteSeptember 2024 1:42pm [facility] Work Phone: 1(200) 736-685908-27-2025 History of Present illness Narrative* SONAM Hernandez - 12/25/2024 2:00 PM EDT Reason for Appointment: Patient ID: Emelyn Shipman [...] index (BMI) of60.0 to 69.9 in adult ([facility]) 06/08/2023 Annual physical exam 05/03/2024 ADD (attention deficit 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 05/03/2024 SOB (shortness of breath) on exertion 06/03/2024 Resolved Ambulatory Problems Diagnosis Date Noted Acute non-recurrent pansinusitis 06/08/2023 Acute bacterial conjunctivitis of both eyes 06/08/2023 Past Medical History: Diagnosis Date Benign essential hypertension Headache Hx of being hospitalized 2012 Hx of being hospitalized 2011 Morbid obesity ([facility]) (normal spontaneous vaginal delivery) ([facility]) 2011 PCOS (polycystic ovarian syndrome) Primary osteoarthritis of right knee URI, acute HISTORY PAST MEDICAL HISTORY SOCIAL HISTORY Past Medical History: Diagnosis Date Benign essential hypertension Headache Hx of being hospitalized 2012 dehydration Hx of being hospitalized 2011 hypertension due to Morbid obesity ([facility]) (normal spontaneous vaginal delivery) ([facility]) 2011 PCOS (polycystic ovarian syndrome) Primary [...] nursing note reviewed. Exam conducted with a senior search marketing analyst present. Vitals: Estimated body mass index is [...] behalf of: SONAM Hernandez documented in this encounterFreeman Heart [id number] History of Present illness Narrative* Ananth Brunner MD - 12/02/2024 1:56 PM EDTAssociated Problem(s): Essential hypertension, benign BP normal and monitor PRN. * Ananth Brunner MD - 12/02/2024 1:56 PM EDTAssociated Problem(s): Class 3 severe obesity due to excess calories with serious comorbidity and body mass index (BMI) of 60.0 to 69.9 in adult ([facility]) Patient overweight and difficult time losing weight. [...] month. OARRS reviewed. Continue medications as prescribed. * Ananth Brunner MD - 12/02/2024 1:56 PM EDTAssociated Problem(s): Bilateral primary osteoarthritis of knee Pain worse with weight gain and resume celebrex PRN. * Ananth Brunner MD - 12/02/2024 1:56 PM EDTAssociated Problem(s): ADD (attention deficit 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 Doing well with strattera and continue at current dose. * Ananth Brunner MD - 12/02/2024 1:15 PM EDT Images from the original note were not [...] work. Not distracted or watching others. More organizedat home. Overall feels well and tolerating without side effects. OA knees worse. Increased pain in both knees. Pain with walking and standing. Severe pain at end of day. Out of celebrex but helped. Weight up 26 pounds since last visit. Plan on resuming exercise. Tries to watch diet and eat healthy.Increased fruits and vegetables. Smaller portions and limits snacking. Tries to limit total daily ca lories. Requests adipex. Review of Systems Respiratory: Negative [...] index (BMI) of60.0 to 69.9 in adult ([facility]) Patient overweight and difficult time losing weight. [...] continue at current dose. documented in this encounterFreeman Heart [id number] History of Present illness Narrative* Ananth Brunner MD - 06/03/2024 9:19 AM ESTAssociated Problem(s): Essential hypertension, benign (CMS/HCC) BP normal and monitor PRN. * Ananth Brunner MD - 06/03/2024 9:19 AM ESTAssociated Problem(s): Class 3 severe obesity due to excess calories with serious comorbidity and body mass index (BMI) of 50.0 to 59.9 in adult (CMS/HCC) Weight loss indicated. * Ananth Brunner MD - 06/03/2024 9:19 AM ESTAssociated Problem(s): Bilateral primary osteoarthritis of knee Pain stable and use celebrex PRN. * Ananth Brunner MD - 06/03/2024 9:19 AM ESTAssociated Problem(s): ADD (attention deficit 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 Doing well with strattera and continue at current dose. * Ananth Brunner MD - 06/03/2024 8:45 AM EST Images from the original note were not [...] Increased fruits and vegetables. Smaller portions and li mits snacking. Tries to limit total daily calories. [...] serious comorbidity and body mass index (BMI) of50.0 to 59.9 in adult (CMS/HCC) Weight loss indicated. ADD (attention deficit 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 - Primary Doing well with strattera and continue at current dose. SOB (shortness of breath) on exertion Relevant Medications albuterol HFA 90 mcg/act inhaler documented in this encounterFreeman Heart [id number] History of Present illness Narrative* Ananth Brunner MD - 05/03/2024 10:33 AM ESTAssociated Problem(s): Essential hypertension, benign ([facility]) BP normal and monitor PRN. * Ananth Brunner MD - 05/03/2024 10:33 AM ESTAssociated Problem(s): Class 3 severe obesity due to excess calories with serious comorbidity and body mass index (BMI) of 50.0 to 59.9 in adult ([facility]) Weight loss indicated. * Ananth Brunner MD - 05/03/2024 10:32 AM ESTAssociated Problem(s): Annual physical exam Due for labs. Discussed proper diet and regular aerobic exercise. Need aerobic exercise 5-6 days a week for 30 minutes at a time. Smaller portions and limit total calories. Colonoscopy after age 45. Tetanus every 10 years. Advised not to smoke. * Ananth Brunner MD - 05/03/2024 10:32 AM ESTAssociated Problem(s): ADD (attention deficit 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 Meets criteria for ADD and start strattera. Reassess in 1 month. * Ananth Brunner MD - 05/03/2024 9:45 AM EST Images from the original note were not [...] serious comorbidity and body mass index (BMI) of50.0 to 59.9 in adult (CMS/HCC) Weight loss [...] (Strattera) 40 MG capsule documented in this encounterFreeman Heart [id number] History of Present illness Narrative* Ananth Brunner MD - 06/08/2023 12:01 PM ESTAssociated Problem(s): Acute non-recurrent pansinusitis Take antibiotics BID [...] 5-7 days and if no better or worsecall for re-evaluation. * Ananth Brunner MD - 06/08/2023 12:01 PM ESTAssociated Problem(s): Acute bacterial conjunctivitis of both eyes Exam shows conjunctivitis and treat with drops x 7 days. Use warm compresses PRN. Avoid touching eye and wash hands frequently to prevent spread of illness. * Ananth Brunner MD - 06/08/2023 11:45 AM EST Subjective Patient ID: Emelyn Shipman is a 33 y.o. female who presents for Eye Drainage and Cough. HPI Review of Systems Objective Physical Exam Assessment/Plan * Ananth Brunner MD - 06/08/2023 11:45 AM EST Subjective Patient ID: Emelyn Shipman is a [...] 5-7 days and if no better or worsecall for re-evaluation. Relevant Medications cefdinir (Omnicef) 300 MG capsule predniSONE (Deltasone) 50 MG tablet Acute bacterial conjunctivitis of both eyes Exam shows conjunctivitis and treat with drops x 7 days. Use warm compresses PRN. Avoid touching eye and wash hands frequently to prevent spread of illness. Relevant Medications ciprofloxacin (Ciloxan) 0.3 % ophthalmic solution [facility] note Future Appointments Appointment Date:05/16/2025 10:45:00 AM Scheduled Provider:CONCHITA CASTELLANOS MD Location:[facility] Appointment Type:URO Office Visit [facility] Evaluation note* Diagnosis Acute non-recurrent pansinusitis- Primary Acute bacterial conjunctivitis of both eyes Morbid obesity due to excess calories ([facility]) documented in this encounter [facility]* Diagnosis Annual physical exam- Primary Routine general medical examination at a health care facility Essential hypertension, benign ([facility]) Essential hypertension, benign 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 Class 3 severe obesity due to excess calories with serious comorbidity and body mass index (BMI) of50.0 to 59.9 in adult ([facility]) documented in this encounter [facility]* Diagnosis Annual physical exam- Primary Routine general medical examination at a health care facility Essential hypertension, benign ([facility]) Essential hypertension, benign 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 Class 3 severe obesity due to excess calories with serious comorbidity and body mass index (BMI) of50.0 to 59.9 in adult ([facility]) ADD (attention deficit 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- Primary Attention deficit disorder 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 Essential hypertension, benign (CMS/HCC) Essential hypertension, benign Bilateral primary osteoarthritis of knee Class 3 severe obesity due to excess calories with serious comorbidity and body mass index (BMI) of50.0 to 59.9 in adult ([facility]) SOB (shortness of breath) on exertion Shortness of breath documented in this encounter [facility] HealthcareEvaluation note* Diagnosis Annual physical exam- Primary Routine general medical examination at a health care facility Essential hypertension, benign Essential hypertension, benign 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 Class 3 severe obesity due to excess calories with serious comorbidity and body mass index (BMI) of50.0 to 59.9 in adult ([facility]) ADD (attention deficit 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- Primary Attention deficit disorder 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 Essential hypertension, benign Essential hypertension, benign Bilateral primary osteoarthritis of knee Class 3 severe obesity due to excess calories with serious comorbidity and body mass index (BMI) of50.0 to 59.9 in adult ([facility]) SOB (shortness of breath) on exertion Shortness of breath Essential hypertension, benign- Primary Essential hypertension, benign Bilateral primary osteoarthritis of knee 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 Class 3 severe obesity due to excess calories with serious comorbidity and body mass index (BMI) of60.0 to 69.9 in adult ([facility]) documented in this encounter [facility] note* Diagnosis Annual physical exam- Primary Routine general medical examination at a health care facility Essential hypertension, benign Essential hypertension, benign 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 Class 3 severe obesity due to excess calories with serious comorbidity and body mass index (BMI) of50.0 to 59.9 in adult ([facility]) ADD (attention deficit 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- Primary Attention deficit disorder 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 Essential hypertension, benign Essential hypertension, benign Bilateral primary osteoarthritis of knee Class 3 severe obesity due to excess calories with serious comorbidity and body mass index (BMI) of50.0 to 59.9 in adult ([facility]) SOB (shortness of breath) on exertion Shortness of breath Essential hypertension, benign- Primary Essential hypertension, benign Bilateral primary osteoarthritis of knee 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 Class 3 severe obesity due to excess calories with serious comorbidity and body mass index (BMI) of60.0 to 69.9 in adult ([facility]) Well woman exam with routine gynecological exam Routine gynecological examination Menorrhagia with regular cycle documented in this [facility] HealthcareEvaluation noteNo assessment information availableLouis Stokes [facility] Work Phone: Evaluation note* Diagnosis Annual physical exam- Primary Routine general medical examination at a health care facility Essential hypertension, benign 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 Class 3 severe obesity due to excess calories with serious comorbidity and body mass index (BMI) of50.0 to 59.9 in adult ([facility]) ADD (attention deficit 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- Primary Attention deficit disorder 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 Essential hypertension, benign Bilateral primary osteoarthritis of knee Class 3 severe obesity due to excess calories with serious comorbidity and body mass index (BMI) of50.0 to 59.9 in adult ([facility]) SOB (shortness of breath) on exertion Shortness of breath Essential hypertension, benign- Primary Bilateral primary osteoarthritis of knee 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 Class 3 severe obesity due to excess calories with serious comorbidity and body mass index (BMI) of60.0 to 69.9 in adult ([facility]) Pre-op examination Menorrhagia with regular cycle Pelvic pain in female Unspecified symptom associated with female genital organs Abnormal uterine bleeding Unspecified disorder of menstruation and other abnormal bleeding from female genital tract Request for sterilization documented [facility] encounter [facility] Narrative No data available for this section [facility] Progress note No data available for this section [facility] Reason for referral (narrative)No reason for referral information availableLouis Stokes [facility] Work Phone: Summary Purpose Family History No Family History Records FoundNo Family History Records FoundNo Family History Records FoundNo Family History Records Found No data available for this section No Family History Records Found Advance Directives No Advanced Directives Records Found Advance Directive Response Recorded Date/ Time Advance Directives No December 1:37pm Chief Complaint and Reason for Visit Chief Complaint Admit Date Established Patient January 09, 2025 1:42pm Chief Complaint Admit Date Established Patient January [...] serious comorbidity and January 09, 2025 1:42pm Additional Source Comments INFORMATION SOURCE (unrecogn ized section and content) DATE CREATED AUTHOR 07/14/2022 [facility] DATE CREATED AUTHOR AUTHOR'S ORGANIZ ATION 10/15/2023 [facility] DATE CREATED AUTHOR AUTHOR'S ORGANIZ ATION 02/11/2025 [facility] DATE CREATED AUTHOR AUTHOR'S ORGANIZ ATION 02/13/2025 [facility] DATE CREATED AUTHOR AUTHOR'S ORGANIZ ATION 02/16/2025 [facility] Reason for Visit (unrecogniz ed section and content) ReasonCommentsEye DrainageCoughReasonCommentsAnnual ExamWELLNESSReasonComments Follow-up1 mReasonCommentsFollow-up6m Weight loss optionsKnee PainReasonComments Well Women VisitReasonCommentsPre-op Visitembx Care Teams (unrecognized sec tion and content) Team MemberRelationshipSpecialtyStart DateEnd Date Ananth Brunner MD [address] [place] [phone] PCP - [facility]06/08/23Team MemberRelationshipSpecialtyStart DateEnd Date Ananth Brunner MD [address] [place] [phone] [facility] - [facility]/08/23 Ananth Brunner MD [address] [place] [phone] PCP - Medical [place] [employer]12/13/2311Team MemberRelationshipSpecialty Start DateEnd Date Ananth Brunner MD [address] [place] [phone] PCP - Generalmi Medicine06/08/23 Ananth Brunner MD [address] [place] [address] PCP - [facility]12/13/2311Team MemberRelationshipSpecialty Start DateEnd Date Ananth Brunner MD [address] [place] [address] PCP - [facility]06/08/23 Ananth Brunner MD [address] [place] [address] [facility] - [facility]12/13/2311Team MemberRelationshipSpecialty Start DateEnd Date Ananth Brunner MD [address] [place] [address] [facility] - [facility]06/08/23 Ananth Brunner MD [address] [place] [address] [facility] - [facility]12/13/2311Team MemberRelationshipSpecialty Start DateEnd Date Ananth Brunner MD [address] [place] [address] PCP - [facility]06/08/23 Ananth Brunner MD [address] [place] [address] PCP - [facility]12/13/2311Team MemberRelationshipSpecialty Start DateEnd Date Ananth Brunner MD [address] [place] [address] PCP - [facility]06/08/23 Ananth Brunner MD [address] [place] [address] PCP - Medical [facility]12/13/2311Team MemberRelationshipSpecialty Start DateEnd Date Ananth Brunner MD [address] [place] [address] [facility] - [facility]06/08/23 Ananth Brunner MD [address] [place] [address] PCP - [facility]12/13/2311Team MemberRelationshipSpecialty Start DateEnd Date Ananth Brunner MD [address] [place] [address] [facility] - [facility]06/08/23 Ananth Brunner MD [address] [place] [address] PCP - [facility]12/13/2311Team MemberRelationshipSpecialty Start DateEnd Date Ananth Brunner MD [address] [place] [address] PCP - [facility]06/08/23 Ananth Brunner MD [address] [place] [address] PCP - [facility]12/13/2311Team MemberRelationshipSpecialty Start DateEnd Date Ananth Brunner MD [address] [place] [address] PCP - [facility]06/08/23 Ananth Brunner MD [address] [place] [phone] PCP - [facility]12/13/2311Team MemberRelationshipSpecialty Start DateEnd Date Ananth Brunner MD PCP - [facility]06/08/23 Ananth Brunner MD [address] [place] [phone] [facility] - [facility]12/13/2311 Team Status: Active Member Role Status Dates Ananth Brunner MD Primary Care Provider Active Team Status: Active Member Role Status Dates Chayito Roe PA-C Attending Provider Active Start : December 25, 2024 Team Status: Inactive Member Role Status Dates Ananth Brunner MD Primary Care Provider Active S tart: January 09, 2025 End: January 09, 2025[facility] SWATI Brunnerttending ProviderActiveStart: January 09, 2025 End: January 09, 2025Team MemberRelationshipSpecialtyStart DateEnd Date Ananth Brunner MD PCP - [facility]06/08/23 Ananth Brunner MD [address] [place] [address] PCP - Medical [place] [employer]12/12 Team Status: Inactive Member Role Status Dates Molly Werner DO Attending Provider Active Start : February 10, 2025 End: February 10, 2025 Goals (unrecognized section and content) Goals may be documented in a n alternate sectionGoals may be documented in an alternate section No data available for this section FOR RECORDS PERTAINING TO PATIENTS WHO [...] BE BASED ON THE PRIMARY CLINICAL RECORDS. [facility] [employer] provides no warranty or guarantee of the accuracy or completeness of information in this document.
== END 2025-02-10 14:25 | disposition home or self-care (01) ==
LOC: LAB 14:24
PROVIDERS: PCP Family Medicine; Visit Provider Obstetrics & Gynecology
DX: N92.0 Excessive and frequent menstruation with regular cycle (principal)

== ENCOUNTER 2025-02-11 14:41 | Outpatient (OUT) | payer OTHER, SELFPAY ==
--- OUTSIDE RECORDS SUMMARY | 2025-02-11 14:46 | XMS_ITS | CCD ---
Author Organization [facility] Care Team Providers Care Airplane Technician Name Role Phone CHAYITO NAIK Admitting Unavailable CHAYITO NAIK Attending Unavailable NADLOUIS, DR ANANTH Andujar Primary Care Unavailable CHAYITO NAIK Consulting Unavailable KANNAN, DR ANANTH Andujar Admitting Unavailable NADERER, DR ANANTH Andujar Attending Unavailable NADERER, DR ANANTH Andujar Primary Care Unavailable NADERECharles, DR ANANTH Andujar Consulting Unavailable Ananth Brunner MD Primary Care Provider SILVIA RINCON Attending Unavailable ANANTH BRUNNER Referring Unavailable ANANTH BRUNNER Primary Care Unavailable MCKENZIE, SILVIA Attending Unavailable ANANTH BRUNNER Referring Unavailable ANANTH BRUNNER Primary Care Unavailable MCKENZIE, SILVIA Attending Unavailable ANANTH BRUNNER Referring Unavailable ANANTH BRUNNER Primary Care Unavailable MCKENZEI, SILVIA Attending Unavailable ANANTH BRUNNER Referring Unavailable ANANTH BRUNNER Primary Care Unavailable MCKENZIE, SILVIA Attending Unavailable ANANTH BRUNNER Referring Unavailable ANANTH BRUNNER Primary Care Unavailable Ananth Brunner MD Unavailable Ananth Brunner MD Primary Care Provider Ananth Brunner MD Unavailable Chayito Roe PA-C Attending Provider Unavailable Ananth Brunner MD Primary Care Provider [phone] Ananth Brunner MD Attending Provider [phone] CONCHITA CASTELLANOS Attending Unavail able CHAYITO ROE Referring Unavailable Teagan Kwan Attending Unavailable ANANTH BRUNNER Attending Unavailable ANANTH BRUNNER Attending Unavailable ANANTH BRUNNER Attending Unavailable CHAYITO ROE Attending Unavailable MOLLY WERNER Attending Unavailable Ananth Brunner MD Unavailable Medications Current Medications Medication Drug Class(es) Dates Sig (Normalized) Sig (Original) [id number] 200 actuat albuterol 0.09 mg/actuat metered dose inhaler (12 sources) beta2-Adrenergic Agonist Start: 01-08-2025 take 1 puff(s) by inhalation every four hours as needed Albuterol Sulfate 90 mcg/actuation HFA aerosol inhaler Active 2 PUFF INHALATION Every 4 hours as needed January 08, 2025 12:00am Complies with drug therapy Start: 06-03-2024 End: 06-03-2025 take 2 puff(s) by inhalation every four hours for wheezing albuterol HFA 90 mcg/act inhaler Indications: SOB (shortness of breath) on exertion Inhale 2 puffs every 4 (four) hours if needed for shortness of breath or wheezing 18 g 2 06/03/2024 06/03/2025 Active atomoxetine 40 mg oral capsule (12 sources) Norepinephrine Reuptake Inhibitor Start: 01-09-2025 take 1 capsule by mouth once daily Atomoxetine 40 mg capsule Active 40 MG PO Daily January 09, 2025 12:00am Complies with drug therapy Start: 05-03-2024 End: 12-25-2024 take 1 capsule by mouth once daily atomoxetine (Strattera) 40 MG capsule Indications: ADD (attention deficit 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 Take 1 capsule (40 mg) by mouth Daily Swallow capsule whole; do not open. If opened accidentally, do not touch eyes; wash hands immediately (product is an eye irritant). 30 capsule 3 05/03/2024 12/25/2024 Discontinued cefdinir 300 mg oral capsule (2 sources) [...] 06/18/2023 Active celecoxib 200 mg oral capsule (20 sources) Nonsteroidal Anti-inflammatory Drug Start: 06-06-2023 End: 08-04-2025 take 1 capsule by mouth twice daily Celecoxib 200 mg capsule Active 200 MG PO Twice daily January 08, 2025 12:00am Complies with drug therapy ciprofloxacin 3 mg/ml ophthalmic solution (2 sources) Quinolone Antimicrobial Start: 06-08-2023 End: 06-15-2023 take 2 drop(s) into the eye(s) every four hours ciprofloxacin (Ciloxan) 0.3 % ophthalmic solution Indications: Acute bacterial conjunctivitis of both eyes Administer 2 drops into both eyes every 4 (four) hours for 7 days 5 mL 0 06/08/2023 06/15/2023 Active metFORMIN hydrochloride 500 mg oral tablet (6 sources) Biguanide Start: 12-25-2024 End: 12-25-2025 take 1 tablet by mouth at mealtime metFORMIN (Glucophage) 500 MG tablet Indications: Menorrhagia with regular cycle Take 1 tablet (500 mg) by mouth in the morning. Take with meals. 30 tablet 11 12/25/2024 12/25/2025 Active phentermine hydrochloride 37.5 mg oral tablet (10 sources) Sympathomimetic Amine Anorectic Start: 12-02-2024 End: 01-09-2025 take 1 tablet by mouth once daily 30 minutes after breakfast Phentermine 37.5 mg tablet Active 37.5 MG PO Daily 30 January 09, 2025 2:03pm must administer 30 minutes before or 1-2 hours after breakfast Complies with drug therapy predniSONE 50 mg oral tablet (2 sources) Start: 06-08-2023 End: 06-14-2023 take 1 tablet by mouth in the morning predniSONE (Deltasone) 50 MG tablet Indications: Acute non-recurrent pansinusitis Take 1 tablet (50 mg) by mouth in the morning for 6 days. 6 tablet 0 06/08/2023 06/14/2023 Active Problems Active Problems Problem Classification Problem Date Documented Date Episodic/Chronic Contraceptive and procreative management (1 source) Sterilization requested; Translations: [Encounter for sterilization] 02-10-2025 Episodic Disorders usually diagnosed in infancy, childhood, or adolescence (20 sources) Attention deficit hyperactivity disorder, predominantly inattentive type; Translations: [Other specified behavioral and emotional disorders with onset usually occurring in childhood and adolescence] Onset: 05-03-2024 05-03-2024 Chronic Essential hypertension (20 sources) Benign essential hypertension; Translations: [Essential (primary) hypertension] Onset: 04-21-2023 04-21-2023 Chronic Menstrual disorders (2 sources) Menorrhagia; Translations: [Excessive and frequent menstruation with regular cycle] 12-25-2024 Chronic Nutritional deficiencies (19 sources) Vitamin D deficiency; Translations: [Vitamin D deficiency, unspecified] Onset: 04-21-2023 04-21-2023 Chronic Osteoarthritis (20 sources) Primary gonarthrosis, bilateral; Translations: [Bilateral primary osteoarthritis of knee] Onset: 04-21-2023 06-06-2023 Chronic Other endocrine disorders (19 sources) Polycystic ovary syndrome; Translations: [Polycystic ovarian syndrome] Onset: 04-21-2023 04-21-2023 Chronic Other female genital disorders (1 source) Abnormal uterine bleeding; Translations: [Abnormal uterine and vaginal bleeding, unspecified] 02-10-2025 Chronic Other female genital disorders (1 source) Pain in female pelvis; Translations: [Pelvic pain in female] 02-10-2025 Episodic Other nutritional; endocrine; and metabolic disorders (5 sources) Morbid obesity; Translations: [Morbid (severe) obesity due to excess calories] Onset: 06-08-2023 06-08-2023 Chronic Other nutritional; endocrine; and metabolic disorders (20 sources) Severe obesity; Translations: [Class 3 severe obesity due to excess calories with serious comorbidity and body mass index (BMI) of 50.0 to 59.9 in adult (CMS/[facility])] Onset: 06-08-2023 05-03-2024 Chronic Other screening for [...] that caused by tuberculosis or sexually transmitteddisease) (20 sources) Acute infectious conjunctivitis; Translations: [Unspecified acute conjunctivitis, bilateral] Onset: 06-08-2023 Resolved: 05-03-2024 06-08-2023 Episodic Other lower respiratory disease (14 sources) Dyspnea on exertion; Translations: [Shortness of breath] Onset: 06-03-2024 06-03-2024 Episodic Other upper respiratory infections (20 sources) Acute upper respiratory infection, unspecified; Translations: [Acute pansinusitis] Onset: 04-11-2022 Resolved: 05-03-2024 06-08-2023 Episodic Unclassified (1 source) CONTACT W/AND (SUSP) EXPOS COVID-19; Translations: [CONTACT W/AND (SUSP) EXPOS COVID-19] Onset: 04-07-2022 Results Test Name Value Interpretation Reference Range Facility HCG ( test) Ql (U)o n 02-10-2025 Interpretation and review of laboratory results Normal [facility] Preg Test, Ur Negative Negative [facility] US PELVIS W/ TRANSVAGINALon 01-03-2025 [place] [address] Ultrasound Report Signed Patient: EMELYN SHIPMAN MR#: [id number] : 1990 Acct:[id number] Age/Sex: 34 / F ADM Date: 01/03/25 Loc: US Attending Dr: Chayito Roe Ordering Physician: Chayito Roe Date of Service: 01/03/25 Procedure(s): US pelvis w/ transvaginal Accession Number(s): [id number] cc: Chayito Roe; Ananth Brunner M.D. [address] [address] Patient Name: EMELYN SHIPMAN MRN: [id number] date: 1990 Sex: F Assigned Patient Location: Current Patient Location: US Accession/Order Number: [id number] Exam Date: 01/03/2025 09:30 Report Date: 01/03/2025 10:25 At the request of: CHAYITO ROE Procedure: US pelvis w/ transvaginal ULTRASOUND PELVIS WITH TRANSVAGINAL COMPARISON: CT 04/03/2021 CLINICAL DATA: Pelvic pain and heavy irregular periods. LMP 12/18/2024 Real-time ultrasound evaluation the pelvis was performed utilizing both a transabdominal and transvaginal approach. TRANSABDOMINAL: The urinary bladder is only partially distended. Estimated uterine size is approximately 9.8 x 4.2 x 4.3 cm. No focal myometrial abnormalities are identified. The endometrial lining is estimated at 16 mm. The right ovary is tentatively seen however the left is not identified. TRANSVAGINAL: Transvaginal imaging was performed to better evaluate the uterus and adnexa. No focal myometrial abnormalities are identified. The endometrial lining is estimated at 13 - 14 mm in thickness. It is mildly heterogeneous and may contain a trace amount of fluid. There are nabothian cysts. What is thought to be the right ovary measures 2.4 x 1.9 x 1.8 cm. The suspected left ovary measures 2.7 x 1.8 x 2.5 cm. There are no dominant adnexal cysts. Blood flow is difficult to evaluate due to patient body habitus. No free fluid is seen. US/US pelvis w/ transvaginal IMPRESSION: SLIGHTLY THICKENED AND HETEROGENEOUS ENDOMETRIUM. NO DOMINANT ADNEXAL CYSTS OR OTHER ACUTE FINDINGS. Impression dictated by: Adenike Allen M.D. 01/03/2025 10:25 AM Dictation Location: [place] [address] Electronically authenticated by: [id number] Y Date: 01/03/2025 10:25 Dictated By: Adenike Allen M.D. Signed By: 01/03/25 1028 DD/ 1025 TD/TT: Dehydrogenation Operator: [facility] Radiology, Radiologist, - 01/03/2025 [place] [address] Ultrasound Report Signed Patient: EMELYN SHIPMAN MR#: [id number] : 1990 Acct:[id number] Age/Sex: 34 / F ADM Date: 01/03/25 Loc: US Attending Dr: Chayito Roe Ordering Physician: Chayito Roe Date of Service: 01/03/25 Procedure(s): US pelvis w/ transvaginal Accession Number(s): [id number] cc: Chayito Roe; Ananth Brunner M.D. The [address] [address] Patient Name: EMELYN SHIPMAN MRN: [facility]:[id number] date: 1990 Sex: F Assigned Patient Location: Current Patient Location: US Accession/Order Number: [id number] Exam Date: 01/03/2025 09:30 Report Date: 01/03/2025 10:25 At the request of: CHAYITO ROE Procedure: US pelvis w/ transvaginal ULTRASOUND PELVIS WITH TRANSVAGINAL COMPARISON: CT 04/03/2021 CLINICAL DATA: Pelvic pain and heavy irregular periods. LMP 12/18/2024 Real-time ultrasound evaluation the pelvis was performed utilizing both a transabdominal and transvaginal approach. TRANSABDOMINAL: The urinary bladder is only partially distended. Estimated uterine size is approximately 9.8 x 4.2 x 4.3 cm. No focal myometrial abnormalities are identified. The endometrial lining is estimated at 16 mm. The right ovary is tentatively seen however the left is not identified. TRANSVAGINAL: Transvaginal imaging was performed to better evaluate the uterus and adnexa. No focal myometrial abnormalities are identified. The endometrial lining is estimated at 13 - 14 mm in thickness. It is mildly heterogeneous and may contain a trace amount of fluid. There are nabothian cysts. What is thought to be the right ovary measures 2.4 x 1.9 x 1.8 cm. The suspected left ovary measures 2.7 x 1.8 x 2.5 cm. There are no dominant adnexal cysts. Blood flow is difficult to evaluate due to patient body habitus. No free fluid is seen. US/US pelvis w/ transvaginal IMPRESSION: SLIGHTLY THICKENED AND HETEROGENEOUS ENDOMETRIUM. NO DOMINANT ADNEXAL CYSTS OR OTHER ACUTE FINDINGS. Impression dictated by: Adenike Allen M.D. 01/03/2025 10:25 AM Dictation Location: [place] [address] Electronically authenticated by: [id number] Y Date: 01/03/2025 10:25 Dictated By: Adenike Allen M.D. Signed By: 01/03/25 1028 DD/ 1025 TD/TT: Dehydrogenation Operator: [facility] Radiology Study observation (narrative) [facility] US PELVIS W/ TRANSVAGINALOrd ered By: Radiologist Radiology on 01-03-2025 [facility] Work Phone: IGP,APTIMA HPV,AGE GDLNon AGE GDLN ACOG TESTING Note . [facility] Comment on above: TESTS RESULT FLAG UN ITS REF RANGE LAB Clinician Provided Cytology Information Source.............Cervix;Endocervix No. of containers..01 ThinPrep Vial Age Algo ACOG Opal... 30-65 01 FLAG LEGEND: L-Low Normal,H-High Normal,LL-Alert Low,HH-Alert High <-Panic Low,>-Panic High,A-Abnormal,AA-Critical Abnormal Performed at: 01 =[address] [address] Cheli Flores MD, HPV APTIMA Negative Negative [facility] Comment on above: This nucleic acid am plification test detects fourteen high- risk HPV types (16,18,31,33,35,39,45,51,52,56,58,59,66,68) without differentiation. Performed at: =[address] [id number] Grinder Operator Tool: Cheli Flores MD, Phone: [phone] Performed at: [address] [id number] Grinder Operator Tool: Cheli Flores MD, Phone: [phone] IGP, APTIMA HPV, RFX 16/18,45 Note . [facility] Comment on above: TESTS RESULT FLAG U NITS REF RANGE LAB DIAGNOSIS: 02 NEGATIVE FOR INTRAEPITHELIAL LESION OR MALIGNANCY. Specimen adequacy: 02 Satisfactory for evaluation. Endocervical and/or squamous metaplastic cells (endocervical component) are present. Performed by: 02 Guilherme Duron, Dredge Pumper ([facility]) . 02 Note: Note 02 [...] Low,>-Panic High,A-Abnormal,AA-Critical Abnormal Performed at: [address] [place] [address] Cheli Flores MD, BRUSH-SPATULA CERVIX ENDOCERVIX [facility] ALL CBC WITH AUTO DIFFon BASOPHILS ABSOLUTE AUTO 0.1 N [facility] Basophils/100 WBC (Bld) 0.7 % 0.2 - 2.0 % [facility] Eosinophils/100 WBC (Bld) 4.5 % 0.9 - 7.0 % [facility] Erythrocyte distribution width (RBC) [Ratio] 14.1 % 11.0 - 15.0 % [facility] Hematocrit (Bld) [Volume fraction] 42.3 % 36.0 - 48.0 % [facility] Hemoglobin (Bld) [Mass/Vol] 13.3 g/dL 12.0 - 16.0 g/dL [facility] IMMATURE GRANULOCYTES ABS AUTO 0.07 High [facility] Immature granulocytes/100 WBC (Bld) 0.8 % High 0.0 - 0.5 % [facility] Interpretation and review of laboratory results Abnormal [facility] LYMPHOCYTES ABSOLUTE AUTO 2.3 [facility] Lymphocytes/100 WBC (Bld) 25.2 % 20.5 - 60.0 % [facility] MCH (RBC) [Entitic mass] 26.1 pg Low 26.7 - 34.0 pg [facility] MCHC (RBC) [Mass/Vol] 31.4 g/dL 29.9 - 35.2 g/dL [facility] MCV (RBC) [Entitic vol] 82.9 fL 81.0 - 99.0 fL [facility] MONOCYTES ABSOLUTE AUTO 0.8 N [facility] Monocytes/100 WBC (Bld) 8.8 % 1.7 - 12.0 % [facility] NEUTROPHILS ABSOLUTE AUTO 5.5 [facility] Neutrophils/100 WBC (Bld) 60 % 43.0 - 75.0 % [facility] Platelet mean volume (Bld) [Entitic vol] 8.4 fL Low 9.5 - 13.5 fL [facility] TBH EO # 0.4 [facility] PLT 443 [facility] RBC 5.1 [facility] WBC 9.1 [facility] Human papilloma virus 16+18+ 31+33+35+39+45+51+52+56+58+59+66+68 DNA [Presence] in CerOrdered By: Chayito Roe on 12-25-2024 HPV 16+18+31+33+35+39+45+51 +52+56+58+59+66+68 DNA Probe+sig amp Ql (Cvx) Negative Negative [facility] Comment on above: This nucleic acid am plification test detects fourteen high-risk HPV types (16,18,31,33,35,39,45,51,52,56,58,59,66,68)without differentiation.Performed at: =G - [facility] [place], [place] [id number] Director: Cheli Flores MD, Phone: [phone] at: - [facility] [id number] Director: Cheli Flores MD, Phone: [phone] No Panel InformationOrdered By: Chayito Roe on 12-25-2024 HPV High Risk Other Comment Note . [facility] Comment on above: TESTS RESULT FLAG UN ITS REF RANGE LAB -DIAGNOSIS: 02 NEGATIVE FOR INTRAEPITHELIAL LESION OR MALIGNANCY.Specimen adequacy: 02 Satisfactory for evaluation. Endocervical and/or squamous metaplastic cells (endocervical component) are present.Performed by: Nany Duron Dredge Pumper (ASCP). 02Note: Note 02 The Pap smear is a screening test designed to aid in the detection of premalignant and malignant conditions of the uterine cervix. It is not a diagnostic procedure and should not be used as the sole means of detecting cervical cancer. Both false-positive and false-negative reports do occur.Test Methodology: Note 02 This liquid based ThinPrep(R) pap test was screened with the use of an image guided system.HPV Genotype Reflex Note 02 Criteria not met, HPV Genotype not performed. -------- FLAG LEGEND: L-Low Normal,H-High Normal,LL-Alert Low,HH-Alert High <-Panic Low,>-Panic High,A-Abnormal,AA-Critical Abnormal ------Performed at:02 [facility] [address] [place] [address] Cheli Flores MD, Reference Lab Test Patient Age Note . [facility] Comment on above: TESTS RESULT FLAG UN ITS REF RANGE LAB - Clinician Provided Cytology Information Source.............Cervix;Endocervix No. of containers..01 ThinPrep VialAge [place] ACOG Opal... 30-65 01 FLAG LEGEND: L-Low Normal,H-High Normal,LL-Alert Low,HH-Alert High <-Panic Low,>-Panic High,A-Abnormal,AA-Critical Abnormal ------Performed at:01 =G [facility] [address] [facility] [place] [address] Cheli Flores MD, ALL CBC WITH AUTO DIFFon BASOPHILS ABSOLUTE AUTO 0.1 N [facility] Basophils/100 WBC (Bld) 0.8 % 0.2 - 2.0 % [facility] Eosinophils/100 WBC (Bld) 3 % 0.9 - 7.0 % [facility] Erythrocyte distribution width (RBC) [Ratio] 14 % 11.0 - 15.0 % [facility] Hematocrit (Bld) [Volume fraction] 42 % 36.0 - 48.0 % [facility] Hemoglobin (Bld) [Mass/Vol] 13.4 g/dL 12.0 - 16.0 g/dL [facility] IMMATURE GRANULOCYTES ABS AUTO 0.08 High [facility] Immature granulocytes/100 WBC (Bld) 0.9 % High 0.0 - 0.5 % [facility] Interpretation and review of laboratory results Abnormal [facility] LYMPHOCYTES ABSOLUTE AUTO 2.6 [facility] Lymphocytes/100 WBC (Bld) 28.6 % 20.5 - 60.0 % [facility] MCH (RBC) [Entitic mass] 26.7 pg 26.7 - 34.0 pg [facility] MCHC (RBC) [Mass/Vol] 31.9 g/dL 29.9 - 35.2 g/dL [facility] MCV (RBC) [Entitic vol] 83.7 fL 81.0 - 99.0 fL [facility] MONOCYTES ABSOLUTE AUTO 0.8 N [facility] Monocytes/100 WBC (Bld) 8.2 % 1.7 - 12.0 % [facility] NEUTROPHILS ABSOLUTE AUTO 5.4 [facility] Neutrophils/100 WBC (Bld) 58.5 % 43.0 - 75.0 % [facility] Platelet mean volume (Bld) [Entitic vol] 8.6 fL Low 9.5 - 13.5 fL [facility] TBH EO # 0.3 [facility] PLT 412 [facility] RBC 5.02 [facility] WBC 9.2 [facility] MLR HEMOGLOBIN A1Con 025 Glucose [Mass/Vol] 105 mg/dL [facility] HbA1c (Bld) [Mass fraction] 5.3 % 4.5 - 6.2 % [facility] Comment on above: ADA RECOMMENDED LIMI T 4.0 - 6.0 ADA THERAPEUTIC TARGET < 7.0 ACTION [facility] 2: 30 to 65on 06-17-2022 . . Normal [facility] Comment on above: Result Comment: Perf ormed at: WB Performed By: #### [id number] #### [facility] [address] [place] [address] Dr. New Arzate Age Gdln ACOG Testing 30-65 Normal [facility] Comment on above: Performed By: #### [id number] #### [facility] [address] [place] [address] Dr. New Arzate DIAGNOSIS: Comment Normal [facility] Comment on above: Result Comment: NEGA TIVE FOR INTRAEPITHELIAL LESION OR MALIGNANCY. THIS SPECIMEN WAS RESCREENED PART OF OUR FILM READER PROGRAM. Performed at: WB Performed By: #### [id number] #### [facility] [address] [place] [address] Dr. New Arzate HPV Aptima Negative Normal Negative [facility] Comment on above: Result Comment: This nucleic acid amplification test detects fourteen high-risk HPV types (16,18,31,33,35,39,45,51,52,56,58,59,66,68) without differentiation. Performed at: =G Performed By: #### [id number] #### [facility] [address] [place] [address] Dr. New Arzate HPV Genotype Reflex Comment Normal [facility] Comment on above: Result Comment: Crit eria not met, HPV Genotype not performed. Performed at: WB Performed By: #### [id number] #### [facility] [address] [place] [address] Dr. New Arzate Methodology: Comment Normal [facility] Comment on above: Result Comment: This liquid based ThinPrep(R) pap test was screened with the use of an image guided system. Performed at: WB Performed By: #### [id number] #### [facility] [address] [place] [address] Dr. New Arzate Note: Comment Normal [facility] Comment on above: Result Comment: The Pap smear is a screening test designed to aid in the detection of premalignant and malignant conditions of the uterine cervix. It is not a diagnostic procedure and should not be used as the sole means of detecting cervical cancer. Both false-positive and false-negative reports do occur. . Performed at: WB Performed By: #### [id number] #### [facility] [address] [place] [address] Dr. New Arzate Performed by: Comment Normal [facility] Comment on above: Result Comment: Jerrod Gayle, Supervisory Acid Adjuster (ASCP) Performed at: WB Performed By: #### [id number] #### [facility] [address] [place] [address] Dr. New Arzate QC reviewed by: Comment Normal [facility] Comment on above: Result Comment: Ally Jesus, Supervisory Acid Adjuster (ASCP) Performed at: WB Performed By: #### [id number] #### [facility] [address] [place] [address] Dr. New Arzate Specimen adequacy: Comment Normal [facility] Comment on above: Result Comment: Sati sfactory for evaluation. Endocervical and/or squamous metaplastic cells (endocervical component) are present. Performed at: WB Performed By: #### [id number] #### [facility] [address] [place] [address] Dr. New Arzate Cytology Cervical or vaginal smear or scraping studyon 06-09-2022 [facility] RESPIRATORY PANEL PLUSon Adenovirus Not detected Normal NOT DETECTED [facility] Comment on above: Performed By: #### R SPLUS #### [facility] [address] [place] [address] Dr. New Tay. Parapertusis Not detected Normal NOT DETECTED [facility] Comment on above: Performed By: #### R SPLUS #### [facility] [address] [place] [address] Dr. New Arzate B. Pertussis Not detected Normal NOT DETECTED [facility] Comment on above: Performed By: #### R SPLUS #### [facility] [address] [place] [address] Dr. New Arzate Chlamydia Pneumoniae Not detected Normal NOT DETECTED [facility] Comment on above: Performed By: #### R SPLUS #### [facility] [address] [place] [address] Dr. [place] Coronavirus 229E Not detected Normal NOT DETECTED [facility] Comment on above: Performed By: #### R SPLUS #### [facility] [address] [address] [address] [place] Coronavirus HKU1 Not detected Normal NOT DETECTED [facility] Comment on above: Performed By: #### R SPLUS #### [facility] [address] [place] [address] Dr. [place] Coronavirus NL63 Not detected Normal NOT DETECTED [facility] Comment on above: Performed By: #### R SPLUS #### [facility] [address] [place] [address] Dr. [place] Coronavirus OC43 Not detected Normal NOT DETECTED [facility] Comment on above: Performed By: #### R SPLUS #### [facility] [address] [place] [address] Dr. [place] Influenza A H1 2009 Not detected Normal NOT DETECTED [facility] Comment on above: Performed By: #### R SPLUS #### [facility] [address] [place] [address] Dr. [place] Influenza A H3 Detected Abnormal NOT DETECTED [facility] Comment on above: Performed By: #### R SPLUS #### [facility] [address] [place] [address] Dr. [place] Influenza B Not detected Normal NOT DETECTED The [facility] Comment on above: Performed By: #### R SPLUS #### [facility] [address] [place] [address] Dr. [place] Metapneumovirus Not detected Normal NOT DETECTED [facility] Comment on above: Performed By: #### R SPLUS #### [facility] [address] [place] [address] Dr. [place] Mycoplas. Pneumoniae Not detected Normal NOT DETECTED [facility] Comment on above: Performed By: #### R SPLUS #### [facility] [address] [place] [address] Dr. [place] Parainfluenza 1 Not detected Normal NOT DETECTED [facility] Comment on above: Performed By: #### R SPLUS #### [facility] [address] [place] [address] Dr. [place] Parainfluenza 2 Not detected Normal NOT DETECTED [facility] Comment on above: Performed By: #### R SPLUS #### [facility] [address] [place] [address] Dr. [place] Parainfluenza 3 Not detected Normal NOT DETECTED [facility] Comment on above: Performed By: #### R SPLUS #### [facility] [address] [place] [address] Dr. [place] Parainfluenza 4 Not detected Normal NOT DETECTED [facility] Comment on above: Performed By: #### R SPLUS #### [facility] [address] [place] [address] Dr. [place] Rhino/Enterovirus Not detected Normal NOT DETECTED [facility] Comment on above: Performed By: #### R SPLUS #### [facility] [address] [place] [address] Dr. [place] RP2 Header 1 RESPIRATORY PANEL: VIRUSES Normal [facility] Comment on above: Performed By: #### R SPLUS #### [facility] [address] [place] [address] Dr. [place] RP2 Header 2 RESPIRATORY PANEL: BACTERIA Normal [facility] Comment on above: Performed By: #### R SPLUS #### [facility] [address] [place] [address] Dr. [place] RSV Not detected Normal NOT DETECTED [facility] Comment on above: Performed By: #### R SPLUS #### [facility] [address] [place] [address] Dr. [place] SARS-CoV-2 (COVID-19) RNA ANGEL+probe Ql (Unsp spec) Not detected Normal NOT DETECTED [facility] Comment on above: Performed By: #### R SPLUS #### [facility] [address] [place] [address] Dr. [place] Vital Signs Date Time Vital Sign Value Performing Clinician Facility 02-10-2025 09:21-0400 Body height 167.6 cm [facility] Work Phone: [facility] 02-10-2025 09:21-0400 Body mass index (BMI) [Ratio] 58.91 kg/m2 Molly Alphonso DO Work Phone: [facility] 02-10-2025 09:21-0400 Body weight 165.56 kg Molly Alphonso DO Work Phone: [facility] 02-10-2025 09:21-0400 Diastolic blood pressure 78 mm[Hg] Molly Alphonso DO Work Phone: [facility] 02-10-2025 09:21-0400 Systolic blood pressure 128 mm[Hg] Molly Alphonso DO Work Phone: [facility] 01-09-2025 13:50-0400 Body height 167.64 cm Ananth Brunner MD Work Phone: [facility] 01-09-2025 13:50-0400 Body mass index (BMI) [Ratio] 59.8 kg/m2 Ananth Brunner MD Work Phone: [facility] 01-09-2025 13:50-0400 Body temperature 95.7 [degF] Ananth Brunner MD Work Phone: [facility] 01-09-2025 13:50-0400 Body weight 168.28 kg Ananth Brunner MD Work Phone: [facility] 01-09-2025 13:50-0400 Diastolic blood pressure 66 mm[Hg] Ananth Brunner MD Work Phone: [facility] 01-09-2025 13:50-0400 Heart rate 109 /min Ananth Brunner MD Work Phone: [facility] 01-09-2025 13:50-0400 Respiratory rate 22 /min Ananth Brunner MD Work Phone: [facility] 01-09-2025 13:50-0400 SaO2% (BldA) [Mass fraction] 96 % Ananth Brunner MD Work Phone: [facility] 01-09-2025 13:50-0400 Systolic blood pressure 124 mm[Hg] Ananth Brunner MD Work Phone: [facility] 12-25-2024 14:25-0400 Body mass index (BMI) [Ratio] 59.8 kg/m2 Chayito Anil PA Work Phone: [facility] 12-25-2024 14:25-0400 Body weight 168.06 kg Chayito Beaverdam PA Work Phone: [facility] 12-25-2024 14:25-0400 Diastolic blood pressure 86 mm[Hg] Chayito Anil PA Work Phone: [facility] 12-25-2024 14:25-0400 Systolic blood pressure 128 mm[Hg] Chayito Beaverdam PA Work Phone: [facility] 12-02-2024 13:29-0400 Body height 167.6 cm Ananth Brunner MD Work Phone: [facility] 12-02-2024 13:29-0400 Body mass index (BMI) [Ratio] 60.85 kg/m2 Ananth Brunner MD Work Phone: [facility] 12-02-2024 13:29-0400 Body temperature 97.5 [degF] Ananth Brunner MD Work Phone: [facility] 12-02-2024 13:29-0400 Body weight 171.01 kg Ananth Brunner MD Work Phone: [facility] 12-02-2024 13:29-0400 Diastolic blood pressure 76 mm[Hg] Ananth Brunner MD Work Phone: [facility] 12-02-2024 13:29-0400 Heart rate 124 /min Ananth Brunner MD Work Phone: [facility] 12-02-2024 13:29-0400 Respiratory rate 22 /min Ananth Brunner MD Work Phone: [facility] 12-02-2024 13:29-0400 SaO2% (BldA) [Mass fraction] 99 % Ananth Brunner MD Work Phone: [facility] 12-02-2024 13:29-0400 Systolic blood pressure 134 mm[Hg] Ananth Brunner MD Work Phone: [facility] 06-03-2024 08:46-0500 Body height 167.6 cm Ananth Brunner MD Work Phone: [facility] 06-03-2024 08:46-0500 Body mass index (BMI) [Ratio] 56.65 kg/m2 Ananth Brunner MD Work Phone: [facility] 06-03-2024 08:46-0500 Body temperature 97.3 [degF] Ananth Brunner MD Work Phone: [facility] 06-03-2024 08:46-0500 Body weight 159.21 kg Ananth Brunner MD Work Phone: [facility] 06-03-2024 08:46-0500 Diastolic blood pressure 62 mm[Hg] Ananth Brunner MD Work Phone: [facility] 06-03-2024 08:46-0500 Heart rate 119 /min Ananth Brunner MD Work Phone: [facility] 06-03-2024 08:46-0500 Respiratory rate 22 /min Ananth Brunner MD Work Phone: [facility] 06-03-2024 08:46-0500 SaO2% (BldA) [Mass fraction] 97 % Ananth Brunner MD Work Phone: [facility] 06-03-2024 08:46-0500 Systolic blood pressure 124 mm[Hg] Ananth Brunner MD Work Phone: [facility] 05-03-2024 09:41-0500 Body height 167.6 cm Ananth Brunner MD Work Phone: [facility] 05-03-2024 09:41-0500 Body mass index (BMI) [Ratio] 56.01 kg/m2 Ananth Brunner MD Work Phone: [facility] 05-03-2024 09:41-0500 Body temperature 97.11 [degF] Ananth Brunner MD Work Phone: [facility] 05-03-2024 09:41-0500 Body weight 157.4 kg Ananth Brunner MD Work Phone: [facility] 05-03-2024 09:41-0500 Diastolic blood pressure 68 mm[Hg] Ananth Brunner MD Work Phone: [facility] 05-03-2024 09:41-0500 Heart rate 94 /min Ananth Brunner MD Work Phone: [facility] 05-03-2024 09:41-0500 Respiratory rate 20 /min Ananth Brunner MD Work Phone: [facility] 05-03-2024 09:41-0500 SaO2% (BldA) [Mass fraction] 97 % Ananth Brunner MD Work Phone: [facility] 05-03-2024 09:41-0500 Systolic blood pressure 120 mm[Hg] Ananth Brunner MD Work Phone: [facility] 06-08-2023 11:50-0500 Body height 167.6 cm Ananth Brunner MD Work Phone: [facility] 06-08-2023 11:50-0500 Body mass index (BMI) [Ratio] 53.91 kg/m2 Ananth Brunner MD Work Phone: [facility] 06-08-2023 11:50-0500 Body temperature 97.5 [degF] Ananth Brunner MD Work Phone: [facility] 06-08-2023 11:50-0500 Body weight 151.5 kg Ananth Brunner MD Work Phone: [facility] 06-08-2023 11:50-0500 Diastolic blood pressure 70 mm[Hg] Ananth Brunner MD Work Phone: [facility] 06-08-2023 11:50-0500 Heart rate 94 /min Ananth Brunner MD Work Phone: [facility] 06-08-2023 11:50-0500 SaO2% (BldA) [Mass fraction] 97 % Ananth Brunner MD Work Phone: [facility] 06-08-2023 11:50-0500 Systolic blood pressure 120 mm[Hg] Ananth Brunner MD Work Phone: [facility] Encounters Encounter Date Encounter Type Care Provider Facility Start: 02-14-2025 ambulatory [facility] Facility:[facility] Start: 02-10-2025 End: 02-10-2025 Patient encounter procedure Molly Josepho Work Phone: [facility] Daylin HEBERT Comment on above: Pre-op examination; Menorrhagia with regular cycle; Pelvic pain in female; Abnormal uterine bleeding; Request for sterilization Start: 02-10-2025 End: 02-10-2025 Preprocedural examination done Mollyjoyce Josepho DO Work Phone: [facility] Start: 02-10-2025 End: 02-10-2025 ambulatory MOLLY JOSEPHO Not Available Start: 02-06-2025 ambulatory [facility] Facility:[facility] Start: 01-09-2025 End: 01-09-2025 ambulatory Ananth Brunner MD Work Phone: [facility] Work Phone: Start: 01-09-2025 End: 01-09-2025 Patient encounter procedure Ananth Brunner MD -[facility] Work Phone: Start: 01-03-2025 End: 01-03-2025 Clinisync Result Encounter Chayito MASTERS Work Phone: [facility] Unsolicited Start: 01-03-2025 End: 01-03-2025 Clinisync Result Encounter Chayito MASTERS Work Phone: [facility] Unsolicited Start: 12-27-2024 End: 12-27-2024 Clinisync Result Encounter Chayito MASTERS Work Phone: [facility] Unsolicited Start: 12-27-2024 End: 12-27-2024 Clinisync Result Encounter Chayito Anil PA Work Phone: [facility] Unsolicited Start: 12-25-2024 Non-patient / Non-visit Chayito MASTERS -[facility] Work Phone: Start: 12-25-2024 End: 12-25-2024 ambulatory CHAYITO ROE Not Available Start: 12-25-2024 End: 12-25-2024 Bamboo flowsheet Chayito MASTERS Work Phone: [facility] Start: 12-25-2024 End: 01-01-2025 Bamboo flowsheet Chayito MASTERS Work Phone: [facility] Start: 12-25-2024 End: 01-01-2025 Clinisync Result Encounter Chayito Beaverdam PA Work Phone: [facility] Unsolicited Start: 12-25-2024 End: 12-25-2024 Patient encounter procedure Chayito MASTERS Work Phone: [facility] Start: 12-25-2024 End: 12-25-2024 Periodic preventive med est patient 18-39 yrs Chayito MASTERS Work Phone: [facility] OBDARREN Comment [...] (BMI) of 60.0 to 69.9 in adult ([facility]) Start: 06-03-2024 End: 06-03-2024 Bamboo flowsheet Ananth Brunner MD Work Phone: [facility] Start: 06-03-2024 End: 06-03-2024 Bamboo flowsheet Ananth Brunner MD Work Phone: [facility] Start: 06-03-2024 End: 06-03-2024 Office outpatient visit 25 minutes Ananth Brunner MD Work Phone: [facility] Comment on above: ADD (attention defic it 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 (Primary Dx); Essential hypertension, benign ([facility]); Bilateral primary osteoarthritis of knee; Class 3 severe obesity due to excess calories with serious comorbidity and body mass index (BMI) of 50.0 to 59.9 in adult ([facility]); SOB (shortness of breath) on exertion Start: 06-03-2024 End: 06-03-2024 ambulatory ANANTH BRUNNER Not Available Start: 05-24-2024 End: 05-24-2024 Clinisync Result Encounter Ananth Brunner MD Work Phone: [facility] External Department Unsolicited Start: 05-24-2024 End: 05-24-2024 Clinisync Result Encounter Ananth Brunner MD Work Phone: [facility] External Department Unsolicited Start: 05-03-2024 End: 05-03-2024 Bamboo flowsheet Ananth Brunner MD Work Phone: [facility] Start: 05-03-2024 End: 05-03-2024 Bamboo flowsheet Ananth Brunner MD Work Phone: [facility] Start: 05-03-2024 End: 05-03-2024 Patient encounter procedure Ananth Brunner MD Work Phone: [facility] Work Phone: Start: 05-03-2024 End: 05-03-2024 Periodic preventive med est patient 18-39 yrs Ananth Brunner MD Work Phone: [facility] Comment on above: Annual physical exam (Primary Dx); Essential hypertension, benign ([facility]); ADD (attention deficit 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; Class 3 severe obesity due to excess calories with serious comorbidity and body mass index (BMI) of 50.0 to 59.9 in adult ([facility]) Start: 05-03-2024 End: 05-03-2024 ambulatory ANANTH BRUNNER Not Available Start: 03-14-2024 ambulatory Teagan Kwan Facility :[facility] Start: 10-13-2023 End: 10-13-2023 ambulatory [facility] Start: 09-29-2023 End: 09-29-2023 ambulatory [facility] Start: 09-08-2023 End: 09-08-2023 ambulatory [facility] Start: 07-28-2023 End: 07-28-2023 ambulatory [facility] Start: 06-30-2023 End: 06-30-2023 [facility] Start: 06-08-2023 End: 06-08-2023 Office outpatient visit 15 minutes Ananth Brunner MD Work Phone: [facility] Comment on above: Acute non-recurrent pansinusitis (Primary Dx); Acute bacterial conjunctivitis of both eyes; Morbid obesity due to excess calories ([facility]) Start: 06-09-2022 End: 06-09-2022 ambulatory CHAYITO ROE . Facility: Start: 04-07-2022 End: 04-07-[address] ANANTH BRUNNER Facility:[facility] Procedures Date Procedure Procedure Detail Performing Clinician Start: 02-10-2025 Urine test visual color cmprsn meths Molly Werner DO Work Phone: Start: 01-03-2025 US PELVIS W/ TRANSVAGINAL Chayito MASTERS Work Phone: Start: 12-27-2024 ALL CBC WITH AUTO DIFF Chayito MASTERS Work Phone: Start: 12-25-2024 IGP,APTIMA HPV,AGE GDLN Chayito MASTERS Work Phone: Start: 12-25-2024 Microscopic observat ion [Identifier] in Cervix by Cyto stain Chayito MASTERS Work Phone: Start: 05-24-2024 ALL [...] Treatment Date Care Activity Detail Author Start: 12-26-2027 Screening for malign ant neoplasm of cervix [facility] Start: 06-09-2025 Screening for malign ant neoplasm of cervix [facility] Start: 02-10-2025 End: 02-10-2025 Patient encounter procedure 02/10/2025 9:30 AM EDT Procedure Visit JOYCE HEBERT [address] [place] [address] Molly Werner DO [address] [place] [address] JOYCE HEBERT Start: 01-09-2025 End: 01-09-2025 Patient encounter procedure 01/09/2025 1:30 PM EDT Office Visit JOYCE CAMACHO [address] [place] [phone] Ananth Brunner MD [address] [place] [address] [facility] Start: 12-30-2024 Influenza vaccination Influenza Vacc ine (#1) [facility] Start: 12-25-2024 End: 12-25-2025 aPTT in Blood by Coagulation assay APTT Lab Routine Menorrhagia with regular cycle Expected: 12/25/2024 (Approximate), Expires: 12/25/2025 [facility] Comment on above: Expected: 12/25/2024 (Approximate), Expires: 12/25/2025 Start: 12-25-2024 End: 12-25-2024 Patient encounter procedure 12/25/2024 2:00 PM EDT Procedure Visit JOYCE HEBERT [address] [place] [id number] Chayito Roe PA [address] [place], [place] [id number] [facility] Start: 12-25-2024 End: 12-25-2025 US Pelvis US Pelvis w/ TV Imaging Routine Menorrhagia with regular cycle Expected: 12/25/2024, Expires: 12/25/2025 [facility] Comment on above: Expected: 12/25/2024 , Expires: 12/25/2025 Start: 12-12-2024 End: 12-12-2024 Patient encounter procedure 12/12/2024 9:40 AM EDT Office Visit OJYCE HEBERT [address] [place] [phone] Molly Werner DO [address] [place], [place] [id number] [facility] Start: 12-02-2024 End: 12-02-2024 Patient encounter procedure 12/02/2024 9:00 AM EDT Office Visit [facility] [address] [place] [address] Ananth Brunner MD [address] [place] [address] [facility] CAMACHO [facility] Start: 06-03-2024 End: 06-03-2024 Patient encounter procedure [facility] Comment on above: Arrived Start: 05-03-2024 End: 05-03-2025 Basic metabolic 1998 panel - Serum or Plasma Basic metabolic panel Lab Routine Annual physical exam Expected: 05/03/2024 (Approximate), Expires: 05/03/2025 [facility] Comment on above: Expected: 05/03/2024 (Approximate), Expires: 05/03/2025 Start: 05-03-2024 End: 05-03-2025 CBC W Auto Differential panel - Blood CBC and differential Lab Routine Annual physical exam Expected: 05/03/2024 (Approximate), Expires: 05/03/2025 [facility] Comment on above: Expected: 05/03/2024 (Approximate), Expires: 05/03/2025 Start: 05-03-2024 End: 05-03-2025 Hemoglobin A1c/Hemoglobin.total in Blood Hemoglobin A1c Lab Routine Annual physical exam Expected: 05/03/2024 (Approximate), Expires: 05/03/2025 [facility] Work Phone: Comment on above: Expected: 05/03/2024 (Approximate), Expires: 05/03/2025 Start: 05-03-2024 End: 05-03-2025 Hepatic function 2000 panel - Serum or Plasma Hepatic function panel Lab Routine Annual physical exam Expected: 05/03/2024 (Approximate), Expires: 05/03/2025 [facility] Comment on above: Expected: 05/03/2024 (Approximate), Expires: 05/03/2025 Start: 05-03-2024 End: 05-03-2025 Lipid 1996 panel - Serum or Plasma Lipid panel Lab Routine Annual physical exam Expected: 05/03/2024 (Approximate), Expires: 05/03/2025 [facility] Comment on above: Expected: 05/03/2024 (Approximate), Expires: 05/03/2025 Start: 05-03-2024 End: 05-03-2025 TSH W/REFLEX TO FT4 TSH W/REFLEX TO FT4 Lab Routine Annual physical exam Expected: 05/03/2024 (Approximate), Expires: 05/03/2025 [facility] Comment on above: Expected: 05/03/2024 (Approximate), Expires: 05/03/2025 Start: 05-03-2024 End: 05-03-2024 Patient encounter procedure 05/03/2024 9:45 AM EST [facility] [address] [place] [address] Ananth Brunner MD [address] [place] [phone] Arrived [facility] Comment on above: Arrived Start: 12-31-2023 Influenza vaccination Influenza Vacc ine (#1) [facility] Start: 12-30-2022 Influenza vaccination Influenza Vacc ine (#1) [facility] Start: 2020 Screening for malign ant neoplasm of cervix [facility] Start: 2011 Screening for malign ant neoplasm of cervix Pap Smear [facility] CBC W Auto Different ial panel - Blood CBC and differential Lab Routine Menorrhagia with regular cycle Ordered: 12/25/2024 [facility] Comment on above: Ordered: 12/25/2024 Cytology Cervical or vaginal smear or scraping study Pap Smear Pathology and Cytology Routine Well woman exam with routine gynecological exam Ordered: 12/25/2024 [facility] Work Phone: Comment on above: Ordered: 12/25/2024 hCG, quantitative, hCG, quantitative, Lab Routine Menorrhagia with regular cycle Ordered: 12/25/2024 [facility] Comment on above: Ordered: 12/25/2024 Hemoglobin A1c/Hemoglobin.total in Blood Hemoglobin A1c Lab Routine Menorrhagia with regular cycle Ordered: 12/25/2024 [facility] Comment on above: Ordered: 12/25/2024 Human papilloma viru s DNA [Presence] in Unspecified specimen by Probe with amplification HPV DNA probe, amplified Microbiology Routine Well woman exam with routine gynecological exam Ordered: 12/25/2024 [facility] Comment on above: Ordered: 12/25/2024 Prothrombin time (PT ) in Blood by Coagulation assay Protime-INR Lab Routine Menorrhagia with regular cycle Ordered: 12/25/2024 [facility] Comment on above: Ordered: 12/25/2024 Thyrotropin [Units/volume] in Serum or Plasma TSH Lab Routine Menorrhagia with regular cycle Ordered: 12/25/2024 [facility] Comment on above: Ordered: 12/25/2024 Thyroxine (T4) free [Mass/volume] in Serum or Plasma T4, free Lab Routine Menorrhagia with regular cycle Ordered: 12/25/2024 [facility] Comment on above: Ordered: 12/25/2024 Tissue exam Tissue exam Path ology and Cytology Routine Menorrhagia with regular cycle Ordered: 02/10/2025 [facility] Work Phone: Comment on above: Ordered: 02/10/2025 Immunizations Immunization Date Immunization Notes Care Provider [facility] 03-14-2021 influenza virus vacc ine, unspecified formulation Ananth Brunner MD Work Phone: [facility] Payers Date Payer Category Payer Private Health Insurance [employer] [id number] 2022 Unknown [employer] [id number] 2022-Present [address] [place] [address] [id number] 2022 Medicaid 2002 Medicaid [id number] 1990 Unknown [id number] [id number]. 593 1990 Unknown [id number] 2.16.840.1.191574.3.579.2. 593 1990 Unknown [id number] 2.16.840.1.090866.3.579.2. 1286 1990 Unknown [id number] 2.16.840.1.594962.3.579.2. 1286 1990 Unknown [id number] 2.16.840.1.679504.3.579.2. 1286 1990 Unknown [id number] 2.16.840.1.954148.3.579.2. 1286 1990 Unknown [id number] 2.16.840.1.732279.3.579.2. 1286 1990 Unknown [id number] 2.16.840.1.716839.3.579.2. 1259 1990 Unknown [id number] 2.16.840.1.941613.3.579.2. 1259 1990 Unknown [id number] 2.16.840.1.881633.3.579.2. 1259 1990 Unknown [id number] 2.16.840.1.788263.3.579.2. 1259 1990 Unknown [id number] 2.16.840.1.817826.3.579.2. 1259 1959 Unknown [id number] 1959 Unknown [id number] Unknown Anna Marie BC/BS [id number] Social History Date Type Detail Facility Start: 05-04-2023 End: 01-09-2025 Tobacco smoking status [facility] Ex-smoker [facility] History of tobacco use Current smoker [facility] History of tobacco use Cigarette Smoker [facility] Start: 05-04-2023 Tobacco use and exposure Smokeless tobacco non-user [facility] Start: 06-08-2023 End: 02-10-2025 Alcohol intake Lifetime non-drinker (finding) [facility] [...] to buy more. Sometimes true [facility] Start: 07-13-2022 In the past 12 months, has lack of transportation kept you from medical appointments or from getting medications? No [facility] At any time in the p ast 12 months, were you homeless or living in intermediate [including now]? Yes [facility] Start: 05-04-2023 Tobacco Comment Last smoked : 5-10 years [facility] Start: 11-04-2022 Alcohol Comment Caffine intake: 1-2 cups per day [facility] Start: 1990 Sex Assigned At Not on file [facility] The food that (I/we) bought just didn't last, and (I/we) didn't have money to get more. Often true [facility] Sex Female (finding) [facility] Start: 1990 Sex Assigned At Female [facility] Clinical Notes 06-08-2023 to 02-10-2025 Judith Castellano - 02/10/2025 9:30 AM SONAM Quiroga - 12/25/2024 2:00 PM Janelle Brunner MD - 12/02/2024 1:56 PM Janelle Brunner MD - 12/02/2024 1:56 PM EDT Note Date & Type Note Facility 02-10-2025 History of Presen t illness Narrative Reason for Appointment: Patient ID: Emelyn Shipman is a 34 y.o. female who presents for Pre-op Visit and embx Patient presents today for Pre Op/Endometrial Biopsy appointment. Patient is scheduled to undergo Endometrial Ablation with Roxana on 02/21/[address] Werner at [facility]. MEDICATIONS Current Outpatient Medications Medication Instructions albuterol HFA 90 mcg/act inhaler 2 puffs, Inhalation, Every 4 hours PRN celecoxib (CELEBREX) 200 mg, Oral, 2 times daily PRN metFORMIN (GLUCOPHAGE) 500 mg, Oral, Daily with breakfast phentermine (ADIPEX-P) 37.5 mg, Oral, Daily before breakfast ALLERGIES No Known Allergies PROBLEMS Active Ambulatory Problems Diagnosis Date Noted Essential hypertension, benign 04/21/2023 Polycystic ovary syndrome 04/21/2023 Bilateral primary osteoarthritis of knee 04/21/2023 Vitamin D deficiency 04/21/2023 Class 3 severe obesity due to excess calories with serious comorbidity and body mass index (BMI) of 60.0 to 69.9 in adult ([facility]) 06/08/2023 Annual physical exam 05/03/2024 ADD (attention deficit 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 05/03/2024 SOB (shortness of breath) on exertion 06/03/2024 Resolved Ambulatory Problems Diagnosis Date Noted Acute non-recurrent pansinusitis 06/08/2023 Acute bacterial conjunctivitis of both eyes 06/08/2023 Past Medical History: Diagnosis Date Benign essential hypertension Headache Hx of being hospitalized 2012 Hx of being hospitalized 2011 Morbid obesity ([facility]) (normal spontaneous vaginal delivery) ([facility]) 2011 PCOS (polycystic ovarian syndrome) Primary osteoarthritis of right knee URI, acute HISTORY PAST MEDICAL HISTORY SOCIAL HISTORY Past Medical History: Diagnosis Date Benign essential hypertension Headache Hx of being hospitalized 2012 dehydration Hx of being hospitalized 2011 hypertension due to Morbid obesity ([facility]) (normal spontaneous vaginal delivery) ([facility]) 2011 PCOS (polycystic ovarian syndrome) Primary osteoarthritis [...] Respiratory: Negative. Cardiovascular: Negative. Gastrointestinal: Negative. Genitourinary: Positive for dyspareunia, menstrual problem and pelvic pain. Musculoskeletal: Negative. Skin: Negative. Neurological: Negative. All other systems reviewed and are negative. Hematological: Negative. Endocrine: Negative. Allergic/Immunologic: Negative. OBJECTIVE Objective: Physical Exam Constitutional: Appearance: Normal appearance. She is well-developed. Genitourinary: Vulva normal. Cardiovascular: Rate and Rhythm: Normal rate and regular rhythm. Pulmonary: Effort: Pulmonary effort is normal. Breath sounds: Normal breath sounds. Abdominal: General: Bowel sounds are normal. There is no distension. Palpations: Abdomen is soft. Tenderness: There is no abdominal tenderness. There is no guarding or rebound. Musculoskeletal: General: No swelling. Normal range of motion. Right lower leg: No edema. Left lower leg: No edema. Neurological: Mental Status: She is alert and oriented to person, place, and time. Skin: General: Skin is warm and dry. Psychiatric: Mood and Affect: Mood normal. Behavior: Behavior normal. Vitals and nursing note reviewed. Exam conducted with a electronic sales and service technician present. Vitals: Estimated body mass index is 59.8 kg/m as calculated from the following: Height as of 12/02/24: 5' 6 . Weight as of 12/25/24: 370 lb 8 oz. BP: No LMP recorded. ASSESSMENT & PLAN ICD-10-CM 1. Pre-op examination Z01.818 POCT , urine manually resulted 2. Menorrhagia with regular cycle N92.0 Tissue exam 3. Pelvic pain in female R10.20 4. Abnormal uterine bleeding N93.9 5. Request for sterilization Z30.2 EMBX: Patient was placed in dorsal lithotomy position with feet in stirrups. A sterile speculum was placed into the vagina and the cervix was visualized. The cervix was grasped with a single tooth tenaculum. The endometrial pipette was placed through the cervix into the uterus, endometrial curettage was performed and sampling was obtained, endometrial curettings were placed in formalin, and single tooth tenaculum was removed. Excellent hemostasis was assured. All instruments were removed from vagina. Pre Op: Patient is doing well but has complaints of bleeding and pelvic pain. Patient has tried hormone therapy in the past but all attempts to subside patients issues have failed. I have discussed conservative management vs. surgical management with the patient in detail and patient desires surgical management at this time. Patient will undergo Endometrial Ablation with Roxana on 02/21/2025. Surgical consents were signed, mmc was reviewed, and patient is to proceed to [facility]. Follow Up: Patient is to follow up between 1-2 weeks post op to assess proper healing and recovery from procedure. Documented by Pina Patel LPN on behalf of: Molly Werner DO documented in this encounter [facility] 12-25-2024 History of Presen t illness Narrative Reason for Appointment: Patient ID: Emelyn Shipman is a 34 y.o. female who presents [...] (BMI) of 60.0 to 69.9 in adult ([facility]) 06/08/2023 Annual physical exam 05/03/2024 ADD (attention deficit 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 05/03/2024 SOB (shortness of breath) on exertion 06/03/2024 Resolved Ambulatory Problems Diagnosis Date Noted Acute non-recurrent pansinusitis 06/08/2023 Acute bacterial conjunctivitis of both eyes 06/08/2023 Past Medical History: Diagnosis Date Benign essential hypertension Headache Hx of being hospitalized 2012 Hx of being hospitalized 2011 Morbid obesity ([facility]) (normal spontaneous vaginal delivery) ([facility]) 2011 PCOS (polycystic ovarian syndrome) Primary osteoarthritis of right knee URI, acute HISTORY PAST MEDICAL HISTORY SOCIAL HISTORY Past Medical History: Diagnosis Date Benign essential hypertension Headache Hx of being hospitalized 2012 dehydration Hx of being hospitalized 2011 hypertension due to Morbid obesity ([facility]) (normal spontaneous vaginal delivery) ([facility]) 2011 PCOS (polycystic ovarian syndrome) Primary osteoarthritis [...] nursing note reviewed. Exam conducted with a electronic sales and service technician present. Vitals: Estimated body mass index is [...] of: SONAM Hernandez documented in this encounter [facility] 12-02-2024 History of Presen t illness Narrative Associated Problem(s): Essential hypertension, benign BP normal and monitor PRN. Associated Problem(s): Class 3 severe obesity due to excess calories with serious comorbidity and body mass index (BMI) of 60.0 to 69.9 in adult ([facility]) Patient overweight and difficult time losing weight. [...] were not included. Subjective Patient ID: Emelyn Shipman is a 34 y.o. female who presents [...] (BMI) of 60.0 to 69.9 in adult ([facility]) Patient overweight and difficult time losing weight. [...] at current dose. documented in this encounter [facility] 06-03-2024 History of Presen t illness Narrative [...] were not included. Subjective Patient ID: Emelyn Shipman is a 34 y.o. female who presents [...] 90 mcg/act inhaler documented in this encounter [facility] 05-03-2024 History of Presen t illness Narrative Associated Problem(s): Essential hypertension, benign (CMS/HCC) BP normal and monitor PRN. Associated Problem(s): Class 3 severe obesity due to excess calories with serious comorbidity and body mass index (BMI) of 50.0 to 59.9 in adult ([facility]) Weight loss indicated. Associated Problem(s): Annual physical [...] were not included. Subjective Patient ID: Emelyn Shipman is a 34 y.o. female who presents [...] 40 MG capsule documented in this encounter [facility] 06-08-2023 History of Presen t illness Narrative [...] spread of illness. Subjective Patient ID: Emelyn Shipman is a 33 y.o. female who presents for Eye Drainage and Cough. HPI Review of Systems Objective Physical Exam Assessment/Plan Subjective Patient ID: Emelyn Shipman is a 33 y.o. female who presents [...] % ophthalmic solution documented in this encounter [facility] Healthcare Evaluation note Diagnosis Acute non-recurrent pansinusitis- Primary Acute bacterial conjunctivitis of both eyes Morbid obesity due to excess calories ([facility]) documented in this encounter [facility] HealthcareEvaluation note* Diagnosis Annual physical exam- Primary Routine general medical examination at a health care facility Essential hypertension, benign ([facility]) Essential hypertension, benign 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 Class 3 severe obesity due to excess calories with serious comorbidity and body mass index (BMI) of 50.0 to 59.9 in adult ([facility]) documented in this encounter [facility] HealthcareEvaluation note* Diagnosis Annual physical exam- Primary Routine general medical examination at a health care facility Essential hypertension, benign ([facility]) Essential hypertension, benign 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 Class 3 severe obesity due to excess calories with serious comorbidity and body mass index (BMI) of 50.0 to 59.9 in adult ([facility]) ADD (attention deficit 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- Primary Attention deficit disorder 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 Essential hypertension, benign ([facility]) Essential hypertension, benign Bilateral primary osteoarthritis of knee Class 3 severe obesity due to excess calories with serious comorbidity and body mass index (BMI) of 50.0 to 59.9 in adult ([facility]) SOB (shortness of breath) on exertion Shortness of breath documented in this encounter [facility] HealthcareEvaluation note* Diagnosis Annual physical exam- Primary Routine general medical examination at a [facility] Essential hypertension, benign Essential hypertension, benign 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 Class 3 severe obesity due to excess calories with serious comorbidity and body mass index (BMI) of 50.0 to 59.9 in adult ([facility]) ADD (attention deficit 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- Primary Attention deficit disorder 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 Essential hypertension, benign Essential hypertension, benign Bilateral primary osteoarthritis of knee Class 3 severe obesity due to excess calories with serious comorbidity and body mass index (BMI) of 50.0 to 59.9 in adult ([facility]) SOB (shortness of breath) on exertion Shortness of breath Essential hypertension, benign- Primary Essential hypertension, benign Bilateral primary osteoarthritis of knee 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 Class 3 severe obesity due to excess calories with serious comorbidity and body mass index (BMI) of 60.0 to 69.9 in adult ([facility]) documented in this encounter [facility] HealthcareEvaluation note* Diagnosis Annual physical exam- Primary Routine general medical examination at a [facility] Essential hypertension, benign Essential hypertension, benign 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 Class 3 severe obesity due to excess calories with serious comorbidity and body mass index (BMI) of 50.0 to 59.9 in adult ([facility]) ADD (attention deficit 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- Primary Attention deficit disorder 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 Essential hypertension, benign Essential hypertension, benign Bilateral primary osteoarthritis of knee Class 3 severe obesity due to excess calories with serious comorbidity and body mass index (BMI) of 50.0 to 59.9 in adult ([facility]) SOB (shortness of breath) on exertion Shortness of breath Essential hypertension, benign- Primary Essential hypertension, benign Bilateral primary osteoarthritis of knee 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 Class 3 severe obesity due to excess calories with serious comorbidity and body mass index (BMI) of 60.0 to 69.9 in adult ([facility]) Well woman exam with routine gynecological exam Routine gynecological examination Menorrhagia with regular cycle documented in this encounter [facility] HealthcareEvaluation noteNo assessment information availableTwin City Hospital Work Phone: Evaluation note* Diagnosis Annual physical exam- Primary Routine general medical examination at a health care facility Essential hypertension, benign 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 Class 3 severe obesity due to excess calories with serious comorbidity and body mass index (BMI) of 50.0 to 59.9 in adult ([facility]) ADD (attention deficit 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- Primary Attention deficit disorder 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 Essential hypertension, benign Bilateral primary osteoarthritis of knee Class 3 severe obesity due to excess calories with serious comorbidity and body mass index (BMI) of 50.0 to 59.9 in adult ([facility]) SOB (shortness of breath) on exertion Shortness of breath Essential hypertension, benign- Primary Bilateral primary osteoarthritis of knee 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 Class 3 severe obesity due to excess calories with serious comorbidity and body mass index (BMI) of 60.0 to 69.9 in adult ([facility]) Pre-op examination Menorrhagia with regular cycle Pelvic pain in female Unspecified symptom associated with female genital organs Abnormal uterine bleeding Unspecified disorder of menstruation and other abnormal bleeding from female genital tract Request for sterilization documented in this encounter [facility] HealthcareReason for referral (narrative)No reason for referral information availableTwin City Hospital Work Phone: Summary Purpose Family History No Family History Records FoundNo Family History Records FoundNo Family History Records FoundNo Family History Records Found Advance Directives Advance Directive Response Recorded Date/ Time Advance Directives No December 1:37pm Chief Complaint and Reason for Visit Chief Complaint Admit Date Established Patient January 09, 2025 1:42pm Additional Source Comments INFORMATION SOURCE (unrecogn ized section and content) DATE CREATED AUTHOR 07/14/2022 [facility] DATE CREATED AUTHOR AUTHOR'S ORGANIZ ATION 10/15/2023 [facility] DATE CREATED AUTHOR AUTHOR'S ORGANIZ ATION 02/08/2025 [facility] DATE CREATED AUTHOR AUTHOR'S ORGANIZ ATION 02/11/2025 [facility] EPIC Reason for Visit (unrecogniz ed section and content) Reason Comments Eye Drainage Cough Reason Comments Annual Exam WELLNESS Reason Comments Follow-up 1 m Reason Comments Follow-up 6m Weight loss optio ns Knee Pain Reason Comments Well Women Visit Reason Comments Pre-op Visit embx Care Teams (unrecognized sec tion and content) Airplane Technician Relationship Specialty Start Date End Date Ananth Brunner MD [address] [place] [phone] PCP - General Family Medicine 06/08/23 Airplane Technician Relationship Specialty Start Date End Date Ananth Brunner MD [address] [place] [phone] PCP - General Family Medicine 06/08/23 Ananth Brunner MD [address] [place] [phone] PCP - Medical [place] [employer] 12/12/22 04/30/99 Airplane Technician Relationship Specialty Start Date End Date Ananth Brunner MD [address] [place] [phone] PCP - General Family Medicine 06/08/23 Ananth Brunner MD [address] [place] [phone] PCP - [facility] [place] [employer] 12/12/22 04/30/99 Airplane Technician Relationship Specialty Start Date End Date Ananth Brunner MD [address] [place] [phone] PCP - General Family Medicine 06/08/23 Ananth Brunner MD [address] [place] [address] PCP - [facility] [place] [employer] 12/12/22 04/30/99 Airplane Technician Relationship Specialty Start Date End Date Ananth Brunner MD [address] [place] [phone] PCP - General Family Medicine 06/08/23 Ananth Brunner MD [address] [place] [phone] PCP - [facility] [place] [employer] 12/12/22 04/30/99 Airplane Technician Relationship Specialty Start Date End Date Ananth Brunner MD [address] [place] [phone] PCP - General Family Medicine 06/08/23 Ananth Brunner MD [address] [place] [phone] PCP - [facility] [place] [employer] 12/12/22 04/30/99 Airplane Technician Relationship Specialty Start Date End Date Ananth Brunner MD [address] [place] [phone] PCP - General Family Medicine 06/08/23 Ananth Brunner MD [address] [place] [phone] PCP - [facility] [place] [employer] 12/12/22 04/30/99 Airplane Technician Relationship Specialty Start Date End Date Ananth Brunner MD [address] [place] [address] PCP - General Family Medicine 06/08/23 Ananth Brunner MD [address] [place] [address] PCP - [facility] [place] [employer] 12/12/22 04/30/99 Airplane Technician Relationship Specialty Start Date End Date Ananth Brunner MD [address] [place] [phone] PCP - General Family Medicine 06/08/23 Ananth Brunner MD [address] [place] [address] PCP - [facility] [place] [employer] 12/12/22 04/30/99 Airplane Technician Relationship Specialty Start Date End Date Ananth Brunner MD [address] [place] [address] PCP - General Family Medicine 06/08/23 Ananth Brunner MD [address] [place] [address] PCP - [facility] [place] [employer] 12/12/22 04/30/99 Airplane Technician Relationship Specialty Start Date End Date Ananth Brunner MD [address] [place] [address] PCP - General Family Medicine 06/08/23 Ananth Brunner MD [address] [place] [address] PCP - [facility] [employer] 12/12/22 04/30/99 Airplane Technician Relationship Specialty Start Date End Date Ananth Brunner MD PCP - General Family Medicine 06/08/23 Ananth Brunner MD [address] [place] [address] PCP - [facility] [employer] 12/12/22 04/30/99 Team Status: Active Member Role Status Dates Ananth Brunner MD Primary Care Provider Active Team Status: Active Member Role Status Dates Chayito Roe PA-C Attending Provider Active Start : December 25, 2024 Team Status: Inactive Member Role Status Dates Ananth Brunner MD Primary Care Provider Active S tart: January 09, 2025 End: January 09, 2025 Ananth Brunner MD Attending Provider Active Star t: January 09, 2025 End: January 09, 2025 Airplane Technician Relationship Specialty Start Date End Date Ananth Brunner MD PCP - General Family Medicine 06/08/23 Ananth Brunner MD [address] [place] [phone] [facility] [employer] 12/12/22 04/30/99 Goals (unrecognized section and content) Goals may be documented in a n alternate section FOR RECORDS PERTAINING TO PATIENTS WHO ARE [...] BE BASED ON THE PRIMARY CLINICAL RECORDS. [facility] [facility]. provides no warranty or guarantee of the accuracy or completeness of information in this document.
--- NOTE | 2025-02-11 14:49 | ECG_ITS ---
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 Measurements Intervals [place] Rate: 95 P: 56 ND: 121 QRS: 12 QRSD: 88 T: 18 QT: 340 QTc: 428 Interpretive Statements SINUS RHYTHM Normal ECG Compared to ECG 11/14/2016 14:13:48 No significant changes Electronically Signed On 02-11-2025 19:09:20 EDT by JUAN JOSE HOBSON M.D.
== END 2025-02-11 14:42 | disposition home or self-care (01) ==
LOC: PST 14:42
PROVIDERS: PCP Family Medicine; Visit Provider Obstetrics & Gynecology
DX: Z01.810 Encounter for preprocedural cardiovascular examination (principal); N92.0 Excessive and frequent menstruation with regular cycle; N93.9 Abnormal uterine and vaginal bleeding, unspecified; R10.30 Lower abdominal pain, unspecified
CPT/HCPCS: 93005

== ENCOUNTER 2025-02-21 08:50 | Day surgery (SDC) | payer OTHER, SELFPAY ==
[2025-02-11 15:18] VITALS: BP 141/85; PULSE 98; TEMP 36.2; O2SAT 98; BMI 58.9
--- OUTSIDE RECORDS SUMMARY | 2025-02-21 08:57 | XMS_ITS | CCD ---
Author Organization [facility] CliniSymi Care Team Providers Care Lumber Piler Name Role Phone CHAYITO NAIK Admitting Unavailable [...] Unavailable Ananth Brunner MD Primary Care Provider [phone] Ananth Brunner MD Attending Provider [phone] ANANTH BRUNNER Attending Unavailable ANANTH BRUNNER Attending Unavailable ANANTH BRUNNER Attending Unavailable CHAYITO ROE Attending Unavailable MOLLY WERNER Attending Unavailable Ananth Brunnre MD Unavailable Molly Werner DO Attending Provider [phone] Molly Werner Attending Unavailable Alphonso, Molly Admitting Unavailable ANANTH BRUNNER Primary Care Physician CONCHITA CASTELLANOS Attending Unavail able CONCHITA CASTELLANOS Attending Unavail able CHAYITO ROE Referring Unavailable Teagan Kwan Attending Unavailable Medications Current Medications MedicationDrug Class(es)DatesSig (Normalized)Sig (Original)[id number] 200 actuat albuterol 0.09 mg/actuat metered dose inhaler (13 sources)beta2-Adrenergic AgonistStart: 82-15-8146rhbl 1 puff(s) by inhalation every four hours as neededStart: 06-03-2024 End: 12-21-8993tspp 2 puff(s) by inhalation every four hours for wheezing albuterol HFA 90 mcg/act inhaler Indications: SOB (shortness of breath) on exertion Inhale 2 puffs every 4 (four) hours if needed for shortness of breath or wheezing 18 g 2 06/03/2024 06/03/2025 ActiveAlbuterol (Eqv-ProAir HFA) 90 mcg/inh inhalation aerosol (1 source)Start: 43-81-8286Osvitapvz (Eqv-ProAir HFA) 90 mcg/inh inhalation aerosol 2 inh, Inhalation, q6hr, INHALE 2 PUFFS BYMOUTH EVERY 4 HOURS NEEDED SHORTNESS OF BREATH and FOR WHEEZING Start Date: 02/14/25 Status: Ordered Repeat number: 1cefdinir 300 mg oral capsule (2 sources)Cephalosporin AntibacterialStart: 06-08-2023 End: 18-97-0957bnkw 1 capsule by mouth in the morningcefdinir (Omnicef) 300 MG capsule Indications: Acute non-recurrent pansinusitis Take 1 capsule (300mg) by mouth in the morning and 1 capsule (300 mg) before bedtime. Do all this for 10 days. 20 capsule 0 06/08/2023 06/18/2023 Activeciprofloxacin 3 mg/ml ophthalmic solution (2 sources)Quinolone AntimicrobialStart: 06-08-2023 End: 82-08-4957zrwp 2 drop(s) into the eye(s) every four hoursciprofloxacin (Ciloxan) 0.3 % ophthalmic solution Indications: Acute bacterial conjunctivitis of both eyes Administer 2 drops into both eyes every 4 (four) hours for 7 days 5 mL 0 06/08/2023 06/15/2023 ActivemetFORMIN hydrochloride 500 mg oral tablet (8 sources)BiguanideStart: 91-64-7624lzfm 1 tablet by mouth twice dailymetformin 500 mg Tab 500 mg = 1 tab(s), Oral, BID Start Date: 02/14/25 Status: Ordered Repeat number: 1Start: 12-25-2024 End: 58-03-8307wdkp 1 tablet by mouth once dailypredniSONE 50 mg oral tablet (2 sources)Start: 06-08-2023 End: 77-49-9088iokc 1 tablet by mouth in the morningpredniSONE (Deltasone) 50 MG tablet Indications: Acute non-recurrent pansinusitis Take 1 tablet (50mg) by mouth in the morning for 6 days. 6 tablet 0 06/08/2023 06/14/2023 Active Completed/Discontinued Medications MedicationDrug Class(es)DatesSig (Normalized)Sig (Original)atomoxetine 40 mg oral capsule (14 sources)Norepinephrine Reuptake InhibitorStart: 88-83-2417cehs 1 capsule by mouth once daily in the morningatomoxetine 40 mg Cap 40 mg = 1 cap(s), Oral, qAM, Take 1 capsule (40 mg) by mouth DAILY swallow capsule whole; do not open. If opened accidentally, do not touch eyes; wash hands immediately (productis an eye irritant) Start Date: 02/14/25 Status: Ordered Repeat number: 1Start: 16-92-1974jpjh 1 capsule by mouth once dailyStart: 05-03-2024 End: 85-02-9495fqbb 1 capsule by mouth once dailyatomoxetine (Strattera) 40 MG capsule Indications: ADD (attention deficit 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 Take 1 capsule (40 mg) by mouth Daily Swallow capsule whole; do not open. If opened accidentally, do not touch eyes; wash hands immediately (product is an eye irritant). 30 capsule 3 Discontinuedcelecoxib 200 mg oral capsule (20 sources)Nonsteroidal Anti-inflammatory DrugStart: 42-81-8232bvax 1 capsule by mouth twice daily as needed for paincelecoxib 200 mg Cap 200 mg = 1 cap(s), Oral, BID, TAKE 1 CAPSULE BY MOUTH TWICE DAILY NEEDED for mild pain Start Date: 02/14/25 Status: Ordered Repeat number: 1Start: 26-95-9207sxcn 1 capsule by mouth twice dailyStart: 06-06-2023 End: 27-73-7125nzqu 1 capsule by mouth twice dailyCelecoxib 200 mg capsule Active 200 MG PO Twice daily January 08, 2025 12:00am Complies with drug therapyphentermine hydrochloride 37.5 mg oral tablet (14 sources)Sympathomimetic Amine AnorecticStart: 90-50-4552qjtd 1 tablet by mouth once daily 30 minutes after breakfastphentermine 37.5 mg Tab 37.5 mg = 1 tab(s), Oral, Daily, TAKE 1 TABLET BY MOUTH 30 MINUTES before or 1-2 hours after BREAKFAST Start Date: 02/14/25 Status: Ordered Repeat number: 1Start: 12-02-2024 End: 32-26-9094xuuz 1 tablet by mouth once daily 30 minutes after breakfast Phentermine 37.5 mg tablet Discontinued 37.5 MG PO Daily January 09, 2025 2:03pm January 09, 2025 2:14pm must administer 30 minutes before or 1-2 hours after breakfast Problems Active Problems Problem ClassificationProblemDateDocumented DateEpisodic/ChronicContraceptive and procreative management (1 source)Sterilization requested; Translations: [Encounter for sterilization] 85-68-5864FwdahrebVjxoeenio usually diagnosed in infancy, childhood, or adolescence (20 sources)Attention deficit hyperactivity disorder, predominantly inattentive type; Translations: [Other specified behavioral and emotional disorders with onset usually occurring in childhood and adolescence]Onset: ChronicEssential hypertension (20 sources)Benign essential hypertension; Translations: [Essential (primary) hypertension]Onset: 279859-67-5446RrlnzruWlsujrocnkpko symptoms and ill- defined conditions (6 sources)Urge incontinence; Translations: [Unspecified urinary incontinence] Onset: 24-83-7861GntjnihPtvxlipuwpjhk symptoms and ill-defined conditions (2 sources)History of urinary tract infection; Translations: [Personal history of urinary (tract) infections]Onset: 53-31-6092KkfwlwunLkwfbkqdu disorders (3 sources)Menorrhagia; Translations: [Excessive and frequent menstruation with regular cycle]Onset: 950526-23-7343RfujiooJbqhsfujxri deficiencies (20 sources)Vitamin D deficiency; Translations: [Vitamin D deficiency, unspecified]Onset: 450136-69-4247EwnfafqMlvdanuulkeeex (20 sources)Primary gonarthrosis, bilateral; Translations: [Bilateral primary osteoarthritis of knee]Onset: 449731-97-3974MksrhwhBvcdp connective tissue disease (1 source)Disorder of muscle; Translations: [Other specified disorders of muscle]Onset: 70-04-4616VdpnrpcsAhgpl connective tissue disease (1 source)Pelvic floor lwsblvcujrf93-52-6813OidtjwagGxota endocrine disorders (20 sources)Polycystic ovary syndrome; Translations: [Polycystic ovarian syndrome]Onset: 622867-75-5231QndkghfRddac female genital disorders (1 source)Abnormal uterine bleeding; Translations: [Abnormal uterine and vaginal bleeding, unspecified]89-54-8240LgtjvfxHxfbq female genital disorders (1 source)Pain in female pelvis; Translations: [Pelvic pain in female]02-10-2025 EpisodicOther lower respiratory disease (15 sources)Dyspnea on exertion; Translations: [Shortness of breath]Onset: 599542-88-4702TkqgpvozBbbhk non-traumatic joint disorders (1 source)Arthritis of kneeOnset: 098292-93-0108WivtghcWwecg nutritional; endocrine; and metabolic disorders (5 sources)Morbid obesity; Translations: [Morbid (severe) obesity due to excess calories]Onset: 189616-61-8379SbvowanTnfne nutritional; endocrine; and metabolic disorders (20 sources)Severe obesity; Translations: [Class 3 severe obesity due to excess calories with serious comorbidity and body mass index (BMI) of 50.0 to 59.9 in adult ([facility])]Onset: 434124-24-7224JlaolrgErxsb screening for suspected conditions (not mental disorders or infectious disease) (4 sources)Encounter for screening for malignant neoplasm of cervix; Translations: [ENC SCREENING MALIG NEOPLASM CERV]Onset: 48-77-9527Krdrtjtt Unclassified (3 sources)CONTACT W/AND (SUSP) EXPOS COVID-19; Translations: [CONTACT W/AND (SUSP) EXPOS COVID-19]Onset: 04-11-2022 Past or Other Problems Problem ClassificationProblemDateDocumented DateEpisodic/ChronicInflammation; infection of eye (except that caused by tuberculosis or sexually transmitteddisease) (20 sources)Acute infectious conjunctivitis; Translations: [Unspecified acute conjunctivitis, bilateral]Onset: 06-08-2023 Resolved: 087517-64-4041VnheaogxMtptq injuries and conditions due to external causes (1 source)Sprain of spinal ligamentOnset: 367922-93-8100PmfessaaPcstd upper respiratory infections (20 sources)Acute upper respiratory infection, unspecified; Translations: [Acute pansinusitis]Onset: 04-11-2022 Resolved: 017777-03-4659FofirgxhWaczwhcsrpyq (1 source)CONTACT W/AND (SUSP) EXPOS COVID-19; Translations: [CONTACT W/AND (SUSP) EXPOS COVID-19]Onset: 04-07-2022 Results Test NameValueInterpretationReference RangeFacilityUrology Office/Clinic Noteon 52-11-6184Xmwliki Office/Clinic NoteUrology Office/Clinic Note Chief Complaint New [...] with voice recognition artificial intelligence software, specifically [employer], [employer] and or [employer]. Substitutions may have occurred due to the [...] 02/14/2025 Tobacco quit 2008 (more content not included)...[facility] Medical CenterComment on above:Result Comment: Electronically Signed By: CONCHITA CASTELLANOS MD\.br\Date and Time Signed: 02/14/25 15:04 EDT\.br\Electronically Co- Signed By: Jessica Kessler\.br\Date and Time Co-Signed: 02/14/25 14:32 EDTHCG ( test) Ql (U)on 92-13-3699Jjnynsvmwtknmi and review of laboratory resultsNormalNOMS HealthcarePreg Test, UrNegativeNegativeNOMS HealthcareNOMS HealthcareUS PELVIS W/ TRANSVAGINALon 95-24-2749[address] [address] Ultrasound Report Signed Patient: EMELYN SHIPMAN MR#: [id number] : 1990 Acct:[id number] Age/Sex: 34 / F ADM Date: 01/03/25 Loc: US Attending Dr: Chayito Roe Ordering Physician: Chayito Roe Date of Service: 01/03/25 Procedure(s): US pelvis w/ transvaginal Accession Number(s): [id number] cc: Chayito Roe; Ananth Brunner M.D. The [address] [id number] Patient Name: EMELYN SHIPMAN MRN: [id number] date: 1990 Sex: F Assigned Patient Location: [place] Current Patient Location: [place] Accession/Order Number: [id number] Exam Date: 01/03/2025 09:30 Report Date: 01/03/2025 [...] Allen M.D. 01/03/2025 10:25 AM Dictation Location: [place] [address] Electronically authenticated by: [id number] Y Date: 01/03/2025 10:25 Dictated By: Adenike Allen M.D. Signed By: 01/03/25 1028 DD/ 1025 TD/TT: Boxing Instructor:TBHRadiology, Radiologist, - 01/03/2025 [place] [address] Ultrasound Report Signed Patient: EMELYN SHIPMAN MR#: [id number] : 1990 Acct:[id number] Age/Sex: 34 / F ADM Date: 01/03/25 Loc: US Attending Dr: Chayito Roe Ordering Physician: Chayito Roe Date of Service: 01/03/25 Procedure(s): US pelvis w/ transvaginal Accession Number(s): [id number] cc: Chayito Roe; Ananth Brunner M.D. The [address] [address] Patient Name: EMELYN SHIPMAN MRN: [id number] date: 1990 Sex: F Assigned Patient Location: [place] Current Patient Location: [place] Accession/Order Number: [id number] Exam Date: 01/03/2025 09:30 Report Date: 01/03/2025 [...] Allen M.D. 01/03/2025 10:25 AM Dictation Location: [facility]PR[facility]OSPITALAvailigent Electronically authenticated by: [id number] Y Date: 01/03/2025 10:25 Dictated By: Adenike Allen M.D. Signed By: 01/03/25 1028 DD/ 1025 TD/TT: Boxing Instructor: [facility] HealthcareRadiology Study observation (narrative)[facility] HealthcareUS PELVIS W/ TRANSVAGINALOrdered By: Radiologist Radiology on 47-90-2766[facility] Work Phone: IGP,APTIMA HPV,AGE GDLNon 66-46-3967JOU GDLN ACOG TESTINGNote.[facility] HealthcareComment on above:TESTS RESULT FLAG UNITS REF RANGE LAB Clinician Provided Cytology Information Source.............Cervix;Endocervix No. of containers..01 ThinPrep Vial Age Brandon KULKARNI Opal... 30 FLAG LEGEND: L-Low Normal,H-High Normal,LL-Alert Low,HH-Alert High <-Panic Low,>-Panic High,A-Abnormal,AA-Critical Abnormal Performed at: 01 =[address] [address] Cheli Flores MD, HPV APTIMANegativeNegativeNOMS HealthcareComment on above:This nucleic acid amplification test detects fourteen high- risk HPV types (16,18,31,33,35,39,45,51,52,56,58,59,66,68) without differentiation. Performed at: =[address] [id number] Lumber Piler: Cheli Flores MD, Phone: [phone] Performed at: [address] [id number] Lumber Piler: hCeli Flores MD, Phone: [phone] IGP, APTIMA HPV, RFX 16/18,45Note.NOMS HealthcareComment on above:TESTS RESULT FLAG UNITS REF RANGE LAB DIAGNOSIS: 02 NEGATIVE FOR INTRAEPITHELIAL LESION OR MALIGNANCY. Specimen adequacy: 02 Satisfactory for evaluation. Endocervical and/or squamous metaplastic cells (endocervical component) are present. Performed by: 02 Guilherme Duron Environmental Quality Analyst ([facility]) . 02 Note: Note 02 The [...] <-Panic Low,>-Panic High,A-Abnormal,AA-Critical Abnormal Performed at: [address] [address] Cheli Flores MD, BRUSH-SPATULA CERVIX ENDOCERVIX CLINISYNCNOMS HealthcareALL CBC WITH AUTO DIFFon 03-43-8533AOLGIERRD ABSOLUTE AUTO0.1NOMS HealthcareBasophils/100 WBC (Bld)0.7 %0.2 - 2.0 %[facility] Eosinophils/100 WBC (Bld)4.5 %0.9 - 7.0 %NOMS HealthcareErythrocyte distribution width (RBC) [Ratio]14.1 %11.0 - 15.0 %NOMS HealthcareHematocrit (Bld) [Volume fraction]42.3 %36.0 - 48.0 %N[facility] HealthcareHemoglobin (Bld) [Mass/Vol]13.3 g/dL 12.0 - 16.0 g/dLNOMS HealthcareIMMATURE GRANULOCYTES ABS AUTO0.07HighNOHI HealthcareImmature granulocytes/100 WBC (Bld)0.8 %High0.0 - 0.5 %[facility] Interpretation and review of laboratory resultsAbnormalNOHI Healthcare LYMPHOCYTES ABSOLUTE AUTO2.3NOMS [facility] HospitalLymphocytes/100 WBC (Bld)25.2 %20.5 - 60.0 %[facility] CenterH (RBC) [Entitic mass]26.1 pgLow26.7 - 34.0 pgNOSainte Genevieve County Memorial HospitalHC (RBC) [Mass/Vol]31.4 g/dL29.9 - 35.2 g/dLNOSainte Genevieve County Memorial HospitalV (RBC) [Entitic vol]82.9 fL81.0 - 99.0 fLCox SouthMONOCYTES ABSOLUTE AUTO0.8NOMS HealthcareMonocytes/100 WBC (Bld)8.8 %1.7 - 12.0 %[facility] SouthNEUTROPHILS ABSOLUTE AUTO5.5NOMS HealthcareNeutrophils/100 WBC (Bld)60 %43.0 - 75.0 %[facility] SouthPlatelet mean volume (Bld) [Entitic vol]8.4 fLLow9.5 - 13.5 fLCox SouthTBH EO #0.4NOMS [facility]ers HospitalTB ZZP181ERVXFitzgibbon Hospital RBC5.1NOMS [facility]ers HospitalTB WBC9.1NOMS HealthcareCLINISYNCNJefferson Memorial HospitalHuman papilloma virus 16+18+31+33+35+39+45+51+52+56+58+59+66+68 DNA [Presence] in CerOrdered By: Chayito Roe on 67-57-1744HMA 16+18+31+33+35+39+45+51+52+56+58+59+66+68 DNA Probe+sig amp Ql (Cvx)NegativeNegativeMemorial Health SystemComment on above: This nucleic acid amplification test detects fourteen high-risk HPV types (16,18,31,33,35,39,45,51,52,56,58,59,66,68)without differentiation.Performed at: =[facility] Lab[address] [id number] Director: Cheli Flores MD, Phone: [phone] at: WB - [facility] [id number] [facility], [place], [facility]zaTri[facility], [place] [id number] Director: Cheli Flores MD, Phone: [phone] Panel InformationOrdered By: Chayito Roe on 41-99-6938IPE High Risk Other CommentNote.Memorial Health SystemComment on above:TESTS RESULT FLAG UNITS REF RANGE LAB DIAGNOSIS: 02 NEGATIVE FOR INTRAEPITHELIAL LESION OR MALIGNANCY.Specimen adequacy: 02 Satisfactory forevaluation. Endocervical and/or squamous metaplastic cells (endocervical component) are present.Performed by: Nany Duron, Environmental Quality Analyst ([facility]). 02Note: Note 02 The Pap smear [...] Low,>- Panic High,A-Abnormal,AA-Critical Abnormal Performed at:02 [facility] [place] [address] [place] [address] Cheli Flores MD, Jkftixmfe Lab Test Patient Memorial Health SystemComment on above:TESTS RESULT FLAG UNITS REF RANGE LAB Clinician Provided Cytology Information Source.............Cervix;Endocervix No. of containers..01 ThinPrep VialAge Algo ACOG Opal... FLAG LEGEND: L-Low Normal,H-High Normal,LL-Alert Low,HH-Alert High <-Panic Low,>-Panic High,A- Abnormal,AA-Critical Abnormal Performed a t:01 =G [facility] [address] [address] Cheli Flores MD, XYH CBC WITH AUTO DIFFon 27-77-5964YGADAIIGZ ABSOLUTE AUTO0.1NOMS HealthcareBasophils/100 WBC (Bld)0.8 %0.2 - 2.0 %NOMS HealthcareEosinophils/100 WBC (Bld)3 %0.9 - 7.0 %NOMS HealthcareErythrocyte distribution width (RBC) [Ratio]14 %11.0 - 15.0 %NOMS HealthcareHematocrit (Bld) [Volume fraction]42 %36.0 - 48.0 %NOMS HealthcareHemoglobin (Bld) [Mass/Vol] 13.4 g/dL12.0 - 16.0 g/dLNOMS HealthcareIMMATURE GRANULOCYTES ABS AUTO0.08High NOMS HealthcareImmature granulocytes/100 WBC (Bld)0.9 %High0.0 - 0.5 %[facility] HealthcareInterpretation and review of laboratory resultsAbnormalNOMineral Area Regional Medical Center LYMPHOCYTES ABSOLUTE AUTO2.6NOMineral Area Regional Medical CenterLymphocytes/100 WBC (Bld)28.6 %20.5 - 60.0 %[facility] CenterH (RBC) [Entitic mass]26.7 pg26.7 - 34.0 pgNOSainte Genevieve County Memorial HospitalHC (RBC) [Mass/Vol]31.9 g/dL29.9 - 35.2 g/dLLafayette Regional Health CenterV (RBC) [Entitic vol]83.7 fL81.0 - 99.0 fLCox SouthMONOCYTES ABSOLUTE AUTO0.8NOHI HealthcareMonocytes/100 WBC (Bld)8.2 %1.7 - 12.0 %[facility] SouthNEUTROPHILS ABSOLUTE AUTO5.4NOMineral Area Regional Medical CenterNeutrophils/100 WBC (Bld)58.5 %43.0 - 75.0 %[facility]ox SouthPlatelet mean volume (Bld) [Entitic vol]8.6 fLLow9.5 - 13.5 fLNOMineral Area Regional Medical CenterTBH EO #0.3NOMS HealthcareTB [id number] Hospital RBC5.02NOMineral Area Regional Medical CenterTB WBC9.2NOMS HealthcareCLINISYNCNJefferson Memorial HospitalMLR HEMOGLOBIN A1Con 36-27-4431Twsexdi [Mass/Vol]105 mg/dLCox SouthHbA1c (Bld) [Mass fraction] 5.3 %4.5 - 6.2 %[facility] HealthcareComment on above:ADA RECOMMENDED LIMIT 4.0 - 6.0 ADA THERAPEUTIC TARGET < 7.0 ACTION SUGGESTED > 7.0 CLINISYNCCox SouthPAP ACOG PANEL 2: 30 to 65on 06-17-2022..NormalThe [facility]sburg HospitalComment on above:Result Comment: Performed at: WBPerformed By: #### [id number] #### [facility] [address], [place] [address] Dr. New Orozco Gdln ACOG Nkfgqry31-41AbhxvnUtsSelect Medical Specialty Hospital - Columbus SouthComment on above:Performed By: #### [id number] #### [facility] [address] [place] [address] Dr. New ArzateDIAGNOSIS:CommentMercy Health St. [facility] Medical Center on above: Result Comment: NEGATIVE FOR INTRAEPITHELIAL LESION OR MALIGNANCY. THIS SPECIMEN WAS RESCREENED PART OF OUR GAME PRODUCER PROGRAM. Performed at: WBPerformed By: #### [id number] #### [facility] [address] [place] [address] Dr. New GuillenV AptimaNegativeNormalNegativeKnox Community Hospital on above:Result Comment: This nucleic acid amplification test detects fourteen high-risk HPV types (16,18,31,33,35,39,45,51,52,56,58,59,66,68) without differentiation. Performed at: =GPerformed By: #### [id number] #### [facility] [address] [place] [address] Dr. New Dolan Genotype ReflexCommentMercy Health St. Vincent Medical Center on above:Result Comment: Criteria not met, HPV Genotype not performed. Performed at: WBPerformed By: #### [id number] #### [facility] [address] [place] [address] Dr. New ArzateMethodology:CommentNoAdams County Hospital on above: Result Comment: This liquid based ThinPrep(R) pap test was screened with the use of an image guided system. Performed at: WBPerformed By: #### [id number] #### [facility] [address] [place] [address] Dr. New ArzateNote:CommentNoAdams County Hospital on above:Result Comment: The Pap smear is a screening test designed to aid in the detection of premalignant and malignant conditions of the uterine cervix. It is not a diagnostic procedure and should not be used as the sole means of detecting cervical cancer. Both false-positive and false-negative reports do occur. . Performed at: WBPerformed By: #### [id number] #### [facility] [address] [place] [address] Dr. New ArzatePerformed by:CommentNoAdams County Hospital on above: Result Comment: Fide Gayle, Supervisory Controller Operations And Hr Manager (ASCP) Performed at: WBPerformed By: #### [id number] #### [facility] [address] [place] [address] Dr. New Hernandez reviewed by:[facility] on above:Result Comment: Analisa Jesus, Supervisory Controller Operations And Hr Manager (ASCP) Performed at: WBPerformed By: #### [id number] #### [facility] [address] [place] [address] Dr. New ArzateSpecimen adequacy:CommentMercy Health St. Vincent Medical Center on above:Result Comment: Satisfactory for evaluation. Endocervical and/or squamous metaplastic cells (endocervical component) are present. Performed at: WBPerformed By: #### [id number] #### [facility] [address] [place] [address] Dr. New ArzateCytology Cervical or vaginal smear or scraping studyon 06-09-2022 NOMS HealthcareRESPIRATORY PANEL PLUSon 41-02-0327WzzsixtxbmFfy detectedNormal NOT DETECTEDThe [facility] HospitalComment on above:Performed By: #### RSPLUS #### [facility] [address] [place] [address] Dr. New Wyatt ParapertusisNot detectedNormalNOT DETECTEDThe [facility] HospitalComment on above:Performed By: #### RSPLUS #### [facility] [address] [place] [address] Dr. New Wyatt PertussisNot detectedNormalNOT DETECTEDThe [facility] Comment on above:Performed By: #### RSPLUS #### [facility] [address] [place] [address] Dr. New ArzateChlamydia PneumoniaeNot detectedNormalNOT DETECTEDThe [facility] HospitalComment on above:Performed By: #### RSPLUS #### [facility] [address] [place] [address] Dr. New ArzateCoronavirus 229ENot detectedNormalNOT DETECTEDThe [facility] HospitalComment on above:Performed By: #### RSPLUS #### [facility] [address] [place] [address] [address] New ArzateCoronavirus HSG4Phs detectedNormalNOT DETECTEDThe [facility] HospitalComcorewell health reed city hospital on above:Performed By: #### RSPLUS #### [facility] [address] [place] [address] [address] New ArzateCoronavirus YK41Won detectedNormalNOT DETECTEDThe [facility] HospitalComment on above:Performed By: #### RSPLUS #### [facility] [address] [place] [address] [address] New ArzateCoronavirus DW17Fpd detectedNormalNOT DETECTEDThe [facility] HospitalComcorewell health reed city hospital on above:Performed By: #### RSPLUS #### [facility] [address] [place] [address] [address] [place] A H1 2009Not detectedNormalNOT DETECTEDThe [facility] HospitalComcorewell health reed city hospital on above:Performed By: #### RSPLUS #### [facility] [address] [place] [address] [address] [place] A N8PqzkcjvqCfsxgxxrOMY DETECTEDThe [facility] Comment on above:Performed By: #### RSPLUS #### [facility] [address] [place] [address] [address] [place] BNot detectedNormalNOT DETECTEDThe [facility] Comment on above:Performed By: #### RSPLUS #### [facility] [address] [place] [address] [address] New SquiresapneumovirusNot detectedNormalNOT DETECTEDThe [facility] [facility]Com[facility] on above:Performed By: #### RSPLUS #### [facility] [address] [address] [address] [place]. PneumoniaeNot detectedNormalNOT DETECTEDThe [facility] HospitalComcore[facility] on above:Performed By: #### RSPLUS #### [facility] [address] [address] [address] New Ariasenza 1Not detectedNormalNOT DETECTEDThe [facility] HospitalComment on above:Performed By: #### RSPLUS #### [facility] [address] [address] [address] [place] 2Not detectedNormalNOT DETECTEDThe [facility] HospitalComment on above:Performed By: #### RSPLUS #### [facility] [address] [address] [address] [place] 3Not detectedNormalNOT DETECTEDThe [facility] HospitalComment on above:Performed By: #### RSPLUS #### [facility] [address] [address] [address] [place] 4Not detectedNormalNOT DETECTEDThe [facility] HospitalComcore[facility] on above:Performed By: #### RSPLUS #### [facility] [address] [place] [address] Dr. New ArzateRhino/EnterovirusNot detectedNormalNOT DETECTEDThe [facility] HospitalComment on above:Performed By: #### RSPLUS #### [facility] [address] [place] [address] Dr. New [place] Header 1RESPIRATORY PANEL: VIRUSESTriHealth Comment on above:Performed By: #### RSPLUS #### [facility] [address] [place] [address] Dr. New [place] Header 2RESPIRATORY PANEL: BACTERIATriHealthComment on above:Performed By: #### RSPLUS #### [facility] [address] [place] [address] Dr. New CohnVNot detectedNormalNOT DETECTEDThe [facility] HospitalComcore[facility] on above:Performed By: #### RSPLUS #### [facility] [address] [place] [address] Dr. New Martínez-CoV-2 (COVID-19) RNA ANGEL+probe Ql (Unsp spec)Not detected NormalNOT DETECTEDThe [facility] HospitalComment on above:Performed By: #### RSPLUS #### [facility] [address] [address] [address] [place] Vital Signs Date TimeVital SignValuePerforming JpkceyytdVmymkwxk81-81-0268 09:21-0400Body lsegzj867.6 cmCorey Alphonso DO Work Phone: [facility]Bvdjsxxicu10-20-5469 09:21-0400Body mass index (BMI) [Ratio]58.91 kg/d7Mwxjf Alphonso DO Work Phone: [facility] SouthUymvatpfbs25-61-5359 09:21-0400Body ijssui691.56 kgCorey Alphonso DO Work Phone: [phone] SouthDnhrdtrxbz76-27-6247 09:21-0400Diastolic blood cptyvyno30 mm[Hg]Molly Alphonso DO Work Phone: [facility] SouthCsnraeqcvc71-96-0393 09:21-0400Systolic blood dghoymxh359 mm[Hg]Molly Alphonso DO Work Phone: [facility] SouthDgtlusuvsc55-57-8290 13:50-0400Body .64 cmAnanth Brunner MD Work Phone: [phone]09-11-2025 13:50-0400 Body mass index (BMI) [Ratio]59.8 kg/m2Ananth Brunner MD Work Phone: [phone]09-11-2025 13:50-0400 Body oydvsyiuwbz71.7 [degF]Ananth Brunner MD Work Phone: [phone] [place], [place] [address]75009-11-2025 13:50-0400 Body .28 kgAnanth Brunner MD Work Phone: [phone]09-11-2025 13:50-0400 Diastolic blood ybxlgfed80 mm[Hg]Ananth Brunner MD Work Phone: [phone]09-11-2025 13:50-0400 Heart fvjh605 /minAnanth Brunner MD Work Phone: [phone])[address]09-11-2025 13:50-0400 Respiratory rate22 /minAnanth Brunner MD Work Phone: [facility]09-11-2025 13:50-0400 SaO2% (BldA) [Mass fraction]96 %Ananth Brunner MD Work Phone: [facility]09-11-2025 13:50-0400 Systolic blood uelypwop657 mm[Hg]Ananth Brunner MD Work Phone: [facility]08-27-2025 14:25-0400 Body mass index (BMI) [Ratio]59.8 kg/m2Chayito Roe PA Work Phone: [facility] SouthAywbuzclwn09-18-9399 14:25-0400Body dzpets869.06 kgChayito Roe PA Work Phone: [facility] SouthFbhdavvvxi55-38-4211 14:25-0400Diastolic blood fydvyqun59 mm[Hg]Chayito MASTERS Work Phone: [facility] SouthExdoqtvsrh32-14-1801 14:25-0400Systolic blood fzdyjuqk891 mm[Hg]Chayito MASTERS Work Phone: [facility] SouthTzhfxnadvn32-44-8913 13:29-0400Body xtkfax637.6 cmAnanth Brunner MD Work Phone: [facility] SouthEcgqzijhxp31-40-9619 13:29-0400Body mass index (BMI) [Ratio]60.85 kg/m2Ananth Brunner MD Work Phone: [facility] SouthFivygbajco03-44-2543 13:29-0400Body temperature 97.5 [degF]Ananth Brunner MD Work Phone: [facility] SouthIejmgbzbwm21-68-2527 13:29-0400Body .01 kgAnanth Brunner MD Work Phone: [facility] SouthGimrdytknw12-44-3038 13:29-0400Diastolic blood oxccltsu91 mm[Hg]Ananth Brunner MD Work Phone: [address] [address]Iatcweltkl81-35-1768 13:29-0400Heart dnpq409 /min Ananth Brunner MD Work Phone: [facility] SouthEqfbguayiw76-49-7983 13:29-0400Respiratory rate22 /minAnanth Brunner MD Work Phone: [facility] SouthMsictdefxa72-63-9386 13:29-2151WyR3% (BldA) [Mass fraction]99 %Ananth Brunner MD Work Phone: [facility] SouthOctbaxciha86-69-1183 13:29-0400Systolic blood ugunhwtg164 mm[Hg]Ananth Brunner MD Work Phone: [phone] [place], [place] [address]Xbcngmgsmv12-45-8295 08:46-0500Body .6 cmAnanth Brunner MD Work Phone: [phone] [place], [place] [address]Ifgnkqeqym04-52-9602 08:46-0500Body mass index (BMI) [Ratio]56.65 kg/m2Ananth Brunner MD Work Phone: 1([phone] [place], [place] [address]Fprofzjrth96-55-2336 08:46-0500Body temperature 97.3 [degF]Ananth Brunner MD Work Phone: [phone] [place], [place] [address]Lldkgaqkfh97-66-9073 08:46-0500Body jcchiv168.21 kgAnanth Brunner MD Work Phone: [facility] SouthWmayxzgvqx40-94-4068 08:46-0500Diastolic blood jpdeylob82 mm[Hg]Ananth Brunner MD Work Phone: [facility] SouthSdyleidgxd40-03-7520 08:46-0500Heart iemr529 /min Ananth Brunner MD Work Phone: [facility] SouthWisquzydbg02-97-7750 08:46-0500Respiratory rate22 /minAnanth Brunner MD Work Phone: [facility] SouthRbnjrewenm57-79-4253 08:46-8896IsR0% (BldA) [Mass fraction]97 %Ananth Brunner MD Work Phone: 1([phone] [place], [place] [address]Fcklbzcibi09-23-1679 08:46-0500Systolic blood mm[Hg]Ananth Brunner MD Work Phone: [facility] SouthBtmjoagxju65-71-5007 09:41-0500Body isljro058.6 cmAnanth Brunner MD Work Phone: [facility] SouthQeuogrnrqv70-91-1497 09:41-0500Body mass index (BMI) [Ratio]56.01 kg/m2Ananth Brunner MD Work Phone: [phone] [place], [place] [address]Qiynjrbbse90-32-2051 09:41-0500Body temperature 97.11 [degF]Ananth Brunner MD Work Phone: [phone] [place], [place] [address]Dwxvculfek74-36-8720 09:41-0500Body nojhuf090.4 kgAnanth Brunner MD Work Phone: [facility] SouthStbjihdnqt54-35-2931 09:41-0500Diastolic blood sfvjgzcu05 mm[Hg]Ananth Brunner MD Work Phone: 1(026)608-[address] [place], [place] [address]Uebyjtuhka43-80-3866 09:41-0500Heart rate94 /min Ananth Brunner MD Work Phone: [facility] SouthGvggpoffwx52-88-6137 09:41-0500Respiratory rate20 /minAnanth Brunner MD Work Phone: [facility] SouthHvkzkynoue27-23-6501 09:41-5481AoD5% (BldA) [Mass fraction]97 %Ananth Brunner MD Work Phone: [facility] SouthEmwdvymhwj99-84-5727 09:41-0500Systolic blood mm[Hg]Ananth Brunner MD Work Phone: [facility] SouthNnfhxmvwtt54-88-6172 11:50-0500Body jjorzu885.6 cmAnanth Brunner MD Work Phone: [facility] SouthWzzcgzdhmj85-27-8633 11:50-0500Body mass index (BMI) [Ratio]53.91 kg/m2Ananth Brunner MD Work Phone: [facility] SouthTocxzzeywb22-28-5750 11:50-0500Body temperature 97.5 [degF]Ananth Brunner MD Work Phone: [facility]in[facility] CenterNhesrartpz40-10-2929 11:50-0500Body rjnoif556.5 kgAnanth Brunner MD Work Phone: noMineral [facility] Medical CenterBzcfrhoail32-88-3060 11:50-0500Diastolic blood mgkggyfo47 mm[Hg]Ananth Brunner MD Work Phone: [facility] SouthFzsgjxunyt28-58-4630 11:50-0500Heart rate94 /min Ananth Brunner MD Work Phone: [facility] SouthJthqomnmzi53-56-8809 11:50-6931NfT7% (BldA) [Mass fraction]97 %Ananth Brunner MD Work Phone: noMineral Area [facility] Medical CenterIjqmqjeyfe66-02-2783 11:50-0500Systolic blood tycdjckz406 mm[Hg]Ananth Brunner MD Work Phone: [facility] Encounters Encounter DateEncounter TypeCare ProviderFacilityStart: 19-50-2741lpapiqgcls CONCHITA CASTELLANOSFacility:EU [facility] HospitalyStart: 02-14-2025 End: 15-76-8733hpskjnrbmuFQPYORQ NKANSAH-AMANKRAFacility:EU [facility] HospitalyStart: 02-14-2025 End: 68-39-2566Siiesld encounter procedureCONCHITA CASTELLANOS [facility] Start: 02-10-2025 End: 09-16-8592yvulscyspkIlws Naderer MD Work Phone: [facility] Work Phone: Start: 02-10-2025 End: 75-88-9760Tsongkbz ReferredCorey Alphonso-LAB Path Spec [facility] HospStart: 02-10-2025 End: 34-57-3700Zokxjug encounter procedureCorey Alphonso DO Work Phone: [facility] [place] OBGYNComment on above:Pre-op examination; Menorrhagia with regular cycle; Pelvic pain in female; Abnormal uterine bleeding; Request for sterilizationStart: 02-10-2025 End: 86-50-3380Hpsrndlpuxmgg examination doneCorey Alphonso DO Work Phone: [facility] HealthcareStart: 02-10-2025 End: 54-94-4328blcxeikuerNSXHS FAZIONot AvailableStart: 50-52-7786phamgoydbd CONCHITA NKKRYSTALAH-AMANKRAFacility:EU [place]Start: 01-09-2025 End: 57-36-3728nqnbwnnnxiTkad Naderer MD Work Phone: [facility] Work Phone: Start: 01-09-2025 End: 48-45-2992Lewjjnt encounter Cristian Brunner MD-[facility] Work Phone: Start: 01-03-2025 End: 00-41-5311Dtmuyaakv Result EncounterChayito MASTERS Work Phone: [facility] External Department UnsolicitedStart: 01-03-2025 End: 72-92-2266Zjobghfkl Result EncounterAmy Anil MASTERS Work Phone: [facility] External Department UnsolicitedStart: 12-27-2024 End: 21-69-7706Iptpnptdw Result EncounterAmy Anil MASTERS Work Phone: [facility] External Department UnsolicitedStart: 12-27-2024 End: 70-37-9496Qavdbzfko Result EncounterChayito MASTERS Work Phone: n[facility] External Department UnsolicitedStart: 12-25-2024 Non-patient / Non-visitChayito MASTERS-[facility] Work Phone: Start: 12-25-2024 End: 53-88-3113cqfnvitmolSFH RAMEYNot AvailableStart: 12-25-2024 End: 55-97-9690Dkpqyn flowsGualberto Anil PA Work Phone: [facility] [place] [facility]BGYNStart: 12-25-2024 End: 73-64-6454Iyxmmn flowslaChayito MASTERS Work Phone: [facility]BGYNStart: 12-25-2024 End: 14-44-7309Ilxorhksh Result EncounterChayito Anil MASTERS Work Phone: [facility] External Department UnsolicitedStart: 12-25-2024 End: 97-69-8514Sagiggn encounter procedureChayito Gardunosabrina MASTERS Work Phone: noms HealthcareStart: 12-25-2024 End: 71-57-3883Ctcmcoxo preventive med est patient 18-39 yrsChayito Anil MASTERS Work Phone: [facility] [place] OBGYNComment on above:Well woman exam with routine gynecological exam; Menorrhagia with regular cycleStart: 12-02-2024 End: 67-07-1939Qjvgyk Toro Brunner MD Work Phone: N[facility] CWM FMStart: 12-02-2024 End: 23-14-5208Dihzuxsalty Brunner MD Work Phone: [facility] CWM FMStart: 12-02-2024 End: 05-65-2507owligqewcrUIVC NADERERNot AvailableStart: 12-02-2024 End: 49-57-9795Jjaskx outpatient visit 25 minutesAnanth Brunner MD Work Phone: NOKZ CWM FMComment on above:Essential hypertension, benign (Primary Dx); Bilateral primary osteoarthritis of knee; ADD (attention deficit 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; Class 3 severe obesity due to excess calories with serious comorbidity and body mass index (BMI) of60.0 to 69.9 in adult ([facility]Start: 06-03-2024 End: 97-39-3294Rclwoosalty Brunner MD Work Phone: NO[facility] CWM FMStart: 06-03-2024 End: 86-58-1471Cidtyt Toro Brunner MD Work Phone: n[facility] CWM FMStart: 06-03-2024 End: 94-89-4344Youxzf outpatient visit 25 minutesAnanth Brunner MD Work Phone: noms CWM FMComment on above:ADD (attention deficit 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 (Primary Dx); Essential hypertension, benign (CMS/HCC); Bilateral primary osteoarthritis of knee; Class 3 severe obesity due to excess calories with serious comorbidity and body mass index (BMI) of50.0 to 59.9 in adult (CMS/HCC); SOB (shortness of breath) on exertionStart: 06-03-2024 End: 79-66-0776xpdgkiauzxEPRL NADERERNot AvailableStart: 05-24-2024 End: 32-98-3344Yauzspndw Result EncounterAnanth Brunner MD Work Phone: n[facility] External Department UnsolicitedStart: 05-24-2024 End: 06-72-6186Epofgefpx Result EncounterAnanth Brunner MD Work Phone: [facility] External Department UnsolicitedStart: 05-03-2024 End: 98-21-5902Ugjknv Toro Brunner MD Work Phone: n[facility] CWM FMStart: 05-03-2024 End: 41-68-7967Xsqvmv Toro Brunner MD Work Phone: NOXT CWM FMStart: 05-03-2024 End: 85-17-3951Ncmlsnr encounter procedureAnanth Brunner MD Work Phone: [facility] Work Phone: Start: 05-03-2024 End: 10-35-7643Oonqefuq preventive med est patient 18-39 yrsAnanth Brunner MD Work Phone: n[facility] CWM FMComment on above:Annual physical exam (Primary Dx); Essential hypertension, benign (CMS/HCC); ADD (attention deficit 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; Class 3 severe obesity due to excess calories with serious comorbidity and body mass index (BMI) of50.0 to 59.9 in adult ([facility])Start: 05-03-2024 End: 77-47-9952dwcsygpxwnCOIL NADERERNot AvailableStart: 09-04-5590rrnwshemkj Teagan Chen AniyaFacility:Behavioral HealthStart: 10-13-2023 End: 80-41-0488hqlzuyucjrRFACWLJ [facility] Hospitaltart: 09-29-2023 End: 56-13-1325hkfkhjmquxITTWNONOSF [facility] Hospitaltart: 09-08-2023 End: 07-56-9206ioobupwrfuHFUOAAQOSF [facility] Hospitaltart: 07-28-2023 End: 48-07-9704cbiqozhwmgTNIPTYSOSF [facility] Hospitaltart: 06-30-2023 End: 55-75-3841guxriqcztiZSHTLUGOSF HealthCare St[facility] Hospitaltart: 06-08-2023 End: 37-41-2130Jatwwq outpatient visit 15 minutesMar Kannan BAKER Work Phone: n[facility] CWM FMComment on above:Acute non-recurrent pansinusitis (Primary Dx); Acute bacterial conjunctivitis of both eyes; Morbid obesity due to excess calories [facility]Start: 06-09-2022 End: 64-40-5999ddqfllyamnDCA RAMEY .Facility:E6Tukxk: 04-07-2022 End: 87-80-5476ljkcjbuqaaRF MARC A NADERERFacility:H1 Procedures DateProcedureProcedure DetailPerforming ClinicianStart: 78-29-8193Isawf test visual color cmprsn methsCorey Alphonso DO Work Phone: Start: 20-40-9624XM PELVIS W/ TRANSVAGINALAmy Anil MASTERS Work Phone: Start: 75-41-6709AZS CBC WITH AUTO DIFFAmy Anil MASTERS Work Phone: Start: 72-66-6917NIO,APTIMA HPV,AGE GDLNAmy Anil PA Work Phone: Start: 78-11-4562Ubesblefcva observation [Identifier] in Cervix by Cyto stainChayito MASTERS Work Phone: Start: 26-91-5548IXU CBC WITH AUTO DIFFAnanth Brunner MD Work Phone: Start: 06-72-4126YDW HEMOGLOBIN C8CQhql Kannan BAKER Work Phone: Start: 06-09-2022 End: 74-00-0803Griynhaqawa observation [Identifier] in Cervix by Cyto stainChayito MASTERS Work Phone: Start: 74-35-4311Vwnz cerv/vag auto thin layer prep mnl screenChayito MASTERS Work Phone: Ligation of fallopian tubeCONCHITA CASTELLANOS Plan of Treatment DateCare ActivityDetailAuthorStart: 96-25-0612Lubqxdamn for malignant neoplasm of cervixNOMS HealthcareStart: 95-56-6240Zodtqjyab for malignant neoplasm of cervixNOMS HealthcareStart: 02-10-2025 End: 58-65-4622Ahqibub encounter xfypshowy29/13/2025 9:30 AM EDT Procedure Visit [facility] HEBERT [address] [place] [address] Molly Werner DO [address] [place] [address] [facility] BLUMGYGASTONtart: 02-10-2025 [facility]-2025 End: 00-95-6712Ijwuyhp encounter jyywcmshy00/11/2025 1:30 PM EDT Office Visit [facility] [address] [place] [address] Ananth Brunner MD [address] [place] [address] NOMYossi CAMACHO FMStart: 39-70-5226Ntzazsjpl vaccinationInfluenza Vaccine (#1)[facility] HealthcareStart: 12-25-2024 End: 81-75-8501uKGO in Blood by Coagulation assayAPTT Lab Routine Menorrhagia with regular cycle Expected: 12/25/2024 (Approximate), Expires: 12/25/2025[facility] HealthcareComment on above:Expected: 12/25/2024 (Approximate), Expires: 12/25/2025Start: 12-25-2024 End: 27-54-4009Drrkdid encounter zkrszdqof42/27/2025 2:00 PM EDT Procedure Visit JOYCE HEBERT [address] [place] [address] Chayito Roe PA [address] [facility] [facility] [address] [place], [place] [address] [facility] OBGYNStart: 12-25-2024 End: 81-79-7722GD PelvisUS Pelvis w/ TV Imaging Routine Menorrhagia with regular cycle Expected: 12/25/2024, Expires: 12/25/2025[facility] HealthcareComment on above: Expected: 12/25/2024, Expires: 12/25/2025Start: 12-12-2024 End: 98-62-4199Spwfcgr encounter ghcemipwt68/14/2025 9:40 AM EDT Office Visit JOYCE HEBERT [address] [place] [address] Molly Werner DO [address] [facility] [address] [place], [place] [address] NOMYossi [place] OBGYNStart: 12-02-2024 End: 88-89-0769Uyocquj encounter rhspgibix97/04/2025 9:00 AM EDT Office Visit NOMYossi CAMACHO [address] [place] [address] Ananth Brunner MD [address] [place] [address] NOMYossi CWHerb FMStart: 06-03-2024 End: 99-66-6944Cklkddt encounter procedureNOMS CWM FMComment on above:Arrived Start: 05-03-2024 End: 71-90-9670Ockjq metabolic 1998 panel - Serum or PlasmaBasic metabolic panel Lab Routine Annual physical exam Expected: 05/03/2024 (Approximate), Expires: 05/03/2025N[facility] HealthcareComment on above:Expected: 05/03/2024 (Approximate), Expires: 05/03/2025Start: 05-03-2024 End: 11-73-0098ROC W Auto Differential panel - BloodCBC and differential Lab Routine Annual physical exam Expected: 05/03/2024 (Approximate), Expires: 0 05/03/2025N[facility] HealthcareComment on above:Expected: 05/03/2024 (Approximate), Expires: 05/03/2025Start: 05-03-2024 End: 90-85-6368Nsxnkhrjfz A1c/Hemoglobin.total in BloodHemoglobin A1c Lab Routine Annual physical exam Expected: 05/03/2024 (Approximate), Expires: 05/03/2025[facility] Work Phone: Comment on above:Expected: 05/03/2024 (Approximate), Expires: 05/03/2025Start: 05-03-2024 End: 96-54-8321Sbninet function 1999 panel - Serum or PlasmaHepatic function panel Lab Routine Annual physical exam Expected: 05/03/2024 (Approximate), Expires: 05/03/2025[facility] HealthcareComment on above:Expected: 05/03/2024 (Approximate), Expires: 05/03/2025Start: 05-03-2024 End: 36-19-6028Muivn 1996 panel - Serum or PlasmaLipid panel Lab Routine Annual physical exam Expected: 05/03/2024 (Approximate), Expires: 05/03/2025[facility] HealthcareComment on above:Expected: 05/03/2024 (Approximate), Expires: 05/03/2025Start: 05-03-2024 End: 11-30-1791QYK W/REFLEX TO FT4TSH W/REFLEX TO FT4 Lab Routine Annual physical exam Expected: 05/03/2024 (Approximate), Expires: 05/03/2025[facility] HealthcareComment on above:Expected: 05/03/2024 (Approximate), Expires: 05/03/2025Start: 05-03-2024 End: 00-58-9811Jgtpzbn encounter jojfpggsg76/03/2025 9:45 AM EST Office Visit [facility] [address] [place] [address] Ananth Brunner MD [address] [place] [address] [facility]LONG [facility] FMComment on above:ArrivedStart: 84-95-9381Zkwuzzyas vaccinationInfluenza Vaccine (#1)[facility] HealthcareStart: 44-11-6968Pnrefvvkg vaccinationInfluenza Vaccine (#1)[facility] HealthcareStart: 50-12-9669Dcmdxrybs for malignant neoplasm of cervixNOHI HealthcareStart: 00-38-8839Fvwyizsew for malignant neoplasm of cervixPap SmearNOHI HealthcareCBC W Auto Differential panel - BloodCBC and differential Lab Routine Menorrhagia with regular cycle Ordered: 12/25/2024[facility] HealthcareComment on above:Ordered: 12/25/2024ytology Cervical or vaginal smear or scraping studyPap Smear Pathology and Cytology Routine Well woman exam with routine gynecological exam Ordered: 12/25/2024[facility] Healthcare Work Phone: comment on above:Ordered: 12/25/2024hCG, quantitative, pregnancyhCG, quantitative, Lab Routine Menorrhagia with regular cycle Ordered: 12/25/2024[facility] HealthcareComment on above:Ordered: 12/25/2024 Hemoglobin A1c/Hemoglobin.total in BloodHemoglobin A1c Lab Routine Menorrhagia with regular cycle Ordered: 12/25/2024[facility] HealthcareComment on above:Ordered: 12/25/2024Human papilloma virus DNA [Presence] in Unspecified specimen by Probe with amplificationHPV DNA probe, amplified Microbiology Routine Well woman exam with routine gynecological exam Ordered: 12/25/2024[facility] HealthcareComment on above:Ordered: 12/25/2024Prothrombin time (PT) in Blood by Coagulation assay Protime-INR Lab Routine Menorrhagia with regular cycle Ordered: 12/25/2024[facility] HealthcareComment on above:Ordered: 12/25/2024Thyrotropin [Units/volume] in Serum or PlasmaTSH Lab Routine Menorrhagia with regular cycle Ordered: 12/25/2024[facility] HealthcareComment on above:Ordered: 12/25/2024Thyroxine (T4) free [Mass/volume] in Serum or PlasmaT4, free Lab Routine Menorrhagia with regular cycle Ordered: 12/25/2024[facility] HealthcareComment on above:Ordered: 12/25/2024 Tissue examTissue exam Pathology and Cytology Routine Menorrhagia with regular cycle Ordered: 02/10/2025[facility] Work Phone: comment on above:Ordered: 02/10/2025 Immunizations Immunization DateImmunizationNotesCare RfolycraSitzhijj98-44-4044ycsbbadbb virus vaccine, unspecified formulationAnanth Brunner MD Work Phone: [facility] Payers DatePayer CategoryPayerPolicy [id number] Health [id number] [employer] [id number] 2022-Present [address] [place] [id number] 2023Medicaid2003 [id number] [id number] [id number] 2.16.840.1.916389.3.57[id number] 2.16.840.1.618140.3.57[id number] 2.16.840.1.483771.3.57[id number] 2.16.840.1.030734.3.57[id number] 2.16.840.1.491607.3.57[id number] 2.0.1.676474.3.57[id number] 2.840.1.345857.3.57[id number] 2..840.1.340123.3.57[id number] 2..0.1.226640.3.57[id number] 2..0.1.408866.3.57[id number] 2.0.1.631934.3.57[id number] 2.840.1.747120.3.57[id number] 2.0.1.661754.3.579.2.51154-45-6711Zsrrhxq59718875838633-92-5155Xbcscet [id number] /[id number]-67o4-0da4-579zj7h2t0q3 [id number] 2.16.840.1.933316.3.579.2.531 Social History DateTypeDetailFacilityStart: 05-04-2023 End: 71-65-1067Kvpedpi smoking status NHISEx-smokerNOMS HealthcareHistory of tobacco useCurrent smokerNOMS HealthcareHistory of tobacco useCigarette Smoker [facility] HealthcareStart: 96-51-6136Wkgzxbe use and exposureSmokeless tobacco non-userNOMS HealthcareStart: 06-08-2023 End: 19-86-2565Nrqbith intakeLifetime non-drinker (finding)[facility] HealthcareStart: 04-14-2023 End: 08-77-3722Ctrygyh of Social functionNOMS HealthcareStart: 04-14-2023 End: 59-09-0166Uxcksilbbrg, Afraid, Rape, and Kick questionnaire [HARK][facility] HealthcareWithin [...] buy more. Sometimes trueNOMS HealthcareStart: 07-13-2022 End: 88-82-6578Dt the past 12 months, has lack of transportation kept you from medical appointments or from getting medications?NoNOMS HealthcareAt any time in the past 12 months, were you homeless or [place] [facility] [including now]?Yes [facility] HealthcareStart: 21-73-3036Owmnhkv CommentLast smoked : 5-10 yearsNOHI HealthcareStart: 33-22-6301Silqdxa CommentCaffine intake: 1-2 cups per dayAMERICAN FORK HOSPITAL HealthcareStart: 44-32-4154Zvz Assigned At BirthNot on fileAMERICAN FORK HOSPITAL HealthcareThe food that (I/we) bought just didn't last, and (I/we) didn't have money to get more.Often trueNOMS HealthcareSexFemale (finding)[facility] Centertart: 25-55-3848Fdr Assigned At [facility] HospitalFeDayton Children's Hospitalexual OrientationExecutive Urology of [facility] [place] Clinical Notes 06-08-2023 to 02-14-2025 Note Date & [id number] Hospital Discharge instructions Patient Education 02/14/2025 14:29:16 [...] (electrical nerve stimulation). ?For women, using a pesticide use medical coordinator to prevent urine leaks. This is a [...] right after experiencing incontinence. General instructions Take lnmp-qnn-tseordx and prescription medicines only as told by [...] important. Where to find more information [employer] [place] of [employer] and Digestive and Kidney Diseases: www.niddk.nih.gov [employer]: www.urologyhealth.org Contact a health care [...] provider. Document Revised: 11/20/2020 Document Reviewed: 11/20/2020 [employer] Patient Education 2023 Sunglass. Follow Up Care 02/06/2025 11:08:00 With:JASMIN BAKER, CONCHITA, URL Address: When: Unknown Comments:3 mos w/ voiding diary [facility] 10-17-2025 NotePatient Education Urology Urinary Incontinence [...] nerve stimulation). ? For women, using a pesticide use medical coordinator to prevent urine leaks. This is a [...] your health care provider (more content not included)...[facility] 02-10-2025 History of Present illness Narrative* Judith Castellano - 02/10/2025 9:30 AM EDT Reason for Appointment: Patient ID: Emelyn Shipman is a 34 y.o. female who presents for Pre-op Visit and embx Patient presents today for Pre Op/Endometrial Biopsy appointment. Patient is scheduled to undergo Endometrial Ablation with Roxana on 02/21/[address] Werner at [facility]. 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 05/03/2024 SOB (shortness of breath) on exertion 06/03/2024 Resolved Ambulatory Problems Diagnosis Date Noted Acute non-recurrent pansinusitis 06/08/2023 Acute bacterial conjunctivitis of both eyes 06/08/2023 Past Medical History: Diagnosis Date Benign essential hypertension Headache Hx of being hospitalized 2012 Hx of being hospitalized 2011 Morbid obesity ([facility]) (normal spontaneous vaginal delivery) ([facility]) 2011 PCOS (polycystic ovarian syndrome) Primary osteoarthritis of right knee URI, acute HISTORY PAST MEDICAL HISTORY SOCIAL HISTORY Past Medical History: Diagnosis Date Benign essential hypertension Headache Hx of being hospitalized 2012 dehydration Hx of being hospitalized 2011 hypertension due to Morbid obesity ([facility]) (normal spontaneous vaginal delivery) ([facility]) 2011 PCOS (polycystic ovarian syndrome) Primary osteoarthritis [...] nursing note reviewed. Exam conducted with a apple turner present. Vitals: Estimated body mass index is [...] Roxana on 02/21/2025. [facility] cons[facility] to proceed to [facility] OR. Follow Up: Patient is to follow up between 1-2 weeks post op to assess proper healing and recovery from procedure. Documented by Pina Patel LPN on behalf of: Molly Werner DO documented in this encounterCox [id number] Evaluation note* Diagnosis Onset Date Resolution Status Admit Date ADD (attention deficit 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 acuteSeptember 2024 1:42pmBenign essential hypertensionacuteSeptember 2024 1:42pmBilateral primary osteoarthritis of kneeacuteSeptember 2024 1:42pmClass 3 severe obesity due to excess calories with serious comorbidity andacuteSeptember 2024 1:42pm [facility] Work Phone: [phone] 890-838608-27-2025 History of Present illness Narrative* SONAM Hernandez [...] index (BMI) of60.0 to 69.9 in adult ([facility]) 06/08/2023 Annual physical exam 05/03/2024 ADD (attention deficit 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 05/03/2024 SOB (shortness of breath) on exertion 06/03/2024 Resolved Ambulatory Problems Diagnosis Date Noted Acute non-recurrent pansinusitis 06/08/2023 Acute bacterial conjunctivitis of both eyes 06/08/2023 Past Medical History: Diagnosis Date Benign essential hypertension Headache Hx of being hospitalized 2012 Hx of being hospitalized 2011 Morbid obesity ([facility]) (normal spontaneous vaginal delivery) ([facility]) 2011 PCOS (polycystic ovarian syndrome) Primary osteoarthritis of right knee URI, acute HISTORY PAST MEDICAL HISTORY SOCIAL HISTORY Past Medical History: Diagnosis Date Benign essential hypertension Headache Hx of being hospitalized 2012 dehydration Hx of being hospitalized 2011 hypertension due to Morbid obesity ([facility]) (normal spontaneous vaginal delivery) ([facility]) 2011 PCOS (polycystic ovarian syndrome) Primary osteoarthritis [...] nursing note reviewed. Exam conducted with a apple turner present. Vitals: Estimated body mass index is [...] behalf of: SONAM Hernandez documented in this encounterCox [id number] History of Present illness Narrative* Ananth Brunner MD - 12/02/2024 1:56 PM EDTAssociated Problem(s): Essential hypertension, benign BP normal and monitor PRN. * Ananth Brunner MD - 12/02/2024 1:56 PM EDTAssociated Problem(s): Class 3 severe obesity due to excess calories with serious comorbidity and body mass index (BMI) of 60.0 to 69.9 in adult ([facility]) Patient overweight and difficult time losing [...] index (BMI) of60.0 to 69.9 in adult ([facility]) Patient overweight and difficult time losing [...] continue at current dose. documented in this encounterCox [id number] History of Present illness Narrative* Ananth Brunner [...] HFA 90 mcg/act inhaler documented in this encounterCox [id number] History of Present illness Narrative* Ananth Brunner MD - 05/03/2024 10:33 AM ESTAssociated Problem(s): Essential hypertension, benign ([facility]) BP normal and monitor PRN. * Ananth Brunner MD - 05/03/2024 10:33 AM ESTAssociated Problem(s): Class 3 severe obesity due to excess calories with serious comorbidity and body mass index (BMI) of 50.0 to 59.9 in adult ([facility]) Weight loss indicated. * Ananth Brunner [...] (Strattera) 40 MG capsule documented in this encounterCox [id number] History of Present illness Narrative* Ananth Brunner [...] 0.3 % ophthalmic solution documented in this encounterAMERICAN [facility] HealthcareEvaluation + Plan note Future Appointments Appointment Date:05/16/2025 10:45:00 AM Scheduled Provider:CONCHITA CASTELLANOS MD Location:[facility] Appointment Type:URO Office Visit [facility] Evaluation note* Diagnosis Acute non-recurrent pansinusitis- Primary Acute bacterial conjunctivitis of both eyes Morbid obesity due to excess calories ([facility]) documented in this encounter [facility] HealthcareEvaluation note* Diagnosis Annual physical exam- Primary Routine general medical examination at a health care facility Essential hypertension, benign ([facility]) Essential hypertension, benign 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 Class 3 severe obesity due to excess calories with serious comorbidity and body mass index (BMI) of50.0 to 59.9 in adult ([facility]) documented in this encounter [facility] HealthcareEvaluation note* Diagnosis Annual physical exam- Primary Routine general medical examination at a health care facility Essential hypertension, benign ([facility]) Essential hypertension, benign 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 Class 3 severe obesity due to excess calories with serious comorbidity and body mass index (BMI) of50.0 to 59.9 in adult ([facility]) ADD (attention deficit 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- Primary Attention deficit disorder 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 Essential hypertension, benign (CMS/HCC) Essential hypertension, benign Bilateral primary osteoarthritis of knee Class 3 severe obesity due to excess calories with serious comorbidity and body mass index (BMI) of50.0 to 59.9 in adult ([facility]) SOB (shortness of breath) on exertion Shortness of breath documented in this encounter [facility] HealthcareEvaluation note* Diagnosis Annual physical exam- Primary Routine general medical examination at a health care facility Essential hypertension, benign Essential hypertension, benign 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 Class 3 severe obesity due to excess calories with serious comorbidity and body mass index (BMI) of50.0 to 59.9 in adult ([facility]) ADD (attention deficit 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- Primary Attention deficit disorder 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 Essential hypertension, benign Essential hypertension, benign Bilateral primary osteoarthritis of knee Class 3 severe obesity due to excess calories with serious comorbidity and body mass index (BMI) of50.0 to 59.9 in adult ([facility]) SOB (shortness of breath) on exertion Shortness of breath Essential hypertension, benign- Primary Essential hypertension, benign Bilateral primary osteoarthritis of knee 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 Class 3 severe obesity due to excess calories with serious comorbidity and body mass index (BMI) of60.0 to 69.9 in adult ([facility]) documented in this encounter [facility] HealthcareEvaluation note* Diagnosis Annual physical exam- Primary Routine general medical examination at a health care facility Essential hypertension, benign Essential hypertension, benign 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 Class 3 severe obesity due to excess calories with serious comorbidity and body mass index (BMI) of50.0 to 59.9 in adult ([facility]) ADD (attention deficit 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- Primary Attention deficit disorder 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 Essential hypertension, benign Essential hypertension, benign Bilateral primary osteoarthritis of knee Class 3 severe obesity due to excess calories with serious comorbidity and body mass index (BMI) of50.0 to 59.9 in adult ([facility]) SOB (shortness of breath) on exertion Shortness of breath Essential hypertension, benign- Primary Essential hypertension, benign Bilateral primary osteoarthritis of knee 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 Class 3 severe obesity due to excess calories with serious comorbidity and body mass index (BMI) of60.0 to 69.9 in adult ([facility]) Well woman exam with routine gynecological exam Routine gynecological examination Menorrhagia with regular cycle documented in this encounter [facility] HealthcareEvaluation noteNo assessment information availablePremier Health [facility] Work Phone: Evaluation note* Diagnosis Annual physical exam- Primary Routine general medical examination at a health care facility Essential hypertension, benign 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 Class 3 severe obesity due to excess calories with serious comorbidity and body mass index (BMI) of50.0 to 59.9 in adult ([facility]) ADD (attention deficit 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- Primary Attention deficit disorder 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 Essential hypertension, benign Bilateral primary osteoarthritis of knee Class 3 severe obesity due to excess calories with serious comorbidity and body mass index (BMI) of50.0 to 59.9 in adult ([facility]) SOB (shortness of breath) on exertion Shortness of breath Essential hypertension, benign- Primary Bilateral primary osteoarthritis of knee 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 Class 3 severe obesity due to excess calories with serious comorbidity and body mass index (BMI) of60.0 to 69.9 in adult ([facility]) Pre-op examination Menorrhagia with regular cycle Pelvic pain in female Unspecified symptom associated with female genital organs Abnormal uterine bleeding Unspecified disorder of menstruation and other abnormal bleeding from female genital tract Request for sterilization documented in this encounter [facility] Narrative No data available for this section [facility] Progress note No data available for this section [facility] Reason for referral (narrative)No reason for referral information availablePremier Health [facility] Work Phone: Summary Purpose Family [...] and content) DATE CREATED AUTHOR 07/14/2022 [facility] DATE CREATED AUTHOR AUTHOR'S ORGANIZ ATION 10/15/2023 [facility] DATE CREATED AUTHOR AUTHOR'S ORGANIZ ATION 02/11/2025 [facility] EPIC DATE CREATED AUTHOR AUTHOR'S ORGANIZ ATION 02/13/2025 [facility] DATE CREATED AUTHOR AUTHOR'S ORGANIZ ATION 02/16/2025 [facility] Reason for Visit (unrecogniz ed section and content) ReasonCommentsEye DrainageCoughReasonCommentsAnnual ExamWELLNESSReasonComments Follow-up1 mReasonCommentsFollow-up6m Weight loss optionsKnee PainReasonComments Well Women VisitReasonCommentsPre-op Visitembx Care Teams (unrecognized sec tion and content) Team MemberRelationshipSpecialtyStart DateEnd Date Ananth Brunner MD [address] [place] [address] PCP - Generalmily Medicine06/08/23Team MemberRelationshipSpecialtyStart DateEnd Date Ananth Brunner MD [address] [place] [phone] [facility]06/08/23 Ananth Brunenr MD [address] [place] [address] PCP - Medical [employer]12/13/2311Team MemberRelationshipSpecialty Start DateEnd Date Aannth Brunner MD [address] [place] [address] PCP - Generalmi Medicine06/08/23 Ananth Brunner MD [address] [place] [address] PCP - [facility]12/13/2311Team MemberRelationshipSpecialty Start DateEnd Date Ananth Brunner MD [address] [place] [address] PCP - [facility]06/08/23 Ananth Brunner MD [address] [place] [address] [facility] - [facility]12/13/2311Team MemberRelationshipSpecialty Start DateEnd Date Ananth Brunner MD [address] [place] [address] [facility] - [facility]06/08/23 Ananth Brunner MD [address] [place] [address] [facility] - [facility]12/13/2311Team MemberRelationshipSpecialty Start DateEnd Date Ananth Brunner MD [address] [place] [address] PCP - [facility]06/08/23 Ananth Brunner MD [address] [place] [address] PCP - [facility]12/13/2311Team MemberRelationshipSpecialty Start DateEnd Date Ananth Brunner MD [address] [place] [address] PCP - [facility]06/08/23 Ananth Brunner MD [address] [place] [address] PCP - Medical [facility]12/13/2311Team MemberRelationshipSpecialty Start DateEnd Date Ananth Brunner MD [address] [place] [address] [facility] - [facility]06/08/23 Ananth Brunner MD [address] [place] [address] PCP - [facility]12/13/2311Team MemberRelationshipSpecialty Start DateEnd Date Ananth Brunner MD [address] [place] [address] [facility] - [facility]06/08/23 Ananth Brunner MD [address] [place] [address] PCP - [facility]12/13/2311Team MemberRelationshipSpecialty Start DateEnd Date Ananth Brunner MD [address] [place] [address] PCP - [facility]06/08/23 Ananth Brunner MD [address] [place] [address] PCP - [facility]12/13/2311Team MemberRelationshipSpecialty Start DateEnd Date Ananth Brunner MD [address] [place] [address] PCP - [facility]06/08/23 Ananth Brunner MD [address] [place] [address] PCP - [facility]12/13/2311Team MemberRelationshipSpecialty Start DateEnd Date Ananth Brunner MD PCP - [facility]06/08/23 Ananth Brunner MD [address] [place] [address] [facility] - [facility]12/13/2311 Team Status: Active Member Role Status Dates Ananth Brunner MD Primary Care Provider Active Team Status: Active Member Role Status Dates Chayito Roe PA-C Attending Provider Active Start : December 25, 2024 Team Status: Inactive Member Role Status Dates Ananth Brunner MD Primary Care Provider Active S tart: January 09, 2025 End: January 09, 2025[facility] SWATI Brunnerttending ProviderActiveStart: January 09, 2025 End: January 09, 2025Team MemberRelationshipSpecialtyStart DateEnd Date Ananth Brunner MD PCP - [facility]06/08/23 Ananth Brunner MD [address] [place] [address] PCP - Medical [employer]12/12 Team Status: Inactive Member Role Status [...] BE BASED ON THE PRIMARY CLINICAL RECORDS. [facility] [employer] provides no warranty or guarantee of the accuracy or completeness of information in this document.
[2025-02-21 09:00] VITALS: BP 127/78; PULSE 82; TEMP 36.2; O2SAT 99; BMI 59.6
[2025-02-21 09:05] LABS: Hematocrit 40.1 % (36.0-48.0); Hemoglobin 12.8 g/dL (12.0-16.0); Immature Granulocytes Abs Auto 0.07 10^3/uL (0.00-0.03); Immature Granulocytes Pct Auto 0.8 % (0.0-0.5); Lymphocytes Absolute Auto 2.4 10^3/uL (1.2-3.8); Mean Corpuscular HGB Conc 31.9 g/dL (29.9-35.2); Mean Corpuscular Hemoglobin 26.5 pg (26.7-34.0); Mean Corpuscular Volume 83.0 fL (81.0-99.0); Platelet Count 419 10^3/uL (150-450); Red Blood Count 4.83 10^6/uL (4.20-5.40); White Blood Count 9.0 10^3/uL (4.0-11.0)
--- NOTE | 2025-02-21 11:21 | PM.ONB ---
Brief Operative Note Date of procedure: 02/21/25 Pre-op diagnosis general: menorrhagia Post-op diagnosis: same as pre-op Procedure: NAME OF PROCEDURE: [ ] Roxana endometrial ablation with hysteroscopy. PROCEDURE: The patient was taken back to the OR where she was prepped and draped in the normal sterile fashion after being placed in the dorsal lithotomy position, after being placed under general anesthesia without difficulty.? A weighted speculum was placed into the vagina. The anterior lip was grasped with a single tooth tenaculum. The patient was then sounded to approximated 8cm. The patient?s cervix was gently dilated using hegardilators. The hysteroscope was passed through the cervix into the uterus where both ostia were seen. No gross evidence of polyps, fibroids or malignancy. The cervical length was noted to be 4 cm. The total cavity length is 4cm.? The Roxana ablation apparatus was set to approximately 4cm in length. This was placed through the cervix and into the uterus. After the seal was tested, at that time the total ablation of 120 seconds was performed with the Roxana withoutdifficulty. All instruments were removed from the vagina. Excellent hemostasis noted.? Sponge and lap count correct times 2.? Patient taken to recovery in stable condition. Anesthesia: MAC Surgeon: Cristóbal Werner Estimated blood loss (mL): 5 Pathology: none sent Condition: stable Disposition: PACU Urinary Catheter Management Urinary Catheter Management Urethral: Cath placed during this visit: no
[2025-02-21 11:47] VITALS: BP 146/83; PULSE 116; TEMP 36.2; O2SAT 98
[2025-02-21 12:02] VITALS: BP 151/91; PULSE 96; O2SAT 100
[2025-02-21] MEDS: KETOROLAC TROMETHAMINE 30 MG/ML VIAL IVP (12:07)
[2025-02-21 12:17] VITALS: BP 146/90; PULSE 92; O2SAT 100
--- NOTE | 2025-02-21 12:21 | PC.NURSE ---
1220: pt ambulates to bathroom,voids without difficulty. urine clear,yellow.
[2025-02-21 12:45] VITALS: BP 148/84; PULSE 94; O2SAT 100
== END 2025-02-21 12:50 | disposition home or self-care (01) ==
PROVIDERS: PCP Family Medicine; Visit Provider Obstetrics & Gynecology
PROC: (CPT 952; principal; 2025-02-21 10:15)
DX: N92.0 Excessive and frequent menstruation with regular cycle (principal); N93.9 Abnormal uterine and vaginal bleeding, unspecified; Z87.891 Personal history of nicotine dependence; Z98.51 Tubal ligation status; I10 Essential (primary) hypertension; M54.50 Low back pain, unspecified; E28.2 Polycystic ovarian syndrome; F41.9 Anxiety disorder, unspecified; F32.A Depression, unspecified; F43.10 Post-traumatic stress disorder, unspecified
CPT/HCPCS: 58563; 36415; 82948; 84702; 85025; J1885; J2704; J3010